=== PATIENT | male | born 1985 | race Caucasian/White ===

== ENCOUNTER 2017-12-09 17:21 | Emergency (ER) | payer MEDICARE, SELFPAY ==
[2017-12-09 17:23] VITALS: BP 176/83; PULSE 98; RESP 16; TEMP 37; O2SAT 98; BMI 37.9
--- NOTE | 2017-12-09 17:35 | EKG12_ITS ---
Test Reason : LIGHTHEADED Blood Pressure : / mmHG Vent. Rate : 085 BPM Atrial Rate : 085 BPM P-R Int : 134 ms QRS Dur : 076 ms QT Int : 326 ms P-R-T Axes : 019 020 015 degrees QTc Int : 387 ms Normal sinus rhythm Normal ECG Confirmed by UDAY HUBER ([id number]), newspaper or periodical editor VITOR MORENO ([id number]) on 12/11/2017 2:17:51 PM Referred By: CALEB Confirmed By:UDAY HUBER
--- NOTE | 2017-12-09 17:38 | ED.VISSUMM ---
- ER Visit Summary Date of Service: 12/09/17 Chief Complaint: Near syncope History of Present Illness: The patient is a 32 M history of hypertension, COPD depression and sleep apnea. Patient states he had a gradual onset of near syncope today. He did not pass out. He does have a mild headache thinks that secondary to his blood pressure. States he has been taking blood pressure medication. Denies any head trauma. No family history of intracranial bleeds or aneurysms. He denies any trouble moving his arms or legs nor any numbness or weakness. Denies any nausea, vomiting, diarrhea or fever. No recent chest pain or shortness of breath. Physical Examination: Well appearing young male. Vital signs are stable afebrile blood pressure 176/83. Pulse is 90% room air no signs of hypoxia. H EENT exam atraumatic pupils round reactive light. No facial droop. Normal speech. Neck nontender no meningismus able to touch chin to chest. No lymphadenopathy. Lungs clear to auscultation bilaterally. Heart regular rate and rhythm no murmur. Abdomen soft nontender nondistended no giving or masses. Extremities moves all 4. Calves nontender no edema no cords neurologic exam is normal NIH is 0. Fingertip to nose heel wild within normal limits. 5 out of 5 home health provider strength equal and symmetrical. Equal symmetrical radial pulse. Dorsi plantar flexion intact. [id number] within normal limits. No facial droop. Normal speech. He has no focal motor or sensory deficits. Back exam normal. Test Results: CBC showed white count 13.8 H&H 16 and 49. BMP normal. EKG sinus rhythm rate 85 no acute abnormality. No change from prior. Orthostatic vital signs were negative. Patient was ambulated by nursing staff no problems walking or any ataxia. Repeat exam in 194 is doing well. Headache has resolved. His neurologic exam and other exam remains normal. Emergency Department Course and Treatment: Patient complained near syncope with a normal exam. Will undergo screening labs and EKG be ambulated and orthostatic vital signs be obtained Treatment Plan: Discharged to home. Follow-up his primary care physician. Disposition: Discharge Impression: Acute near syncope of uncertain etiology This note was generated with [employer] dictation software. It may contain incorrect words, spelling, and punctuation that were not noted in review of the chart prior to signing ED Disposition - Plan for ED Patient: Chief Complaint: Dizziness Referrals: Care Physician,No Primary [NON-STAFF] -
--- NOTE | 2017-12-09 17:41 | ED.DCSUM_ITS ---
- ER Visit Summary Date of Service: 12/09/17 Chief Complaint: Near syncope History of Present Illness: The patient is a 32 M history of hypertension, COPD depression and sleep apnea. Patient states he had a gradual onset of near syncope today. He did not pass out. He does have a mild headache thinks that secondary to his blood pressure. States he has been taking blood pressure medication. Denies any head trauma. No family history of intracranial bleeds or aneurysms. He denies any trouble moving his arms or legs nor any numbness or weakness. Denies any nausea, vomiting, diarrhea or fever. No recent chest pain or shortness of breath. Physical Examination: Well appearing young male. Vital signs are stable afebrile blood pressure 176/83. Pulse is 90% room air no signs of hypoxia. H EENT exam atraumatic pupils round reactive light. No facial droop. Normal speech. Neck nontender no meningismus able to touch chin to chest. No lymphadenopathy. Lungs clear to auscultation bilaterally. Heart regular rate and rhythm no murmur. Abdomen soft nontender nondistended no giving or masses. Extremities moves all 4. Calves nontender no edema no cords neurologic exam is normal NIH is 0. Fingertip to nose heel wild within normal limits. 5 out of 5 irb compliance coordinator strength equal and symmetrical. Equal symmetrical radial pulse. Dorsi plantar flexion intact. [id number]-ul-[id number] within normal limits. No facial droop. Normal speech. He has no focal motor or sensory deficits. Back exam normal. Test Results: CBC showed white count 13.8 H&H 16 and 49. BMP normal. EKG sinus rhythm rate 85 no acute abnormality. No change from prior. Orthostatic vital signs were negative. Patient was ambulated by nursing staff no problems walking or any ataxia. Repeat exam in 194 is doing well. Headache has resolved. His neurologic exam and other exam remains normal. Emergency Department Course and Treatment: Patient complained near syncope with a normal exam. Will undergo screening labs and EKG be ambulated and orthostatic vital signs be obtained Treatment Plan: Discharged to home. Follow-up his primary care physician. Disposition: Discharge Impression: Acute near syncope of uncertain etiology This note was generated with [employer] dictation software. It may contain incorrect words, spelling, and punctuation that were not noted in review of the chart prior to signing ED Disposition - Plan for ED Patient: Chief Complaint: Dizziness Referrals: Care Physician,No Primary [NON-STAFF] -
[2017-12-09 18:05] VITALS: BP 120/62; BP 122/71; BP 126/88; PULSE 79; PULSE 84; PULSE 87
[2017-12-09 18:10] VITALS: O2SAT 98
[2017-12-09 18:13] LABS: Absolute Lymphocyte Count 3.23 X10^3/ul (0.83-4.51); Absolute Neutrophil Count 8.5 X10^3/uL (2.0-7.7); Basophil# 0.03 X10^3/uL; Basophil% 0.2 % (0-1); Eosinophils% 2.9 % (0-5); Hematocrit 49.3 % (40-54); Hemoglobin 16.9 g/dl (13.0-16.5); Lymphocyte # 3.23 X10^3/ul (4.0); Lymphocyte % 23.3 % (19-41); Mean Corp Hgb Conc 34.3 g/gl (32-36); Mean Corpuscular Hgb 30.2 pg (27.0-32.0); Mean Platelet Vol. 10.3 fl (6.2-12.0); Monocyte# 1.63 X10^3/uL; Monocyte% 11.8 % (0-10); Neutrophil # 8.53 X10^3/uL (2.7-7.7); Neutrophil % 61.7 % (47-70); Platelet Count 364 K/mm3 (150-450); RBC Distribution Width CV 12.9 % (11.6-14.6); RBC Distribution Width SD 41.8 fl (35.1-43.9); White Blood Count 13.8 K/mm3 (4.4-11.0)
[2017-12-09 18:14] LABS: Differential Indicated SCAN CRITERIA MET; POSITIVE COUNT NO; POSITIVE DIFFERENTIAL YES; POSITIVE MORPHOLOGY NO
[2017-12-09] MEDS: Acetaminophen 500 MG Tablet 1000 MG PO (18:24)
[2017-12-09 18:26] LABS: Anion Gap 9 (5-15); BUN 6 mg/dL (7-18); BUN/Creat Ratio 7.4 RATIO (10-20); Calcium,Total 8.8 mg/dL (8.5-10.1); Chloride 103 mmol/L (98-107); Creatinine, Serum 0.81 mg/dL (0.70-1.30); EST Glomerular Filtration Rate 116 mL/min (>60); Est Glom Filt Rate - Afr Amer 141 mL/min (>60); Estimated Creatinine Clearance 103.42 ml/min; Glucose 83 mg/dL (74-106); Potassium 4.1 mmol/L (3.5-5.1); Sodium Level 139 mmol/L (136-145)
[2017-12-09 18:32] LABS: Differential Comment SCANNED
[2017-12-09 19:30] VITALS: BP 127/85
[2017-12-09 19:49] VITALS: BP 117/54; PULSE 82; RESP 16; O2SAT 98
--- NOTE | 2017-12-09 20:14 | ED.DEP ---
ED Disposition - Plan for ED Patient: Disposition: Home or Assisted Living Chief Complaint: Dizziness Instructions: ED Near Syncope Unkn Referrals: Care Physician,No Primary [NON-STAFF] - As Needed
== END 2017-12-09 20:23 | disposition home or self-care (01) ==
PROVIDERS: Emergency Provider Emergency Medicine
DX: R55 Syncope and collapse (principal); I10 Essential (primary) hypertension; J44.9 Chronic obstructive pulmonary disease, unspecified; F32.9 Major depressive disorder, single episode, unspecified; G47.30 Sleep apnea, unspecified; F17.200 Nicotine dependence, unspecified, uncomplicated; Z98.52 Vasectomy status; Z79.899 Other long term (current) drug therapy
CPT/HCPCS: 80048; 85025; 93005; 99285

== ENCOUNTER 2018-03-14 11:36 | Emergency (ER) | payer MEDICARE, SELFPAY ==
[2018-03-14 11:37] VITALS: BP 139/69; BP 142/87; PULSE 79; PULSE 86; RESP 18; RESP 19; TEMP 37.1; O2SAT 99; BMI 36.1
--- NOTE | 2018-03-14 12:44 | RAD_ITS ---
STUDY: X-RAY - LEFT KNEE REASON FOR EXAM: Male, 32 years old. Knee pain. TECHNIQUE: 4 view(s) of the knee. COMPARISON: None. FINDINGS: Normal visualized distal femur. Normal visualized proximal tibia and fibula. Normal proximal tibiofibular articulation. Normal medial femorotibial compartment. Normal lateral femorotibial compartment. Normal patellofemoral articulation. The soft tissue structures are unremarkable. RAD/Knee 4 or More Views IMPRESSION: No evidence of acute osseous abnormality. Electronically Signed: Brenden Alexis DO at 13:12 EDT , Service support ,
--- NOTE | 2018-03-14 12:45 | ED.VISSUMM ---
- ER Visit Summary Date of Service: 03/14/18 Chief Complaint: Knee injury History of Present Illness: The patient is a 32 M who fell onto his left knee after his sandal slipped and he fell directly onto the knee onto hardwood floors. He is able to ambulate. Physical Examination: Afebrile vital signs are stable There is a abrasion over the anterior left knee. There is no joint effusion. There is no significant hematoma or swelling. Ligament are stable. Test Results: X-rays were negative. Emergency Department Course and Treatment: She received Motrin and ice pack. Patient will be discharged home with supportive care. Follow-up with primary care if not improved in 14 days Impression: 1. Left knee abrasion and contusion This note was generated with [employer] dictation software. It may contain incorrect words, spelling, and punctuation that were not noted in review of the chart prior to signing ED Disposition - Plan for ED Patient: Disposition: Home or Assisted Living Chief Complaint: Lower Extremity Injury Instructions: ED Contusion Lower Ext Referrals: [facility] Doctor,Out of [Primary Care Provider] - 10-14 Days if not better
[2018-03-14] MEDS: Ibuprofen 600 MG Tablet PO (13:50)
== END 2018-03-14 13:56 | disposition home or self-care (01) ==
PROVIDERS: Emergency Provider Emergency Medicine
DX: S80.212A Abrasion, left knee, initial encounter (principal); S80.02XA Contusion of left knee, initial encounter; W19.XXXA Unspecified fall, initial encounter; Y93.9 Activity, unspecified; Y92.9 Unspecified place or not applicable; J44.9 Chronic obstructive pulmonary disease, unspecified; G40.909 Epilepsy, unspecified, not intractable, without status epilepticus; Z79.899 Other long term (current) drug therapy
CPT/HCPCS: 73564; 99282

== ENCOUNTER 2018-03-17 22:42 | Emergency (ER) | payer MEDICARE, SELFPAY ==
[2018-03-17 22:43] VITALS: BP 162/96; PULSE 105; RESP 25; TEMP 37.2; O2SAT 99; BMI 35.4
--- NOTE | 2018-03-17 22:46 | EKG12_ITS ---
Test Reason : CP Blood Pressure : / mmHG Vent. Rate : 093 BPM Atrial Rate : 093 BPM P-R Int : 142 ms QRS Dur : 076 ms QT Int : 308 ms P-R-T Axes : 019 019 012 degrees QTc Int : 382 ms Normal sinus rhythm Poor R wave progression Confirmed by JACKIE BRASWELL, SHANA ([id number]), newspaper photo editor VITOR MORENO ([id number]) on 03/20/2018 1:20:51 PM Referred By: SATISH Confirmed By:SHANA MEJIA MD
[2018-03-17 22:50] VITALS: O2SAT 99
--- NOTE | 2018-03-17 22:50 | RAD_ITS ---
STUDY: X-RAY CHEST REASON FOR EXAM: Male, 32 years old. Gallbladder surgery. Chest pain TECHNIQUE: Single view of the chest was obtained COMPARISON: August 08, 2010 chest radiograph FINDINGS: No lung consolidation, pleural effusion or pneumothorax. Cardiac size is mildly prominent. Osseous structures demonstrate no acute abnormalities. IMPRESSION: No evidence for focal airspace disease. Electronically Signed: Newton Mensah, at 23:16 EDT Tel , Service support , RAD/Chest 1 View (Portable)
--- NOTE | 2018-03-17 22:50 | ED.DCSUM_ITS ---
- ER Visit Summary Date of Service: 03/17/18 Chief Complaint: Chest pain History of Present Illness: The patient is a 32 M presents to the emergency department chest pain. Patient had outpatient laparoscopic gallbladder removal done today at [facility]. He states that his surgery was not complicated. He was discharged back to his facility. At about 7 PM, he began to have tightness like a band across his upper abdomen and lower chest. He states it was worse when he would lay flat. He states it is better when he sits up. He denies any shortness of breath. He denies any cough. He denies any fevers or chills. His blood pressure was elevated at 160/90. He did take his pain medication and his blood pressure did not change but it did help his pain. He denies any history of coronary vascular disease. He denies any history of pulmonary embolus. Physical Examination: Vital signs reviewed General: Well-nourished, well-developed Head: Normocephalic, atraumatic Eyes: Pupils equal and reactive, extraocular muscles intact Neck, supple, no lymphadenopathy Heart: Regular rate and rhythm Respiratory: No distress, clear bilaterally Abdomen: Soft, appropriately tender at incisions, incisions are clean dry and intact, minimal distention, no peritoneal signs Back: Nontender Extremities: Nontender, no edema, no cords Skin: Normal color no rash Neuro: Alert and oriented, no focal or lateralizing deficits Test Results: [] Emergency Department Course and Treatment: Clinically, the patient's pain is consistent with retained CO2 after laparoscopic surgery. It is entirely positional. EKG was obtained. It was sinus rhythm without acute ischemic change. It was unchanged from prior. The patient has no dyspnea. He has no hypoxia. His surgery was 12 hours ago. I do not feel that his symptoms are consistent with pulmonary embolus. X-ray was unremarkable. Screening labs do show leukocytosis, but again the patient did have a large abdominal surgery and I do feel that this is reactive. I have no evidence of infection. His abdomen really is not significantly tender. I do not suspect biliary leak or other dangerous process. With analgesics, the patient is resting comfortably. He was counseled on retained CO2 and methods to improve his comfort. The patient will be discharged. Treatment Plan: [] Disposition: Discharge Impression: 1. Postoperative abdominal pain This note was generated with [employer] software. It may contain incorrect words, spelling, and punctuation that were not noted in review of the chart prior to signing ED Disposition - Plan for ED Patient: Chief Complaint: Chest Pain Instructions: ED Post Op Pain Referrals: [facility],Out of [Primary Care Provider] -
[2018-03-17 23:01] LABS: Absolute Neutrophil Count 22.8 X10^3/uL (2.0-7.7); Basophil# 0.01 X10^3/uL; Hematocrit 46.6 % (40-54); Hemoglobin 16.2 g/dl (13.0-16.5); Mean Corp Hgb Conc 34.8 g/gl (32-36); Mean Corpuscular Hgb 31.1 pg (27.0-32.0); Mean Corpuscular Volume 89.4 fL (80-94); Mean Platelet Vol. 10.6 fl (6.2-12.0); Monocyte# 0.89 X10^3/uL; Monocyte% 3.6 % (0-10); Neutrophil % 92.2 % (47-70); Platelet Count 426 K/mm3 (150-450); RBC Distribution Width CV 13.3 % (11.6-14.6); RBC Distribution Width SD 43.2 fl (35.1-43.9); Red Blood Count 5.21 M/mm3 (4.6-6.2); White Blood Count 24.7 K/mm3 (4.4-11.0)
[2018-03-17 23:02] LABS: Differential Indicated SCAN CRITERIA MET; POSITIVE COUNT NO; POSITIVE DIFFERENTIAL YES; POSITIVE MORPHOLOGY NO
[2018-03-17] MEDS: Morphine 4 MG/ML Syringe IV (23:14)
[2018-03-17] MEDS: Ondansetron 4 MG/2 ML Vial IV (23:14)
[2018-03-17] MEDS: 0.9% Normal Saline 1,000 ML 1000 ML IV (23:14)
[2018-03-17 23:17] LABS: Anion Gap 9 (5-15); BUN 7 mg/dL (7-18); BUN/Creat Ratio 7.4 RATIO (10-20); Calcium,Total 9.4 mg/dL (8.5-10.1); Chloride 101 mmol/L (98-107); Creatinine, Serum 0.94 mg/dL (0.70-1.30); EST Glomerular Filtration Rate 97 mL/min (>60); Est Glom Filt Rate - Afr Amer 117 mL/min (>60); Estimated Creatinine Clearance 89.12 ml/min; Glucose 140 mg/dL (74-106); Sodium Level 136 mmol/L (136-145)
[2018-03-17 23:28] VITALS: BP 149/78; PULSE 101; RESP 18; O2SAT 97
[2018-03-18 15:30] LABS: Pathologist Review Reviewed
== END 2018-03-17 23:34 | disposition home or self-care (01) ==
LOC: ED 23:02
PROVIDERS: Emergency Provider Emergency Medicine
DX: R10.10 Upper abdominal pain, unspecified (principal); Z90.49 Acquired absence of other specified parts of digestive tract; I10 Essential (primary) hypertension; G40.909 Epilepsy, unspecified, not intractable, without status epilepticus; Z79.899 Other long term (current) drug therapy
CPT/HCPCS: 71045; 80048; 84484; 85025; 93005; 96374; 96375; 99285; J7030; J2405

== ENCOUNTER → 2018-03-18 13:07 | Outpatient (CLI) | payer MEDICARE, SELFPAY ==
--- NOTE | 2018-03-18 13:00 | SP.MBSS_ITS ---
PRIMARY / SECONDARY DIAGNOSIS: dysphagia (R13.10) REFERRING PHYSICIAN: Dr. Barrera Brice MD CURRENT DIET: regular textures, thin liquids DENTITION: edentulous MENTAL STATUS: appropriate for participation RESPIRATORY STATUS: O2 via room air PREVIOUS MODIFIED BARIUM SWALLOW STUDY: none REASON FOR REFERRAL: Patient is a 32 year old male referred for a modified barium swallow (MBS) study to objectively assess the Patients oropharyngeal swallow function under fluoroscopy secondary to reported globus sensation occurring during / post intake, with the Patient unable to associate with texture. Patient accompanied to study by his caregiver, both deny any prior issues with pneumonia, both deny any additional overt or secondary signs of aspiration. 03/19/2018 barium esophagram scheduled. MEDICAL HISTORY: Chronic obstructive pulmonary disease, seizure disorder (Keppra), hypertension , near syncope, depression with prior suicidal ideations, sleep apnea. STUDY FINDINGS: Patient participated in a Modified Barium Swallow (MBS) study on 03/18/2018. Dr. Thrasher was the radiologist present for this evaluation. This study was recorded in the lateral view and images were sent to PACs for storage. The following consistencies were presented to this patient for analysis of oropharyngeal swallow function: thin liquids, pudding, and a regular textured, Kanwal Doone cookie. Results of the MBS are as follows: PENETRATION / ASPIRATION SCALE (DOMÍNGUEZ): 1 = does not enter airway 2 = enters airway/above vocal folds/ejected 3 = enters airway/above vocal folds/not ejected 4 = enters airway/contacts vocal folds/ejected 5 = enters airway/contacts vocal folds/not ejected 6 = enters airway/below vocal folds/ejected 7 = enters airway/below vocal folds/not ejected despite effort 8 = enters airway/below vocal folds/no effort PENETRATION / ASPIRATION SCALE (SCORE): Thin liquid - 5 mL tsp.: 1 Thin liquids via cup (single sip): 1 Thin liquids via cup (single sip): 1 Thin liquids via cup (single sip): 1 Thin liquids via cup (sequential swallows): 1 Thin liquids via straw (single sip): 1 Thin liquids via straw (sequential swallows): 1 Pudding via spoon: 1 Regular textured cookie: 1 Thin liquids via straw with 12mm tablet (sequential swallows): 1 Thin liquids via straw (sequential swallows): 1 IMPRESSION: DIAGNOSIS: mild oropharyngeal dysphagia (R13.12) ORAL PHASE CHARACTERIZED BY: LABIAL SEAL: no labial escape TONGUE CONTROL DURING BOLUS MANIPULATION: cohesive bolus between tongue to palatal seal BOLUS PREPARATION / MASTICATION: slow prolonged chewing/mashing with complete recollection (edentulous) BOLUS TRANSPORT / LINGUAL MOTION: brisk tongue motion ORAL RESIDUE: trace residue lining oral structures PHARYNGEAL PHASE CHARACTERIZED BY: INITIATION OF PHARYNGEAL SWALLOW: bolus head in pyriforms at first hyoid excursion SOFT PALATE ELEVATION: no bolus between soft palate and pharyngeal wall LARYNGEAL ELEVATION: partial superior movement of thyroid cartilage/partial approximation of arytenoids cartilage to epiglottic petiole ANTERIOR HYOID EXCURSION: partial anterior movement EPIGLOTTIC MOVEMENT: complete epiglottic inversion LARYNGEAL VESTIBULE CLOSURE AT HEIGHT OF SWALLOW: complete laryngeal vestibule closure with no air/contrast in laryngeal vestibule PHARYNGEAL STRIPPING WAVE: pharyngeal stripping wave present / complete PHARYNGOESOPHAGEAL SEGMENT OPENING: complete distension and complete duration with no obstruction of flow TONGUE BASE RETRACTION: no contrast between tongue base and posterior pharyngeal wall PHARYNGEAL RESIDUE: trace residue within or on pharyngeal structures ESOPHAGEAL PHASE CHARACTERIZED BY: ESOPHAGEAL BOLUS CLEARANCE IN THE UPRIGHT POSITION: complete clearance; esophageal coating DIET TEXTURE RECOMMENDATIONS: Will recommend a regular-soft textured, thin liquid diet. COMPENSATORY STRATEGIES RECOMMENDED: Reduced bolus volume, reduced rate of intake, seated upright at 90 degrees during PO intake, remain upright for 30-60 minutes post meal (GERD precaution) INTERPRETATION OF RESULTS: Patient presents with mild oropharyngeal dysphagia (R13.12) primarily marked by mastication inefficiency associated with chronic edentulous status in addition to impaired pharyngeal swallow onset timing resulting in suboptimal bolus location upon swallow onset without effect under fluoroscopy (though heightened risk for prandial penetration with thin liquids). No penetration or aspiration appreciated throughout trials, unable to definitively rule out silent aspiration; higher risk factor for silent aspiration secondary to diagnosis of chronic obstructive pulmonary disease. RECOMMENDATIONS: Patient and Patients caregiver able to comprehend and express recommended intake precautions detailed above with sufficient detail to suggest high likelihood of compliance. Provided brief overview of signs and symptoms of aspiration, with recommendations for the Patient to further discuss symptoms with PCP. No further skilled speech-language services warranted at this time targeting dysphagia. IMAGE COUNT: [id number] G-CODES: SWALLOWING [id number] Current Status: CI SWALLOWING G8997 Goal Status: CI SWALLOWING G8998 Discharge Status: CI
--- NOTE | 2018-03-18 13:12 | RAD_ITS ---
STUDY: SWALLOWING STUDY REASON FOR EXAM: Male, 32 years old. Dysphagia TECHNIQUE: The examination was performed with Speech Pathology in attendance. Under fluoroscopic observation, the patient ingested thin barium, thick barium, barium pudding, and barium coated cracker. FLUOROSCOPY TIME: 1:45 minutes/seconds RADIOLOGIST INVOLVEMENT: Radiologist was present during the procedure, providing fluoroscopy and did review the images. COMPARISON: None. FINDINGS: The following was observed during swallowing of the various mixtures of barium: Thin Barium: There was no evidence of aspiration or laryngeal penetration. Thick Barium: There was no evidence of aspiration or laryngeal penetration. Barium Pudding: There was no evidence of aspiration or laryngeal penetration. Barium Coated Cracker: There was no evidence of aspiration or laryngeal penetration. RAD/Swallowing Function w/Video IMPRESSION: Normal tailored barium swallow study. No evidence of increased risk for aspiration. The swallow study findings were discussed with the patient by the speech pathologist at the conclusion of the examination. Please see speech pathology report for more information and recommendations. The procedure was performed by [facility] speech therapist Electronically Signed: Noel Thrasher MD at 15:30 EDT , Service support ,
== END ==
PROVIDERS: Visit Provider Otolaryngology
DX: R13.10 Dysphagia, unspecified (principal)
CPT/HCPCS: 74230; 92611; G8996; G8997; G8998

== ENCOUNTER → 2018-03-19 08:23 | Outpatient (CLI) | payer MEDICARE, SELFPAY ==
--- NOTE | 2018-03-19 08:25 | RAD_ITS ---
STUDY: BARIUM ESOPHAGRAM REASON FOR EXAM: Male, 32 years old. Dysphagia RADIATION DOSAGE (If Supplied By Facility): CTDIvol = ( ) mGy, DLP = ( ) mGycm. Individualized dose optimization techniques were used for this CT.? FLUOROSCOPY TIME (if supplied): (0:45) minutes/seconds TECHNIQUE: Air-contrast COMPARISON: None. FINDINGS: Swallowing was initiated normally. No nasopharyngeal reflux or aspiration. No Zenker's diverticulum noted on the lateral view. Normal peristaltic activity noted in the esophagus. No evidence of stricture, mass lesion or obstruction. No evidence of hiatal hernia, there was a small amount of GE reflux. A 13 mm barium pill passed through the esophagus without difficulty. RAD/Esophagus Only IMPRESSION: GE reflux Electronically Signed: Noel Thrasher MD at 12:06 EDT , Service support ,
== END ==
PROVIDERS: Visit Provider Otolaryngology
DX: R13.10 Dysphagia, unspecified (principal)
CPT/HCPCS: 74220

== ENCOUNTER 2018-04-22 11:12 | Emergency (ER) | payer MEDICARE, SELFPAY ==
[2018-04-22 11:15] VITALS: BP 126/74; PULSE 83; RESP 17; TEMP 36.9; O2SAT 100
[2018-04-22 11:17] VITALS: BP 126/74; PULSE 76; RESP 18; TEMP 36.9; O2SAT 100; BMI 37.1
[2018-04-22 11:45] LABS: Absolute Lymphocyte Count 2.06 X10^3/ul (0.83-4.51); Absolute Neutrophil Count 6.6 X10^3/uL (2.0-7.7); Basophil# 0.03 X10^3/uL; Basophil% 0.3 % (0-1); Eosinophil# 0.23 X10^3/uL; Eosinophils% 2.3 % (0-5); Hematocrit 45.2 % (40-54); Hemoglobin 15.3 g/dl (13.0-16.5); Lymphocyte # 2.06 X10^3/ul (4.0); Lymphocyte % 20.5 % (19-41); Mean Corp Hgb Conc 33.8 g/gl (32-36); Mean Corpuscular Hgb 30.3 pg (27.0-32.0); Mean Corpuscular Volume 89.5 fL (80-94); Mean Platelet Vol. 10.6 fl (6.2-12.0); Monocyte# 1.16 X10^3/uL; Monocyte% 11.5 % (0-10); Neutrophil # 6.56 X10^3/uL (2.7-7.7); Neutrophil % 65.3 % (47-70); POSITIVE COUNT NO; POSITIVE DIFFERENTIAL NO; POSITIVE MORPHOLOGY NO; Platelet Count 305 K/mm3 (150-450); RBC Distribution Width CV 12.8 % (11.6-14.6); Red Blood Count 5.05 M/mm3 (4.6-6.2); White Blood Count 10.1 K/mm3 (4.4-11.0)
[2018-04-22] MEDS: 0.9% Normal Saline 1,000 ML 150 ML IV (12:01)
[2018-04-22 12:04] LABS: Anion Gap 6 (5-15); BUN 7 mg/dL (7-18); BUN/Creat Ratio 8.9 RATIO (10-20); Calcium,Total 8.8 mg/dL (8.5-10.1); Chloride 104 mmol/L (98-107); Creatinine, Serum 0.78 mg/dL (0.70-1.30); EST Glomerular Filtration Rate 120 mL/min (>60); Est Glom Filt Rate - Afr Amer 145 mL/min (>60); Glucose 93 mg/dL (74-106); Potassium 4.2 mmol/L (3.5-5.1); Sodium Level 140 mmol/L (136-145)
[2018-04-22 12:23] LABS: D-Dimer Quantitative (DVT/PE) 0.38 FEU/ug/m (0.27-0.49)
--- NOTE | 2018-04-22 12:40 | ED.VISSUMM ---
- ER Visit Summary Date of Service: 04/22/18 Chief Complaint: [] History of Present Illness: The patient is a 32 M [pain started 20 minutes prior to coming to the emergency department. Patient states that he was at rest when it started. Patient describes a mild shortness of breath with it. Patient states the pain was sharp and stabbing. Patient states the pain was worse with movement and deep breath. Patient states the pains actually currently improved and rates it about a 5 out of 10. Patient tells me he has had similar pain in the past with anxiety. Patient also states he has had some low back pain issues for the last month. Patient denies any pain radiating down his legs. He denies weakness the extremities. He denies any change in bowel or bladder function. He denies any injury to his back.] Physical Examination: [HEENT-PERRLA, EOMI. Cranial nerves II through XII grossly intact. TMs clear. Mucous membranes moist. No adenopathy. Cardiovascular-regular rate and rhythm without murmur or ectopy. Patient does have some tenderness over the sternum that seems to reproduce his pain. Lungs-clear to auscultation, chest wall stable without crepitus or subcu emphysema Abdomen-normoactive bowel sounds, soft, nontender, no rebound or rigidity, no peritoneal signs. Back exam-patient has some diffuse tenderness over lumbar paraspinal musculature bilaterally. Patient has negative straight leg raises. Deep tendon reflexes are plus out of 4 bilaterally at the patella and Achilles. Patient has normal L5 extension. Extremities-intact ?4, normal range of motion, normal pulses, atraumatic] Test Results: [EKG obtained on arrival showed a sinus rhythm with a ventricular rate of 74 bpm with no acute ST segment changes noted. CBC with differential was normal. Chemistries were normal. Troponin was less than 0.015. D-dimer was normal at 0.38. Chest x-ray showed nothing acute.] Emergency Department Course and Treatment: [Patient initially received aspirin] Treatment Plan: [Patient will be discharged home and advised follow-up with primary care physician 3-5 days. Patient's chest pain is atypical and do not feel his chest pain is cardiac in origin.] Patient will be given a prescription for [place] for pain Disposition: [Discharged home in stable condition] Impression: [Atypical chest pain Back pain] This note was generated with Dragon dictation software. It may contain incorrect words, spelling, and punctuation that were not noted in review of the chart prior to signing ED Disposition - Plan for ED Patient: Chief Complaint: Chest Pain Referrals: Care Physician,No Primary [Primary Care Provider] -
--- NOTE | 2018-04-22 12:43 | ED.DEP ---
ED Disposition - Plan for ED Patient: Chief Complaint: Chest Pain Instructions: ED Chest Pain Atypical Unkn Cause, ED Spasm Back No Trauma Prescriptions: Hydrocodone Bitart/Apap 5-325 [[place] 5MG-325MG] 1 tab PO Q4H PRN PRN 2 Days #10 tab PRN Reason: Pain Referrals: Care Physician,No Primary [Primary Care Provider] - Additional Instructions: see your doctor in 3-5 days
[2018-04-22 14:08] VITALS: BP 143/89; PULSE 77; RESP 17; O2SAT 100
== END 2018-04-22 14:10 | disposition home or self-care (01) ==
PROVIDERS: Emergency Provider Emergency Medicine
DX: R07.89 Other chest pain (principal); M54.5 Low back pain; R06.00 Dyspnea, unspecified; F41.9 Anxiety disorder, unspecified; F32.9 Major depressive disorder, single episode, unspecified; Z90.49 Acquired absence of other specified parts of digestive tract; Z79.899 Other long term (current) drug therapy; Z72.0 Tobacco use
CPT/HCPCS: 71045; 80048; 84484; 85025; 85379; 93005; 96360; 96361; 99285; J7030; A4216

== ENCOUNTER 2018-05-03 17:24 | Emergency (ER) | payer MEDICARE, MEDICAID, SELFPAY ==
[2018-05-03 17:26] VITALS: BP 143/72; PULSE 82; RESP 16; TEMP 36.7; O2SAT 97; BMI 35.3
--- NOTE | 2018-05-03 17:38 | ED.VISSUMM ---
- ER Visit Summary Date of Service: 05/03/18 Chief Complaint: Fall History of Present Illness: The patient is a 32 M who tripped over his dustpan fell. He cut himself with his left wrist which he can move with minimal pain and sustained a nasal bridge abrasion. No loss consciousness no vision changes no nausea or vomiting. No weakness or paresthesias. Physical Examination: Not appear in acute distress. Moist mucous membranes, no obvious facial deformity. There is a small abrasion bridge of the nose. Full range of motion of the eyes without any difficulty. No nasal septal hematoma No C-spine tenderness supple neck. Regular rate and rhythm without any obvious murmurs Clear lungs bilaterally speaking in full sentences without any obvious respiratory distress Abdomen soft and nontender no guarding or rebound Moves all extremities without any difficulty or pain. There is an ice pack over his left wrist, however examination of the left wrist reveals full range of motion without any snuffbox tenderness without any pain to range of motion. Skin does not show any obvious rashes or lesions, no trauma. Alert oriented ?3 with no gross focal deficit Emergency Department Course and Treatment: Patient does not meet criteria for CT or any kind imaging, he may have sustained a small concussion but he does not meet criteria for CT, he appears well he is reassured and will be discharged in stable condition Discharge stable condition Impression: Fall Concussion without loss consciousness This note was generated with [employer] dictation software. It may contain incorrect words, spelling, and punctuation that were not noted in review of the chart prior to signing ED Disposition - Plan for ED Patient: Disposition: Home or Assisted Living Chief Complaint: Fall Instructions: ED Mechanical Fall Referrals: Care Physician,No Primary [Primary Care Provider] - 3-5 Days
== END 2018-05-03 18:07 | disposition home or self-care (01) ==
PROVIDERS: Emergency Provider Emergency Medicine; Family Provider Family Medicine; PCP Family Medicine
DX: S06.0X0A Concussion without loss of consciousness, initial encounter (principal); S00.31XA Abrasion of nose, initial encounter; R40.2410 Glasgow coma scale score 13-15, unspecified time; M25.532 Pain in left wrist; W18.09XA Striking against other object with subsequent fall, initial encounter; Y93.9 Activity, unspecified; Y92.9 Unspecified place or not applicable; J44.9 Chronic obstructive pulmonary disease, unspecified; G40.909 Epilepsy, unspecified, not intractable, without status epilepticus; Z79.899 Other long term (current) drug therapy; Z72.0 Tobacco use
CPT/HCPCS: 99284

== ENCOUNTER 2018-05-04 15:09 | Emergency (ER) | payer MEDICARE, MEDICAID, SELFPAY ==
[2018-05-04 15:11] VITALS: BP 142/95; PULSE 79; RESP 16; TEMP 37; O2SAT 98; BMI 35.4
--- NOTE | 2018-05-04 15:53 | ED.RN ---
PT WAS SEEN LAST NIGHT FOR THE SAME, WANTS A SECOND OPINION CAUSE HE DOES NOT FEEL LIKE THE DR DID ANYTHING.
--- NOTE | 2018-05-04 16:01 | RAD_ITS ---
STUDY: X-RAY - LEFT WRIST REASON FOR EXAM: Male, 32 years old. Posttraumatic pain TECHNIQUE: 3 view(s) of the wrist were obtained. COMPARISON: None. FINDINGS: Normal visualized distal radius and ulna. Normal radiocarpal articulation. Normal distal radioulnar articulation. Normal carpal bones. Normal carpal articulations. Normal carpometacarpal articulation of the thumb. Normal second through fifth carpometacarpal articulations. Normal visualized metacarpal bones. The soft tissue structures are unremarkable. RAD/Wrist min 3 Views IMPRESSION: Normal x-ray examination of the wrist. Electronically Signed: Domenico Maldonado MD at 16:55 EDT , Service support ,
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
--- NOTE | 2018-05-04 16:52 | DCINST.ED_ITS ---
ED Disposition - Plan for ED Patient: Chief Complaint: Other, Pain/Inj Instructions: ED Contusion Nasal Vs Fx No X Ray, ED Sprain Wrist Prescriptions: Hydrocodone Bitart/Apap 5-325 [[place] 5MG-325MG] 1 tab PO Q4H PRN PRN 2 Days #10 tab PRN Reason: Pain Referrals: Domenico Veliz MD [Primary Care Provider] - 5-7 Days
[2018-05-04 17:03] VITALS: RESP 16
== END 2018-05-04 17:04 | disposition home or self-care (01) ==
LOC: ED 16:09
PROVIDERS: Emergency Provider Emergency Medicine; Family Provider Family Medicine; PCP Family Medicine
DX: S63.502A Unspecified sprain of left wrist, initial encounter (principal); S00.33XA Contusion of nose, initial encounter; S00.31XA Abrasion of nose, initial encounter; W18.09XA Striking against other object with subsequent fall, initial encounter; Y93.9 Activity, unspecified; Y92.9 Unspecified place or not applicable; G40.909 Epilepsy, unspecified, not intractable, without status epilepticus; G47.30 Sleep apnea, unspecified; J44.9 Chronic obstructive pulmonary disease, unspecified; F32.9 Major depressive disorder, single episode, unspecified; Z90.49 Acquired absence of other specified parts of digestive tract; Z79.899 Other long term (current) drug therapy; Z72.0 Tobacco use
CPT/HCPCS: 73110; 99283

== ENCOUNTER 2018-05-23 18:26 | Emergency (ER) | payer MEDICARE, MEDICAID, SELFPAY ==
[2018-05-23 18:26] VITALS: BP 147/87; PULSE 73; RESP 15; TEMP 36.4; O2SAT 100; BMI 35.4
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
--- NOTE | 2018-05-23 19:33 | ED.DEP ---
ED Disposition - Plan for ED Patient: Disposition: Home or Assisted Living Chief Complaint: Lower Extremity Injury Instructions: ED Contusion Hip, ED Contusion Upper Ext, ED Head Injury Closed Referrals: Domenico Veliz MD [Primary Care Provider] - 1 Week
[2018-05-23] MEDS: Ibuprofen 600 MG Tablet PO (19:44)
[2018-05-23 19:46] VITALS: BP 158/90; PULSE 79; RESP 18; O2SAT 96
== END 2018-05-23 19:47 | disposition home or self-care (01) ==
PROVIDERS: Emergency Provider Emergency Medicine; Family Provider Family Medicine; PCP Family Medicine
DX: S40.022A Contusion of left upper arm, initial encounter (principal); S70.01XA Contusion of right hip, initial encounter; S00.01XA Abrasion of scalp, initial encounter; S50.312A Abrasion of left elbow, initial encounter; M54.5 Low back pain; V03.99XA Pedestrian with other conveyance injured in collision with car, pick-up truck or van, unspecified whether traffic or nontraffic accident, initial encounter; Y93.9 Activity, unspecified; Y92.9 Unspecified place or not applicable; J44.9 Chronic obstructive pulmonary disease, unspecified; I10 Essential (primary) hypertension; E78.00 Pure hypercholesterolemia, unspecified; G40.909 Epilepsy, unspecified, not intractable, without status epilepticus; G47.33 Obstructive sleep apnea (adult) (pediatric); F41.9 Anxiety disorder, unspecified; F32.9 Major depressive disorder, single episode, unspecified; Z90.49 Acquired absence of other specified parts of digestive tract; Z79.899 Other long term (current) drug therapy; Z72.0 Tobacco use
CPT/HCPCS: 72040; 73080; 73502; 99284

== ENCOUNTER 2018-06-20 23:15 | Emergency (ER) | payer MEDICARE, MEDICAID, SELFPAY ==
[2018-06-20 23:16] VITALS: BP 170/98; PULSE 99; RESP 17; TEMP 37.2; O2SAT 100; BMI 35.6
[2018-06-20 23:18] VITALS: O2SAT 100
--- NOTE | 2018-06-20 23:18 | RAD_ITS ---
STUDY: X-RAY CHEST REASON FOR EXAM: Male, 32 years old. Chest pain TECHNIQUE: Single AP portable view of the chest. COMPARISON: Previous study of April 22, 2018 FINDINGS: surveillance monitor leads are present. There is a limited inspiration. There is no demonstrated pleural abnormality. Normal size heart. Normal mediastinum and darian. Normal visualized pulmonary arteries. Normal visualized aortic arch and descending thoracic aorta. Normal visualized thoracic spine. Normal visualized ribs, clavicles, and shoulders. There is no demonstrated abnormality of the visualized soft tissue structures of the upper abdomen. RAD/Chest 1 View (Portable) IMPRESSION: Limited inspiration. No acute cardiopulmonary disease process is seen. Chest findings are stable from the previous study. Electronically Signed: Lambert Gonzalez MD at 23:44 EDT , Service support ,
--- NOTE | 2018-06-20 23:18 | EKG12_ITS ---
Test Reason : CP Blood Pressure : / mmHG Vent. Rate : 096 BPM Atrial Rate : 096 BPM P-R Int : 140 ms QRS Dur : 074 ms QT Int : 308 ms P-R-T Axes : 025 023 008 degrees QTc Int : 389 ms Normal sinus rhythm Poor R wave progression Confirmed by JACKIE BRASWELL, SHANA ([id number]), sound editor VITOR MORENO ([id number]) on 06/23/2018 10:10:51 AM Referred By: RUDOLPH Confirmed By:SHANA MEJIA MD
--- NOTE | 2018-06-20 23:22 | ED.DCSUM_ITS ---
- ER Visit Summary Date of Service: 06/20/18 Chief Complaint: Chest pain History of Present Illness: The patient is a 32 M who presents with chest pain. Started earlier today. It sharp in the substernal area. It does not radiate. He has associated dyspnea with this. Nothing makes his symptoms better or worse. He denies any history of any cardiac issues. He does have a history of COPD. He also stepped on a kitchen fork today. He went through his shoe. He sustained a puncture wound on the left foot. His last tetanus was 1 month ago. He does have a history of sleep apnea as well as anxiety. Physical Examination: Vital signs reviewed. HEENT exam unremarkable. Heart is regular rate and rhythm without murmurs. Lungs are clear to auscultation. He does have sternal noticed to palpation. Abdomen is soft and nontender. Extremities reveal no edema. Peripheral pulses are equal. Skin exam shows a small puncture wound on the ball of the left foot. There is no surrounding erythema or bleeding at this time. Neurologic exam normal. Test Results: EKG is sinus rhythm with rate of 96. No ST changes. Chest x-ray reveals chronic changes. White blood cell count 16,000. Electrolytes and troponin normal. Emergency Department Course and Treatment: Patient was treated with aspirin. His pain is sharp and reproducible. I do not feel is cardiac. I will treat him with Cipro because the puncture wound went through a shoe. I do not feel he needs admission to the hospital. He will follow-up with his PCP Treatment Plan: [] Disposition: Discharge Impression: Chest pain?noncardiac, puncture wound, left foot This note was generated with [employer] dictation software. It may contain incorrect words, spelling, and punctuation that were not noted in review of the chart prior to signing ED Disposition - Plan for ED Patient: Chief Complaint: Chest Pain Referrals: Domenico Veliz MD [Primary Care Provider] -
[2018-06-20] MEDS: Aspirin 81 MG TAB.CHEW 324 MG PO (23:26)
[2018-06-20 23:55] LABS: Absolute Lymphocyte Count 3.18 X10^3/ul (0.83-4.51); Absolute Neutrophil Count 10.7 X10^3/uL (2.0-7.7); Basophil# 0.07 X10^3/uL; Basophil% 0.4 % (0-1); Eosinophil# 0.38 X10^3/uL; Eosinophils% 2.4 % (0-5); Hematocrit 50.4 % (40-54); Hemoglobin 17.6 g/dl (13.0-16.5); Lymphocyte # 3.18 X10^3/ul (4.0); Lymphocyte % 19.9 % (19-41); Mean Corp Hgb Conc 34.9 g/gl (32-36); Mean Corpuscular Hgb 30.2 pg (27.0-32.0); Mean Corpuscular Volume 86.4 fL (80-94); Mean Platelet Vol. 12.1 fl (6.2-12.0); Monocyte# 1.55 X10^3/uL; Monocyte% 9.7 % (0-10); Neutrophil # 10.71 X10^3/uL (2.7-7.7); Neutrophil % 67.2 % (47-70); Platelet Count 72 K/mm3 (150-450); RBC Distribution Width SD 40.7 fl (35.1-43.9); Red Blood Count 5.83 M/mm3 (4.6-6.2)
[2018-06-21 00:06] LABS: POSITIVE COUNT NO; POSITIVE DIFFERENTIAL YES; POSITIVE MORPHOLOGY NO
[2018-06-21 00:07] LABS: Differential Indicated SCAN CRITERIA MET
[2018-06-21 00:16] LABS: Anion Gap 5 (5-15); BUN 14 mg/dL (7-18); BUN/Creat Ratio 19.9 RATIO (10-20); Calcium,Total 9.2 mg/dL (8.5-10.1); Chloride 104 mmol/L (98-107); EST Glomerular Filtration Rate 136 mL/min (>60); Est Glom Filt Rate - Afr Amer 164 mL/min (>60); Estimated Creatinine Clearance 119.67 ml/min; Glucose 97 mg/dL (74-106); Potassium 4.6 mmol/L (3.5-5.1); Sodium Level 138 mmol/L (136-145)
[2018-06-21 00:33] VITALS: BP 153/88; PULSE 96; RESP 26; O2SAT 100
[2018-06-21 00:35] LABS: Differential Comment SCANNED
--- NOTE | 2018-06-21 00:35 | ED.DEP ---
ED Disposition - Plan for ED Patient: Disposition: Home or Assisted Living Chief Complaint: Chest Pain Instructions: ED Chest Pain NonCardiac Prescriptions: Ciprofloxacin [Cipro] 500 mg PO BID #14 tab Referrals: Domenico Veliz MD [Primary Care Provider] -
[2018-06-21] MEDS: Ciprofloxacin 500 MG Tablet PO (00:48)
[2018-06-22 15:19] LABS: Pathologist Review Reviewed
== END 2018-06-21 00:49 | disposition home or self-care (01) ==
PROVIDERS: Emergency Provider Emergency Medicine; Family Provider Family Medicine; PCP Family Medicine
DX: R07.89 Other chest pain (principal); R06.00 Dyspnea, unspecified; S91.332A Puncture wound without foreign body, left foot, initial encounter; W22.8XXA Striking against or struck by other objects, initial encounter; Y93.9 Activity, unspecified; Y92.9 Unspecified place or not applicable; J44.9 Chronic obstructive pulmonary disease, unspecified; G40.909 Epilepsy, unspecified, not intractable, without status epilepticus; G47.30 Sleep apnea, unspecified; F41.9 Anxiety disorder, unspecified; Z79.899 Other long term (current) drug therapy; Z72.0 Tobacco use
CPT/HCPCS: 71045; 80048; 84484; 85025; 93005; 99285; J7030; A4216

== ENCOUNTER 2018-06-28 06:11 | Emergency (ER) | payer MEDICARE, MEDICAID, SELFPAY ==
[2018-06-28 06:11] VITALS: BP 165/108; PULSE 85; RESP 16; TEMP 37.1; O2SAT 99; BMI 35.6
--- NOTE | 2018-06-28 06:13 | EKG12_ITS ---
Test Reason : CP Blood Pressure : / mmHG Vent. Rate : 078 BPM Atrial Rate : 078 BPM P-R Int : 150 ms QRS Dur : 082 ms QT Int : 334 ms P-R-T Axes : 021 049 -11 degrees QTc Int : 380 ms Normal sinus rhythm T wave abnormality, consider inferior ischemia Abnormal ECG Confirmed by DOROTHY BRASWELL, JONATHAN ([id number]), greeting card editor VITOR MORENO ([id number]) on 06/29/2018 3:49:58 PM Referred By: KIRAN Confirmed By:JONATHAN DE LA CRUZ MD
--- NOTE | 2018-06-28 06:13 | RAD_ITS ---
HISTORY: Injury. Left foot pain Comparison: None Findings: No fracture, dislocation, or bony abnormality. Joint spaces appear preserved. The plantar arch is maintained. No radiopaque foreign body. IMPRESSION: Negative exam. No fracture or other abnormality seen. at 0714 Reported and signed by: Merrill Roca MD Electronically Signed: Merrill Roca, at 7:12 EST Tel , Service support , RAD/Foot min 3 Views
--- NOTE | 2018-06-28 06:14 | ED.VISSUMM ---
- ER Visit Summary Date of Service: 06/28/18 Chief Complaint: Chest pain, foot pain History of Present Illness: The patient is a 32 M presents to the emergency department with intermittent, sharp, stabbing pain in his right chest. States it is worse when he pushes on it. He denies being short of breath. The patient was seen here about a week ago for the same complaints. At that time, he had normal cardiac enzymes and a normal EKG. He also is complaining of left foot pain. The patient stepped on a fork about a week ago. He was placed on Cipro. He states he completed the treatment, but is still having some pain. He is worried that he may have broken his foot. He denies any fevers or chills. Denies any shortness of breath. He has no history of pulmonary embolus. Physical Examination: Vital signs reviewed General: Well-nourished, well-developed Head: Normocephalic, atraumatic Eyes: Pupils equal and reactive, extraocular muscles intact Neck, supple, no lymphadenopathy Heart: Regular rate and rhythm Respiratory: No distress, clear bilaterally, tenderness in the right upper chest with palpation, no rash Abdomen: Soft, nontender, nondistended, no peritoneal signs Back: Nontender Extremities: Nontender, no edema, no cords Skin: Normal color no rash Neuro: Alert and oriented, no focal or lateralizing deficits Test Results: [] Emergency Department Course and Treatment: The patient's pain does not seem cardiac. He has reproducible right-sided chest tenderness. He is also PE RC negative. The patient has had recent negative cardiac enzymes. I did obtain an EKG. This demonstrates T wave inversion inferiorly which is unchanged from prior. Chest x-ray was also obtained. This is unremarkable. Again, my suspicion for acute coronary syndrome or cardiac cause of his pain is very very low. I obtained a x-ray of the patient's foot given his persistent pain. There is no cellulitis or edema of the foot. His x-ray shows no fracture. At this time, the patient will be discharged. He does have follow-up in place this week with pulmonary due to his diagnosis of COPD. He is counseled on concerning symptoms and reasons to return. He will be discharged home. Treatment Plan: [] Disposition: Discharge Impression: 1. Atypical chest pain 2. Left foot pain status post puncture This note was generated with Dragon dictation software. It may contain incorrect words, spelling, and punctuation that were not noted in review of the chart prior to signing ED Disposition - Plan for ED Patient: Chief Complaint: Chest Pain Instructions: ED Chest Pain NonCardiac Prescriptions: Naproxen [Naprosyn] 500 mg PO BID PRN #20 tab Referrals: Domenico Veliz MD [Primary Care Provider] -
[2018-06-28] MEDS: Naproxen 500 MG Tablet PO (06:20)
[2018-06-28 06:44] VITALS: RESP 14
--- NOTE | 2018-06-28 06:45 | RAD_ITS ---
HISTORY: Chest pain Comparison: 06/20/2018 Findings: No significant change. EKG leads in place with limited inspiration. The heart appears normal in size. No vascular congestion, pleural effusion, or acute bony infiltration. No pneumothorax. The bony thorax appears intact. Surgical clips in the region of the gallbladder fossa. IMPRESSION: No definite acute disease or significant change. at 0710 Reported and signed by: Merrill Roca MD Electronically Signed: Merrill Roca, at 7:08 EST Tel , Service support , RAD/Chest PA and Lateral
[2018-06-28 07:21] VITALS: BP 156/91; PULSE 86; RESP 16; O2SAT 97
--- NOTE | 2018-06-28 07:21 | ED.RN ---
DISCHARGE INSTRUCTIONS GIVEN TO AND REVIEWED WITH PATIENT, PATIENT DENIES QUESTIONS OR CONCERNS AND VOICES UNDERSTANDING OF DISCHARGE INSTRUCTIONS. PT AMBULATES OUT OF ROOM WITHOUT DIFFICULTY.
== END 2018-06-28 07:22 | disposition home or self-care (01) ==
LOC: ED 06:35
PROVIDERS: Emergency Provider Emergency Medicine; Family Provider Family Medicine; PCP Family Medicine
DX: R07.89 Other chest pain (principal); M25.572 Pain in left ankle and joints of left foot; J44.9 Chronic obstructive pulmonary disease, unspecified; G40.909 Epilepsy, unspecified, not intractable, without status epilepticus; Z79.899 Other long term (current) drug therapy; Z72.0 Tobacco use
CPT/HCPCS: 71046; 73630; 93005; 99284

== ENCOUNTER → 2018-07-01 08:58 | Outpatient (CLI) | payer MEDICARE, MEDICAID, SELFPAY ==
[2018-07-01 09:32] VITALS: PULSE 73; PULSE 76; PULSE 93; PULSE 96; PULSE 97; PULSE 98; O2SAT 93; O2SAT 94; O2SAT 95; O2SAT 96; O2SAT 99
--- NOTE | 2018-07-01 13:21 | PCM.PSN.6M ---
PSN 6 Minute Walk Test - 6 Minute Walk Test 6 Minute Walk Test: 6 Minute Walk Test PSN:6-Minute Walk Test Start: 07/01/18 09:32 Freq: Status: Active Protocol: RESP.6MINW Document 07/01/18 09:32 MARCIE (Rec: 07/01/18 09:41 MARCIE [id number]) 6 Minute Walk Test Date Performed 07/01/18 Time Performed 09:15 Height 5 ft 3 in Weight: 210 lb Weight in Pounds [address]: Ganesh Toussaint Assistive device used: None Pre-test Oxygen Delivery Method Room Air Pulse Ox (%) 99 Pulse Rate (60-100 beats/min) 73 Dyspnea Gorge Scale (0-10) 0 Exertion Gorge Scale (6-20) 6 1st minute Oxygen Delivery Method Room Air Pulse Ox (%) 95 Pulse Rate (60-100 beats/min) 93 2nd minute Oxygen Delivery Method Room Air Pulse Ox (%) 93 Pulse Rate (60-100 beats/min) 96 3rd minute Oxygen Delivery Method Room Air Pulse Ox (%) 94 Pulse Rate (60-100 beats/min) 97 4th minute Oxygen Delivery Method Room Air Pulse Ox (%) 95 Pulse Rate (60-100 beats/min) 97 5th minute Oxygen Delivery Method Room Air Pulse Ox (%) 96 Pulse Rate (60-100 beats/min) 98 6th minute Oxygen Delivery Method Room Air Pulse Ox (%) 95 Pulse Rate (60-100 beats/min) 97 Dyspnea Gorge Scale (0-10) 1 Exertion Gorge Scale (6-20) 13 Post-test Oxygen Delivery Method Room Air Pulse Ox (%) 99 Pulse Rate (60-100 beats/min) 76 Full Laps Walked 17 Partial Lap, Number of Tiles Walked 15 Total Distance Walked (ft) 1018 - Interpretation Interpretation: The patient ambulated 1018 feet over the course of 6 minutes beginning on room air without assistive devices or breaks. Pretesting oxygen saturation was noted be 99% on room air. With ambulation, the catina oxygen saturation was 93%. This represents a significant exertional oxygen desaturation. - Recommendations Recommendations: There is no indication for the use of supplemental oxygen at this time. However, close interval follow-up is recommended, given the degree of oxygen desaturation noted during this study.
== END ==
PROVIDERS: Family Provider Family Medicine; PCP Family Medicine; Referring Provider Internal Medicine Critical Care Medicine; Visit Provider Internal Medicine Critical Care Medicine
DX: J44.9 Chronic obstructive pulmonary disease, unspecified (principal)
CPT/HCPCS: 94618

== ENCOUNTER → 2018-07-02 08:58 | Outpatient (CLI) | payer MEDICARE, MEDICAID, SELFPAY ==
--- NOTE | 2018-07-02 12:59 | PFT ---
INTRODUCTION: The patient is a 32-year-old male that presents for pulmonary function testing secondary to a diagnosis of COPD. Respiratory therapy reports good patient effort. Bronchodilators were used during testing. INTERPRETATION: Forced expiration spirometry demonstrates no evidence of a large airways obstructive ventilatory defect. There is no response to aerosolized bronchodilators. Spirograms are of good quality and plateau normally. The respiratory flow volume loop appears restricted in nature. Body plethysmography was performed and reveals a decreased TLC to 4.04 L, 75% of predicted, indicative of a mild restrictive ventilatory defect. The remainder of the lung volumes are symmetrically reduced. Diffusing capacity by single breath CO is also mildly reduced at 60% of predicted. IMPRESSION: These pulmonary function studies demonstrate the presence of a mild restrictive ventilatory impairment with a symmetric reduction in diffusing capacity. There are no previous pulmonary function studies available for comparison.
== END ==
PROVIDERS: Family Provider Family Medicine; PCP Family Medicine; Referring Provider Internal Medicine Critical Care Medicine; Visit Provider Internal Medicine Critical Care Medicine
DX: J44.9 Chronic obstructive pulmonary disease, unspecified (principal)
CPT/HCPCS: 94060; 94726; 94729

== ENCOUNTER → 2018-07-06 20:00 | Outpatient (CLI) | payer MEDICARE, MEDICAID, SELFPAY | PROVIDERS: Family Provider Family Medicine; PCP Family Medicine; Visit Provider Nurse Practitioner Acute Care | DX: G47.33 Obstructive sleep apnea (adult) (pediatric) (principal); M54.2 Cervicalgia; M54.6 Pain in thoracic spine; M54.5 Low back pain; M79.18 Myalgia, other site; M79.602 Pain in left arm; M25.551 Pain in right hip; V89.2XXA Person injured in unspecified motor-vehicle accident, traffic, initial encounter | CPT/HCPCS: 95810; 97110; 97113; 97530 ==

== ENCOUNTER → 2018-07-23 23:27 | Outpatient (CLI) | payer MEDICARE, MEDICAID, SELFPAY ==
--- OUTSIDE RECORDS SUMMARY | 2018-09-18 00:05 | XMS RPT_ITS ---
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 cholestyramine low-calorie (CHOLESTYRAMINE LIGHT) 4 gram packet Take 1 Packet by mouth once daily. TAKE (1) MIXED IN 8OZ WATER ONCE DAILY (MAY USE GENERIC) citalopram (CELEXA) 20 mg tablet Take 1 tablet by mouth twice daily. busPIRone (BUSPAR) 15 mg tablet Take 1/2 a tab by mouth twice a day for 2 weeks than one twice a day. testosterone cypionate (DEPO-TESTOSTERONE) 200 mg/mL injection INJECT 1 ML INTRAMUSCULARLY EVERY 2 WEEKS. Needle, Disp, 21 G 21 gauge x 1 1/2 ndle To use as directed for self injection of Depotestosterone every 2 weeks. Needle, Disp, 18 G 18 gauge x 1 1/2 ndle To use for self injection of Depotestosterone as directed every 2 weeks. fluticasone (FLONASE) 50 mcg/actuation nasal spray levETIRAcetam (KEPPRA) 100 mg/mL solution IBUPROFEN (IBU-200 ORAL) Take by mouth. albuterol HFA (PROAIR HFA) 90 mcg/actuation inhaler Inhale 2 Puffs as instructed three times daily. No current facility-administered medications on file prior to visit. Social History Social History Marital status: Spouse name: Years of education: Number of children: 1 Occupational History Occupation Employer Comment [employer] Social History Main Topics Smoking status: Current Every Day Smoker Packs/day: 2.50 Years: 19.00 Types: Cigarettes Smokeless tobacco: Never Used Comment: states he is allergic to the patches and gum Alcohol use: No Comment: 4 coolers per month Drug use: No Comment: mt dew Sexual activity: No Other Topics Concern Caffeine Concern Yes Social History Narrative Merged History Encounter Review of Symptoms REVIEW OF SYSTEMS See HPI EXAM: BP 100/62 (BP Site: Left Arm, BP Position: Sitting, BP Cuff Size: Regular Adult) Pulse 88 Temp 37.1 ?C (98.8 ?F) (Left Tympanic) Resp 20 Wt 94.8 kg (209 lb) BMI 37.02 kg/m? General Appearance: Well appearing, alert, in no acute distress, well-hydrated, well nourished.. Back:no pain to palpation of vertebrae, some pain over the right SI joint, no muscle tenderness, reflexes are 2+ and symmetric, motor and sensory are normal, negative SLR test Musculoskeletal: Muscular strength intact, No joint swelling, deformity, or tenderness. No mas palpated in the left lateral thigh. Normal findings on exam Neurologic: Gait normal. Reflexes normal and symmetric. Sensation to light touch symmetrical and intact in the lower extremities... Health Maintenance List BP CONTROLLED (<130/80) due on 2001 ONE PNEUMOVAX PRIOR TO AGE 65 due on 2002 ANNUAL PCP TEAM CHRONIC DISEASE VISIT due on 06/09/2019 DTAP,TDAP,TD(8 - Td) due on 05/01/2028 INFLUENZA Completed Data reviewed A/P ASSESSMENT/PLAN: 1. Right hip pain - ICD9: 719.45, ICD10: M25.551 (primary diagnosis) - CONSULT TO PHYSICAL THERAPY - CONSULT TO PAIN MGT ANESTHESIA 2. Chronic midline low back pain without sciatica - ICD9: 724.2, 338.29, ICD10: M54.5, G89.29 Chronic low back pain - XR LUMBAR PARS DEFECT 4V AP/LAT/BOTH OBL - CONSULT TO PHYSICAL THERAPY - CONSULT TO PAIN MGT ANESTHESIA F/u prn. Domenico Mcqueen MD Referring Provider: SELF [200] Allergies As of Date: 07/13/2018 (No Known Allergies) Date Reviewed: 07/13/2018 Reviewed by: Domneico Mcqueen - Fully Assessed Reason for Visit: Back Pain [12] Cmt: Back pain chroninc but worse since MVI on 05/23/18 Right Hip Pain [1556] Cmt: Since MVI on 05/23/18 Primary Visit Diagnosis:Right hip pain [M25.551] Other Visit Diagnosis:Chronic midline low back pain without sciatica [M54.5, G89.29] Order(s):XR LUMBAR PARS DEFECT 4V AP/LAT/BOTH OBL [5171099] Order #: [id number] FUTURE CONSULT TO PHYSICAL THERAPY [9032] Order #: [id number]: 1 CONSULT TO PAIN MGT ANESTHESIA [779121] Order #: [id number]: 1 Prescriptions as of 07/13/2018 Sig: ATORVASTATIN 20 MG TABLET Take 1 tablet by mouth once d* RANITIDINE 150 MG TABLET Take 2 tablets by mouth twice* CHOLESTYRAMINE-ASPARTAME 4 GR* Take 1 Packet by mouth once d* CITALOPRAM 20 MG TABLET Take 1 tablet by mouth twice * BUSPIRONE 15 MG TABLET Take 1/2 a tab by mouth twice* TESTOSTERONE CYPIONATE 200 MG* INJECT 1 ML INTRAMUSCULARLY E* NEEDLE (DISP) 21 GAUGE X 1 1/* To use as directed for self i* NEEDLE (DISP) 18 GAUGE X 1 1/* To use for self injection of * FLUTICASONE 50 MCG/ACTUATION * LEVETIRACETAM 100 MG/ML ORAL * IBU-200 ORAL Take by mouth. ALBUTEROL SULFATE HFA 90 MCG/* Inhale 2 Puffs as instructed * Problem List As Of Date 07/13/2018 Noted Resolved DEPRESS PSYCHOSIS-UNSPEC [F32.9] 08/31/2007 Mild intellectual disabilities [F70] Priority: B Moderate anxiety [F41.9] Priority: A 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 COPD (chronic obstructive pulmonary disease) (H* Priority: A More... 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] Priority: B More... 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 Seasonal allergies [J30.2] INVALID FOR* Priority: B More... Seizures (HCC) [R56.9] INVALID FOR* Priority: A More... GERD without esophagitis [K21.9] INVALID FOR*06/01/2018 Priority: A Depression, major, recurrent, in partial remiss*INVALID FOR* Priority: A Fatty liver [K76.0] INVALID FOR* Priority: B More... Elevated LFTs [R94.5] INVALID FOR* Priority: B HANNAH (obstructive sleep apnea) [G47.33] INVALID FOR* Priority: B More... Gastroesophageal reflux disease with esophagiti*INVALID FOR* Drug-seeking behavior [Z76.5] INVALID FOR* Priority: Mild More... Disposition: Return if symptoms worsen or fail to improve. Follow-up and Disposition History Recorded Encounter Status:Closed by DOMENICO MCQUEEN on 07/13/18 PULMONARY FUNCTION Observed: 07/02/2018 Status: F Source: [place] TEST 1:01 PM [facility] RE[facility] Pulmonary Services/Neurology [address] [place] [address] MR#: [id number] Acct: [id number] Name: GARO MORAN Jr. Rep #: [id number] : 1985 32 From: Ganesh Toussaint DO Referring Dr: Ganesh Toussaint D.O. Status: REG CLI Ordering Dr: Date: Location: [facility] Sex: M C INTRODUCTION: The patient is a 32-year-old male that presents for pulmonary function testing secondary to a diagnosis of COPD. Respiratory therapy reports good patient effort. Bronchodilators were used during testing. INTERPRETATION: Forced expiration spirometry demonstrates no evidence of a large airways obstructive ventilatory defect. There is no response to aerosolized bronchodilators. Spirograms are of good quality and plateau normally. The respiratory flow volume loop appears restricted in nature. Body plethysmography was performed and reveals a decreased TLC to 4.04 L, 75% of predicted, indicative of a mild restrictive ventilatory defect. The remainder of the lung volumes are symmetrically reduced. Diffusing capacity by single breath CO is also mildly reduced at 60% of predicted. IMPRESSION: These pulmonary function studies demonstrate the presence of a mild restrictive ventilatory impairment with a symmetric reduction in diffusing capacity. There are no previous pulmonary function studies available for comparison. 07/02/18 1301 <Electronically signed by Ganesh Toussaint DO> Date Ganesh Toussaint DO CC: Ganesh Toussaint D.O.; Domenico Mcqueen MD Date Dictated: 07/02/18 1259 Date Transcribed: 07/02/18 1259 Surface Grinder Tender: DB Signed 12 LEAD ELECTROCARDIOGRAM Observed: 06/29/2018 Status: F Source: [place] 3:50 PM [facility] Cardiovascular Services [address] [place] [address] 12 Lead EKG 06/28/18 0626 MR#: [id number] Acct: [id number] Name: GAOR MORAN Jr. Rep #: [id number] : 1985 32 From: Hayder Warren MD Attending Dr: Status: DEP ER Ordering Dr: Adrián Gallegos MD Date: 06/28/18 Location: ED Sex: M C Admitted: Test Reason : CP Blood Pressure : / mmHG Vent. Rate : 078 BPM Atrial Rate : 078 BPM P-R Int : 150 ms QRS Dur : 082 ms QT Int : 334 ms P-R-T Axes : 021 049 -11 degrees QTc Int : 380 ms Normal sinus rhythm T wave abnormality, consider inferior ischemia Abnormal ECG Confirmed by HAYDER WARREN MD ([id number]), photography editor VITOR MORENO ([id number]) on 06/29/2018 3:49:58 PM Referred By: KIRAN Confirmed By:HAYDER WARREN MD 06/29/18 1550 Date Hayder Warren MD CC: Domenico Mcqueen MD; Adrián Gallegos MD Signed EMERGENCY DEPARTMENT Observed: 06/28/2018 Status: F Source: [place] SUMMARY 7:18 AM [facility] Medical Records Department [address] [place] [address] Emergency Department Summary 06/28/18 0614 MR#: [id number] Acct: [id number] Name: GARO MORAN Jr. Rep #: [id number] : 1985 32 From: Adrián Gallegos MD PCP: Domenico Mcqueen MD Status: REG ER - ER Visit Summary Date of Service: 06/28/18 Chief Complaint: Chest pain, foot pain History of Present Illness: The patient is a 32 M presents to the emergency department with intermittent, sharp, stabbing pain in his right chest. States it is worse when he pushes on it. He denies being short of breath. The patient was seen here about a week ago for the same complaints. At that time, he had normal cardiac enzymes and a normal EKG. He also is complaining of left foot pain. The patient stepped on a fork about a week ago. He was placed on Cipro. He states he completed the treatment, but is still having some pain. He is worried that he may have broken his foot. He denies any fevers or chills. Denies any shortness of breath. He has no history of pulmonary embolus. Physical Examination: Vital signs reviewed General: Well-nourished, well-developed Head: Normocephalic, atraumatic Eyes: Pupils equal and reactive, extraocular muscles intact Neck, supple, no lymphadenopathy Heart: Regular rate and rhythm Respiratory: No distress, clear bilaterally, tenderness in the right upper chest with palpation, no rash Abdomen: Soft, nontender, nondistended, no peritoneal signs Back: Nontender Extremities: Nontender, no edema, no cords Skin: Normal color no rash Neuro: Alert and oriented, no focal or lateralizing deficits Test Results: [] Emergency Department Course and Treatment: The patient's pain does not seem cardiac. He has reproducible right-sided chest tenderness. He is also PE RC negative. The patient has had recent negative cardiac enzymes. I did obtain an EKG. This demonstrates T wave inversion inferiorly which is unchanged from prior. Chest x-ray was also obtained. This is unremarkable. Again, my suspicion for acute coronary syndrome or cardiac cause of his pain is very very low. I obtained a x-ray of the patient's foot given his persistent pain. There is no cellulitis or edema of the foot. His x-ray shows no fracture. At this time, the patient will be discharged. He does have follow-up in place this week with pulmonary due to his diagnosis of COPD. He is counseled on concerning symptoms and reasons to return. He will be discharged home. Treatment Plan: [] Disposition: Discharge Impression: 1. Atypical chest pain 2. Left foot pain status post puncture This note was generated with Exelisation software. It may contain incorrect words, spelling, and punctuation that were not noted in review of the chart prior to signing ED Disposition - Plan for ED Patient: Chief Complaint: Chest Pain Instructions: ED Chest Pain NonCardiac Prescriptions: Naproxen [Naprosyn] 500 mg PO BID PRN #20 tab Referrals: Domenico Mcqueen MD [Primary Care Provider] - What to do if you have Problems For any increased pain, shortness of breath, bleeding, nausea or vomiting, chest pain, or any unexpected problems, contact your Primary Care Provider. Call [facility] ([phone]) or report to the closest Emergency Room. Call 911 if necessary. 06/28/18 0718 <Electronically signed by Adrián Gallegos MD> Date Adrián Gallegos MD Cosigner Signature (If Indicated): Date CC: Domenico Mcqueen MD CHEST PA AND LATERAL Observed: 06/28/2018 Status: F Source: [place] 6:14 AM [facility] Imaging Services [address] [place] [id number] Chest PA and Lateral MR#: [id number] Acct: [id number] Name: GARO MORAN . Rep #: [id number] : 1985 M 32 From: Merrill Roca MD PCP: Domenico Mcqueen MD Status: REG ER Study: Chest PA and Lateral Date of Exam: 06/28/18 Exam# [id number] Ordering Dr: Adrián Gallegos MD HISTORY: Chest pain Comparison: 06/20/2018 Findings: No significant change. EKG leads in place with limited inspiration. The heart appears normal in size. No vascular congestion, pleural effusion, or acute bony infiltration. No pneumothorax. The bony thorax appears intact. Surgical clips in the region of the gallbladder fossa. IMPRESSION: No definite acute disease or significant change. at 0710 Reported and signed by: Merrill Roca MD Electronically Signed: Merrill Roca, at 7:08 EST Tel , Service support , RAD/Chest PA and Lateral CC: Domenico Mcqueen MD; Adrián Gallegos MD Surface Grinder Tender: Signed FOOT MIN 3 VIEWS Observed: 06/28/2018 Status: F Source: [place] 6:14 AM [facility] Imaging Services [address] [place] [address] Foot min 3 Views MR#: [id number] Acct: [id number] Name: GARO MORAN JrCodi Rep #: [id number] : 1985 M 32 From: Merrill Roca MD PCP: Domenico Mcqueen MD Status: REG ER Study: Foot min 3 Views Date of Exam: 06/28/18 Exam# [id number] Ordering Dr: Adrián Gallegos MD HISTORY: Injury. Left foot pain Comparison: None Findings: No fracture, dislocation, or bony abnormality. Joint spaces appear preserved. The plantar arch is maintained. No radiopaque foreign body. IMPRESSION: Negative exam. No fracture or other abnormality seen. at 0714 Reported and signed by: Merrill Roca MD Electronically Signed: Merrill Roca, at 7:12 EST Tel , Service support , RAD/Foot min 3 Views CC: Domenico Mcqueen MD; Adrián Gallegos MD Surface Grinder Tender: Signed PULMONARY VISIT REPORT Observed: 06/24/2018 Status: F Source: [place] 10:27 AM [facility] [address] [place] [address] OFFICE VISIT Date of Service: 06/24/18 MR#: [id number] Acct: [id number] Name: GARO MORAN JrCodi Rep #: [id number] : 1985 Provider: Ganesh Toussaint D.O. Age/Sex: 32/M Location: [facility] Status: Signed Assessment AND Plan 1. COPD (chronic obstructive pulmonary disease) J44.9 Plan The patient has a self-reported history of COPD, but has never undergone pulmonary function testing to confirm or refute this assertion. He was previously on a triple therapy inhaler regimen by his previous primary care provider. All of these medications have since been discontinued. He does have an extensive smoking history of 60 pack years. Therefore, I would recommend proceeding with dedicated pulmonary function testing to definitively evaluate for the presence of a fixed airway obstruction. In addition, I am going to have the patient complete a 6-minute walk test to assess for any exertional hypoxemia. The reinitiation of a maintenance inhaler regimen can be discussed further once the patient's PFTs have been completed. Orders Orders: 2. HANNAH (obstructive sleep apnea) G47.33 Plan The patient has known obstructive sleep apnea of unknown severity. Given the time that has elapsed since his last polysomnogram in conjunction with his continued complaints of daytime hypersomnolence and intermittent utilization of CPAP, recommend that the patient undergo a re-titration study. New equipment can be ordered once the patient's testing has been updated. Orders Orders: 3. Nicotine dependence, cigarettes, uncomplicated F17.210 Plan I personally spent 5 minutes discussing the deleterious effects of ongoing tobacco use with the patient, including modalities which could be utilized to achieve a smoke-free lifestyle. Plan Detail Other Medications New: Follow Up 6 Weeks (DMB) HPI HPI Comments Details: The patient is a 32-year-old male who presents to the clinic today in referral for evaluation of obstructive sleep apnea, COPD and pulmonary hypertension. He is currently being followed by Dr. Domenico Mcqueen. 8 pages of outside medical records were personally reviewed at today's office visit. The patient is accompanied by his caregiver. The patient reports having been diagnosed with COPD multiple years ago by his prior primary care provider. He has never been evaluated by a drug and alcohol treatment specialist previously, nor has he ever undergone formal pulmonary function testing. He was previously prescribed Symbicort and Spiriva. Both of those medications have since been discontinued. He is currently only utilizing an as needed albuterol inhaler, which he relies on on an infrequent basis. He also has a known history of obstructive sleep apnea of unknown severity. He is currently prescribed CPAP with unknown settings, but reports that he has not been utilizing the therapy over the last month. He receives his equipment and supplies through [employer]. The date of his last polysomnogram is unknown. However, the patient does report that his current machine is greater than 5 years old. He is a current daily smoker of 3 packs/day and has been smoking for 20 years. He does report the presence of exertional dyspnea, but denies chest tightness or wheezing. He does have an occasional nonproductive cough. Reports that his weight is up a bit from previous. The patient denies fevers, chills or night sweats. Intake Vital Signs06/24/18 Height 5 ft 3 in 06/24/18 Weight: 208 lb Intake Visit Reasons: [facility] V[facility]: Yessy Accompanied by: Family / Other Allergies No Known Allergies Allergy (Verified 06/24/18 09:38) Medications Citalopram [Celexa] 20 mg PO BID 03/17/18 [History Confirmed 06/24/18] Omeprazole 40 mg PO DAILY 03/17/18 [History Confirmed 06/24/18] Pravastatin Sodium 40 mg PO DAILY 03/17/18 [History Confirmed 06/24/18] levETIRAcetam tablet [Keppra tablet] 500 mg PO BID 03/17/18 [History Confirmed 06/24/18] Lansoprazole 1 cap PO DAILY 05/03/18 [History Confirmed 06/24/18] busPIRone [Buspar] 0.5 tab PO BID 05/03/18 [History Confirmed 06/24/18] Ciprofloxacin [Cipro] 500 mg PO BID #14 tab 06/21/18 [Rx Confirmed 06/24/18] albuterol sulfate HFA 90 mcg/actuation aerosol inhaler 2 puff INHALATION Q4H PRN g 06/24/18 [History Confirmed 06/24/18] PFSH Medical History Back pain (Acute) COPD (chronic obstructive pulmonary disease) (Chronic) Depression (Chronic) Elevated LFTs (Chronic) Fatty liver (Chronic) GERD without esophagitis (Chronic) HLD (hyperlipidemia) (Chronic) HTN (hypertension) (Chronic) Moderate anxiety (Chronic) Narcolepsy (Chronic) HANNAH (obstructive sleep apnea) (Chronic) Obesity (Chronic) Seasonal allergies (Chronic) Seizures (Chronic) Surgical History H/O vasectomy (Resolved) History of esophagogastroduodenoscopy (EGD) (Resolved) tunica albuginea plication (Resolved) Family History Mother Diabetes Thyroid disorder Father Hypertension Hyperlipidemia Uncle CVA (cerebral vascular accident) Social History Smoking Status: Current every day smoker tobacco type: cigarettes second hand exposure: Yes alcohol intake: current alcohol intake frequency: a few times a month Alcohol type: other substance use type: does not use Review of Systems Const CONSTITUTIONAL: Negative anorexia, body ache, chills, daytime sleepiness, fever(s), night sweats, oral thrush, stops breathing during sleep, weight loss, sleeping in chair, fatigue, weight loss, weight gain, frequent colds, seasonal allergies, other, headache(s) or orthopnea EETM Ear Nose Throat Mouth: Positive hearing normal; negative hard of hearing, hoarseness, dry mouth in morning, change in vision, itchy eyes, eye pain, swallowing Difficulty, ear pain, nose bleed, headache(s), mouth pain, nasal congestion, nasal discharge, post nasal drip, sinus pain, sinus pressure, sore throat or other Cardio Cardiovascular: Positive chest pain; negative chest pain at rest, chest pain with activity, irregular heart rhythm, edema, shortness of breath when lying down, palpitations, murmur or other Resp Respiratory: Positive as per HPI, shortness of breath shortness of breath: Positive with activity, wheezing and cough cough: Positive non-productive; negative pain with cough, chest congestion, chest tightness, pain on inspiration, inhalers, increase use of rescue inhalers, snoring, apnea or other Gastro Gastrointestional: Negative bloody stools, change in appetite, difficulty swallowing, reflux, hematemesis, melena stool, loose stool, constipation or other Genitourinary: Negative blood in urine, nocturia, pain with urination or other Musc Musculoskeletal: Negative body pain, back pain, neck pain or other Skin/Breast Skin/Breast: Negative dry skin, itching, rash, unusual bruising, breast lump or other Neuro Neurological: Negative restless legs, confusion, weakness or other Psych Psychocological: Positive anxiety; negative abnormal sleep pattern, thoughts of hurting self/others, hopelessness or other Lymph Lymphatic: Negative easy bleeding, easy bruising, swollen lymph nodes or other Exam Const Constitutional: Positive conversant, cooperative, in no acute respiratory distress, well developed, well nourished, good hygiene and obese Head Head: Positive normocephalic and atraumatic; negative cyanosis of lips/distal nose Eyes Eye: Positive clear conjunctiva; negative nystagmus or scleral abnormality Ears Ear: Positive hearing normal and external ears normal; negative hard of hearing Nose Nose: Positive external nose normal; negative epistaxis Mouth Mouth: Positive oral mucosae normal and posterior oropharynx is adequate; negative no lesions or post nasal drip Mallampati Score: II: Mallampati Score Neck Neck: Positive normal visual inspection and trachea midline; negative lymphadenopathy Chest Wall Chest: Positive symmetric chest movement Normal AP diameter. Resp lung sounds: Positive clear to auscultation, good air exchange and normal expiratory time; negative wheezes, rhonchi or rales Cardio Cardiac: Positive regular rate, regular rhythm, S1 normal and S2 normal; negative rub, gallop or murmur GI GI: Positive normal bowel sounds and obese Soft without distention Genitourinary: Positive deferred Musc Musculoskeletal: Positive steady gait Skin Pulmonary Skin Exam: Positive intact; negative lesion, ulcers, dermal atrophy or rash Pulses Pulse: Yes Pedal pulses present: Extremities Extremities: No clubbing, No cyanosis, No edema Neuro Neurologic: Yes conversant, Yes no focal neuro deficits, Yes cooperative Lymph Lymphatic: No lymphadenopathy Psych Appearance: Positive grossly normal Mental Status: Positive mental status grossly normal Mood: Positive congruent mood Affect: Positive normal affect Pulmonary Procedure Smoking Cessation Education: Yes education provided, 3-10 minutes and needs reinforcement Coding Level of Care Code Off vis,new,level 4 Diagnoses COPD (chronic obstructive pulmonary disease) J44.9 HANNAH (obstructive sleep apnea) G47.33 Nicotine dependence, cigarettes, uncomplicated F17.210 06/24/18 1027 <Electronically signed by Ganesh Toussaint DO> Date Ganesh Toussaint DO Cosigner Signature: Date (if applicable) CC: Domenico Mcqueen MD 12 LEAD ELECTROCARDIOGRAM Observed: 06/23/2018 Status: F Source: [place] 10:11 AM [facility] REPOSITORY [facility] Cardiovascular Services [address] [place], [place] [address] [address] 12 Lead EKG 06/20/18 1932 MR#: [id number] Acct: [id number] Name: GARO MORAN Jr. Rep #: [id number] : 1985 32 From: Valentin Newby MD Attending Dr: Status: DEP ER Ordering Dr: Maninder Blair MD Date: 06/20/18 Location: ED Sex: M C Admitted: Test Reason : CP Blood Pressure : / mmHG Vent. Rate : 096 BPM Atrial Rate : 096 BPM P-R Int : 140 ms QRS Dur : 074 ms QT Int : 308 ms P-R-T Axes : 025 023 008 degrees QTc Int : 389 ms Normal sinus rhythm Poor R wave progression Confirmed by JACKIE BRASWELL, VALENTIN ([id number]), photography editor VITOR MORENO ([id number]) on 06/23/2018 10:10:51 AM Referred By: RUDOLPH Confirmed By:VALENTIN NEWBY MD 06/23/18 1010 Date Valentin Newby MD CC: Domenico Mcqueen MD; Maninder Blair MD Signed DISCHARGE INSTRUCTION Observed: 06/21/2018 Status: F Source: [place] 12:36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 Date - EGD - PAST SURGICAL HISTORY OF 2012 [place] albuginea plication. - VASECTOMY Family History FAMILY HISTORY Problem Relation Age of Onset - Diabetes Mother - Thyroid Mother - Hypertension Father - Hyperlipidemia Father - Stroke Paternal Uncle Patient Allergies ALLERGIES No Known Allergies Current Medications Current Outpatient Prescriptions on File Prior to Visit: testosterone cypionate (DEPO-TESTOSTERONE) 200 mg/mL injection INJECT 1 ML INTRAMUSCULARLY EVERY 2 WEEKS. Needle, Disp, 21 G 21 gauge x 1 1/2 ndle To use as directed for self injection of Depotestosterone every 2 weeks. Needle, Disp, 18 G 18 gauge x 1 1/2 ndle To use for self injection of Depotestosterone as directed every 2 weeks. fluticasone (FLONASE) 50 mcg/actuation nasal spray levETIRAcetam (KEPPRA) 100 mg/mL solution IBUPROFEN (IBU-200 ORAL) Take by mouth. Omeprazole 40 mg capsule Take 1 capsule by mouth once daily. Indications: gastroesophageal reflux disease, HEARTBURN pravastatin (PRAVACHOL) 40 mg tablet SYMBICORT 160-4.5 mcg/actuation inhaler citalopram (CELEXA) 10 mg/5 mL suspension lisinopril (ZESTRIL, PRINIVIL) 10 mg tablet tiotropium (SPIRIVA WITH HANDIHALER) 18 mcg inhalation capsule Inhale 18 mcg as instructed once daily. albuterol HFA (PROAIR HFA) 90 mcg/actuation inhaler Inhale 2 Puffs as instructed three times daily. DULoxetine (CYMBALTA) 60 mg capsule Take 60 mg by mouth once daily. No current facility-administered medications on file prior to visit. Social History Social History Marital status: Spouse name: Years of education: Number of children: Occupational History Occupation Employer Comment [employer] Social History Main Topics Smoking status: Current Every Day Smoker Packs/day: 2.50 Years: 19.00 Types: Cigarettes Smokeless tobacco: Never Used Comment: states he is allergic to the patches and gum Alcohol use: No Comment: 4 coolers per month Drug use: No Comment: [facility] Sexual activity: No Other Topics Concern Caffeine Concern Yes Social History Narrative Merged History Encounter Review of Symptoms REVIEW OF SYSTEMS GENERAL: No weight loss, malaise or fevers NECK: Negative for lumps that he palpates. See HPI, goiter, pain and significant neck swelling RESPIRATORY: Negative for cough, hemoptysis. Feels his shortness of breath has progressed. CARDIOVASCULAR: Negative for hypertension, CHF or palpitations. Has swelling in the lower legs on a regular basis. See HPI regarding CP GI: No vomiting, or diarrhea and No frequent heartburn or reflux symptoms. Has nausea a few times a week. See HPI PSYCH: See HPI, concern with the ER visits his anxiety is not being well controlled. NEURO: No history of syncope, paralysis, seizures or tremors. Has headaches 3-4 times a week. Takes ibuprofen with little to no improvement. : No dysuria or blood Vasc: No excessive bleeding or easy bruising. Endo: Has increased thirst. No heat or cold intolerance. EXAM: BP 108/64 Pulse 64 Resp 16 Wt 92.1 kg (203 lb) BMI 35.96 kg/m? General Appearance: Well appearing, alert, in no acute distress, well-hydrated, well nourished. and Obese. Head: Normocephalic, no masses, lesions, tenderness or abnormalities. Eyes: Anicteric sclera. Pupils are equally round and reactive to light. Extraocular movements are intact. . Ears: External ears normal, canals clear. Oropharynx: Lips, mucosa, and tongue normal, teeth and gums normal, oropharynx normal. Neck: Supple, no adenopathy; thyroid symmetric, normal size, no bruits. Lungs: Lungs clear to auscultation. No wheezing, rhonchi, rales. Heart: RRR without murmur, gallop, or rubs. No ectopy. Abdomen: Normal abdominal exam, Abdomen soft, non-tender. Bowel sounds normal. No masses, organomegaly. Extremities: No deformities, edema, skin discoloration,. Musculoskeletal: Muscular strength intact, No joint swelling, deformity, or tenderness. Peripheral Pulses: Normal. Neurologic: Gait normal. Reflexes normal and symmetric. Sensation to light touch and crainal nerves 2-12 intact.. Health Maintenance List URINE ALBUMIN:CREATININE RATIO due on 1993 DILATED RETINAL EXAM due on 1993 DIABETIC FOOT EXAM due on 1993 ONE PNEUMOVAX PRIOR TO AGE 65 due on 1999 ANNUAL PCP TEAM CHRONIC DISEASE VISIT due on 2001 BP CONTROLLED (<130/80) due on 2001 HBA1C due on 03/02/2006 LDL CHOLESTEROL due on 08/31/2008 DTAP,TDAP,TD(7 - Tdap) due on 08/07/2016 INFLUENZA(1) due on 04/25/2018 Data reviewed A/P ASSESSMENT/PLAN: 1. Essential hypertension, benign - ICD9: 401.1, ICD10: I10 (primary diagnosis) - good control - Continue current medication(s) - Recommended regular aerobic exercise. - Recommend home blood pressure monitoring, to bring results in on next visit - Goal of BP <140/90 - COMP METABOLIC PANEL - LIPID PANEL, NONFASTING - URINALYSIS WITH MICROSCOPIC 2. Mixed hyperlipidemia - ICD9: 272.2, ICD10: E78.2 - to be determined upon return of lab results - Continue current dose of pravastatin (Pravachol) 40 mg. - Encouraged following a low fat, low cholesterol diet. - Discussed the benefits of regular aerobic exercise and weight loss. - Encouraged following a low carbohydrate, healthy oil intake diet. - COMP METABOLIC PANEL - LIPID PANEL, NONFASTING - URINALYSIS WITH MICROSCOPIC 3. Atypical chest pain - ICD9: 786.59, ICD10: R07.89 check - STRESS REGULAR W/TREAD 4. GERD without esophagitis - ICD9: 530.81, ICD10: K21.9 Will change from omeprazole to prevacid since omeprazole and celexa together can lead to arrhythmia. - CONSULT TO GASTROENTEROLOGY 5. Nausea - ICD9: 787.02, ICD10: R11.0 - CONSULT TO GASTROENTEROLOGY 6. Abnormal thyroid blood test - ICD9: 790.6, ICD10: R79.89 Check - TSH BLD - T4 FREE/FREE THYROX 7. Seasonal allergies - ICD9: 477.9, ICD10: J30.2 Controlled with current meds. 8. Depression, major, recurrent, in partial remission (HCC) - ICD9: 296.35, ICD10: F33.41 - will increase celexa to 20 mg twice a day 9. Moderate anxiety - ICD9: 300.00, ICD10: F41.9 - Will increase celexa to 20 mg twice a day and add buspar 15 mg twice a day. 10. Fatty liver - ICD9: 571.8, ICD10: K76.0 check - COMP METABOLIC PANEL 11. Elevated LFTs - ICD9: 790.6, ICD10: R94.5 check - COMP METABOLIC PANEL 12. HANNAH (obstructive sleep apnea) - ICD9: 327.23, ICD10: G47.33 - CONSULT TO PULM/CRITICAL CARE: Dr Toussaint or Dr. Hall. 13. Chronic obstructive pulmonary disease, unspecified COPD type (HCC) - ICD9: 496, ICD10: J44.9 - CONSULT TO PULM/CRITICAL CARE 14. Pulmonary HTN (HCC) - ICD9: 416.8, ICD10: I27.20 - CONSULT TO PULM/CRITICAL CARE 15. Seizures (HCC) - ICD9: 780.39, ICD10: R56.9 - Cont cont meds and f/u with Neurology 16. Primary narcolepsy without cataplexy - ICD9: 347.00, ICD10: G47.419 - As above 17. Class 2 obesity due to excess calories without serious comorbidity with body mass index (BMI) of 35.0 to 35.9 in adult - ICD9: 278.00, V85.35, ICD10: E66.09, Z68.35 - Patient to work on weight loss. 18. Hypogonadism male - ICD9: 257.2, ICD10: E29.1 - Cont f/u with Urology 19. Smoking - ICD9: 305.1, ICD10: F17.200 - Cessation encouraged. - Counseling was given focusing on the harmful effects of this addiction especially given the patient's medical condition(s) which will be worsened because of the chemicals in tobacco. 20. Need for vaccination - ICD9: V05.9, ICD10: Z23 - TDAP VACCINE AGE 7+ IM 21. Screening for diabetes mellitus - ICD9: V77.1, ICD10: Z13.1 check - HGB A1C Signed Prescriptions Disp Refills citalopram (CELEXA) 20 mg tablet 60 tablet 5 Sig: Take 1 tablet by mouth twice daily. busPIRone (BUSPAR) 15 mg tablet 60 tablet 5 Sig: Take 1/2 a tab by mouth twice a day for 2 weeks than one twice a day. lansoprazole (PREVACID) 30 mg capsule 30 capsule 5 Sig: Take 1 capsule by mouth once daily. F/u 4 months routine Time with patient face to face was 45 min MD MELLISSA Olivas Observed: 05/01/2018 Status: COMPLETED Source: [place] 2:40 PM [facility] REPOSITORY Office Visit (FAMPWS) GARO MORAN ([id number]) 1985 M Date Time Provider Department 05/01/18 2:40 PM DOMENICO MCQUEEN During your visit today, we recorded the following information about you: Pulse Respiration Blood pressure Weight 64/minute 16/minute 108/64 92.1 kg Domenico Mcqueen MD 05/02/2018 11:04 PM Signed Chief Complaint Patient presents with: Establish Care HPI Garo Moran is a 32 year old male who presents here today for Above Complaints.. Patient with Hx as reviewed, updated and documented below. Patient recently was in the hospital for chest pain. Has been there 3-4 times this year. Has not had a stress test. Was seeing ENT in [place] for sensation of a lump in his throat and when he touches the throat area it is sore at times. ENT scoped him, did an US and upper GI and all were normal except for GERD changes. Sees a counselor at the counseling center for the past 15 years but not seeing psychiatry for management of his anxiety or depression. Had gal bladder removed and since then still gets nausea 2- 3 times a week and pain that goes across the upper abdomen. Past medical history, appointments, medications, allergies reviewed. Previous Medical History PAST MEDICAL HISTORY Diagnosis Date - Back pain - Class 2 obesity due to excess calories with body mass index (BMI) of 35.0 to 35.9 in adult - COPD (chronic obstructive pulmonary disease) (HCC) - Depression, major, recurrent, in partial remission (HCC) 05/01/2018 - Elevated LFTs 05/01/2018 - Fatty liver 05/01/2018 - GERD without esophagitis 05/01/2018 - Hyperlipidemia - Hypertension - Moderate anxiety - Narcolepsy - HANNAH (obstructive sleep apnea) 05/01/2018 On CPAP - Seasonal allergies 05/01/2018 - Seizures (HCC) 05/01/2018 Previous Surgical History PAST SURGICAL HISTORY Procedure Laterality Date - EGD - PAST SURGICAL HISTORY OF 2012 [place] albuginea plication. - VASECTOMY Family History FAMILY HISTORY Problem Relation Age of Onset - Diabetes Mother - Thyroid Mother - Hypertension Father - Hyperlipidemia Father - Stroke Paternal Uncle Patient Allergies ALLERGIES No Known Allergies Current Medications Current Outpatient Prescriptions on File Prior to Visit: testosterone cypionate (DEPO-TESTOSTERONE) 200 mg/mL injection INJECT 1 ML INTRAMUSCULARLY EVERY 2 WEEKS. Needle, Disp, 21 G 21 gauge x 1 1/2 ndle To use as directed for self injection of Depotestosterone every 2 weeks. Needle, Disp, 18 G 18 gauge x 1 1/2 ndle To use for self injection of Depotestosterone as directed every 2 weeks. fluticasone (FLONASE) 50 mcg/actuation nasal spray levETIRAcetam (KEPPRA) 100 mg/mL solution IBUPROFEN (IBU-200 ORAL) Take by mouth. Omeprazole 40 mg capsule Take 1 capsule by mouth once daily. Indications: gastroesophageal reflux disease, HEARTBURN pravastatin (PRAVACHOL) 40 mg tablet SYMBICORT 160-4.5 mcg/actuation inhaler citalopram (CELEXA) 10 mg/5 mL suspension lisinopril (ZESTRIL, PRINIVIL) 10 mg tablet tiotropium (SPIRIVA WITH HANDIHALER) 18 mcg inhalation capsule Inhale 18 mcg as instructed once daily. albuterol HFA (PROAIR HFA) 90 mcg/actuation inhaler Inhale 2 Puffs as instructed three times daily. DULoxetine (CYMBALTA) 60 mg capsule Take 60 mg by mouth once daily. No current facility-administered medications on file prior to visit. Social History Social History Marital status: Spouse name: Years of education: Number of children: Occupational History Occupation Employer Comment [employer] Social History Main Topics Smoking status: Current Every Day Smoker Packs/day: 2.50 Years: 19.00 Types: Cigarettes Smokeless tobacco: Never Used Comment: states he is allergic to the patches and gum Alcohol use: No Comment: 4 coolers per month Drug use: No Comment: [facility] Sexual activity: No Other Topics Concern Caffeine Concern Yes Social History Narrative Merged History Encounter Review of Symptoms REVIEW OF SYSTEMS GENERAL: No weight loss, malaise or fevers NECK: Negative for lumps that he palpates. See HPI, goiter, pain and significant neck swelling RESPIRATORY: Negative for cough, hemoptysis. Feels his shortness of breath has progressed. CARDIOVASCULAR: Negative for hypertension, CHF or palpitations. Has swelling in the lower legs on a regular basis. See HPI regarding CP GI: No vomiting, or diarrhea and No frequent heartburn or reflux symptoms. Has nausea a few times a week. See HPI PSYCH: See HPI, concern with the ER visits his anxiety is not being well controlled. NEURO: No history of syncope, paralysis, seizures or tremors. Has headaches 3-4 times a week. Takes ibuprofen with little to no improvement. : No dysuria or blood Vasc: No excessive bleeding or easy bruising. Endo: Has increased thirst. No heat or cold intolerance. EXAM: BP 108/64 Pulse 64 Resp 16 Wt 92.1 kg (203 lb) BMI 35.96 kg/m? General Appearance: Well appearing, alert, in no acute distress, well-hydrated, well nourished. and Obese. Head: Normocephalic, no masses, lesions, tenderness or abnormalities. Eyes: Anicteric sclera. Pupils are equally round and reactive to light. Extraocular movements are intact. . Ears: External ears normal, canals clear. Oropharynx: Lips, mucosa, and tongue normal, teeth and gums normal, oropharynx normal. Neck: Supple, no adenopathy; thyroid symmetric, normal size, no bruits. Lungs: Lungs clear to auscultation. No wheezing, rhonchi, rales. Heart: RRR without murmur, gallop, or rubs. No ectopy. Abdomen: Normal abdominal exam, Abdomen soft, non-tender. Bowel sounds normal. No masses, organomegaly. Extremities: No deformities, edema, skin discoloration,. Musculoskeletal: Muscular strength intact, No joint swelling, deformity, or tenderness. Peripheral Pulses: Normal. Neurologic: Gait normal. Reflexes normal and symmetric. Sensation to light touch and crainal nerves 2-12 intact.. Health Maintenance List URINE ALBUMIN:CREATININE RATIO due on 1993 DILATED RETINAL EXAM due on 1993 DIABETIC FOOT EXAM due on 1993 ONE PNEUMOVAX PRIOR TO AGE 65 due on 1999 ANNUAL PCP TEAM CHRONIC DISEASE VISIT due on 2001 BP CONTROLLED (<130/80) due on 2001 HBA1C due on 03/02/2006 LDL CHOLESTEROL due on 08/31/2008 DTAP,TDAP,TD(7 - Tdap) due on 08/07/2016 INFLUENZA(1) due on 04/25/2018 Data reviewed A/P ASSESSMENT/PLAN: 1. Essential hypertension, benign - ICD9: 401.1, ICD10: I10 (primary diagnosis) - good control - Continue current medication(s) - Recommended regular aerobic exercise. - Recommend home blood pressure monitoring, to bring results in on next visit - Goal of BP <140/90 - COMP METABOLIC PANEL - LIPID PANEL, NONFASTING - URINALYSIS WITH MICROSCOPIC 2. Mixed hyperlipidemia - ICD9: 272.2, ICD10: E78.2 - to be determined upon return of lab results - Continue current dose of pravastatin (Pravachol) 40 mg. - Encouraged following a low fat, low cholesterol diet. - Discussed the benefits of regular aerobic exercise and weight loss. - Encouraged following a low carbohydrate, healthy oil intake diet. - COMP METABOLIC PANEL - LIPID PANEL, NONFASTING - URINALYSIS WITH MICROSCOPIC 3. Atypical chest pain - ICD9: 786.59, ICD10: R07.89 check - STRESS REGULAR W/TREAD 4. GERD without esophagitis - ICD9: 530.81, ICD10: K21.9 Will change from omeprazole to prevacid since omeprazole and celexa together can lead to arrhythmia. - CONSULT TO GASTROENTEROLOGY 5. Nausea - ICD9: 787.02, ICD10: R11.0 - CONSULT TO GASTROENTEROLOGY 6. Abnormal thyroid blood test - ICD9: 790.6, ICD10: R79.89 Check - TSH BLD - T4 FREE/FREE THYROX 7. Seasonal allergies - ICD9: 477.9, ICD10: J30.2 Controlled with current meds. 8. Depression, major, recurrent, in partial remission (HCC) - ICD9: 296.35, ICD10: F33.41 - will increase celexa to 20 mg twice a day 9. Moderate anxiety - ICD9: 300.00, ICD10: F41.9 - Will increase celexa to 20 mg twice a day and add buspar 15 mg twice a day. 10. Fatty liver - ICD9: 571.8, ICD10: K76.0 check - COMP METABOLIC PANEL 11. Elevated LFTs - ICD9: 790.6, ICD10: R94.5 check - COMP METABOLIC PANEL 12. AHNNAH (obstructive sleep apnea) - ICD9: 327.23, ICD10: G47.33 - CONSULT TO PULM/CRITICAL CARE: Dr Toussaint or Dr. Hall. 13. Chronic obstructive pulmonary disease, unspecified COPD type (HCC) - ICD9: 496, ICD10: J44.9 - CONSULT TO PULM/CRITICAL CARE 14. Pulmonary HTN (HCC) - ICD9: 416.8, ICD10: I27.20 - CONSULT TO PULM/CRITICAL CARE 15. Seizures (HCC) - ICD9: 780.39, ICD10: R56.9 - Cont cont meds and f/u with Neurology 16. Primary narcolepsy without cataplexy - ICD9: 347.00, ICD10: G47.419 - As above 17. Class 2 obesity due to excess calories without serious comorbidity with body mass index (BMI) of 35.0 to 35.9 in adult - ICD9: 278.00, V85.35, ICD10: E66.09, Z68.35 - Patient to work on weight loss. 18. Hypogonadism male - ICD9: 257.2, ICD10: E29.1 - Cont f/u with Urology 19. Smoking - ICD9: 305.1, ICD10: F17.200 - Cessation encouraged. - Counseling was given focusing on the harmful effects of this addiction especially given the patient's medical condition(s) which will be worsened because of the chemicals in tobacco. 20. Need for vaccination - ICD9: V05.9, ICD10: Z23 - TDAP VACCINE AGE 7+ IM 21. Screening for diabetes mellitus - ICD9: V77.1, ICD10: Z13.1 check - HGB A1C Signed Prescriptions Disp Refills citalopram (CELEXA) 20 mg tablet 60 tablet 5 Sig: Take 1 tablet by mouth twice daily. busPIRone (BUSPAR) 15 mg tablet 60 tablet 5 Sig: Take 1/2 a tab by mouth twice a day for 2 weeks than one twice a day. lansoprazole (PREVACID) 30 mg capsule 30 capsule 5 Sig: Take 1 capsule by mouth once daily. F/u 4 months routine Time with patient face to face was 45 min Domenico Mcqueen MD Referring Provider: SELF [200] Allergies As of Date: 05/01/2018 (No Known Allergies) Date Reviewed: 05/01/2018 Reviewed by: Domenico Mcqueen - Fully Assessed Reason for Visit: Establish Care [42] Primary Visit Diagnosis:Essential hypertension, benign [I10] Other Visit Diagnoses:Mixed hyperlipidemia [E78.2] Atypical chest pain [R07.89] GERD without esophagitis [K21.9] Nausea [R11.0] Abnormal thyroid blood test [R79.89] Seasonal allergies [J30.2] Depression, major, recurrent, in partial remission (HCC) [F33.41] Moderate anxiety [F41.9] Fatty liver [K76.0] Elevated LFTs [R94.5] HANNAH (obstructive sleep apnea) [G47.33] Chronic obstructive pulmonary disease, unspecified COPD type (HCC) [J44.9] Pulmonary HTN (HCC) [I27.20] Seizures (HCC) [R56.9] Primary narcolepsy without cataplexy [G47.419] Class 2 obesity due to excess calories without serious comorbidity with body mass index (BMI) of 35.0 to 35.9 in adult [E66.09, Z68.35] Hypogonadism male [E29.1] Smoking [F17.200] Need for vaccination [Z23] Screening for diabetes mellitus [Z13.1] Order(s):TDAP VACCINE AGE 7+ IM [47030OQO] Order #: [id number] STRESS REGULAR W/TREAD [1245165] Order #: [id number]: 1 citalopram (CELEXA) 20 mg tabletTake 1 tablet by mouth twice daily.Disp: 60 tabletRfl: 5 busPIRone (BUSPAR) 15 mg tabletTake 1/2 a tab by mouth twice a day for 2 weeks than one twice a day.Disp: 60 tabletRfl: 5 COMP METABOLIC PANEL [SQCMP] Order #: [id number] FUTURE HGB A1C [CNXSX5N] Order #: [id number] FUTURE LIPID PANEL, NONFASTING [SQLIPNF] Order #: [id number] FUTURE URINALYSIS WITH MICROSCOPIC [SQUAWMIC] Order #: [id number] FUTURE TSH BLD [SQTSH] Order #: [id number] FUTURE T4 FREE/FREE THYROX [SQFT4] Order #: [id number] FUTURE CONSULT TO GASTROENTEROLOGY [9009] Order #: [id number]: 1 CONSULT TO PULM/CRITICAL CARE [19991101] Order #: [id number]: 1 lansoprazole (PREVACID) 30 mg capsuleTake 1 capsule by mouth once daily.Disp: 30 capsuleRfl: 5 Prescriptions as of 05/01/2018 Sig: TESTOSTERONE CYPIONATE 200 MG* INJECT 1 ML INTRAMUSCULARLY E* NEEDLE (DISP) 21 GAUGE X 1 1/* To use as directed for self i* NEEDLE (DISP) 18 GAUGE X 1 1/* To use for self injection of * FLUTICASONE 50 MCG/ACTUATION * LEVETIRACETAM 100 MG/ML ORAL * IBU-200 ORAL Take by mouth. PRAVASTATIN 40 MG TABLET SYMBICORT 160 MCG-4.5 MCG/ACT* LISINOPRIL 10 MG TABLET TIOTROPIUM BROMIDE 18 MCG CAP* Inhale 18 mcg as instructed o* ALBUTEROL SULFATE HFA 90 MCG/* Inhale 2 Puffs as instructed * CITALOPRAM 20 MG TABLET Take 1 tablet by mouth twice * BUSPIRONE 15 MG TABLET Take 1/2 a tab by mouth twice* LANSOPRAZOLE 30 MG CAPSULE,DE* Take 1 capsule by mouth once * Medication notes this encounter OMEPRAZOLE 40 MG CAPSULE,DELAYED RELEASE >> Domenico Mcqueen MD 05/01/2018 4:02 PM interaction with citalopram Problem List As Of Date 05/01/2018 Noted Resolved DEPRESS PSYCHOSIS-UNSPEC [F32.9] 08/31/2007 Mild intellectual disabilities [F70] Priority: B Moderate anxiety [F41.9] Priority: A 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 COPD (chronic obstructive pulmonary disease) (H* Priority: A 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] Priority: B More... 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 Seasonal allergies [J30.2] INVALID FOR* Priority: B More... Seizures (HCC) [R56.9] INVALID FOR* Priority: A More... GERD without esophagitis [K21.9] INVALID FOR* Priority: A Depression, major, recurrent, in partial remiss*INVALID FOR* Priority: A Fatty liver [K76.0] INVALID FOR* Priority: B Elevated LFTs [R94.5] INVALID FOR* Priority: B HANNAH (obstructive sleep apnea) [G47.33] INVALID FOR* Priority: B More... Prescriptions ordered this encounter Disp Refills Start End CITALOPRAM 20 MG TABLET 60 t* 5 05/01/2018 Route: ORAL Sig: Take 1 tablet by mouth twice daily. BUSPIRONE 15 MG TABLET 60 t* 5 05/01/2018 Sig: Take 1/2 a tab by mouth twice a day for 2 weeks than one twice a day. LANSOPRAZOLE 30 MG CAPSULE,DELAYED R* 30 c* 5 05/01/2018 Cmt: Can't be on omeprazole with the citalopram due to potential heart block Route: ORAL Sig: Take 1 capsule by mouth once daily. Medications Discontinued During This Encounter ranitidine (ZANTAC) 15 mg/mL syrup 09/30/2017 05/01/2018 Class: Historical Med Sig: Disc: Side Effects ammonium lactate (LAC-HYDRIN) 12 % c* 03/03/2017 05/01/2018 Class: Historical Med Sig: Disc: Discontinued by Patient DULoxetine (CYMBALTA) 60 mg capsule 11/06/2016 05/01/2018 Class: Historical Med Route: ORAL Sig: Take 60 mg by mouth once daily. Disc: Reason for discontinue is not on file. citalopram (CELEXA) 10 mg/5 mL suspe* 12/20/2016 05/01/2018 Class: Historical Med Sig: Disc: Changing Therapy/Dosage Form Omeprazole 40 mg capsule 90 c* 3 06/17/2017 05/01/2018 Route: ORAL Sig: Take 1 capsule by mouth once daily. Indications: gastroesophageal reflux disease, HEARTBURN Disc: Changing Therapy/Dosage Form Disposition: Return in about 4 months (around 08/31/2018) for fady Conley. Follow-up and Disposition History Recorded Encounter Status:Closed by DOMENICO MCQUEEN on 05/02/18 CNCO Observed: 05/01/2018 Status: COMPLETED Source: [place] 12:00 AM [facility] REPOSITORY Letter Text . [facility] AUTHORIZATION FOR THE RELEASE OF MEDICAL INFORMATION FROM OTHER HEALTHCARE FACILITIES [facility] [address] [address] Name: Garo Moran Date of : 1985 [address] [phone] (home) Reason for Disclosure: Continuity of Care. Release Information From: Name of Provider/Facility: Street: City: State: Zip: Fax: Phone: Release Information To: Office Receiving: Domenico Mcqueen MD PLEASE FAX TO: I hereby authorize to release the health information indicated below that is contained in my patient records to the Recipient named above. I understand and acknowledge that this may include treatment for physical and mental illness, alcohol/drug abuse and or HIV/AIDS test results or diagnosis. This authorization does not include permission to release outpatient Psychotherapy Notes* as defined below. The release of Psychotherapy Notes requires a separate authorization. REPORTS REQUESTED: This consent is subject to revocation at any time except to the extent the action has been taken thereon. This authorization and consent will in one year from the date of authorization written below. Your health care (or payment for care) will not be affected by whether or not you sign this authorization. Once your health care information is released, re-disclosure of your health care information by the Recipient my no longer be protected by law. Signature of Patient/Legal Guardian Printed Name Date Signed: ____/ / Relationship if not Patient If other than patient?s signature, a copy of the legal papers verifying authority (e.g. Power of Ichthyology Teacher or Certificate) MUST accompany the authorization when presented. Exception: parent if signing for patient under age 18. *Psychotherapy Notes defined as notes that document private, joint, group or family counseling sessions that are from the rest of a patient?s medical record. 12 LEAD ELECTROCARDIOGRAM Observed: 04/24/2018 Status: F Source: [place] 1:24 PM [facility] REPOSITORY [facility] Cardiovascular Services [facility] [place] [address] 12 Lead EKG 04/22/18 1118 MR#: [id number] Acct: [id number] Name: GARO MORAN Rep #: [id number] : 1985 32 From: Valentin Newby MD Attending Dr: Status: DEP ER Ordering Dr: Cathy Jeffries DO Date: 04/22/18 Location: ED Sex: M C Admitted: Test Reason : CP Blood Pressure : / mmHG Vent. Rate : 074 BPM Atrial Rate : 074 BPM P-R Int : 138 ms QRS Dur : 086 ms QT Int : 348 ms P-R-T Axes : 019 019 020 degrees QTc Int : 386 ms Normal sinus rhythm Nonspecific ST abnormality Poor R wave progression Abnormal ECG Confirmed by JACKIE BRASWELL, VALENTIN ([id number]), photography editor VITOR MORENO ([id number]) on 04/24/2018 1:23:53 PM Referred By: COREY Confirmed By:VALENTIN NEWBY MD 04/24/18 1323 Date Valentin Newby MD CC: No Primary Care Physician; Cathy Jeffries DO Signed DISCHARGE INSTRUCTION Observed: 04/22/2018 Status: F Source: [place] 12:45 PM [facility] REPOSITORY [facility] Medical Records Department [address] [place] [address] Discharge Instruction 04/22/18 1243 MR#: [id number] Acct: [id number] Name: GARO MORAN Rep #: [id number] : 1985 32 From: Cathy Jeffries DO PCP: Care Physician, No Primary Status: REG ER ED Disposition - Plan for ED Patient: Chief Complaint: Chest Pain Instructions: ED Chest Pain Atypical Unkn Cause, ED Spasm Back No Trauma Prescriptions: Hydrocodone Bitart/Apap 5-325 [[place] 5MG-325MG] 1 tab PO Q4H PRN PRN 2 Days #10 tab PRN Reason: Pain Referrals: Care Physician,No Primary [Primary Care Provider] - Additional Instructions: see your doctor in 3-5 days What to do if you have Problems For any increased pain, shortness of breath, bleeding, nausea or vomiting, chest pain, or any unexpected problems, contact your Primary Care Provider. Call [facility] ([phone]) or report to the closest Emergency Room. Call 911 if necessary. 04/22/18 1245 <Electronically signed by Cathy Jeffries DO> Date Cathy Jeffries DO Cosigner Signature (If Indicated): Date CC: No Primary Care Physician EMERGENCY DEPARTMENT Observed: 04/22/2018 Status: F Source: [place] SUMMARY 12:43 PM [facility] REPOSITORY [facility] Medical Records Department [address] [facility] [place] [address] Emergency Department Summary 04/22/18 1240 MR#: [id number] Acct: [id number] Name: GARO MORAN Rep #: [id number] : 1985 32 From: Cathy Jeffries DO PCP: Care Physician, No Primary Status: REG ER - ER Visit Summary Date of Service: 04/22/18 Chief Complaint: [] History of Present Illness: The patient is a 32 M [pain started 20 minutes prior to coming to the emergency department. Patient states that he was at rest when it started. Patient describes a mild shortness of breath with it. Patient states the pain was sharp and stabbing. Patient states the pain was worse with movement and deep breath. Patient states the pains actually currently improved and rates it about a 5 out of 10. Patient tells me he has had similar pain in the past with anxiety. Patient also states he has had some low back pain issues for the last month. Patient denies any pain radiating down his legs. He denies weakness the extremities. He denies any change in bowel or bladder function. He denies any injury to his back.] Physical Examination: [HEENT-PERRLA, EOMI. Cranial nerves II through XII grossly intact. TMs clear. Mucous membranes moist. No adenopathy. Cardiovascular-regular rate and rhythm without murmur or ectopy. Patient does have some tenderness over the sternum that seems to reproduce his pain. Lungs-clear to auscultation, chest wall stable without crepitus or subcu emphysema Abdomen-normoactive bowel sounds, soft, nontender, no rebound or rigidity, no peritoneal signs. Back exam-patient has some diffuse tenderness over lumbar paraspinal musculature bilaterally. Patient has negative straight leg raises. Deep tendon reflexes are plus out of 4 bilaterally at the patella and Achilles. Patient has normal L5 extension. Extremities-intact 4, normal range of motion, normal pulses, atraumatic] Test Results: [EKG obtained on arrival showed a sinus rhythm with a ventricular rate of 74 bpm with no acute ST segment changes noted. CBC with differential was normal. Chemistries were normal. Troponin was less than 0.015. D-dimer was normal at 0.38. Chest x-ray showed nothing acute.] Emergency Department Course and Treatment: [Patient initially received aspirin] Treatment Plan: [Patient will be discharged home and advised follow-up with primary care physician 3-5 days. Patient's chest pain is atypical and do not feel his chest pain is cardiac in origin.] Patient will be given a prescription for [place] for pain Disposition: [Discharged home in stable condition] Impression: [Atypical chest pain Back pain] This note was generated with Xecced dictation software. It may contain incorrect words, spelling, and punctuation that were not noted in review of the chart prior to signing ED Disposition - Plan for ED Patient: Chief Complaint: Chest Pain Referrals: Care Physician,No Primary [Primary Care Provider] - What to do if you have Problems For any increased pain, shortness of breath, bleeding, nausea or vomiting, chest pain, or any unexpected problems, contact your Primary Care Provider. Call [facility] ([phone]) or report to the closest Emergency Room. Call 911 if necessary. 04/22/18 1243 <Electronically signed by Cathy Jeffries DO> Date Cathy Jeffries DO Cosigner Signature (If Indicated): Date CC: No Primary Care Physician D-DIMER QUANTITATIVE Collected: 04/22/2018 Status: F Source: [place] (DVT/PE) 11:58 AM [facility] REPOSITORY TYPE CODE TESTS RESULT OUT OF RANGE REFERENCE UNITS LAB L300.8000 0.27-0.49 FEU/ug/m Normal D-DIMER 0.38 QUANT Result Comment: NORMAL D-Dimer level (<0.50) indicates no DVT or PE. Performed By: #### L300.8000 #### [facility] [address] [place], [place], [address] CBC W/DIFF, AUTOMATED Collected: 04/22/2018 Status: F Source: [place] 11:36 AM [facility] REPOSITORY TYPE CODE TESTS RESULT OUT OF RANGE REFERENCE UNITS LAB L100.1000 4.4-11.0 K/mm3 Normal WBC 10.1 LAB L100.1200 4.6-6.2 M/mm3 Normal RBC 5.05 LAB L100.1300 13.0-16.5 g/dl Normal HGB 15.3 LAB L100.1400 40-54 % Normal HCT 45.2 LAB L100.1500 80-94 fL Normal MCV 89.5 LAB L100.1600 27.0-32.0 pg Normal MCH 30.3 LAB L100.1700 32-36 g/gl Normal MCHC 33.8 LAB L100.1810 11.6-14.6 % Normal RDW CV 12.8 LAB L100.1820 35.1-43.9 fl Normal RDW SD 41.0 LAB L100.1900 150-450 K/mm3 Normal PLT 305 LAB L100.2000 6.2-12.0 fl Normal MPV 10.6 LAB L100.2100 47-70 % Normal NEUT% 65.3 LAB L100.2200 19-41 % Normal LY% 20.5 LAB L100.2300 0-10 % High MONO% 11.5 LAB L100.2400 0-5 % Normal EO% 2.3 LAB L100.2500 0-1 % Normal BASO% 0.3 LAB L100.2550 0.0-0.9 % Normal IM GRAN % 0.100 Result Comment: IG% - Immature Granulocytes (promyelocytes, myelocytes and metamyelocytes) > 1% indicates that a LEFT SHIFT is Present. LAB L100.2620 2.0-7.7 X10 3/uL Normal Absolute Neut 6.6 LAB L100.2720 0.83-4.51 X10 3/ul Normal Absolute Lymph 2.06 Performed By: #### L100.0100 #### [facility] [address] [facility] [place], [place], [address] BASIC METABOLIC Collected: 04/22/2018 Status: F Source: [place] PROFILE (BMP) 11:36 AM [facility] REPOSITORY TYPE CODE TESTS RESULT OUT OF RANGE REFERENCE UNITS LAB L501.0100 74-106 mg/dL Normal GLU 93 Result Comment: Please note revised GLUCOSE reference range effective 2017. LAB L501.1000 7-18 mg/dL Normal BUN 7 LAB L501.1100 0.70-1.30 mg/dL Normal CREAT,SERUM 0.78 Result Comment: The validity of the calculated GFR AND GFRAA in patients over 70 years has not been determined. Clinical correlation is essential. LAB L501.1110 >60 mL/min Normal EST GFR 120 Result Comment: Non- GFR Calc LAB L501.1115 >60 mL/min Normal EST GFR - AA 145 Result Comment: GFR Calc LAB L501.1255 ml/min Normal Estimated CRCL 107.40 LAB L501.1300 10-20 RATIO Low BUN/CRE 8.9 LAB L501.2200 8.5-10 mg/dL .1 CA Normal 8.8 LAB L501.5300 136-14 mmol/L 5 NA Normal 140 LAB L501.5600 3.5-5. mmol/L 1 K Normal 4.2 LAB L501.5900 98-107 mmol/L CL Normal 104 LAB L501.6100 21.0-3 mmol/L 2.0 CO2 Normal 30.0 LAB L501.6200 5-15 GAP Normal 6 Performed By: #### L500.2500, L501.4010 #### [facility] [address] [place], [address] TROPONIN-I Collected: 04/22/2018 Status: F Source: [place] 11:36 AM [facility] REPOSITORY TYPE CODE TESTS RESULT OUT OF RANGE REFERENCE UNITS LAB L501.4010 <0.045 ng/mL Normal < 0.015 TROPONIN-I Result Comment: TROPONIN-I EXPECTED VALUES <0.045 Negative 0.045 - 0.590 Consistent with Cardiac Damage > OR = 0.600 Critical Value Not every elevated troponin is indicative of AZ. These values should be used with clinical judgement in examining the patient's clinical picture for diagnosis. To establish a diagnosis of AZ versus myocardial injury, there must be a demonstrated rise and/or fall in the troponin values, in addition to ischemic symptoms, EKG changes, new regional wall motion abnormality, and/or angiographical evidence. PLEASE NOTE: REFERENCE RANGES EDITED 18 Performed By: #### L500.2500, L501.4010 #### [facility] [address] [place], [address] CHEST 1 VIEW Observed: 04/22/2018 Status: F Source: [place] (PORTABLE) 11:33 AM [facility] REPOSITORY [facility] Imaging Services [address] [place] [address] Chest 1 View (Portable) MR#: [id number] Acct: [id number] Name: GARO MORAN Meng Rep #: [id number] : 1985 M 32 From: Rudolph Caballero MD PCP: Care Physician, No Primary Status: REG ER Study: Chest 1 View (Portable) Date of Exam: 04/22/18 Exam# [id number] Ordering Dr: Cathy Jeffries DO STUDY: X-RAY CHEST REASON FOR EXAM: Male, 32 years old. Midsternal chest pain. Shortness of breath. TECHNIQUE: Single AP portable view of the chest. COMPARISON: Comparison is made with prior study dated March 17, 2018. FINDINGS: EKG electrodes are seen. Limited inspiratory effort. No pulmonary abnormality is seen. There is no demonstrated pleural abnormality. Normal size heart. Normal mediastinum and darian. Normal visualized pulmonary arteries. Normal visualized aortic arch and descending thoracic aorta. Normal visualized thoracic spine. Normal visualized ribs, clavicles, and shoulders. There is no demonstrated abnormality of the visualized soft tissue structures of the upper abdomen. RAD/Chest 1 View (Portable) IMPRESSION: Limited inspiratory effort. Electronically Signed: Rudolph Caballero MD at 12:28 EDT Tel [phone], Service support , CC: No Primary Care Physician; Cathy Jeffries DO Surface Grinder Tender: Signed CNPN Observed: 04/17/2018 Status: COMPLETED Source: [place] 12:00 AM [facility] REPOSITORY Telephone (UROLMN) GARO MORAN ([id number]) 1985 M Date Time Provider Department 04/17/18 GISSELLE LOPEZ) JIMMY During your visit today, we recorded the following information about you: Vikram [employer] Sec 04/17/2018 9:09 AM Signed Tried to call pt on [phone] but when called, it is a [employer] message that says number has been disconnected. Called father at [phone] and went straight to . I left a message saying we are going to call in his prescription but need to speak with him first. Pt needs 3 month labs and 3 month office visit in April prior to refills. This was discussed in office. Gave office number to call back. [employer]ram [employer] Sec 04/17/2018 9:13 AM Signed Spoke with pharmacist at [facility] and gave him refills on testosterone. Allergies As of Date: 04/17/2018 (No Known Allergies) Date Reviewed: 01/31/2018 Reviewed by: Sabrina Shelton Ma - Fully Assessed Reason for Visit: Patient Update [1234] Prescriptions as of 04/17/2018 Sig: TESTOSTERONE CYPIONATE 200 MG* INJECT 1 ML INTRAMUSCULARLY E* NEEDLE (DISP) 21 GAUGE X 1 1/* To use as directed for self i* NEEDLE (DISP) 18 GAUGE X 1 1/* To use for self injection of * FLUTICASONE 50 MCG/ACTUATION * RANITIDINE 15 MG/ML SYRUP LEVETIRACETAM 100 MG/ML ORAL * IBU-200 ORAL Take by mouth. OMEPRAZOLE 40 MG CAPSULE,ANAHI* Take 1 capsule by mouth once * PRAVASTATIN 40 MG TABLET AMMONIUM LACTATE 12 % TOPICAL* SYMBICORT 160 MCG-4.5 MCG/ACT* CITALOPRAM 10 MG/5 ML ORAL SO* LISINOPRIL 10 MG TABLET DULOXETINE 60 MG CAPSULE,ANAHI* Take 60 mg by mouth once mercedes* TIOTROPIUM BROMIDE 18 MCG CAP* Inhale 18 mcg as instructed o* ALBUTEROL SULFATE HFA 90 MCG/* Inhale 2 Puffs as instructed * Problem List As Of Date 04/17/2018 Noted Resolved DEPRESS PSYCHOSIS-UNSPEC [F32.9] 08/31/2007 MILD MENTAL RETARDATION [F70] ANXIETY STATE NOS [F41.1] SOLITARY BONE CYST [M85.40] INVALID FOR* CHRONIC AIRWAY OBSTRUCTION NEC [J44.9] INVALID FOR*08/31/2007 DYSMETABOLIC SYNDROME X [E88.81] INVALID FOR*12/18/2006 SEBACEOUS CYST [L72.3] INVALID FOR*12/18/2006 OBESITY NOS [E66.9] INVALID FOR* BENIGN HYPERTENSION [I10] INVALID FOR* HYPERLIPIDEMIA NEC/NOS [E78.5] INVALID FOR* IMPAIRED FASTING GLUCOSE [R73.01] INVALID FOR*08/31/2007 SEBACEOUS CYST [L72.3] INVALID FOR* TOBACCO USE DISORDER [F17.200] INVALID FOR* UNILAT INGUINAL HERNIA [K40.90] INVALID FOR* Hypogonadism male [E29.1] INVALID FOR* COPD (chronic obstructive pulmonary disease) [J* 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] Pulmonary HTN [I27.20] Scoliosis [M41.9] Hyperlipidemia [E78.5] Obesity [E66.9] Penile swelling [N48.89] INVALID FOR*01/31/2018 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 Rate : 093 BPM Atrial Rate : 093 BPM P-R Int : 142 ms QRS Dur : 076 ms QT Int : 308 ms P-R-T Axes : 019 019 012 degrees QTc Int : 382 ms Normal sinus rhythm Poor R wave progression Confirmed by JACKIE BRASWELL, VALENTIN ([id number]), photography editor VITOR MORENO ([id number]) on 03/20/2018 1:20:51 PM Referred By: SATISH Confirmed By:VALENTIN NEWBY MD 03/20/18 1320 Date Valentin Newby MD CC: Adrián Gallegos MD; OUT OF TOWN DOCTOR Signed ESOPHAGUS ONLY Observed: 03/19/2018 Status: F Source: [place] 8:25 AM [facility] Imaging Services [address] [place] [address] Esophagus Only MR#: [id number] Acct: [id number] Name: GARO MORAN Rep #: [id number] : 1985 M 32 From: Mario Thrasher MD PCP: OUT OF TOWN DOCTOR Status: REG CLI Study: Esophagus Only Date of Exam: 03/19/18 Exam# [id number] Ordering Dr: Eleazar Brice MD STUDY: BARIUM ESOPHAGRAM REASON FOR EXAM: Male, 32 years old. Dysphagia RADIATION DOSAGE (If Supplied By Facility): CTDIvol = ( ) mGy, DLP = ( ) mGycm. Individualized dose optimization techniques were used for this CT.? FLUOROSCOPY TIME (if supplied): (0:45) minutes/seconds TECHNIQUE: Air-contrast COMPARISON: None. FINDINGS: Swallowing was initiated normally. No nasopharyngeal reflux or aspiration. No Zenker's diverticulum noted on the lateral view. Normal peristaltic activity noted in the esophagus. No evidence of stricture, mass lesion or obstruction. No evidence of hiatal hernia, there was a small amount of GE reflux. A 13 mm barium pill passed through the esophagus without difficulty. RAD/Esophagus Only IMPRESSION: GE reflux Electronically Signed: [place] Thrasher MD at 12:06 EDT , Service support , CC: Barrera Brice MD; OUT OF TOWN DOCTOR Surface Grinder Tender: Signed MODIFIED BARIUM Observed: 03/18/2018 Status: F Source: [place] SWALLOW STUDY 4:58 PM [facility] REPOSITORY [facility] Speech Pathology [address] [place] [address] Modified Barium Swallow Study MR#: [id number] Acct: [id number] Name: DEANGARO Meng Rep #: [id number] : 1985 32 From: Neftali Martinez M.A. CFY-RIGGING UP WORKER PRIMARY / SECONDARY DIAGNOSIS: dysphagia (R13.10) REFERRING PHYSICIAN: Dr. Barrera Brice MD CURRENT DIET: regular textures, thin liquids DENTITION: edentulous MENTAL STATUS: appropriate for participation RESPIRATORY STATUS: O2 via room air PREVIOUS MODIFIED BARIUM SWALLOW STUDY: none REASON FOR REFERRAL: Patient is a 32 year old male referred for a modified barium swallow (MBS) study to objectively assess the Patients oropharyngeal swallow function under fluoroscopy secondary to reported globus sensation occurring during / post intake, with the Patient unable to associate with texture. Patient accompanied to study by his caregiver, both deny any prior issues with pneumonia, both deny any additional overt or secondary signs of aspiration. 03/19/2018 barium esophagram scheduled. MEDICAL HISTORY: Chronic obstructive pulmonary disease, seizure disorder (Keppra), hypertension, near syncope, depression with prior suicidal ideations, sleep apnea. STUDY FINDINGS: Patient participated in a Modified Barium Swallow (MBS) study on 03/18/2018. Dr. Thrasher was the radiologist present for this evaluation. This study was recorded in the lateral view and images were sent to PACs for storage. The following consistencies were presented to this patient for analysis of oropharyngeal swallow function: thin liquids, pudding, and a regular textured, Kanwal Doone cookie. Results of the MBS are as follows: PENETRATION / ASPIRATION SCALE (DOMÍNGUEZ): 1 = does not enter airway 2 = enters airway/above vocal folds/ejected 3 = enters airway/above vocal folds/not ejected 4 = enters airway/contacts vocal folds/ejected 5 = enters airway/contacts vocal folds/not ejected 6 = enters airway/below vocal folds/ejected 7 = enters airway/below vocal folds/not ejected despite effort 8 = enters airway/below vocal folds/no effort PENETRATION / ASPIRATION SCALE (SCORE): Thin liquid - 5 mL tsp.: 1 Thin liquids via cup (single sip): 1 Thin liquids via cup (single sip): 1 Thin liquids via cup (single sip): 1 Thin liquids via cup (sequential swallows): 1 Thin liquids via straw (single sip): 1 Thin liquids via straw (sequential swallows): 1 Pudding via spoon: 1 Regular textured cookie: 1 Thin liquids via straw with 12mm tablet (sequential swallows): 1 Thin liquids via straw (sequential swallows): 1 IMPRESSION: DIAGNOSIS: mild oropharyngeal dysphagia (R13.12) ORAL PHASE CHARACTERIZED BY: LABIAL SEAL: no labial escape TONGUE CONTROL DURING BOLUS MANIPULATION: cohesive bolus between tongue to palatal seal BOLUS PREPARATION / MASTICATION: slow prolonged chewing/mashing with complete recollection (edentulous) BOLUS TRANSPORT / LINGUAL MOTION: brisk tongue motion ORAL RESIDUE: trace residue lining oral structures PHARYNGEAL PHASE CHARACTERIZED BY: INITIATION OF PHARYNGEAL SWALLOW: bolus head in pyriforms at first hyoid excursion SOFT PALATE ELEVATION: no bolus between soft palate and pharyngeal wall LARYNGEAL ELEVATION: partial superior movement of thyroid cartilage/partial approximation of arytenoids cartilage to epiglottic petiole ANTERIOR HYOID EXCURSION: partial anterior movement EPIGLOTTIC MOVEMENT: complete epiglottic inversion LARYNGEAL VESTIBULE CLOSURE AT HEIGHT OF SWALLOW: complete laryngeal vestibule closure with no air/contrast in laryngeal vestibule PHARYNGEAL STRIPPING WAVE: pharyngeal stripping wave present / complete PHARYNGOESOPHAGEAL SEGMENT OPENING: complete distension and complete duration with no obstruction of flow TONGUE BASE RETRACTION: no contrast between tongue base and posterior pharyngeal wall PHARYNGEAL RESIDUE: trace residue within or on pharyngeal structures ESOPHAGEAL PHASE CHARACTERIZED BY: ESOPHAGEAL BOLUS CLEARANCE IN THE UPRIGHT POSITION: complete clearance; esophageal coating DIET TEXTURE RECOMMENDATIONS: Will recommend a regular-soft textured, thin liquid diet. COMPENSATORY STRATEGIES RECOMMENDED: Reduced bolus volume, reduced rate of intake, seated upright at 90 degrees during PO intake, remain upright for 30-60 minutes post meal (GERD precaution) INTERPRETATION OF RESULTS: Patient presents with mild oropharyngeal dysphagia (R13.12) primarily marked by mastication inefficiency associated with chronic edentulous status in addition to impaired pharyngeal swallow onset timing resulting in suboptimal bolus location upon swallow onset without effect under fluoroscopy (though heightened risk for prandial penetration with thin liquids). No penetration or aspiration appreciated throughout trials, unable to definitively rule out silent aspiration; higher risk factor for silent aspiration secondary to diagnosis of chronic obstructive pulmonary disease. RECOMMENDATIONS: Patient and Patients caregiver able to comprehend and express recommended intake precautions detailed above with sufficient detail to suggest high likelihood of compliance. Provided brief overview of signs and symptoms of aspiration, with recommendations for the Patient to further discuss symptoms with PCP. No further skilled speech-language services warranted at this time targeting dysphagia. IMAGE COUNT: [id number] G-CODES: SWALLOWING [id number] Current Status: CI SWALLOWING G8997 Goal Status: CI SWALLOWING G8998 Discharge Status: CI 03/18/18 1658 <Electronically signed by Neftali Martinez M.A. CFY-RIGGING UP WORKER> Date Neftali Martinez M.A. CFY-RIGGING UP WORKER Co-Signature Required for all Medicare patients Date/Time Co-Signature CC: SWALLOWING FUNCTION Observed: 03/18/2018 Status: F Source: [place] W/VIDEO 1:09 PM [facility] REPOSITORY [facility] Imaging Services [address] [place] [address] Swallowing Function w/Video MR#: [id number] Acct: [id number] Name: GARO MORAN Rep #: [id number] : 1985 M 32 From: Mario Thrasher MD PCP: OUT OF TOWN DOCTOR Status: REG CLI Study: Swallowing Function w/Video Date of Exam: 03/18/18 Exam# [id number] Ordering Dr: Eleazar Brice MD STUDY: SWALLOWING STUDY REASON FOR EXAM: Male, 32 years old. Dysphagia TECHNIQUE: The examination was performed with Speech Pathology in attendance. Under fluoroscopic observation, the patient ingested thin barium, thick barium, barium pudding, and barium coated cracker. FLUOROSCOPY TIME: 1:45 minutes/seconds RADIOLOGIST INVOLVEMENT: Radiologist was present during the procedure, providing fluoroscopy and did review the images. COMPARISON: None. FINDINGS: The following was observed during swallowing of the various mixtures of barium: Thin Barium: There was no evidence of aspiration or laryngeal penetration. Thick Barium: There was no evidence of aspiration or laryngeal penetration. Barium Pudding: There was no evidence of aspiration or laryngeal penetration. Barium Coated Cracker: There was no evidence of aspiration or laryngeal penetration. RAD/Swallowing Function w/Video IMPRESSION: Normal tailored barium swallow study. No evidence of increased risk for aspiration. The swallow study findings were discussed with the patient by the speech pathologist at the conclusion of the examination. Please see speech pathology report for more information and recommendations. The procedure was performed by Neftali speech therapist Electronically Signed: West Thrasher MD at 15:30 EDT , Service support , CC: Barrera Brice MD; OUT OF TOWN DOCTOR Surface Grinder Tender: Signed EMERGENCY DEPARTMENT Observed: 03/18/2018 Status: F Source: [place] SUMMARY 12:26 AM [facility] REPOSITORY [facility] Medical Records Department [address] [place] [address] Emergency Department Summary 03/17/18 2248 MR#: [id number] Acct: [id number] Name: GARO MORAN Rep #: [id number] : 1985 32 From: Adrián Gallegos MD PCP: OUT OF TOWN DOCTOR Status: DEP ER - ER Visit Summary Date of Service: 03/17/18 Chief Complaint: Chest pain History of Present Illness: The patient is a 32 M presents to the emergency department chest pain. Patient had outpatient laparoscopic gallbladder removal done today at [facility]. He states that his surgery was not complicated. He was discharged back to his facility. At about 7 PM, he began to have tightness like a band across his upper abdomen and lower chest. He states it was worse when he would lay flat. He states it is better when he sits up. He denies any shortness of breath. He denies any cough. He denies any fevers or chills. His blood pressure was elevated at 160/90. He did take his pain medication and his blood pressure did not change but it did help his pain. He denies any history of coronary vascular disease. He denies any history of pulmonary embolus. Physical Examination: Vital signs reviewed General: Well-nourished, well-developed Head: Normocephalic, atraumatic Eyes: Pupils equal and reactive, extraocular muscles intact Neck, supple, no lymphadenopathy Heart: Regular rate and rhythm Respiratory: No distress, clear bilaterally Abdomen: Soft, appropriately tender at incisions, incisions are clean dry and intact, minimal distention, no peritoneal signs Back: Nontender Extremities: Nontender, no edema, no cords Skin: Normal color no rash Neuro: Alert and oriented, no focal or lateralizing deficits Test Results: [] Emergency Department Course and Treatment: Clinically, the patient's pain is consistent with retained CO2 after laparoscopic surgery. It is entirely positional. EKG was obtained. It was sinus rhythm without acute ischemic change. It was unchanged from prior. The patient has no dyspnea. He has no hypoxia. His surgery was 12 hours ago. I do not feel that his symptoms are consistent with pulmonary embolus. X-ray was unremarkable. Screening labs do show leukocytosis, but again the patient did have a large abdominal surgery and I do feel that this is reactive. I have no evidence of infection. His abdomen really is not significantly tender. I do not suspect biliary leak or other dangerous process. With analgesics, the patient is resting comfortably. He was counseled on retained CO2 and methods to improve his comfort. The patient will be discharged. Treatment Plan: [] Disposition: Discharge Impression: 1. Postoperative abdominal pain This note was generated with Xecced dictation software. It may contain incorrect words, spelling, and punctuation that were not noted in review of the chart prior to signing ED Disposition - Plan for ED Patient: Chief Complaint: Chest Pain Instructions: ED Post Op Pain Referrals: [facility] Doctor,Out of [Primary Care Provider] - What to do if you have Problems For any increased pain, shortness of breath, bleeding, nausea or vomiting, chest pain, or any unexpected problems, contact your Primary Care Provider. Call [facility] ([phone]) or report to the closest Emergency Room. Call 911 if necessary. 03/18/18 0026 <Electronically signed by Adrián Gallegos MD> Date Adrián Gallegos MD Cosigner Signature (If Indicated): Date CC: OUT OF [facility] DOCTOR CBC W/DIFF, AUTOMATED Collected: 03/17/2018 Status: C Source: [place] 10:51 PM [facility] REPOSITORY TYPE CODE TESTS RESULT OUT OF RANGE REFERENCE UNITS LAB L100.1000 4.4-11.0 K/mm3 High WBC 24.7 LAB L100.1200 4.6-6.2 M/mm3 Normal RBC 5.21 LAB L100.1300 13.0-16.5 g/dl Normal HGB 16.2 LAB L100.1400 40-54 % Normal HCT 46.6 LAB L100.1500 80-94 fL Normal MCV 89.4 LAB L100.1600 27.0-32.0 pg Normal MCH 31.1 LAB L100.1700 32-36 g/gl Normal MCHC 34.8 LAB L100.1810 11.6-14.6 % Normal RDW CV 13.3 LAB L100.1820 35.1-43.9 fl Normal RDW SD 43.2 LAB L100.1900 150-450 K/mm3 Normal PLT 426 LAB L100.2000 6.2-12.0 fl Normal MPV 10.6 LAB L100.2100 47-70 % High NEUT% 92.2 LAB L100.2200 19-41 % Low LY% 4.0 LAB L100.2300 0-10 % Normal MONO% 3.6 LAB L100.2400 0-5 % Normal EO% 0.0 LAB L100.2500 0-1 % Normal BASO% 0.0 LAB L100.2550 0.0-0.9 % Normal IM GRAN % 0.200 Result Comment: IG% - Immature Granulocytes (promyelocytes, myelocytes and metamyelocytes) > 1% indicates that a LEFT SHIFT is Present. LAB L100.2620 2.0-7.7 X10 3/uL High Absolute Neut 22.8 LAB L100.2720 0.83-4.51 X10 3/ul Normal Absolute Lymph 1.00 LAB L100.9900 Normal PATH REV Reviewed Result Comment: Neutrophilic leukocytosis. Clinical correlation necessary. Cristiano Santoro M.D. 03/18/18 AMENDED REPORT 03/18/18 1530 PATH REV previously reported as: December Performed By: #### L100.0100 #### [facility] [address] [place], [place], [address] BASIC METABOLIC Collected: 03/17/2018 Status: F Source: [place] PROFILE (BMP) 10:51 PM [facility] REPOSITORY TYPE CODE TESTS RESULT OUT OF RANGE REFERENCE UNITS LAB L501.0100 74-106 mg/dL High GLU 140 Result Comment: Fasting Glucose result greater than or equal to 126 mg/dL suggests DIABETES MELLITUS per A.D.A. criteria. Please note revised GLUCOSE reference range effective 2017. LAB L501.1000 7-18 mg/dL Normal BUN 7 LAB L501.1100 0.70-1.30 mg/dL Normal CREAT,SERUM 0.94 Result Comment: The validity of the calculated GFR AND GFRAA in patients over 70 years has not been determined. Clinical correlation is essential. LAB L501.1110 >60 mL/min Normal EST GFR 97 Result Comment: Non- GFR Calc LAB L501.1115 >60 mL/min Normal EST GFR - AA 117 Result Comment: GFR Calc LAB L501.1255 ml/min Normal Estimated CRCL 89.12 LAB L501.1300 10-20 RATIO Low BUN/CRE 7.4 LAB L501.2200 8.5-10 mg/dL Normal .1 CA 9.4 LAB L501.5300 136-14 mmol/L Normal 5 NA 136 LAB L501.5600 3.5-5. mmol/L Normal 1 K 5.0 Result Comment: Moderate Hemolysis, Result may be falsely increased. LAB L501.5900 98-107 mmol/L Normal CL 101 LAB L501.6100 21.0-32.0 mmol/L Normal CO2 26.0 LAB L501.6200 5-15 Normal 9 GAP Performed By: #### L500.2500, L501.4010 #### [facility] [address] [place], [address] TROPONIN-I Collected: 03/17/2018 Status: F Source: [place] 10:51 PM [facility] REPOSITORY TYPE CODE TESTS RESULT OUT OF RANGE REFERENCE UNITS LAB L501.4010 <0.045 ng/mL Normal < 0.015 TROPONIN-I Result Comment: TROPONIN-I EXPECTED VALUES <0.045 Negative 0.045 - 0.590 Consistent with Cardiac Damage > OR = 0.600 Critical Value Not every elevated troponin is indicative of AZ. These values should be used with clinical judgement in examining the patient's clinical picture for diagnosis. To establish a diagnosis of AZ versus myocardial injury, there must be a demonstrated rise and/or fall in the troponin values, in addition to ischemic symptoms, EKG changes, new regional wall motion abnormality, and/or angiographical evidence. PLEASE NOTE: REFERENCE RANGES EDITED 18 Performed By: #### L500.2500, L501.4010 #### [facility] [address] [place], [address] CHEST 1 VIEW Observed: 03/17/2018 Status: F Source: [place] (PORTABLE) 10:47 PM [facility] REPOSIT[facility] Imaging Services [address] [place] [place] [address] Chest 1 View (Portable) MR#: [id number] Acct: [id number] Name: GARO MORAN Rep #: [id number] : 1985 M 32 From: Newton Mensah MD PCP: OUT OF TOWN DOCTOR Status: REG ER Study: Chest 1 View (Portable) Date of Exam: 03/17/18 Exam# [id number] Ordering Dr: Adrián Gallegos MD STUDY: X-RAY CHEST REASON FOR EXAM: Male, 32 years old. Gallbladder surgery. Chest pain TECHNIQUE: Single view of the chest was obtained COMPARISON: August 08, 2010 chest radiograph FINDINGS: No lung consolidation, pleural effusion or pneumothorax. Cardiac size is mildly prominent. Osseous structures demonstrate no acute abnormalities. IMPRESSION: No evidence for focal airspace disease. Electronically Signed: Newton Mensah, at 23:16 EDT Tel , Service support , RAD/Chest 1 View (Portable) CC: Adrián Gallegos MD; OUT OF TOWN DOCTOR Surface Grinder Tender: Signed Observed: 03/17/2018 Status: F Source: [facility] 8:42 AM SYSTEM REPOSITORY [id number] [facility] PATHOLOGY AND LABORATORY MEDICINE [address] [place] [address] Fax - FINAL SURGICAL PATHOLOGY REPORT NAME: GARO MORAN : 1985 32 Y Nesha SIMON NO.: [id number] [facility] PROCEDURE 03/17/2018 DATE: SURGEON: ILIA CONDON MD RECEIVED 03/17/2018 DATE: ATTENDING: ILIA CONDON MD REPORT DATE: 03/18/2018 COPIES TO: DIAGNOSIS: GALLBLADDER, CHOLECYSTECTOMY - CHRONIC CHOLECYSTITIS WITH CHOLESTEROLOSIS IVN/KMS1 <Sign Out Dr. Leal> MALDONADO HAWTHORNE M.D. CLINICAL INFORMATION: Biliary colic SPECIMEN: GALLBLADDER GROSS DESCRIPTION: Gallbladder Received in formalin is a previously-opened gallbladder measuring 6.5 x 2.0 x 1.5 cm. The serosal surface is pink to salgado. Upon opening the specimen, the lumen contains thick, green mucoid bile. The mucosa is dark green bile stained with yellow streaks. A single yellow polyp is identified 0.2 cm in greatest dimension. No calculi are identified within the gallbladder, cystic duct, or container. The wall of the gallbladder averages 0.2 cm in thickness. Cloth Feeder sections are submitted in a single cassette. (bits ss, 1) JCK/ZHANE Disclaimer: The following statement applies to all immunohistochemistry, in situ hybridization, molecular studies, and immunofluorescence testing. The use of one or more reagents in the above tests is regulated as an analyte specific reagent (ASR). These tests were developed and their performance characteristics determined by the clinical laboratories of [facility]. They have not been cleared by the US Food and Drug Administration (FDA). The FDA has determined that such clearance or approval is not necessary. All the above immunostains were performed on paraffin embedded tissue. Appropriate positive and negative controls (where applicable) were run in parallel with the patient's specimen; these controls showed expected staining pattern, with acceptable intensity of staining. Immunohistochemical assays have not been validated on decalcified tissues. Results should be interpreted with caution given the raised possibility of false negativity on decalcified specimens. Case reviewed at [facility] [address] [place] [address]. DEPARTMENT OF PATHOLOGY AND LABORATORY MEDICINE [place], [place] [address] EMERGENCY DEPARTMENT Observed: 03/15/2018 Status: F Source: [place] SUMMARY 8:22 AM [facility] REPOSITORY [facility] Medical Records Department [address] [place] [address] Emergency Department Summary 03/14/18 1245 MR#: [id number] Acct: [id number] Name: GARO MORAN Rep #: [id number] : 1985 32 From: Vincent Rodrigues DO PCP: OUT OF TOWN DOCTOR Status: DEP ER - ER Visit Summary Date of Service: 03/14/18 Chief Complaint: Knee injury History of Present Illness: The patient is a 32 M who fell onto his left knee after his sandal slipped and he fell directly onto the knee onto hardwood floors. He is able to ambulate. Physical Examination: Afebrile vital signs are stable There is a abrasion over the anterior left knee. There is no joint effusion. There is no significant hematoma or swelling. Ligament are stable. Test Results: X-rays were negative. Emergency Department Course and Treatment: She received Motrin and ice pack. Patient will be discharged home with supportive care. Follow-up with primary care if not improved in 14 days Impression: 1. Left knee abrasion and contusion This note was generated with Exelisation software. It may contain incorrect words, spelling, and punctuation that were not noted in review of the chart prior to signing ED Disposition - Plan for ED Patient: Disposition: Home or Assisted Living Chief Complaint: Lower Extremity Injury Instructions: ED Contusion Lower Ext Referrals: [facility] Doctor,Out of [Primary Care Provider] - 10-14 Days if not better What to do if you have Problems For any increased pain, shortness of breath, bleeding, nausea or vomiting, chest pain, or any unexpected problems, contact your Primary Care Provider. Call [facility] ([phone]) or report to the closest Emergency Room. Call 911 if necessary. 03/15/18 0822 <Electronically signed by Vincent Rodrigues DO> Date Vincent Rodrigues DO Cosigner Signature (If Indicated): Date CC: OUT OF TOWN DOCTOR KNEE 4 OR MORE Observed: 03/14/2018 Status: F Source: [facility] 12:44 PM [facility] REPOSITORY [facility] Imaging Services [address] [place] [address] Knee 4 or More Views MR#: [id number] Acct: [id number] Name: DEANGARO Meng Rep #: [id number] : 1985 M 32 From: Brenden Alexis DO PCP: OUT OF [facility] DOCTOR Status: PRE ER Study: Knee 4 or More Views Date of Exam: 03/14/18 Exam# [id number] Ordering Dr: Vincent Rodrigues DO STUDY: X-RAY - LEFT KNEE REASON FOR EXAM: Male, 32 years old. Knee pain. TECHNIQUE: 4 view(s) of the knee. COMPARISON: None. FINDINGS: Normal visualized distal femur. Normal visualized proximal tibia and fibula. Normal proximal tibiofibular articulation. Normal medial femorotibial compartment. Normal lateral femorotibial compartment. Normal patellofemoral articulation. The soft tissue structures are unremarkable. RAD/Knee 4 or More Views IMPRESSION: No evidence of acute osseous abnormality. Electronically Signed: Brenden Alexis DO at 13:12 EDT , Service support , CC: Vincent Rodrigues DO; OUT OF TOWN DOCTOR Surface Grinder Tender: Signed HEMATOCRIT Collected: 02/09/2018 Status: F Source: [place] 2:08 PM [facility] REPOSITORY TYPE CODE TESTS RESULT OUT OF REFERENCE UNITS RANGE LAB HCT 39.0-51.0 % Hematocrit 48.5 Performed By: #### HCT, FTESTO #### [facility] [employer] [address] [place], [place] [id number] FREE TESTOSTERONE Collected: 02/09/2018 Status: F Source: [place] 2:08 PM [facility] REPOSITORY TYPE CODE TESTS RESULT OUT OF REFERENCE UNITS RANGE LAB TESTO 193-824 ng/dL Testosterone High 951 Result Comment: A testosterone level in the 193-320 ng/dL range with associated clinical symptoms is considered low and may indicate hypogonadism (from NEJM 2010 363:123-135). Results >320 ng/dL are considered normal. LAB FREE 1.4-3.2 % Free Testosterone High % 4.2 Result Comment: Result rechecked. LAB FRTSTO 41.7-180.2 pg/mL Free High Testosterone 397.7 Result Comment: Result rechecked. This test was developed and its performance characteristics determined by [facility]'s Jacob Lamas [facility] Pathology and Laboratory Medicine [place] ([facility]). It has not been cleared or approved by the FDA. [facility] is regulated under CLIA as qualified to perform high-complexity testing. This test is used for clinical purposes. It should not be regarded as investigational or for research. Performed By: #### HCT, FTESTO #### [facility] [employer] [address] [place], [place] [address] US ABDOMEN LIMITED Observed: 02/06/2018 Status: F Source: [place] 11:11 AM SYSTEM REPOSITORY Patient Name: GARO MORAN Ultrasound Exam Date/Time 02/06/2018 10:47:27 EDT Exam US Abdomen Limited Ordering Physician PHI COREAS BETHANY J Accession Number [id number] CPT4 Codes 64946 () Reason For Exam elevated liver enzymes Report CLINICAL INFORMATION: Elevated liver enzymes Sonogram of the right upper quadrant is performed. The liver is mildly fatty in echotexture. No hyper or hypo echoic masses are seen. There is no intrahepatic biliary ductal dilatation. The gallbladder is normally distended. There are no gallstones, significant wall thickening, or pericholecystic fluid collections with small probable 4 mm polyp anterior wall. The common bile duct diameter of 2 mm is within normal limits. The pancreas is homogenous in echo texture, partially obscured by bowel gas. No obvious pancreatic mass or peripancreatic fluid collection is identified. Cursory examination of the right kidney is performed. The right renal length is 7.1 cm. There is no hydronephrosis. There is no ascites in the right upper quadrant. IMPRESSION: 1. 4 mm probable gallbladder polyp with question of mild wall changes of adenomyomatosis 2. Mild fatty infiltration liver Report Dictated on Final Dictating Physician: MD CERDA WILLIAM Signed Date and Time: 02/06/2018 11:13 am Signed by: MD CERDA WILLIAM Transcribed Date and Time: 02/06/2018 11:14 CNNURSE Observed: 02/02/2018 Status: COMPLETED Source: [place] 1:30 PM [facility] REPOSITORY Nurse Visit (UROLWS) GARO MORAN ([id number]) 1985 M Date Time Provider Department 02/02/18 1:30 PM [facility] During your visit today, we recorded the following information about you: Surya Teague LPN 02/02/2018 1:37 PM Signed Patient here for injection teaching/reteaching. Patient has been giving self injections at home and not sure that he has been doing it correctly. Patient demonstrates proper technique in drawing up medication, understanding the dosage and giving self injection. Patient states he does sometimes hesitate and is afraid that he is not giving them correctly but demonstrated appropriately today. Referring Provider: GISSELLE LOPEZ ([place]) [[id number]] Allergies As of Date: 02/02/2018 (No Known Allergies) Date Reviewed: 01/31/2018 Reviewed by: Sabrina Shelton Ma - Fully Assessed Reason for Visit: Medication Injection Teaching [468] Primary Visit Diagnosis:Hypogonadism male [E29.1] Prescriptions as of 02/02/2018 Sig: TESTOSTERONE CYPIONATE 200 MG* Inject 1 mL intramuscularly e* FLUTICASONE 50 MCG/ACTUATION * RANITIDINE 15 MG/ML SYRUP LEVETIRACETAM 100 MG/ML ORAL * IBU-200 ORAL Take by mouth. OMEPRAZOLE 40 MG CAPSULE,ANAHI* Take 1 capsule by mouth once * PRAVASTATIN 40 MG TABLET AMMONIUM LACTATE 12 % TOPICAL* SYMBICORT 160 MCG-4.5 MCG/ACT* CITALOPRAM 10 MG/5 ML ORAL SO* LISINOPRIL 10 MG TABLET DULOXETINE 60 MG CAPSULE,ANAHI* Take 60 mg by mouth once mercedes* TIOTROPIUM BROMIDE 18 MCG CAP* Inhale 18 mcg as instructed o* ALBUTEROL SULFATE HFA 90 MCG/* Inhale 2 Puffs as instructed * Problem List As Of Date 02/02/2018 Noted Resolved DEPRESS PSYCHOSIS-UNSPEC [F32.9] 08/31/2007 MILD MENTAL RETARDATION [F70] ANXIETY STATE NOS [F41.1] SOLITARY BONE CYST [M85.40] INVALID FOR* CHRONIC AIRWAY OBSTRUCTION NEC [J44.9] INVALID FOR*08/31/2007 DYSMETABOLIC SYNDROME X [E88.81] INVALID FOR*12/18/2006 SEBACEOUS CYST [L72.3] INVALID FOR*12/18/2006 OBESITY NOS [E66.9] INVALID FOR* BENIGN HYPERTENSION [I10] INVALID FOR* HYPERLIPIDEMIA NEC/NOS [E78.5] INVALID FOR* IMPAIRED FASTING GLUCOSE [R73.01] INVALID FOR*08/31/2007 SEBACEOUS CYST [L72.3] INVALID FOR* TOBACCO USE DISORDER [F17.200] INVALID FOR* UNILAT INGUINAL HERNIA [K40.90] INVALID FOR* Hypogonadism male [E29.1] INVALID FOR* COPD (chronic obstructive pulmonary disease) [J* 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 Patient has been giving self injections at home and not sure that he has been doing it correctly. Patient demonstrates proper technique in drawing up medication, understanding the dosage and giving self injection. Patient states he does sometimes hesitate and is afraid that he is not giving them correctly but demonstrated appropriately today. Encounter Status:Closed by SURYA TEAGUE LPN on 02/02/18 PROGRESS Observed: 01/31/2018 Status: COMPLETED Source: [place] 9:41 AM [facility] [place] REPOSITORY HNO ID: [id number] Author: Vincent Tay Service: (none) Author Type: Physician Type: Progress Notes Filed: 01/31/2018 9:54 AM Note Text: [facility] ESTABLISHED PATIENT NOTE PATIENT INFO: Garo Moran PCP: Jojo Coreas NP UROLOGY DIAGNOSES: 1. Low testosterone - ICD9: 259.9, ICD10: E34.9 (primary diagnosis) 2. Peyronie's disease - ICD9: 607.85, ICD10: N48.6 CHIEF COMPLAINT: Low testosterone HPI: Patient returns for continuing evaluation and management. On TRT with im injections. Symptoms much improved. Having to come in for shots Due for labs 1 week after next shot. SIGNS and SYMPTOMS: PMH: PAST MEDICAL HISTORY Diagnosis Date - Back pain - COPD (chronic obstructive pulmonary disease) (HCC) - Depression - Heartburn - Hyperlipidemia - Hypertension - Seizure (HCC) PSH: PAST SURGICAL HISTORY Procedure Laterality Date - EGD - PAST SURGICAL HISTORY OF 2012 [place] albuginea plication. - VASECTOMY SH: Social History Marital status: Spouse name: Years of education: Number of children: Occupational History Occupation Employer Comment [employer] Social History Main Topics Smoking status: Current Every Day Smoker Packs/day: 2.50 Years: 19.00 Types: Cigarettes Smokeless tobacco: Never Used Comment: states he is allergic to the patches and gum Alcohol use: No Comment: 4 coolers per month Drug use: No Comment: mt [place] Sexual activity: No Other Topics Concern Caffeine Concern Yes Social History Narrative Merged History Encounter FH: No family history on file. ROS: REVIEW OF SYSTEMS CHANGES SINCE LAST APPOINTMENT: unchanged MEDICATIONS: testosterone cypionate (DEPO-TESTOSTERONE) 200 mg/mL injection, Inject 1 mL intramuscularly every 2 weeks for 151 days. fluticasone (FLONASE) 50 mcg/actuation nasal spray, ranitidine (ZANTAC) 15 mg/mL syrup, levETIRAcetam (KEPPRA) 100 mg/mL solution, IBUPROFEN (IBU-200 ORAL), Take by mouth. Omeprazole 40 mg capsule, Take 1 capsule by mouth once daily. Indications: gastroesophageal reflux disease, HEARTBURN pravastatin (PRAVACHOL) 40 mg tablet, ammonium lactate (LAC-HYDRIN) 12 % cream, citalopram (CELEXA) 10 mg/5 mL suspension, lisinopril (ZESTRIL, PRINIVIL) 10 mg tablet, albuterol HFA (PROAIR HFA) 90 mcg/actuation inhaler, Inhale 2 Puffs as instructed three times daily. SYMBICORT 160-4.5 mcg/actuation inhaler, DULoxetine (CYMBALTA) 60 mg capsule, Take 60 mg by mouth once daily. tiotropium (SPIRIVA WITH HANDIHALER) 18 mcg inhalation capsule, Inhale 18 mcg as instructed once daily. No current facility-administered medications for this visit. PHYSICAL EXAM: There were no vitals taken for this visit. There is no height or weight on file to calculate BMI. General Appearance/ Constitutional: Well developed, well nourished, and in no apparent distress Penis uncirc Testis moderate reduction in size, nontender DIAGNOSES: 1. Low testosterone - ICD9: 259.9, ICD10: E34.9 (primary diagnosis) 2. Peyronie's disease - ICD9: 607.85, ICD10: N48.6 IMPRESSION/PLAN: On TRT. Due for lab work Would like f/u with Dr. Pa regarding his prior penile surgery Vincent Tay MD I spent approximately 15 minutes in this visit, with more than 50% of the time devoted to patient discussion, counseling, review of records and/or coordination of care. CNOV Observed: 01/31/2018 Status: COMPLETED Source: [place] 9:30 AM [facility] REPOSITORY Office Visit (UROLBN) GARO MORAN ([id number]) 1985 M Date Time Provider Department 01/31/18 9:30 AM VINCENT TAY UROHALIE During your visit today, we recorded the following information about you: Vincent Tay MD 01/31/2018 9:54 AM Signed [facility] ESTABLISHED PATIENT NOTE PATIENT INFO: Garo Moran PCP: Jojo Coreas NP UROLOGY DIAGNOSES: 1. Low testosterone - ICD9: 259.9, ICD10: E34.9 (primary diagnosis) 2. Peyronie's disease - ICD9: 607.85, ICD10: N48.6 CHIEF COMPLAINT: Low testosterone HPI: Patient returns for continuing evaluation and management. On TRT with im injections. Symptoms much improved. Having to come in for shots Due for labs 1 week after next shot. SIGNS and SYMPTOMS: PMH: PAST MEDICAL HISTORY Diagnosis Date - Back pain - COPD (chronic obstructive pulmonary disease) (HCC) - Depression - Heartburn - Hyperlipidemia - Hypertension - Seizure (HCC) PSH: PAST SURGICAL HISTORY Procedure Laterality Date - EGD - PAST SURGICAL HISTORY OF 2013 [place] albuginea plication. 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 ROS: REVIEW OF SYSTEMS CHANGES SINCE LAST APPOINTMENT: unchanged MEDICATIONS: testosterone cypionate (DEPO-TESTOSTERONE) 200 mg/mL injection, Inject 1 mL intramuscularly every 2 weeks for 151 days. fluticasone (FLONASE) 50 mcg/actuation nasal spray, ranitidine (ZANTAC) 15 mg/mL syrup, levETIRAcetam (KEPPRA) 100 mg/mL solution, IBUPROFEN (IBU-200 ORAL), Take by mouth. Omeprazole 40 mg capsule, Take 1 capsule by mouth once daily. Indications: gastroesophageal reflux disease, HEARTBURN pravastatin (PRAVACHOL) 40 mg tablet, ammonium lactate (LAC-HYDRIN) 12 % cream, citalopram (CELEXA) 10 mg/5 mL suspension, lisinopril (ZESTRIL, PRINIVIL) 10 mg tablet, albuterol HFA (PROAIR HFA) 90 mcg/actuation inhaler, Inhale 2 Puffs as instructed three times daily. SYMBICORT 160-4.5 mcg/actuation inhaler, DULoxetine (CYMBALTA) 60 mg capsule, Take 60 mg by mouth once daily. tiotropium (SPIRIVA WITH HANDIHALER) 18 mcg inhalation capsule, Inhale 18 mcg as instructed once daily. No current facility-administered medications for this visit. PHYSICAL EXAM: There were no vitals taken for this visit. There is no height or weight on file to calculate BMI. General Appearance/ Constitutional: Well developed, well nourished, and in no apparent distress Penis uncirc Testis moderate reduction in size, nontender DIAGNOSES: 1. Low testosterone - ICD9: 259.9, ICD10: E34.9 (primary diagnosis) 2. Peyronie's disease - ICD9: 607.85, ICD10: N48.6 IMPRESSION/PLAN: On TRT. Due for lab work Would like f/u with Dr. Pa regarding his prior penile surgery Vincent Tay MD I spent approximately 15 minutes in this visit, with more than 50% of the time devoted to patient discussion, counseling, review of records and/or coordination of care. Referring Provider: SELF [[id number]] Allergies As of Date: 01/31/2018 (No Known Allergies) Date Reviewed: 01/31/2018 Reviewed by: Sabrina Shelton Ma - Fully Assessed Reason for Visit: Established Patient [175] Primary Visit Diagnosis:Low testosterone [E34.9] Other Visit Diagnosis:Peyronie's disease [N48.6] Order(s):CONSULT TO UROLOGY [9041] Order #: [id number]: 1 Prescriptions as of 01/31/2018 Sig: TESTOSTERONE CYPIONATE 200 MG* Inject 1 mL intramuscularly e* FLUTICASONE 50 MCG/ACTUATION * RANITIDINE 15 MG/ML SYRUP LEVETIRACETAM 100 MG/ML ORAL * IBU-200 ORAL Take by mouth. OMEPRAZOLE 40 MG CAPSULE,ANAHI* Take 1 capsule by mouth once * PRAVASTATIN 40 MG TABLET AMMONIUM LACTATE 12 % TOPICAL* CITALOPRAM 10 MG/5 ML ORAL SO* LISINOPRIL 10 MG TABLET ALBUTEROL SULFATE HFA 90 MCG/* Inhale 2 Puffs as instructed * SYMBICORT 160 MCG-4.5 MCG/ACT* DULOXETINE 60 MG CAPSULE,ANAHI* Take 60 mg by mouth once mercedes* TIOTROPIUM BROMIDE 18 MCG CAP* Inhale 18 mcg as instructed o* Problem List As Of Date 01/31/2018 Noted Resolved DEPRESS PSYCHOSIS-UNSPEC [F32.9] 08/31/2007 MILD MENTAL RETARDATION [F70] ANXIETY STATE NOS [F41.1] SOLITARY BONE CYST [M85.40] INVALID FOR* CHRONIC AIRWAY OBSTRUCTION NEC [J44.9] INVALID FOR*08/31/2007 DYSMETABOLIC SYNDROME X [E88.81] INVALID FOR*12/18/2006 SEBACEOUS CYST [L72.3] INVALID FOR*12/18/2006 OBESITY NOS [E66.9] INVALID FOR* BENIGN HYPERTENSION [I10] INVALID FOR* HYPERLIPIDEMIA NEC/NOS [E78.5] INVALID FOR* IMPAIRED FASTING GLUCOSE [R73.01] INVALID FOR*08/31/2007 SEBACEOUS CYST [L72.3] INVALID FOR* TOBACCO USE DISORDER [F17.200] INVALID FOR* UNILAT INGUINAL HERNIA [K40.90] INVALID FOR* Hypogonadism male [E29.1] INVALID FOR* COPD (chronic obstructive pulmonary disease) [J* 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 Tay restarted on IM testosterone, due to cost of Clomid He has trouble giving himself the injection so he will come for IM Injection teaching with hi medication Last Hormone levels were a bit low Having difficulty with erection, decreased libido, increased fatigue. Testosterone (ng/dL) Date Value 07/28/2017 283 07/21/2017 665 04/29/2017 193 Testosterone Free (pg/mL) Date Value 07/28/2017 88.1 07/21/2017 320.9 04/29/2017 73.3 PSA (ng/mL) Date Value 07/21/2017 0.86 04/29/2017 0.78 PSA Screening (ng/mL) Date Value 02/24/2013 0.72 Hematocrit (%) Date Value 07/28/2017 49.2 07/21/2017 52.6 04/29/2017 48.9 Current Outpatient Prescriptions: fluticasone (FLONASE) 50 mcg/actuation nasal spray ranitidine (ZANTAC) 15 mg/mL syrup levETIRAcetam (KEPPRA) 100 mg/mL solution IBUPROFEN (IBU-200 ORAL) Take by mouth. Omeprazole 40 mg capsule Take 1 capsule by mouth once daily. Indications: gastroesophageal reflux disease, HEARTBURN ammonium lactate (LAC-HYDRIN) 12 % cream citalopram (CELEXA) 10 mg/5 mL suspension lisinopril (ZESTRIL, PRINIVIL) 10 mg tablet albuterol HFA (PROAIR HFA) 90 mcg/actuation inhaler Inhale 2 Puffs as instructed three times daily. testosterone cypionate (DEPO-TESTOSTERONE) 200 mg/mL injection Inject 1 mL intramuscularly every 2 weeks for 151 days. pravastatin (PRAVACHOL) 40 mg tablet SYMBICORT 160-4.5 mcg/actuation inhaler DULoxetine (CYMBALTA) 60 mg capsule Take 60 mg by mouth once daily. tiotropium (SPIRIVA WITH HANDIHALER) 18 mcg inhalation capsule Inhale 18 mcg as instructed once daily. No current facility-administered medications for this visit. IMPRESSION/PLAN: Start IM Testosterone Injection again with teaching if unable to perform he will come for his injections 2 time per month > then 1 week in to 2 week cycle he will need labs drawn Otherwise I olson refill his medications he verbally understands Although he seems a little confused by my directions, soi he will come in to help him with injection next week Refills given today PEDRO Wise, [place], BRITNI MALLOY Observed: 01/22/2018 Status: COMPLETED Source: [place] 1:30 PM [facility] REPOSITORY Office Visit (UROLWS) GARO MORAN ([id number]) 1985 M Date Time Provider Department 01/22/18 1:30 PM GISSELLE LOPEZ) URORichWS During your visit today, we recorded the following information about you: Pulse Blood pressure Weight 84/minute 152/84 95.3 kg GARFIELD Bustamante 01/22/2018 2:30 PM Signed CC: LOW T Pt of Dr. Tay restarted on IM testosterone, due to cost of Clomid He has trouble giving himself the injection so he will come for IM Injection teaching with hi medication Last Hormone levels were a bit low Having difficulty with erection, decreased libido, increased fatigue. Testosterone (ng/dL) Date Value 07/28/2017 283 07/21/2017 665 04/29/2017 193 Testosterone Free (pg/mL) Date Value 07/28/2017 88.1 07/21/2017 320.9 04/29/2017 73.3 PSA (ng/mL) Date Value 07/21/2017 0.86 04/29/2017 0.78 PSA Screening (ng/mL) Date Value 02/24/2013 0.72 Hematocrit (%) Date Value 07/28/2017 49.2 07/21/2017 52.6 04/29/2017 48.9 Current Outpatient Prescriptions: fluticasone (FLONASE) 50 mcg/actuation nasal spray ranitidine (ZANTAC) 15 mg/mL syrup levETIRAcetam (KEPPRA) 100 mg/mL solution IBUPROFEN (IBU-200 ORAL) Take by mouth. Omeprazole 40 mg capsule Take 1 capsule by mouth once daily. Indications: gastroesophageal reflux disease, HEARTBURN ammonium lactate (LAC-HYDRIN) 12 % cream citalopram (CELEXA) 10 mg/5 mL suspension lisinopril (ZESTRIL, PRINIVIL) 10 mg tablet albuterol HFA (PROAIR HFA) 90 mcg/actuation inhaler Inhale 2 Puffs as instructed three times daily. testosterone cypionate (DEPO-TESTOSTERONE) 200 mg/mL injection Inject 1 mL intramuscularly every 2 weeks for 151 days. pravastatin (PRAVACHOL) 40 mg tablet SYMBICORT 160-4.5 mcg/actuation inhaler DULoxetine (CYMBALTA) 60 mg capsule Take 60 mg by mouth once daily. tiotropium (SPIRIVA WITH HANDIHALER) 18 mcg inhalation capsule Inhale 18 mcg as instructed once daily. No current facility-administered medications for this visit. IMPRESSION/PLAN: Start IM Testosterone Injection again with teaching if unable to perform he will come for his injections 2 time per month > then 1 week in to 2 week cycle he will need labs drawn Otherwise I olson refill his medications he verbally understands Although he seems a little confused by my directions, soi he will come in to help him with injection next week Refills given today Gisselle Lopez, PEDRO, MT, PA-C Referring Provider: JOJO COREAS [[id number]] Allergies As of Date: 01/22/2018 (No Known Allergies) Date Reviewed: 01/22/2018 Reviewed by: Kim Golden Ma - Fully Assessed Reason for Visit: Follow Up [171] Cmt: new to Gisselle Lopez Low Testosterone [2926] Reason For Visit History Recorded Visit Diagnosis:Hypogonadism male [E29.1] Order(s):testosterone cypionate (DEPO-TESTOSTERONE) 200 mg/mL injectionInject 1 mL intramuscularly every 2 weeks for 151 days.Disp: 2 mLRfl: 3 Prescriptions as of 01/22/2018 Sig: FLUTICASONE 50 MCG/ACTUATION * RANITIDINE 15 MG/ML SYRUP LEVETIRACETAM 100 MG/ML ORAL * IBU-200 ORAL Take by mouth. OMEPRAZOLE 40 MG CAPSULE,ANAHI* Take 1 capsule by mouth once * AMMONIUM LACTATE 12 % TOPICAL* CITALOPRAM 10 MG/5 ML ORAL SO* LISINOPRIL 10 MG TABLET ALBUTEROL SULFATE HFA 90 MCG/* Inhale 2 Puffs as instructed * TESTOSTERONE CYPIONATE 200 MG* Inject 1 mL intramuscularly e* PRAVASTATIN 40 MG TABLET SYMBICORT 160 MCG-4.5 MCG/ACT* DULOXETINE 60 MG CAPSULE,ANAHI* Take 60 mg by mouth once mercedes* TIOTROPIUM BROMIDE 18 MCG CAP* Inhale 18 mcg as instructed o* Problem List As Of Date 01/22/2018 Noted Resolved DEPRESS PSYCHOSIS-UNSPEC [F32.9] 08/31/2007 MILD MENTAL RETARDATION [F70] ANXIETY STATE NOS [F41.1] SOLITARY BONE CYST [M85.40] INVALID FOR* CHRONIC AIRWAY OBSTRUCTION NEC [J44.9] INVALID FOR*08/31/2007 DYSMETABOLIC SYNDROME X [E88.81] INVALID FOR*12/18/2006 SEBACEOUS CYST [L72.3] INVALID FOR*12/18/2006 OBESITY NOS [E66.9] INVALID FOR* BENIGN HYPERTENSION [I10] INVALID FOR* HYPERLIPIDEMIA NEC/NOS [E78.5] INVALID FOR* IMPAIRED FASTING GLUCOSE [R73.01] INVALID FOR*08/31/2007 SEBACEOUS CYST [L72.3] INVALID FOR* TOBACCO USE DISORDER [F17.200] INVALID FOR* UNILAT INGUINAL HERNIA [K40.90] INVALID FOR* Hypogonadism male [E29.1] INVALID FOR* COPD (chronic obstructive pulmonary disease) [J* 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 Medications Discontinued During This Encounter testosterone cypionate (DEPO-TESTOST* 2 mL 3 09/02/2017 01/22/2018 Class: Call Rx Route: INTRAMUSCULAR Sig: Inject 1 mL intramuscularly every 2 weeks for 151 days. Disc: Reason for discontinue is not on file. Disposition: Return in about 3 months (around 04/24/2018). Follow-up and Disposition History Recorded Encounter Status:Closed by GISSELLE LOPEZ PA-C on 01/22/18 CNPN Observed: 01/20/2018 Status: COMPLETED Source: [place] 12:00 AM [facility] REPOSITORY Telephone (UROLWS) GARO MORAN ([id number]) 1985 M Date Time Provider Department 01/20/18 GISSELLE LOPEZ) UROLWS During your visit today, we recorded the following information about you: Wilton Major MECHANICAL MANUFACTURING TECHNICIAN 01/20/2018 9:48 AM Signed Pt stopped into office noting he needs to have labs ordered for testosterone. Orders are in for labs expected 05/03/18 which lab states is too early to draw. Unsure which labs are needed now. Please clarify Kim Golden Ma 01/22/2018 11:45 AM Signed Lab orders filed by Gisselle Lopez PA-C If pt has been off of the Testosterone he should hold off on getting this drawn. Keep appt today. Left message to let pt know. Kim Golden Ma Allergies As of Date: 01/20/2018 (No Known Allergies) Date Reviewed: 07/07/2017 Reviewed by: Jannette Taylor LPN - Fully Assessed Reason for Visit: Lab Orders [8168] Primary Visit Diagnosis:Hypogonadism male [E29.1] Order(s):TESTOSTERONE, FREE AND TOTAL [SQFTESTO] Order #: [id number] HEMATOCRIT (HCT) [SQHCT] Order #: [id number] Prescriptions as of 01/20/2018 Sig: FLUTICASONE 50 MCG/ACTUATION * RANITIDINE 15 MG/ML SYRUP TESTOSTERONE CYPIONATE 200 MG* Inject 1 mL intramuscularly e* LEVETIRACETAM 100 MG/ML ORAL * IBU-200 ORAL Take by mouth. OMEPRAZOLE 40 MG CAPSULE,ANAHI* Take 1 capsule by mouth once * PRAVASTATIN 40 MG TABLET AMMONIUM LACTATE 12 % TOPICAL* SYMBICORT 160 MCG-4.5 MCG/ACT* CITALOPRAM 10 MG/5 ML ORAL SO* LISINOPRIL 10 MG TABLET DULOXETINE 60 MG CAPSULE,ANAHI* Take 60 mg by mouth once mercedes* TIOTROPIUM BROMIDE 18 MCG CAP* Inhale 18 mcg as instructed o* ALBUTEROL SULFATE HFA 90 MCG/* Inhale 2 Puffs as instructed * Problem List As Of Date 01/20/2018 Noted Resolved DEPRESS PSYCHOSIS-UNSPEC [F32.9] 08/31/2007 MILD MENTAL RETARDATION [F70] ANXIETY STATE NOS [F41.1] SOLITARY BONE CYST [M85.40] INVALID FOR* CHRONIC AIRWAY OBSTRUCTION NEC [J44.9] INVALID FOR*08/31/2007 DYSMETABOLIC SYNDROME X [E88.81] INVALID FOR*12/18/2006 SEBACEOUS CYST [L72.3] INVALID FOR*12/18/2006 OBESITY NOS [E66.9] INVALID FOR* BENIGN HYPERTENSION [I10] INVALID FOR* HYPERLIPIDEMIA NEC/NOS [E78.5] INVALID FOR* IMPAIRED FASTING GLUCOSE [R73.01] INVALID FOR*08/31/2007 SEBACEOUS CYST [L72.3] INVALID FOR* TOBACCO USE DISORDER [F17.200] INVALID FOR* UNILAT INGUINAL HERNIA [K40.90] INVALID FOR* Hypogonadism male [E29.1] INVALID FOR* COPD (chronic obstructive pulmonary disease) [J* 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] Pulmonary HTN [I27.20] Scoliosis [M41.9] Hyperlipidemia [E78.5] Obesity [E66.9] Penile swelling [N48.89] INVALID FOR* Congenital chordee [Q54.4] INVALID FOR* Encounter Status:Closed by GISSELLE LOPEZ PA-C on 01/21/18 CNPN Observed: 01/01/2018 Status: COMPLETED Source: [place] 12:00 AM [facility] REPOSITORY Telephone (UROLWS) GARO MORAN ([id number]) 1985 M Date Time Provider Department 01/01/18 GISSELLE LOPEZ) UROLWS During your visit today, we recorded the following information about you: Kim Golden Ma 01/01/2018 12:10 PM Signed Pt calling because he is in need of another prescription for his testosterone. In looking back, it looks like he may be due for appointment. Please adivse as to if he needs labs/appt etc. Last saw Dr. Tay 03/2017 Kim Golden Ma 01/13/2018 8:59 AM Signed Appt . Kim Golden Ma Allergies As of Date: 01/01/2018 (No Known Allergies) Date Reviewed: 07/07/2017 Reviewed by: Jannette Taylor LPN - Fully Assessed Reason for Visit: Patient Update [1234] Primary Visit Diagnosis:Hypogonadism male [E29.1] Order(s):TESTOSTERONE, FREE AND TOTAL [SQFTESTO] Order #: [id number] FUTURE HEMATOCRIT (HCT) [SQHCT] Order #: [id number] FUTURE Prescriptions as of 01/01/2018 Sig: FLUTICASONE 50 MCG/ACTUATION * RANITIDINE 15 MG/ML SYRUP TESTOSTERONE CYPIONATE 200 MG* Inject 1 mL intramuscularly e* LEVETIRACETAM 100 MG/ML ORAL * IBU-200 ORAL Take by mouth. OMEPRAZOLE 40 MG CAPSULE,ANAHI* Take 1 capsule by mouth once * PRAVASTATIN 40 MG TABLET AMMONIUM LACTATE 12 % TOPICAL* SYMBICORT 160 MCG-4.5 MCG/ACT* CITALOPRAM 10 MG/5 ML ORAL SO* LISINOPRIL 10 MG TABLET DULOXETINE 60 MG CAPSULE,ANAHI* Take 60 mg by mouth once mercedes* TIOTROPIUM BROMIDE 18 MCG CAP* Inhale 18 mcg as instructed o* ALBUTEROL SULFATE HFA 90 MCG/* Inhale 2 Puffs as instructed * Problem List As Of Date 01/01/2018 Noted Resolved DEPRESS PSYCHOSIS-UNSPEC [F32.9] 08/31/2007 MILD MENTAL RETARDATION [F70] ANXIETY STATE NOS [F41.1] SOLITARY BONE CYST [M85.40] INVALID FOR* CHRONIC AIRWAY OBSTRUCTION NEC [J44.9] INVALID FOR*08/31/2007 DYSMETABOLIC SYNDROME X [E88.81] INVALID FOR*12/18/2006 SEBACEOUS CYST [L72.3] INVALID FOR*12/18/2006 OBESITY NOS [E66.9] INVALID FOR* BENIGN HYPERTENSION [I10] INVALID FOR* HYPERLIPIDEMIA NEC/NOS [E78.5] INVALID FOR* IMPAIRED FASTING GLUCOSE [R73.01] INVALID FOR*08/31/2007 SEBACEOUS CYST [L72.3] INVALID FOR* TOBACCO USE DISORDER [F17.200] INVALID FOR* UNILAT INGUINAL HERNIA [K40.90] INVALID FOR* Hypogonadism male [E29.1] INVALID FOR* COPD (chronic obstructive pulmonary disease) [J* 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] Pulmonary HTN [I27.20] Scoliosis [M41.9] Hyperlipidemia [E78.5] Obesity [E66.9] Penile swelling [N48.89] INVALID FOR* Congenital chordee [Q54.4] INVALID FOR* Encounter Status:Closed by GISSELLE LOPEZ PA-C on 01/01/18 12 LEAD ELECTROCARDIOGRAM Observed: 12/14/2017 Status: F Source: [place] 8:56 PM [facility] REPOSITORY [facility] Cardiovascular Services [address] [place] [address] 12 Lead EKG 12/09/17 1747 MR#: [id number] Acct: [id number] Name: GARO MORAN Rep #: [id number] : 1985 32 From: Vincent Huber MD Attending Dr: Status: DEP ER Ordering Dr: Domenico Figueroa MD Date: 12/09/17 Location: ED Sex: M C Admitted: Test Reason : LIGHTHEADED Blood Pressure : / mmHG Vent. Rate : 085 BPM Atrial Rate : 085 BPM P-R Int : 134 ms QRS Dur : 076 ms QT Int : 326 ms P-R-T Axes : 019 020 015 degrees QTc Int : 387 ms Normal sinus rhythm Normal ECG Confirmed by VINCENT HUBER ([id number]), photography editor VITOR MORENO ([id number]) on 12/11/2017 2:17:51 PM Referred By: CALEB Confirmed By:VINCENT HUBER 12/11/17 1417 Date Vincent Huber MD CC: Domenico Figueroa MD; OUT OF TOWN DOCTOR Signed EMERGENCY DEPARTMENT Observed: 12/10/2017 Status: F Source: [place] SUMMARY 12:57 AM [facility] REPOSITORY [facility] Medical Records Department [address] [place] [address] Emergency Department Summary 12/09/17 1738 MR#: [id number] Acct: [id number] Name: GARO MORAN Rep #: [id number] : 1985 32 From: Domenico Figueroa MD PCP: OUT OF TOWN DOCTOR Status: DEP ER - ER Visit Summary Date of Service: 12/09/17 Chief Complaint: Near syncope History of Present Illness: The patient is a 32 M history of hypertension, COPD depression and sleep apnea. Patient states he had a gradual onset of near syncope today. He did not pass out. He does have a mild headache thinks that secondary to his blood pressure. States he has been taking blood pressure medication. Denies any head trauma. No family history of intracranial bleeds or aneurysms. He denies any trouble moving his arms or legs nor any numbness or weakness. Denies any nausea, vomiting, diarrhea or fever. No recent chest pain or shortness of breath. Physical Examination: Well appearing young male. Vital signs are stable afebrile blood pressure 176/83. Pulse is 90% room air no signs of hypoxia. H EENT exam atraumatic pupils round reactive light. No facial droop. Normal speech. Neck nontender no meningismus able to touch chin to chest. No lymphadenopathy. Lungs clear to auscultation bilaterally. Heart regular rate and rhythm no murmur. Abdomen soft nontender nondistended no giving or masses. Extremities moves all 4. Calves nontender no edema no cords neurologic exam is normal NIH is 0. Fingertip to nose heel wild within normal limits. 5 out of 5 precision agriculture specialist strength equal and symmetrical. Equal symmetrical radial pulse. Dorsi plantar flexion intact. Ogbe-bn-xbzs within normal limits. No facial droop. Normal speech. He has no focal motor or sensory deficits. Back exam normal. Test Results: CBC showed white count 13.8 H AND H 16 and 49. BMP normal. EKG sinus rhythm rate 85 no acute abnormality. No change from prior. Orthostatic vital signs were negative. Patient was ambulated by nursing staff no problems walking or any ataxia. Repeat exam in 194 is doing well. Headache has resolved. His neurologic exam and other exam remains normal. Emergency Department Course and Treatment: Patient complained near syncope with a normal exam. Will undergo screening labs and EKG be ambulated and orthostatic vital signs be obtained Treatment Plan: Discharged to home. Follow-up his primary care physician. Disposition: Discharge Impression: Acute near syncope of uncertain etiology This note was generated with Xecced dictation software. It may contain incorrect words, spelling, and punctuation that were not noted in review of the chart prior to signing ED Disposition - Plan for ED Patient: Chief Complaint: Dizziness Referrals: Care Physician,No Primary [NON-STAFF] - What to do if you have Problems For any increased pain, shortness of breath, bleeding, nausea or vomiting, chest pain, or any unexpected problems, contact your Primary Care Provider. Call [facility] ([phone]) or report to the closest Emergency Room. Call 911 if necessary. 12/10/1756 <Electronically signed by Domenico Figueroa MD> Date Domenico Figueroa MD Cosigner Signature (If Indicated): Date CC: OUT OF TOWN DOCTOR DISCHARGE INSTRUCTION Observed: 12/10/2017 Status: F Source: [place] 12:57 AM [facility] REPOSITORY [facility] Medical Records Department [address] [place] [address] Discharge Instruction 12/09/172013 MR#: [id number] Acct: [id number] Name: GARO MORAN Rep #: [id number] : 1985 32 From: Domenico Figueroa MD PCP: OUT OF TOWN DOCTOR Status: DEP ER ED Disposition - Plan for ED Patient: Disposition: Home or Assisted Living Chief Complaint: Dizziness Instructions: ED Near Syncope Unkn Referrals: Care Physician,No Primary [NON-STAFF] - As Needed What to do if you have Problems For any increased pain, shortness of breath, bleeding, nausea or vomiting, chest pain, or any unexpected problems, contact your Primary Care Provider. Call [facility] ([phone]) or report to the closest Emergency Room. Call 911 if necessary. 12/10/1756 <Electronically signed by Domenico Figueroa MD> Date Domenico Figueroa MD Cosigner Signature (If Indicated): Date CC: OUT OF TOWN DOCTOR CBC W/DIFF, AUTOMATED Collected: 12/09/2017 Status: F Source: [place] 6:00 PM [facility] REPOSITORY TYPE CODE TESTS RESULT OUT OF RANGE REFERENCE UNITS LAB L100.1000 4.4-11.0 K/mm3 High WBC 13.8 LAB L100.1200 4.6-6.2 M/mm3 Normal RBC 5.60 LAB L100.1300 13.0-16.5 g/dl High HGB 16.9 LAB L100.1400 40-54 % Normal HCT 49.3 LAB L100.1500 80-94 fL Normal MCV 88.0 LAB L100.1600 27.0-32.0 pg Normal MCH 30.2 LAB L100.1700 32-36 g/gl Normal MCHC 34.3 LAB L100.1810 11.6-14.6 % Normal RDW CV 12.9 LAB L100.1820 35.1-43.9 fl Normal RDW SD 41.8 LAB L100.1900 150-450 K/mm3 Normal PLT 364 LAB L100.2000 6.2-12.0 fl Normal MPV 10.3 LAB L100.2100 47-70 % Normal NEUT% 61.7 LAB L100.2200 19-41 % Normal LY% 23.3 LAB L100.2300 0-10 % High MONO% 11.8 LAB L100.2400 0-5 % Normal EO% 2.9 LAB L100.2500 0-1 % Normal BASO% 0.2 LAB L100.2550 0.0-0.9 % Normal IM GRAN % 0.100 Result Comment: IG% - Immature Granulocytes (promyelocytes, myelocytes and metamyelocytes) > 1% indicates that a LEFT SHIFT is Present. LAB L100.2620 2.0-7.7 X10 3/uL High Absolute Neut 8.5 LAB L100.2720 0.83-4.51 X10 3/ul Normal Absolute Lymph 3.23 LAB L100.4500 Normal SMEAR COMMENT SCANNED Result Comment: AUTO DIFF OK Performed By: #### L100.0100 #### [facility] [address] [place], [id number] BASIC METABOLIC Collected: 12/09/2017 Status: F Source: [place] PROFILE (BMP) 6:00 PM [facility] REPOSITORY TYPE CODE TESTS RESULT OUT OF RANGE REFERENCE UNITS LAB L501.0100 74-106 mg/dL Normal GLU 83 Result Comment: Please note revised GLUCOSE reference range effective 2017. LAB L501.1000 7-18 mg/dL Low BUN 6 LAB L501.1100 0.70-1.30 mg/dL Normal CREAT,SERUM 0.81 Result Comment: The validity of the calculated GFR AND GFRAA in patients over 70 years has not been determined. Clinical correlation is essential. LAB L501.1110 >60 mL/min Normal EST GFR 116 Result Comment: Non- GFR Calc LAB L501.1115 >60 mL/min Normal EST GFR - AA 141 Result Comment: GFR Calc LAB L501.1255 ml/min Normal Estimated CRCL 103.42 LAB L501.1300 10-20 RATIO Low BUN/CRE 7.4 LAB L501.2200 8.5-10 mg/dL .1 CA Normal 8.8 LAB L501.5300 136-14 mmol/L 5 NA Normal 139 LAB L501.5600 3.5-5. mmol/L 1 K Normal 4.1 LAB L501.5900 98-107 mmol/L CL Normal 103 LAB L501.6100 21.0-3 mmol/L 2.0 CO2 Normal 27.0 LAB L501.6200 5-15 GAP Normal 9 Performed By: #### L500.2500 #### [facility] [address] [place], [place], [address] OBSOLETE Observed: 08/30/2017 Status: COMPLETED Source: [place] 12:00 AM [facility] REPOSITORY Refill (UROLWS) GARO MORAN ([id number]) 1985 M Date Time Provider Department 08/30/17 GISSELLE LOPEZ) UROLWS During your visit today, we recorded the following information about you: Surya Teague LPN 09/02/2017 2:42 PM Signed Pt needs refill of testosterone Kim Golden Ma 09/02/2017 4:53 PM Signed ? Please call in new Rx and have patient make an appointment with me in next 2 months Thank you, Real Golden Ma 09/02/2017 5:06 PM Signed The following prescriptions have been called to [facility] pharmacy 09/02/2017 at 4:56 PM by Kim Golden Ma. I spoke with Jaqueline in the pharmacy. Signed Prescriptions Disp Refills testosterone cypionate (DEPO-TESTOSTERONE) 200 mg/mL injection 2 mL 3 Sig: Inject 1 mL intramuscularly every 2 weeks for 151 days. EASTON Class: C-III ORLIN: No Authorizing Provider: GISSELLE LOPEZ) Kim Golden Ma Allergies As of Date: 08/30/2017 (No Known Allergies) Date Reviewed: 07/07/2017 Reviewed by: Jannette Taylor LPN - Fully Assessed Reason for Visit: Refill Request [94] Primary Visit Diagnosis:Hypogonadism male [E29.1] Order(s):testosterone cypionate (DEPO-TESTOSTERONE) 200 mg/mL injectionInject 1 mL intramuscularly every 2 weeks for 151 days.Disp: 2 mLRfl: 3 Prescriptions as of 08/30/2017 Sig: TESTOSTERONE CYPIONATE 200 MG* Inject 1 mL intramuscularly e* LEVETIRACETAM 100 MG/ML ORAL * IBU-200 ORAL Take by mouth. 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] INVALID FOR* CHRONIC AIRWAY OBSTRUCTION NEC [J44.9] INVALID FOR*08/31/2007 DYSMETABOLIC SYNDROME X [E88.81] INVALID FOR*12/18/2006 SEBACEOUS CYST [L72.3] INVALID FOR*12/18/2006 OBESITY NOS [E66.9] INVALID FOR* BENIGN HYPERTENSION [I10] INVALID FOR* HYPERLIPIDEMIA NEC/NOS [E78.5] INVALID FOR* IMPAIRED FASTING GLUCOSE [R73.01] INVALID FOR*08/31/2007 SEBACEOUS CYST [L72.3] INVALID FOR* TOBACCO USE DISORDER [F17.200] INVALID FOR* UNILAT INGUINAL HERNIA [K40.90] INVALID FOR* Hypogonadism male [E29.1] INVALID FOR* COPD (chronic obstructive pulmonary disease) [J* 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 Medications Discontinued During This Encounter testosterone cypionate (DEPO-TESTOST* 2 mL 3 05/07/2017 09/02/2017 Class: Call Rx Route: INTRAMUSCULAR Sig: Inject 1 mL intramuscularly every 2 weeks. Disc: Reason for discontinue is not on file. Encounter Status:Closed by GISSELLE LOPEZ PA-C on 09/02/17 ALLERGIES ALLERGIES DATE TYPE / CODE NAME / CODE REACTION SEVERITY SOURCE 08/06/2018 Drug No Known Unknown [facility] Allergy/416 Allergies/L07927 Hospital 887125(SNOM 0388(RXNORM) Repository ED CT) Drug NO KNOWN [facility] Class/04608 ALLERGIES [facility] 1003(SNOMED Repository CT) ENCOUNTERS ENCOUNTERS ADMIT/DISCHARGE ACCOUNT NUMBER ADMITTING ENCOUNTER LOCATION SOURCE CLASS 08/06/2018/08/06/20 [id number] Ambulatory BMSBuilding: [place] [facility] [place] 08/05/2018/08/06/20 [id number] Ambulatory [address] Repository 07/23/2018 [id number] Ambulatory [facility] ding: Repository 07/13/2018/07/13/20 [id number] Ambulatory [address] Repository 07/13/2018/07/14/20 [id number] Ambulatory [address] Repository 07/06/2018 [id number] Ambulatory [facility] ding:SL Repository 07/06/2018 [id number] Ambulatory [facility] ding:OT Repository 07/02/2018 [id number] Ambulatory [facility] ding:PSN Repository 07/02/2018 [id number] Ambulatory BMSBuilding: [facility] Repository 07/01/2018 [id number] Ambulatory BMSBuilding: [facility] Repository 07/01/2018 [id number] Ambulatory [facility] ding:PSN Repository 06/28/2018/06/28/20 [id number] Emergency [address] ding:ED Repository 06/24/2018/06/24/20 [id number] Ambulatory BMSBuilding: [address] Repository 06/20/2018/06/21/20 [id number] Emergency [address] ding:ED Repository 06/16/2018/06/16/20 [id number] Ambulatory [address] Repository 06/16/2018/06/16/20 [id number] Ambulatory [address] Repository 06/09/2018/06/09/20 [id number] Ambulatory [address] Repository 06/09/2018/06/09/20 [id number] Ambulatory [address] Repository 06/09/2018/06/10/20 [id number] Ambulatory [address] Repository 06/01/2018/06/02/20 [id number] Ambulatory [address] Repository 06/01/2018/06/02/20 [id number] Ambulatory [address] Repository 05/26/2018 [id number] Emergency [address] [place] [address] EDRoom: 2A System 444Bed: Repository [id number] 05/23/2018/05/23/20 [id number] Emergency [address] ding:ED Repository 05/04/2018/09/10 [id number] Emergency [address] ding:ED Repository 05/03/2018/05/03/20 [id number] Emergency [address] ding:ED Repository 05/01/2018/05/04/20 [id number] Ambulatory [address] Repository 04/22/2018/04/22/20 [id number] Emergency [address] ding:ED Repository 03/19/2018 [id number] Ambulatory [facility] ding:RAD Repository 03/18/2018 [id number] Ambulatory [facility] ding:RAD Repository 03/17/2018/03/17/20 [id number] Emergency [address] ding:ED Repository 03/17/2018 [id number] Ambulatory [address] [place] [address] RECRoom: System [id number]: Repository [id number] 03/14/2018/03/14/20 [id number] Emergency [address] ding:ED Repository 02/24/2018 [id number] Ambulatory [facility] System Repository 02/09/2018/02/10/20 [id number] Ambulatory [address] Repository 02/06/2018 [id number] [facility] System Repository 02/02/2018/02/03/20 [id number] Ambulatory [address] Repository 01/31/2018/02/04/20 [id number] Ambulatory [address] Repository 01/22/2018/01/24/20 [id number] Ambulatory [address] Repository 12/09/2017/12/10/19 [id number] Emergency [address] ding:ED Repository PAYERS PAYERS ENCOUNTER GUARANTOR PAYER SUBSCRIBER SOURCE 08/06/2018 GARO Fan Primary Insurance:MIR MORAN Jr.2250 STEW MORAN Jr.: [facility] HMOPolicy Number: [id number] [id number] Repository [address]Vmf: (330) Date:6920-28-57WB [phone] (HP) [address] [place] [address]EF: 08/06/2018 Secondary GARO E [place] Insurance:MEDICAIDPolicy DEAN Jr.: Community Number: [id number] Hospital [id number] Repository Date:2018-06-24 08/06/2018 Tertiary Insurance:SELF NOT GIVENUNK [place] PAY INSURANCEPolicy Community Number: Effective Hospital Date:2018-07-29 Repository 07/23/2018 GARO E Primary Insurance:ADVAN GARO Keysoster DEAN Jr.[address] [facility] TH DEAN Jr.: Community LU FERRER [facility] Number: [id number] [id number] Repository 60009Ndn: (330) Date:1166-29-93VH [phone] () [address] [place] [address]EI: 07/23/2018 Secondary GARO E [place] Insurance:MEDICAIDPolicy DEAN Jr.: Community Number: [id number] Hospital [id number] Repository Date:2018-07-10 07/23/2018 Tertiary Insurance:SELF NOT GIVENUNK [place] PAY INSURANCEPolicy Community Number: Effective Hospital Date:2018-07-10 Repository 07/06/2018 GARO E Primary Insurance:ADVAN GARO Jarrett DEAN Jr.2[address] [facility] COMM [facility] DEAN Jr.: Community LU FERRER [facility] Number: [id number] [id number] Repository [address]Fws: ([phone]) Date:8573-54-63NO [phone] (HP) [address] [place] [address]VS: 07/06/2018 Secondary GARO E [place] Insurance:MEDICAIDPolicy DEAN Jr.: Community Number: [id number] Hospital [id number] Repository Date:2018-07-06 07/06/2018 Tertiary Insurance:SELF NOT GIVENUNK [place] PAY INSURANCEPolicy Community Number: Effective Hospital Date:2018-07-06 Repository 07/06/2018 GARO E Primary Insurance:ADVPARISH Jarrett DEAN Jr.2250 STEW MORAN Jr.: [facility] LU FERRER [facility] Number: [id number] [id number] Repository 8[address]Vhr: ([phone]) Date:1523-01-50TM [phone] (HP) [address] [place] [address]KM: 07/06/2018 Secondary GARO E [place] Insurance:MEDICAIDPolicy DEAN Velasco.: Community Number: [id number] Hospital [id number] Repository Date:2018-06-01 07/06/2018 Tertiary Insurance:SELF NOT GIVENUNK [place] PAY INSURANCEPolicy Community Number: Effective Hospital Date:2018-06-01 Repository 07/02/2018 GARO E Primary Insurance:ADVPARISH Jarrett DEAN Jr.225 STEW MORAN Jr.: [facility] LU FERRER [facility] Number: [id number] [id number] Repository [address]Wxs: ([phone]) Date:1339-11-23JL [phone] () [address] [place] [address]HA: 07/02/2018 Secondary GARO E [place] Insurance:MEDICAIDPolicsihra MORAN Jr.: Community Number: [id number] Hospital [id number] Repository Date:2018-06-24 07/02/2018 Tertiary Insurance:SELF NOT GIVENUNK [place] PAY INSURANCEPolicy Community Number: Effective Hospital Date:2018-06-24 Repository 07/02/2018 GARO E Primary Insurance:ADVPARISH Jarrett DEAN Velasco.2250 STEW MORAN Jr.: [facility] LU FERRER [facility] Number: [id number] [id number] Repository [address]Bbk: ([phone]) Date:7256-37-19XK [phone] () [address] [place] [address]WH: 07/02/2018 Secondary GARO E [place] Insurance:MEDICAIDPolalycia MORAN .: Community Number: [id number] Hospital [id number] Repository Date:2018-06-24 07/02/2018 Tertiary Insurance:SELF NOT GIVENUNK [place] PAY INSURANCEPolicy Community Number: Effective Hospital Date:2018-07-02 Repository 07/01/2018 GARO E Primary Insurance:ADVAN GARO Meng Jarrett DEAN Jr.2250 [facility] RACHID DEAN Jr.: Community LU FERRER [facility] Number: [id number] [id number] Repository [address]Yxt: (330) Date:3339-85-34QO [phone] () [address] [place] [address]BR: 07/01/2018 Secondary GARO E [place] Insurance:MEDICAIDPolicshira MORAN .: Community Number: [id number] Hospital [id number] Repository Date:2018-06-24 07/01/2018 Tertiary Insurance:SELF NOT GIVENUNK [place] PAY INSURANCEPolicy Community Number: Effective Hospital Date:2018-07-01 Repository 07/01/2018 GARO E Primary Insurance:ADVAN GARO Jarrett DEAN Jr.2250 [facility] DEAN Jr.: [facility] LU FERRER [facility] Number: [id number] [id number] Repository [address]67[address]Fhg: (330) Date:0802-64-62BH [phone] () [address] [place] [address]QW: 07/01/2018 Secondary GARO E [place] Insurance:MEDICAIDPolnaseemy DEAN Velasco.: Community Number: [id number] Hospital [id number] Repository Date:2018-06-24 07/01/2018 Tertiary Insurance:SELF NOT GIVENUNK [place] PAY INSURANCEPolicy Community Number: Effective Hospital Date:2018-06-24 Repository 06/28/2018 GARO E Primary Insurance:ADVPARISH MORAN Jr.2250 [place] [address] ELSATH DEAN Jr.: [facility] LU FERRER Eman[facility]ira Number: [id number] [id number] Repository [address]Vgb: (330) Date:2061-34-17XK [phone] (HP) [address] [place] [address]JH: 06/28/2018 Secondary GARO E [place] Insurance:MEDICAIDPolicy DEAN Jr.: Community Number: [id number] Hospital [id number] Repository Date:2018-06-28 06/28/2018 Tertiary Insurance:SELF NOT GIVENUNK [place] PAY INSURANCEPolicy Community Number: Effective Hospital Date:2018-06-28 Repository 06/24/2018 GARO E Primary Insurance:ADVAN GARO Jarrett DEAN Jr.2250 [place] [address] TH DEAN Jr.: [facility] LU FERRER Emanishira Number: [id number] [id number] Repository [address]Nqu: (330) Date:9737-79-94SD [phone] (HP) [address] [place] [address]UL: 06/24/2018 Secondary GARO E [place] Insurance:MEDICAIDPolicy DEAN Jr.: Community Number: [id number] Hospital [id number] Repository Date:2018-05-05 06/24/2018 Tertiary Insurance:SELF NOT GIVENUNK [place] PAY INSURANCEPolicy Community Number: Effective Hospital Date:2018-05-05 Repository 06/20/2018 GARO E Primary Insurance:ADVAN GARO MORAN Jr.[address] [place] TH DEAN Jr.: [facility] LU FERRER [facility] Number: [id number] [id number] Repository 626[address]Hyj: (330) Date:8666-11-24BG [phone] (HP) [address] [place] [address]AB: 06/20/2018 Secondary GARO E [place] Insurance:MEDICAIDPolicy DEAN Velasco.: Community Number: [id number] Hospital [id number] Repository Date:2018-06-20 06/20/2018 Tertiary Insurance:SELF NOT GIVENUNK [place] PAY INSURANCEPolicy Community Number: Effective Hospital Date:2018-06-20 Repository 05/26/2018 Garo Primary [facility] ThomasDOB: Insurance:Commercial ThomasDOB: System Insurance [id number] Repository [address] Number: Effective Date: [address]Gyn: (HP) 05/26/2018 Secondary [facility] Insurance:BuckeyePolicy ThomasDOB: System Number: Effective Date: [id number] Repository 05/23/2018 GARO E Primary Insurance:ADVAN GARO E [place] [id number] [facility] [facility] THOMASDOB: Community LU FERRER [facility] Number: [id number] [id number] Repository [address]Wpz: (330) Date:7932-55-80AH [phone] (HP) [address] [place] [address]OE: 05/23/2018 Secondary GARO E [place] Insurance:MEDICAIDPolicy THOMASDOB: Community Number: [id number] Hospital [id number] Repository Date:2018-05-23 05/23/2018 Tertiary Insurance:SELF NOT GIVENUNK [place] PAY INSURANCEPolicy Community Number: Effective Hospital Date:2018-05-23 Repository 05/04/2018 GARO E Primary Insurance:ADVAN GARO E [place] [id number] [place] [facility] THOMASDOB: Community LU FERRER [facility] Number: [id number] [id number] Repository [address]Hsl: ([phone]) Date:9925-95-67NC [phone] (HP) [address] [place] [address]LH: 05/04/2018 Secondary GARO E [place] Insurance:MEDICAIDPolicy THOMASDOB: Community Number: [id number] Hospital [id number] Repository Date:2018-05-04 05/04/2018 Tertiary Insurance:SELF NOT GIVENUNK [place] PAY INSURANCEPolicy Community Number: Effective Hospital Date:2018-05-04 Repository 05/03/2018 GARO E Primary Insurance:ADVAN GARO Jarrett [id number] [place] COMM TH THOMASDOB: Community LU FERRER [facility] Number: [id number] [id number] Repository [address]Dxw: (234) Date:3520-00-50JN [phone] (HP) [address] [place] [address]ML: 05/03/2018 Secondary GARO E [place] Insurance:MEDICAIDPolicy DEAN SRDOB: Community Number: [id number] Hospital [id number] Repository Date:2018-05-03 05/03/2018 Tertiary Insurance:SELF NOT GIVENUNK [place] PAY INSURANCEPolicy Community Number: Effective Hospital Date:2018-05-03 Repository 04/22/2018 GARO E Primary Insurance:ADVPARISH Jarrett [id number] [place] RACHID THOMASDOB: [facility]ly [facility] LU FERRER [facility] Number: [id number] [id number] Repository [address]Fus: ([phone]) Date:6926-13-51RF [phone] (HP) [address] [place] [address]JH: 04/22/2018 Secondary Insurance:SELF NOT GIVENUNK [place] PAY INSURANCEPolicy Community Number: Effective Hospital Date:2018-04-22 Repository 03/19/2018 GARO E Primary Insurance:ADVAN GARO Jarrett [id number] [place] RACHID THOMASDOB: Community LU FERRER OPolicy Number: [id number] [id number] Repository [address]Nwt: (234) Date:2364-31-89JF [phone] (HP) [address] [place] [address]MF: 03/19/2018 Secondary Insurance:SELF NOT GIVENUNK [place] PAY INSURANCEPolicy Community Number: Effective Hospital Date:2018-03-06 Repository 03/18/2018 GARO E Primary Insurance:ADVAN GARO Fan Sheldon [id number] [place] COMM TH THOMASDOB: [facility]ly [facility] LU FERRER OPolicy Number: [id number] [id number] Repository [address]Xlm: ([phone]) Date:3200-23-88DP [phone] () [address] [place] [address]NJ: 03/18/2018 Secondary Insurance:SELF NOT GIVENUNK [place] PAY INSURANCEPolicy Community Number: Effective Hospital Date:2018-03-06 Repository 03/17/2018 GARO E Primary Insurance:ADVPARISH Fan [place] [id number] [facility] THOMASDOB: Formerly [facility] LU FERRER [facility] Number: [id number] [id number] Repository [address]Plt: ([phone]) Date:3278-02-36NS [phone] () [address] [place] [phone]: 03/17/2018 Secondary Insurance:SELF NOT GIVENUNK [place] PAY INSURANCEPolicy Community Number: Effective Hospital Date:2018-03-17 Repository 03/17/2018 Garo [facility] [place]: Insurance:BuckeyePolicshira Monsalve: System [id number] Number: Effective Date: [id number] [facility] Lu Mcintosh [address] [address]Gwu: () 03/17/2018 Secondary [facility] Insurance:MedicaidPolicy GurmeetB: System Number: Effective Date: [id number] Repository 03/14/2018 GARO E Primary Insurance:ADVAN GARO Fan Sheldon [id number] BUCKEYE COMM [facility] THOMASDOB: Formerly [facility], [facility] LU [facility]ERR[facility] Number: [id number] [id number] Repository [id number]: ([phone]) Date:[id number] [phone] () [address] [place] [id number]: 03/14/2018 Secondary Insurance:SELF NOT GIVENUNK [place] PAY INSURANCEPolicy Community Number: Effective Hospital Date:2018-03-14 Repository 02/24/2018 Garo Primary [facility] ThomasDOB: Insurance:BuckeyePolicy ThomasDOB: System Number: Effective Date: [id number] Repository Lu Mcintosh Juana [address] [place] [id number]: () 02/24/2018 Secondary [facility] Insurance:MedicaidPolicy ThomasDOB: System Number: Effective Date: [id number] [facility]ePolicy ThomasDOB: System Number: Effective Date: [id number] [place]ository [place], [place] [address]Kzf: () 02/06/2018 Secondary [facility] Insurance:MedicaidPolicy ThomasDOB: System Number: Effective Date: [id number] Repository 12/09/2017 GARO Primary Insurance:ADVAN GARO E Sheldon [id number] [facility] THOMASDOB: Formerly [facility], [facility] LU MCINTOSHJUANA HMOPolic Number: [id number] [id number] Repository [id number]: [phone]) Date:[id number] [phone] (HP) [place] [address]RF: 12/09/2017 Secondary Insurance:SELF NOT GIVENUNK Sheldon PAY INSURANCEPolicy Community Number: Effective Hospital Date:2017-12-09 Repository
== END ==
PROVIDERS: Family Provider Family Medicine; PCP Family Medicine; Visit Provider Nurse Practitioner Acute Care
DX: G47.33 Obstructive sleep apnea (adult) (pediatric) (principal)
CPT/HCPCS: 95811

== ENCOUNTER 2018-09-18 14:35 | Emergency (ER) | payer MEDICARE, MEDICAID, SELFPAY ==
[2018-09-18] VITALS (8 sets, daily range): BP systolic 116–162; BP diastolic 56–143; PULSE 90–94; RESP 10–20; TEMP 37.3; O2SAT 96–99; BMI 35.4
--- NOTE | 2018-09-18 14:55 | EKG12_ITS ---
Test Reason : CHEST PAIN Blood Pressure : / mmHG Vent. Rate : 082 BPM Atrial Rate : 082 BPM P-R Int : 138 ms QRS Dur : 080 ms QT Int : 322 ms P-R-T Axes : 027 034 011 degrees QTc Int : 376 ms Normal sinus rhythm Normal ECG Confirmed by JACKIE BRASWELL, SHANA ([id number]), editor magazine VITOR MORENO ([id number]) on 09/22/2018 3:29:52 PM Referred By: Domenico Veliz Confirmed By:SHANA MEJIA MD
--- NOTE | 2018-09-18 14:55 | RAD_ITS ---
STUDY: X-RAY CHEST REASON FOR EXAM: Male, 32 years old. Chest pain/pressure TECHNIQUE: Single AP portable view of the chest. COMPARISON: 06/28/2018 FINDINGS: EKG leads overlie the chest The lungs are clear and expanded. There is no demonstrated pleural abnormality. Normal size heart. Normal mediastinum and darian. Normal visualized pulmonary arteries. Normal visualized aortic arch and descending thoracic aorta. Normal visualized thoracic spine. Normal visualized ribs, clavicles, and shoulders. There is no demonstrated abnormality of the visualized soft tissue structures of the upper abdomen. RAD/Chest 1 View (Portable) IMPRESSION: Normal x-ray examination of the chest. Electronically Signed: Noel Thrasher MD at 15:23 EST , Service support ,
--- NOTE | 2018-09-18 15:01 | ED.VISSUMM ---
- ER Visit Summary Date of Service: 09/18/18 Chief Complaint: Chest pain, suicidal thoughts History of Present Illness: The patient is a 32 M with history of seizures, depression, anxiety resents to the emergency department with chest pain and thoughts of self-harm. The patient states that when he has his anxiety, he will get chest pain. He states this feels very similar. He thinks that he is going through a breakup with a girlfriend. He states he has been unable to get in touch with her for about 2 days. He states today, he got very stressed about and began to have this chest pain. He states that he has been suicidal in the past. He does not give any specific plan of self-harm, but states that he is just worried that he may harm himself at home. He is not been compliant with his medications. He denies any drug use. He denies any fevers or chills. Physical Examination: Vital signs reviewed General: Well-nourished, well-developed Head: Normocephalic, atraumatic Eyes: Pupils equal and reactive, extraocular muscles intact Neck, supple, no lymphadenopathy Heart: Regular rate and rhythm Respiratory: No distress, clear bilaterally Abdomen: Soft, nontender, nondistended, no peritoneal signs Back: Nontender Extremities: Nontender, no edema, no cords Skin: Normal color no rash Neuro: Alert and oriented, no focal or lateralizing deficits Test Results: [] Emergency Department Course and Treatment: The patient's chest pain seems entirely noncardiac. His EKG was unremarkable. His cardiac enzymes are normal. This does seem to be more related to his anxiety. I did load the patient with Keppra as he has been noncompliant with his medications. The patient was evaluated by crisis. He voices no specific plan of suicide. His thoughts were fleeting and have resolved. He will contract for safety. His mental health social worker is on board with plan for discharge. The patient will be discharged home, counseled to return if his thoughts of suicide worsen or return. Treatment Plan: [] Disposition: Distal Impression: Urge 1. Noncardiac chest pain 2. Anxiety This note was generated with [employer]ation software. It may contain incorrect words, spelling, and punctuation that were not noted in review of the chart prior to signing ED Disposition - Plan for ED Patient: Chief Complaint: Chest Pain Instructions: ED Chest Pain NonCardiac Referrals: Domenico Veliz MD [Primary Care Provider] -
[2018-09-18 15:14] LABS: Absolute Lymphocyte Count 2.43 X10^3/ul (0.83-4.51); Absolute Neutrophil Count 8.6 X10^3/uL (2.0-7.7); Basophil# 0.05 X10^3/uL; Basophil% 0.4 % (0-1); Eosinophils% 2.3 % (0-5); Hematocrit 45.8 % (40-54); Hemoglobin 15.5 g/dl (13.0-16.5); Lymphocyte # 2.43 X10^3/ul (4.0); Lymphocyte % 18.7 % (19-41); Mean Corp Hgb Conc 33.8 g/gl (32-36); Mean Corpuscular Hgb 30.3 pg (27.0-32.0); Mean Corpuscular Volume 89.5 fL (80-94); Mean Platelet Vol. 10.5 fl (6.2-12.0); Monocyte# 1.61 X10^3/uL; Monocyte% 12.4 % (0-10); Neutrophil # 8.55 X10^3/uL (2.7-7.7); Platelet Count 374 K/mm3 (150-450); RBC Distribution Width CV 12.9 % (11.6-14.6); RBC Distribution Width SD 41.8 fl (35.1-43.9); Red Blood Count 5.12 M/mm3 (4.6-6.2)
[2018-09-18 15:15] LABS: Differential Indicated SCAN CRITERIA MET; POSITIVE COUNT NO; POSITIVE DIFFERENTIAL YES; POSITIVE MORPHOLOGY NO
[2018-09-18] MEDS: LORazepam 2 MG/ML Syringe 1 MG IV (15:34)
[2018-09-18] MEDS: 0.9% Normal Saline 1,000 ML 150 ML IV (15:34)
[2018-09-18] MEDS: Ondansetron 4 MG/2 ML Vial IV (15:34)
[2018-09-18 15:35] LABS: ALB/GLOB Ratio 0.9 RATIO (0.9-2.4); AST(SGOT) 36 U/L (15-37); Alanine Aminotransfer ALT/SGPT 55 U/L (16-61); Albumin, Serum 3.7 g/dL (3.2-5.0); Alkaline Phosphatase 103 U/L (45-117); Anion Gap 7 (5-15); BUN 6 mg/dL (7-18); BUN/Creat Ratio 7.3 RATIO (10-20); Calcium,Total 9.1 mg/dL (8.5-10.1); Chloride 102 mmol/L (98-107); Creatinine, Serum 0.82 mg/dL (0.70-1.30); EST Glomerular Filtration Rate 113 mL/min (>60); Est Glom Filt Rate - Afr Amer 137 mL/min (>60); Estimated Creatinine Clearance 102.16 ml/min; Glucose 91 mg/dL (74-106); Potassium 3.9 mmol/L (3.5-5.1); Protein, Total 7.7 g/dL (6.4-8.2); Sodium Level 136 mmol/L (136-145)
[2018-09-18 15:37] LABS: Differential Comment SCANNED
--- NOTE | 2018-09-18 16:53 | ED.RN ---
LORENZO WITH CRISIS I WILL BE THERE SOON I CAN
[2018-09-18 17:02] LABS: Amphetamine Urine VISTA NEGATIVE (<1000 ng/mL); Barbiturate Urine VISTA NEGATIVE (< 200 ng/mL); Benzodiazepine Urine VISTA NEGATIVE (< 200 ng/mL); Cocaine Urine VISTA NEGATIVE (< 300 ng/mL); Ecstacy Urine VISTA NEGATIVE (< 500 ng/mL); Methadone Urine VISTA NEGATIVE (< 300 ng/mL); PCP Urine VISTA NEGATIVE (< 25 ng/mL); THC Urine VISTA NEGATIVE (< 50 ng/mL); Vista UDS pH Range 6
--- NOTE | 2018-09-18 19:22 | ED.RN ---
PT GOING HOME WITH FRIEND. FRIEND REPORTS PT IS GOING TO BE STAYING WITH HIS FAMILY OVER THE WEEKEND, AND THAT HIS SISTER IS TO BE MEETING PT AT HIS HOME, AND WILL COLLECT HIS MEDICATIONS. PT DRESSES SELF AND AMBULATES OUT OF DEPT. IV D/C, AND COVERED WITH 2X2 GAUZE AND PAPER TAPE.
== END 2018-09-18 19:24 | disposition home or self-care (01) ==
PROVIDERS: Emergency Provider Emergency Medicine; Family Provider Family Medicine; PCP Family Medicine
DX: R07.89 Other chest pain (principal); F41.9 Anxiety disorder, unspecified; Z91.14 Patient's other noncompliance with medication regimen; J44.9 Chronic obstructive pulmonary disease, unspecified; E78.00 Pure hypercholesterolemia, unspecified; G40.909 Epilepsy, unspecified, not intractable, without status epilepticus; F32.9 Major depressive disorder, single episode, unspecified; Z79.899 Other long term (current) drug therapy
CPT/HCPCS: 71045; 80053; 80307; 80320; 84484; 85025; 93005; 96361; 96365; 96374; 96375; 99285; J7030; A4216; G0480; J2405

== ENCOUNTER → 2018-09-29 13:47 | Outpatient (CLI) | payer MEDICARE, MEDICAID, SELFPAY ==
[2018-09-18 14:35] VITALS: BMI 35.4
== END ==
PROVIDERS: Family Provider Family Medicine; PCP Family Medicine; Referring Provider Nurse Practitioner Acute Care; Visit Provider Nurse Practitioner Acute Care
DX: G47.33 Obstructive sleep apnea (adult) (pediatric) (principal)
CPT/HCPCS: 98960; G0463

== ENCOUNTER 2018-10-14 15:30 | Outpatient (RCR) | payer MEDICARE, MEDICAID, SELFPAY ==
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
--- NOTE | 2018-07-22 14:53 | HP.OTDCNRP_ITS ---
HP - Discharge Summary - Patient Information GARO MORAN Jr. was seen in my office for initial evaluation on 06/03/18. The following Plan of Care was established for this patient: Initial Frequency: 1-2x /Week Initial Duration: 4-6 Weeks Plan: cont POC - Anticipated Interventions Anticipated Interventions: Strengthening, Edema Control, Massage, Triggerpoint Release, Modalities, Orthoses, Joint Protection/Energy Conservation, ADL Training, Education re assistive Equipment, Education re Self-Bandaging Techniques, Education re Skin Care and Precautions, Education re Self Massage Techniques, Education re Correct Donning Tech,Care&Wearing Sched Comp Garments, Home Program This patient was last seen in our office 07/06/18. Pertinent comments regarding their Occupational therapy will appear below: Pt d/c from OT services. Pt called 07/08 cancelled appointment and stated to cancell all further appointments. Pt was last seen 07/06/18 stated completing yellow theraband exercises at home and no elbow pain. Pt was completing theraputty exercises, UBE and finger web to increase pharmaceutical sales specialist strength. Pt d/c OT services secondary to non-returning pt. At this point I will be discontinuing this patient from occupational therapy. I would be happy to see this patient again in the future if found appropriate by the physician. Thank you! Cori Ware
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
--- NOTE | 2018-08-20 15:36 | HP.PTREVAL ---
Domenico Veliz MD, It has been my pleasure to treat GARO MORAN Jr. over the last 5 visits for Neck and LBP. Please see the progress note below for an update on the physical therapy plan of care! Subjective: Pt reports he stopped coming after last visit because he was in a lot of pain and didn't feel kailash he was getting better. pt reports he has started getting worse, and would like to try PT again. Objective/Function: Neck and LB pain remain nearly unchanged at 4/10. L shoulder pain staying around 5/10. B UE MMT grossly 4/5 throughout while LE 4+/5 throughout. Pt had been progressing well with HEP until stopping PT briefly. Plan Plan: Cont with original POC consisting of aquatic therapy ex's 2 times per week for 4 weeks Goals Goal 1:: Decrease Neck pain x 50% to aid with sleep Goal Time Frame: 4-6 Weeks Goal Progress: Not Progressing Goal 2:: Decrease LBP x 50% to aid with ambulation Goal Time Frame: 4-6 Weeks Goal Progress: Not Progressing Goal 3:: Increase UE and LE strength to 5/5 throughout to aid with IADL's Goal Time Frame: 4-6 Weeks Goal Progress: Progressing Goal 4:: I with HEP Goal Time Frame: 4-6 Weeks Goal Progress: Progressing Anticipated Interventions Patient/Client Instruction: Educate patient on: Condition, Plan of Care For the Purpose of:: To facilitate caregiver knowledge, To improve self management Therapeutic Exercise to Include: Strength training, Endurance training, In an aquatic setting, Dynamic Lumbar Stabilization, Scapular Strength/Stabilization For the Purpose of:: To decrease pain, To improve muscle performance and motor function Please do not hesitate to contact me at [phone] by phone or if you have questions or concerns regarding this new plan of care! Sincerely, Gary Fraire, PT, ATC
== END 2018-10-14 19:00 | disposition home or self-care (01) ==
LOC: PT 15:30
PROVIDERS: Family Provider Family Medicine; PCP Family Medicine; Referring Provider Family Medicine; Visit Provider Family Medicine
DX: M54.2 Cervicalgia (principal); M54.6 Pain in thoracic spine; M54.5 Low back pain; M79.18 Myalgia, other site; M79.602 Pain in left arm; M25.551 Pain in right hip; V89.2XXA Person injured in unspecified motor-vehicle accident, traffic, initial encounter
CPT/HCPCS: 97110; 97113; 97163; 97165; 97166; 97530; G8987; G8988

== ENCOUNTER → 2018-12-14 | Outpatient (CLI) | payer MEDICARE, MEDICAID, SELFPAY ==
[2018-10-28 10:31] VITALS: BMI 35.4
--- NOTE | 2018-12-14 09:39 | RAD_ITS ---
CLINICAL HISTORY: Male, 33 years old. Right upper quadrant pain, reflux, spasms. PROCEDURE: Fluoroscopically guided upper GI including swallowing of a barium pill. SEDATION: None. FLUOROSCOPY TIME (if supplied): (3:24) minutes/seconds TECHNIQUE the patient easily and readily swallowed effervescent crystals, a 13 mm barium pill and various density barium contrast. Multiple digital spot images were obtained during the course of the real-time exam. FINDINGS: Esophageal motility is normal. There is no esophageal stricture, web or diverticulum. There is no hiatal hernia. The esophageal mucosal pattern appears normal. There is no intrinsic or extrinsic esophageal mass or mass effect. The barium pill passed very rapidly through the esophagus into the stomach. No free reflux was observed during the course of the real-time exam. The gastric catheter position and morphology appear normal. There is no intrinsic or extrinsic gastric mass or mass effect. The upper aspect of the stomach never opacified completely diminishing sensitivity and specificity. This inability to contrast coats the upper stomach area is on known etiology. Visualized gastric mucosa appears normal. Contrast readily exited the gastric eyelid into normal-appearing duodenal bulb and proximal small bowel. RAD/Upper GI Series Only IMPRESSION: No fluoroscopically evident pathology. Suboptimal visualization of the gastric mucosal pattern within the fundus and cardia region. Technically limited exam. Electronically Signed: Kenrick Calvillo MD at 11:11 EDT , Service support ,
== END | disposition home or self-care (01) ==
LOC: RAD 09:38
PROVIDERS: Family Provider Family Medicine; PCP Family Medicine; Referring Provider Family Medicine; Visit Provider Family Medicine
DX: R10.11 Right upper quadrant pain (principal)
CPT/HCPCS: 74246

== ENCOUNTER 2019-04-12 07:46 | Emergency (ER) | payer MEDICARE, MEDICAID, SELFPAY ==
[2018-10-28 10:31] VITALS: BMI 35.4
[2019-04-12 07:48] VITALS: BP 170/91; PULSE 89; RESP 16; TEMP 37.2; O2SAT 100; BMI 40.7
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
[2019-04-12] MEDS: Naproxen 500 MG Tablet PO (08:07)
== END 2019-04-12 08:37 | disposition home or self-care (01) ==
LOC: ED 08:28
PROVIDERS: Emergency Provider Emergency Medicine; Family Provider Family Medicine; PCP Family Medicine
DX: M25.551 Pain in right hip (principal); E66.9 Obesity, unspecified; G40.909 Epilepsy, unspecified, not intractable, without status epilepticus; I10 Essential (primary) hypertension; G47.33 Obstructive sleep apnea (adult) (pediatric); J45.909 Unspecified asthma, uncomplicated; Z79.899 Other long term (current) drug therapy; F17.210 Nicotine dependence, cigarettes, uncomplicated
CPT/HCPCS: 72170; 99283

== ENCOUNTER → 2019-05-18 07:59 | Outpatient (CLI) | payer MEDICARE, MEDICAID, SELFPAY ==
[2018-10-28 10:31] VITALS: BMI 35.4
--- NOTE | 2019-05-18 17:28 | PFT ---
INTRODUCTION: The patient is a 33-year-old male that presents for pulmonary function studies secondary to a diagnosis of COPD. Respiratory therapy reports good patient effort. Bronchodilators were used during testing. INTERPRETATION: Forced expiration spirometry demonstrates no evidence of a large airways obstructive ventilatory defect. There was no significant response to aerosolized bronchodilators. Post bronchodilator spirogram terminates prior to 6 seconds, likely underestimating FVC. Body plethysmography was performed and reveals a decreased TLC to 3.46 L, 65% of predicted, indicative of a moderate restrictive ventilatory impairment. The remainder of the lung volumes are symmetrically reduced. Diffusing capacity by single breath CO is at the lower limits of normal at 78% of predicted. IMPRESSION: Moderate restrictive ventilatory impairment with diffusing capacity at the lower limits of normal.
== END ==
PROVIDERS: Family Provider Family Medicine; PCP Family Medicine; Referring Provider Nurse Practitioner Acute Care; Visit Provider Nurse Practitioner Acute Care
DX: J98.4 Other disorders of lung (principal)
CPT/HCPCS: 94060; 94726; 94729

== ENCOUNTER → 2019-07-14 09:28 | Outpatient (CLI) | payer MEDICARE, MEDICAID, SELFPAY ==
[2019-05-24 07:24] VITALS: BMI 42.8
--- NOTE | 2019-07-14 09:42 | MRI_ITS ---
STUDY: MRI LUMBAR SPINE WITHOUT CONTRAST REASON FOR EXAM: Male, 33 years old. Back pain. Right-sided sciatica. TECHNIQUE: Standardized fat and water weighted pulse sequences were obtained in the sagittal and axial planes. COMPARISON: None FINDINGS: Lumbar lordosis preserved. No significant scoliosis. Conus medullaris terminates at the L1 level. No acute fracture. No dislocation. No bone destruction. Short pedicles contributing to central canal and neural foramina narrowing. Normal paraspinal muscles. Distended urinary bladder without wall abnormality. Normal aorta. Normal retroperitoneum. T12-L1: Schmorl's nodes. Shallow disc bulge. Normal bilateral facet joints. Normal central canal and bilateral lateral recesses. Normal bilateral intervertebral neural foramina. L1-2: Schmorl's nodes. Disc bulge with mild/moderate central canal narrowing. Normal bilateral facet joints. Bilateral lateral recess narrowing without impingement. Normal bilateral intervertebral neural foramina. L2-3: Normal endplates. Shallow disc bulge. Facet joint arthrosis. Normal central canal and bilateral lateral recesses. Neural foraminal narrowing without impingement. L3-4: Normal endplates. Shallow disc bulge. Facet joint arthrosis. Normal central canal and bilateral lateral recesses. Neural foraminal narrowing without impingement. L4-5: Normal endplates. Shallow disc bulge. Facet joint arthrosis. Normal central canal and bilateral lateral recesses. Neural foraminal narrowing without impingement. L5-S1: Minimal end plate spondylosis. Right paracentral disc protrusion with mild/moderate central canal narrowing (axial image 2 series 5). Facet joint arthrosis. Right lateral recess narrowing with impingement. Right neural foramina narrowing without impingement. MRI/Spine Lumbar (Routine) IMPRESSION: Multilevel intervertebral disc disease with mild/moderate central canal narrowing at L1-2 and L5-S1 (L5-S1 protrusion) Multilevel lateral recess narrowing with impingement of the right descending S1 nerve root Right neural foramina narrowing without impingement at L5-S1 Short pedicles contribute to central canal and neural foramina narrowing Electronically Signed: Irvin Beavers DO at 10:59 EST Tel , Service support ,
== END ==
PROVIDERS: Family Provider Family Medicine; PCP Family Medicine
DX: M54.41 Lumbago with sciatica, right side (principal)
CPT/HCPCS: 72148

== ENCOUNTER 2019-12-29 11:07 | Emergency (ER) | payer MEDICARE, MEDICAID, SELFPAY ==
[2019-05-24 07:24] VITALS: BMI 42.8
[2019-12-29] VITALS (7 sets, daily range): BP systolic 143–168; BP diastolic 66–121; PULSE 82–88; RESP 18–24; TEMP 36.6–37; O2SAT 96–100; BMI 47.0
--- NOTE | 2019-12-29 11:36 | RAD_ITS ---
STUDY: X-RAY CHEST REASON FOR EXAM: Male, 34 years old. INCREASED SOB TECHNIQUE: Single frontal view of the chest. COMPARISON: 09/18/2018. FINDINGS: Cardiac silhouette unremarkable. Pulmonary vascularity unremarkable. Aorta unremarkable. Minimal patchy retrocardiac opacity possible. No pleural effusions. Upper abdomen unremarkable. Osseous structures intact. No pneumothorax. RAD/Chest 1 View (Portable) IMPRESSION: Questionable retrocardiac opacity. A lateral radiograph is recommended for further evaluation. Electronically Signed: Isreal Frost, at 12:36 EDT Tel , Service support ,
--- NOTE | 2019-12-29 11:36 | EKG12_ITS ---
Test Reason : Blood Pressure : / mmHG Vent. Rate : 088 BPM Atrial Rate : 088 BPM P-R Int : 134 ms QRS Dur : 076 ms QT Int : 332 ms P-R-T Axes : 023 026 037 degrees QTc Int : 401 ms Normal sinus rhythm Normal ECG Confirmed by UDAY HUBER ([id number]), associate entertainment editor VITOR MORENO ([id number]) on 01/03/2020 2:48:24 PM Referred By: OBED Confirmed By:UDAY HUBER
[2019-12-29] MEDS: 0.9% Normal Saline 1,000 ML 150 ML IV (11:54)
--- NOTE | 2019-12-29 11:56 | ED.VISSUMM ---
- ER Visit Summary Date of Service: 12/29/19 Chief Complaint: Shortness of breath and cough History of Present Illness: The patient is a 34 M who sees Ford Urrutia. He reports that he had a cough for the past 2 weeks that is nonproductive. He has subjective fever, chills, and sweats. His shortness of breath began 3 days ago. He was seen at another emergency department and was given an inhaler and placed on prednisone. He is on day 3 of this and he has not had relief. Reports that shortness of breath is severe at worst and mild currently. It is worsened by exertion or coughing. Is minimally relieved by albuterol. Patient does report that he lives with his sister and they were both sick 2 weeks ago. States that he had an upset stomach and that he was treated as COVID-19 and quarantined for 2 weeks. His sister was sick at the same time. Patient reports that he has chest pain that began approximately 4 hours ago. Is 10 on 10 with coughing 8 out of 10 currently. He describes this as a sharp pain. He has no personal history of DVT. No recent travel. No ankle swelling or calf pain. He does smoke 2-1/2 packs/day. Physical Examination: Vitals: Stable. Afebrile. General: Well-nourished and well-developed. Head: Normocephalic atraumatic. Neck: Supple, no lymphadenopathy. No JVD. Nontender. Cardiovascular: Regular rate and rhythm. No murmurs. Respiratory: No respiratory distress. Minimal end expiratory wheezing bilaterally with good air movement. Abdominal: Soft, nontender, nondistended, normal bowel sounds. No guarding, rebound, or peritoneal signs. Back: Nontender. Extremities: Nontender, no edema. Skin: Normal color, no rash. Neurologic: Alert and oriented ?3. Cranial nerves II through XII are intact. Normal strength and sensation. Psych: Normal affect. Test Results: EKG is sinus at [address] changes. Is unchanged from August 2018. CBC shows a white count of 19.3 (on prednisone. Insert (Chem-7 shows a glucose of 67. Troponin is negative. D-dimer 0.34. Clinical Impression(s) from Imaging Studies Chest X-Ray 12/29/19 11:36 IMPRESSION: Questionable retrocardiac opacity. A lateral radiograph is recommended for further evaluation. Electronically Signed: Isreal Frost, at 12:36 EDT Tel , Service support , Chest X-Ray 12/29/19 12:57 IMPRESSION: No focal retrocardiac consolidation. Electronically Signed: Isreal Frost, at 13:38 EDT Tel , Service support , Emergency Department Course and Treatment: Patient is resting comfortably. He was treated Zithromax p.o. Treatment Plan: Prolonged scratch the patient that at this time I cannot rule out COVID-19 infection. Instructed to quarantine for 2 weeks. He is instructed to continue his albuterol MDI and prednisone. He will have a Zithromax added in addition due to the possibility of a COPD exacerbation. Follow-up with his primary care physician in 2 weeks for another exam. Return to the emergency department for any worsening symptoms. Disposition: To home in improved and stable condition. Impression: 1. URI. 2. Suspected COVID-19 infection. 3. Bronchospasm. 4. Tobacco abuse. This note was generated with [employer] dictation software. It may contain incorrect words, spelling, and punctuation that were not noted in review of the chart prior to signing ED Disposition - Plan for ED Patient: Instructions: ED Upper Resp Infec Abx Tx Prescriptions: Azithromycin [Zithromax] 250 mg PO DAILY #4 tablet Referrals: Ford Urrutia, DISTRIBUTION DRIVER-C [NON-STAFF] - 10-14 Days if not better
[2019-12-29 11:58] LABS: Absolute Lymphocyte Count 5.13 X10^3/uL (0.83-4.51); Absolute Neutrophil Count 11.7 X10^3/uL (2.0-7.7); Basophil% 0.5 % (0-1); Eosinophil# 0.42 X10^3/uL; Eosinophils% 2.2 % (0-5); Hematocrit 42.7 % (40-54); Hemoglobin 13.9 g/dL (13.0-16.5); Lymphocyte # 5.13 X10^3/ul (4.0); Lymphocyte % 26.6 % (19-41); Mean Corp Hgb Conc 32.6 g/dL (32-36); Mean Corpuscular Hgb 29.5 pg (27.0-32.0); Mean Corpuscular Volume 90.7 fL (80-94); Monocyte# 1.81 X10^3/uL; Monocyte% 9.4 % (0-10); NRBC Flagged by Analyzer 0 % (0-5); Neutrophil # 11.65 X10^3/uL (2.7-7.7); Neutrophil % 60.5 % (47-70); POSITIVE DIFFERENTIAL YES; Platelet Count 419 K/mm3 (150-450); RBC Distribution Width CV 14.2 % (11.6-14.6); RBC Distribution Width SD 46.9 fl (35.1-43.9); Red Blood Count 4.71 M/mm3 (4.6-6.2); White Blood Count 19.3 K/mm3 (4.4-11.0)
[2019-12-29 12:12] LABS: D-Dimer Quantitative (DVT/PE) 0.34 FEU/ug/m (0.27-0.49); Differential Indicated SCAN CRITERIA MET
[2019-12-29 12:24] LABS: Differential Comment SCANNED
[2019-12-29 12:26] LABS: Anion Gap 6 (5-15); BUN 15 mg/dL (7-18); BUN/Creat Ratio 17.8 RATIO (10-20); Calcium,Total 9.4 mg/dL (8.5-10.1); Chloride 102 mmol/L (98-107); Creatinine, Serum 0.84 mg/dL (0.70-1.30); EST Glomerular Filtration Rate 109 mL/min (>60); Est Glom Filt Rate - Afr Amer 132 mL/min (>60); Estimated Creatinine Clearance 97.84 ml/min; Glucose 67 mg/dL (74-106); Potassium 3.7 mmol/L (3.5-5.1); Sodium Level 139 mmol/L (136-145)
--- NOTE | 2019-12-29 12:57 | RAD_ITS ---
STUDY: X-RAY CHEST REASON FOR EXAM: Male, 34 years old. INCREASED SOB, COPD -- LATERAL ONLY TECHNIQUE: Single lateral view of the chest. COMPARISON: Earlier same day. FINDINGS: Single lateral view of the chest. No focal consolidation is identified. Normal osseous structures and soft tissues. RAD/Chest 1 View (Portable) IMPRESSION: No focal retrocardiac consolidation. Electronically Signed: Isreal Frost, at 13:38 EDT Tel , Service support ,
[2019-12-29] MEDS: Azithromycin 250 MG Tablet 500 MG PO (14:20)
[2019-12-30 11:28] LABS: Pathologist Review Reviewed
== END 2019-12-29 14:21 | disposition home or self-care (01) ==
LOC: ED 12:28
PROVIDERS: Emergency Provider Emergency Medicine
DX: Z03.818 Encounter for observation for suspected exposure to other biological agents ruled out (principal); J06.9 Acute upper respiratory infection, unspecified; J44.9 Chronic obstructive pulmonary disease, unspecified; I10 Essential (primary) hypertension; K21.9 Gastro-esophageal reflux disease without esophagitis; F32.9 Major depressive disorder, single episode, unspecified; E78.00 Pure hypercholesterolemia, unspecified; G47.33 Obstructive sleep apnea (adult) (pediatric); G40.909 Epilepsy, unspecified, not intractable, without status epilepticus; Z79.899 Other long term (current) drug therapy; F17.200 Nicotine dependence, unspecified, uncomplicated
CPT/HCPCS: 71045; 80048; 84484; 85025; 85379; 87633; 93005; 96360; 96361; 99285; J7030

== ENCOUNTER 2020-02-24 16:41 | Emergency (ER) | payer MEDICARE, MEDICAID, SELFPAY ==
[2019-12-29 11:08] VITALS: BMI 47.0
[2020-02-24 16:42] VITALS: BP 148/82; PULSE 97; PULSE 98; RESP 15; TEMP 36.9; O2SAT 97; BMI 44.5
[2020-02-24 16:48] VITALS: O2SAT 96
--- NOTE | 2020-02-24 17:08 | EKG12_ITS ---
Test Reason : SOB Blood Pressure : / mmHG Vent. Rate : 096 BPM Atrial Rate : 096 BPM P-R Int : 134 ms QRS Dur : 076 ms QT Int : 326 ms P-R-T Axes : 020 021 027 degrees QTc Int : 411 ms Sinus rhythm with frequent Premature ventricular complexes Otherwise normal ECG Confirmed by UDAY HUBER ([id number]), features editor SHARAD CORTES ([id number]) on 02/28/2020 1:59:10 PM Referred By: JULIUS Confirmed By:UDAY HUBER
--- NOTE | 2020-02-24 17:10 | ED.DCSUM_ITS ---
History of Present Illness Chief Complaint: Anxiety Informant: Patient Onset: Today Narrative: Presents the emergency department with a chief complaint of palpitations. He tells me that he was sitting in a hotel room where he stayed for the past 2 days after needing a break from staying with his sister where he is lived for 4 months. He was waiting for his pieces to be delivered when he states he began to feel his heart racing feeling short of breath and got anxious. He does have a history of anxiety but cannot tell me what he takes. He reports taking a car ride to just the [facility] approximately 3 to 4 weeks ago. He denies any leg swelling or prior DVT PE issues. He denies any chest pain. Past Medical History - Allergies and Home Meds Allergies/Adverse Reactions: Allergies No Known Allergies Allergy (Verified 02/24/20 16:42) Primary Care Physician: Ford Urrutia, COLOR MIXER-C [Primary Care Provider] - 1 Week if not improving Surgical History: noncontributory Smoking Status: Current every day smoker Review of Systems General: Denies: Chills, Fever, Sweats Eyes: Denies: Visual changes - bilaterally, Diplopia ENT: Denies: Rhinorrhea, Sore throat Cardiovascular: Reports: Palpitations, Heart racing. Denies: Chest pain Respiratory: Reports: Dyspnea. Denies: Cough, Dyspnea on exertion Gastrointestinal: Denies: Abdominal pain, Nausea, Vomiting, Diarrhea, Melena, Hematochezia Genitourinary: Denies: Dysuria, Hematuria, Frequency Musculoskeletal: Denies: Back pain, Extremity Pain Skin: Denies: Rash, Wounds Neurological: Denies: Headache, Weakness, Numbness Psych: Reports: Anxiety Physical Exam Vital Signs/Narrative: Vital Signs Temp Pulse Resp BP Pulse Ox 02/24/20 16:42 98.4 F 97 15 148/82 H 97 Inital Vital Signs reviewed: Yes General: Well nourished, Well developed, No Acute Distress Head: Normocephalic, Atraumatic Eyes: Perrl, EOMI ENT: Moist mucous membranes, No rhinorrhea Neck: Supple, Nontender Cardiovascular: Regular rate, Regular rhythm, No murmurs Respiratory: No distress, CTA bilaterally, Chest nontender Abdomen: Soft, Nontender, Nondistended, Normal bowel sounds Back: Nontender, Normal Inspection Extremities: Nontender, No edema Skin: Normal color, No rash Neurological: Alert, Oriented x3, Cranial nerves II-XII grossly intact, Normal Strength, Normal Sensation Psychological: Normal affect, Normal Mood Diagnostic/Tx/Re-eval Clinical Impression(s) from Imaging Studies Chest X-Ray 02/24/20 17:37 IMPRESSION: Normal x-ray examination of the chest. Electronically Signed: Hugo Nolan, at 17:53 EDT Tel , Service support , Laboratory Last Values WBC 17.0 K/mm3 (4.4-11.0) H 02/24/20 17:32 RBC 5.25 M/mm3 (4.6-6.2) 02/24/20 17:32 Hgb 15.3 g/dL (13.0-16.5) 02/24/20 17:32 Hct 46.2 % (40-54) 02/24/20 17:32 MCV 88.0 fL (80-94) 02/24/20 17:32 MCH 29.1 pg (27.0-32.0) 02/24/20 17:32 MCHC 33.1 g/dL (32-36) 02/24/20 17:32 RDW Std Deviation 41.0 fl (35.1-43.9) 02/24/20 17:32 RDW Coeff of Watson 12.8 % (11.6-14.6) 02/24/20 17:32 Plt Count 462 K/mm3 (150-450) H 02/24/20 17:32 MPV 10.2 fl (6.2-12.0) 02/24/20 17:32 Immature Gran % (Auto) 0.500 % (0.0-0.9) 02/24/20 17:32 Neut % (Auto) 68.5 % (47-70) 02/24/20 17:32 Lymph % (Auto) 19.4 % (19-41) 02/24/20 17:32 [place] % (Auto) 9.2 % (0-10) 02/24/20 17:32 Eos % (Auto) 2.0 % (0-5) 02/24/20 17:32 Baso % (Auto) 0.4 % (0-1) 02/24/20 17:32 Absolute Neuts (auto) 11.7 X10^3/uL (2.0-7.7) H 02/24/20 17:32 Absolute Lymphs (auto) 3.29 X10^3/uL (0.83-4.51) 02/24/20 17:32 Nucleated RBC % 0 % (0-5) 02/24/20 17:32 Differential Comment COMMENT 02/24/20 17:32 Diff Path Review December02/24/20 17:32 Reactive Lymphocytes RARE 02/24/20 17:32 Platelet Estimate SLT INC (ADEQ) 02/24/20 17:32 D-Dimer Quant (PE/DVT) < 0.27 FEU/ug/m (0.27-0.49) L 02/24/20 17:32 Sodium 137 mmol/L (136-145) 02/24/20 17:32 Potassium 3.6 mmol/L (3.5-5.1) 02/24/20 17:32 Chloride 104 mmol/L (98-107) 02/24/20 17:32 Carbon Dioxide 29.0 mmol/L (21.0-32.0) 02/24/20 17:32 Anion Gap 4 (5-15) L 02/24/20 17:32 BUN 6 mg/dL (7-18) L 02/24/20 17:32 Creatinine 0.90 mg/dL (0.70-1.30) 02/24/20 17:32 Estim Creat Clear Calc 91.32 ml/min 02/24/20 17:32 Est GFR (MDRD) Af Amer 122 mL/min (>60) 02/24/20 17:32 Est GFR (MDRD) Non-Af 101 mL/min (>60) 02/24/20 17:32 BUN/Creatinine Ratio 6.7 RATIO (10-20) L 02/24/20 17:32 Glucose 109 mg/dL (74-106) H 02/24/20 17:32 Calcium 9.4 mg/dL (8.5-10.1) 02/24/20 17:32 Troponin I < 0.015 ng/mL (<0.045) 02/24/20 17:32 - Medical Decision Making Patient has had PACs on the monitor. D-dimer troponin negative. Electrolytes are in check. White count is 17. I do not have an explanation for this. He has no fevers or infectious symptoms. Patient will follow-up with his doctor return if worsening or concerns. Social work visited with the patient. Patient tells me on repeat examination he is very anxious to get out of here that he like to go home and eat his pizza. ED Disposition - Plan for ED Patient: Disposition: Home or Assisted Living Diagnosis: Anxiety, Palpitations Instructions: ED Palpitations Referrals: Ford Urrutia, COL[employer] MIXER-C [Primary Care Provider] - 1 Week if not improving
[2020-02-24] MEDS: ALPRAZolam 0.25 MG Tablet PO (17:36)
--- NOTE | 2020-02-24 17:37 | RAD_ITS ---
STUDY: X-RAY CHEST REASON FOR EXAM: Male, 34 years old. sob, fast heart beat, and cough. hx of anxiety. TECHNIQUE: Frontal view of the chest COMPARISON: December 29, 2019 FINDINGS: The lungs are clear and expanded. There is no demonstrated pleural abnormality. Normal size heart. Normal mediastinum and darian. Normal visualized pulmonary arteries. Normal visualized aortic arch and descending thoracic aorta. Normal visualized thoracic spine. Normal visualized ribs, clavicles, and shoulders. There is no demonstrated abnormality of the visualized soft tissue structures of the upper abdomen. RAD/Chest 1 View (Portable) IMPRESSION: Normal x-ray examination of the chest. Electronically Signed: Hugo Nolan, at 17:53 EDT Tel , Service support ,
[2020-02-24 17:47] LABS: Absolute Lymphocyte Count 3.29 X10^3/uL (0.83-4.51); Absolute Neutrophil Count 11.7 X10^3/uL (2.0-7.7); Basophil# 0.07 X10^3/uL; Basophil% 0.4 % (0-1); Eosinophil# 0.34 X10^3/uL; Hematocrit 46.2 % (40-54); Hemoglobin 15.3 g/dL (13.0-16.5); Lymphocyte # 3.29 X10^3/ul (4.0); Lymphocyte % 19.4 % (19-41); Mean Corp Hgb Conc 33.1 g/dL (32-36); Mean Corpuscular Hgb 29.1 pg (27.0-32.0); Mean Platelet Vol. 10.2 fl (6.2-12.0); Monocyte# 1.56 X10^3/uL; Monocyte% 9.2 % (0-10); NRBC Flagged by Analyzer 0 % (0-5); Neutrophil # 11.65 X10^3/uL (2.7-7.7); Neutrophil % 68.5 % (47-70); POSITIVE DIFFERENTIAL YES; Platelet Count 462 K/mm3 (150-450); RBC Distribution Width CV 12.8 % (11.6-14.6); Red Blood Count 5.25 M/mm3 (4.6-6.2)
[2020-02-24 17:55] LABS: Differential Indicated SCAN CRITERIA MET
[2020-02-24 18:06] LABS: Anion Gap 4 (5-15); BUN 6 mg/dL (7-18); BUN/Creat Ratio 6.7 RATIO (10-20); Calcium,Total 9.4 mg/dL (8.5-10.1); Chloride 104 mmol/L (98-107); EST Glomerular Filtration Rate 101 mL/min (>60); Est Glom Filt Rate - Afr Amer 122 mL/min (>60); Estimated Creatinine Clearance 91.32 ml/min; Glucose 109 mg/dL (74-106); Potassium 3.6 mmol/L (3.5-5.1); Sodium Level 137 mmol/L (136-145)
[2020-02-24 18:23] LABS: Platelet Estimate SLT INC (ADEQ)
[2020-02-24 18:24] LABS: Reactive Lymphocyte RARE
[2020-02-24 18:50] LABS: D-Dimer Quantitative (DVT/PE) < 0.27 FEU/ug/m (0.27-0.49)
--- NOTE | 2020-02-24 18:51 | CM.ED ---
Social Work Consult: Anxiety Informant: Self referral due to reason for ED visit. Chief Complaint: Patient states to have had an anxiety attack today. Marital/Social History: Single. Patient is own guardian. Living Situation: Currently staying at a hotel last evening and tonight to get a break from living with patient sister. Patient states to be approved [facility] on March 07 and will then be able to work towards own housing. Patient states to have tension with patient sister. Support/Resources: Patient states to be active with counseling at [facility]. Patient states to also follow with psychiatric services for medication management. Patient is connected with the [facility] board of as well. History: None Education/Employment History: Reports difficulty with reading and writing but is able to comprehend. Patient states to currently work at a [employer] through [employer]. Patient confirms to be on disability. Mental Health Treatment/history: Patient reports Anxiety and Depression. Patient states to have medication for mental health but to have forgotten medications at patient sisters home. Patient states to have not taken medication for the past day. Patient states to believe anxiety attack is due to not being compliant with patient medication. Patient states history of inpatient psychiatric placement in 2017 and 2007. Triggers/Stressors: Living with patient sister. Copings Skills: not really anything. Abuse Issues: Denies Substance Abuse/Use: Denies Risk to Self/Others: Patient denies any active suicidal thoughts/plans/intents. Patient states history of suicide attempt in 2017 where patient took some pills. Patient denies any self harm behavior or homicidal thoughts. Mental Status Exam: A&Ox3 Appearance/General Behavior: Clean/Appropriate Mood/Affect: Appropriate Communication Pattern: Responds to questions. Thought Process: Denies A/V hallucinations. Judgement: Fair Assessment: Met with patient in room. Introduced self as well as long term care social worker role. Patient agreeable to speaking with this long term care social worker. Patient states to be overwhelmed with living with patient sister. Patient states to have recently moved to the [facility] area due to patient 6 year old son, Sterling Maldonado. Patient states that children services currently has custody but that patient and patient ex is working towards obtaining shared custody of Sterling. Patient states he is my world. Patient reports to have needed community supports and is looking forward to having own apartment by 2019. Patient reports no concerns on returning to home. Patient states to have an upcoming counseling appointment and to feel much better now that patient was medicated in the ED. Support provided. Dr. Rodrigues updated on social work assessment. PLAN: Discharge to home. Migel WEEKS, BRIDGER
[2020-02-24 19:13] VITALS: BP 149/95; PULSE 95; RESP 16; RESP 18; O2SAT 97
[2020-02-28 11:37] LABS: Pathologist Review Reviewed
== END 2020-02-24 19:15 | disposition home or self-care (01) ==
PROVIDERS: Emergency Provider Emergency Medicine; PCP Nurse Practitioner Family
DX: F41.9 Anxiety disorder, unspecified (principal); R00.2 Palpitations; I49.1 Atrial premature depolarization; Z79.899 Other long term (current) drug therapy; F17.200 Nicotine dependence, unspecified, uncomplicated
CPT/HCPCS: 71045; 80048; 84484; 85025; 85379; 93005; 99285; A4216

== ENCOUNTER → 2020-04-21 08:24 | Outpatient (CLI) | payer MEDICARE, MEDICAID, SELFPAY ==
[2019-12-29 11:08] VITALS: BMI 47.0
--- NOTE | 2020-04-21 13:15 | PFT ---
INTRODUCTION: The patient is a 34-year-old male that presents for pulmonary function studies secondary to a diagnosis of wheezing. Respiratory therapy reports good patient effort. Bronchodilators were used during testing. INTERPRETATION: Forced expiration spirometry demonstrates no evidence of a large airways obstructive ventilatory defect. There was no significant response to aerosolized bronchodilators. Spirograms are of good quality and plateau normally. Body plethysmography was performed and reveals a decreased TLC to 3.35 L, 63% of predicted, indicative of a moderate restrictive ventilatory impairment. The remainder of the lung volumes are symmetrically reduced. Diffusing capacity by single breath CO is similarly reduced at 50% of predicted. IMPRESSION: Moderate restrictive ventilatory impairment with symmetric reduction in diffusing capacity.
== END ==
PROVIDERS: PCP Nurse Practitioner Family; Referring Provider Nurse Practitioner Family; Visit Provider Nurse Practitioner Family
DX: J30.2 Other seasonal allergic rhinitis (principal); J40 Bronchitis, not specified as acute or chronic; J45.909 Unspecified asthma, uncomplicated
CPT/HCPCS: 94060; 94726; 94729

== ENCOUNTER 2020-04-28 10:01 | Emergency (ER) | payer MEDICARE, MEDICAID, SELFPAY ==
[2020-04-28 10:02] VITALS: BP 151/87; PULSE 86; RESP 17; TEMP 36.7; O2SAT 100; BMI 45.6
--- NOTE | 2020-04-28 10:29 | ED.DCSUM_ITS ---
History of Present Illness Informant: Patient Onset: Yesterday Context: Gradual Onset Timing: Continuous Quality: throbbing Location: left ear/buttock Current Severity: Severe Maximum Severity: Severe Worsened by: movement, palpation Relieved by: nothing Associated Symptoms: denies Narrative: 34-year-old male with a history of seizure disorder presents with 2 abscesses 1 inside his earlobe and the other on his buttock. Noticed them yesterday. No fevers no drainage denies constitutional symptoms and has no other complaints at this time Prior similar symptoms: Yes Recent Illness/Hospitalization: No <Sriram Jaffe - Last Filed: 04/28/20 10:29> <Irvin Bernal - Last Filed: 04/28/20 10:50> Chief Complaint: Abscess Past Medical History Prior records reviewed: Yes Past Medical History: - - Seizure disorder Surgical History: noncontributory Lives: With Family Smoking Status: Current every day smoker Alcohol: Occasional Drugs: None <Sriram Jaffe - Last Filed: 04/28/20 10:29> <Irvin Bernal - Last Filed: 04/28/20 10:50> - Allergies and Home Meds Allergies/Adverse Reactions: Allergies No Known Allergies Allergy (Verified 04/28/20 10:02) Primary Care Physician: Ford Urrutia BROACHING MACHINE SET UP OPERATOR, BROACHING MACHINE SET UP OPERATOR-C [Primary Care Provider] - Review of Systems All systems negative except as indicated General: Denies: Chills, Fever, Sweats Eyes: Denies: Visual changes - bilaterally, Diplopia ENT: Denies: Rhinorrhea, Sore throat Cardiovascular: Denies: Chest pain, Palpitations Respiratory: Denies: Dyspnea, Cough, Dyspnea on exertion Gastrointestinal: Reports: - - Normal inspection of the rectum he has a small area on his left inner buttock cheek that is somewhat hard it is not red it is not swollen there is no fluctuance it appears to be a old abscess he states he has had this drained previously but it is not acutely inflamed or acutely infected. Denies: Abdominal pain, Nausea, Vomiting, Diarrhea, Melena, Hematochezia Genitourinary: Denies: Dysuria, Hematuria, Frequency Musculoskeletal: Denies: Back pain, Extremity Pain Skin: Reports: Abscess - Small pimple left earlobe on the inner aspect not in the canal. No surrounding infection.. Denies: Rash, Abrasions, Wounds Neurological: Denies: Headache, Weakness, Parasthesia, Numbness <Sriram Jaffe - Last Filed: 04/28/20 10:29> Physical Exam Vital Signs/Narrative: Vital Signs Temp Pulse Resp BP Pulse Ox 04/28/20 10:02 98.0 F 86 17 151/87 H 100 Inital Vital Signs reviewed: Yes General: Well nourished, Well developed, No Acute Distress Head: Normocephalic, Atraumatic Eyes: Perrl, EOMI ENT: Moist mucous membranes, No rhinorrhea Neck: Supple, Nontender Cardiovascular: Regular rate, Regular rhythm, No murmurs Respiratory: No distress, CTA bilaterally, Chest nontender Abdomen: Soft, Nontender, Nondistended, Normal bowel sounds Back: Nontender, Normal Inspection Extremities: Nontender, No edema Skin: Normal color, No rash Neurological: Alert, Oriented x3, Cranial nerves II-XII grossly intact, Normal Strength, Normal Sensation Psychological: Normal affect, Normal Mood <Sriram Jaffe - Last Filed: 04/28/20 10:29> Vital Signs/Narrative: Vital Signs Temp Pulse Resp BP Pulse Ox 04/28/20 10:02 98.0 F 86 17 151/87 H 100 <Irvin Bernal - Last Filed: 04/28/20 10:50> Diagnostic/Tx/Re-eval - Medical Decision Making Patient reassured that the area on his left buttock is not acutely inflamed it is not acutely infected it is not an acute abscess. Discussed proper skin care and wound care for that area. Patient did have a small area in his left earlobe on the inner aspect but not within the canal. 18-gauge needle was used to drain a small amount of purulen ce. Discussed with patient proper wound care. Discussed with patient signs of infection to monitor for. We will place him on antibiotics he will follow-up with his doctor for wound check in the next several days or return for worsening symptoms that we discussed <Sriram Jaffe - Last Filed: 04/28/20 10:29> - Medical Decision Making Patient was seen with me. I did a [id number] examination with the patient. Patient presents with a possible abscess to his left buttock area as well as a pimple on his left ear. Patient denies any fevers or chills. Patient states his pain is worse with sitting. Patient denies any discharge or drainage. Vital signs are stable. Patient is afebrile. Patient is in no acute distress. Skin is warm dry. There is a superficial skin ulceration on the medial aspect of the left gluteal area. There is minimal surrounding erythema. There is no discharge or drainage. There is also some mild erythema along the pinna of the external ear. There is no edema of the external auditory canal. Tympanic membrane is clear. The small pustule was drained with an 18-gauge needle. Patient tolerated the procedure well. Patient was given prescription for antibiotics. Patient was instructed to use warm compresses. Patient was instructed to follow-up with his primary care physician in 5 to 7 days. Patient understood and was agreeable with the plan. All questions were answered. <Irvin Bernal - Last Filed: 04/28/20 10:50> Procedures Procedure(s): Under sterile conditions with Betadine prep 18-gauge needle was used for aspiration of the abscess on the left earlobe. Small amount of purulent was drained. It was cleansed again and left open to drain and patient tolerated well <Sriram Jaffe - Last Filed: 04/28/20 10:29> ED Disposition <Sriram Jaffe - Last Filed: 04/28/20 10:29> <Irvin Bernal - Last Filed: 04/28/20 10:50> - Plan for ED Patient: Disposition: Home or Assisted Living Diagnosis: Abscess of external ear, left, Buttock abrasion, History of seizures, Nicotine dependence, cigarettes, uncomplicated, History of hypertension, HANNAH (obstructive sleep apnea) Instructions: ED Abscess Incision And Drainage Prescriptions: Cephalexin [Keflex] 500 mg PO Q12 #10 cap Prescription Printed Referrals: Ford Urrutia BROACHING MACHINE SET UP OPERATOR, BROACHING MACHINE SET UP OPERATOR-C [Primary Care Provider] -
== END 2020-04-28 10:45 | disposition home or self-care (01) ==
PROVIDERS: Emergency Provider Physician Assistant Medical; PCP Nurse Practitioner Family
DX: H60.02 Abscess of left external ear (principal); L02.31 Cutaneous abscess of buttock; S30.810A Abrasion of lower back and pelvis, initial encounter; X58.XXXA Exposure to other specified factors, initial encounter; Y93.9 Activity, unspecified; Y92.9 Unspecified place or not applicable; I10 Essential (primary) hypertension; G40.909 Epilepsy, unspecified, not intractable, without status epilepticus; G47.33 Obstructive sleep apnea (adult) (pediatric); Z79.899 Other long term (current) drug therapy; F17.210 Nicotine dependence, cigarettes, uncomplicated
CPT/HCPCS: 69000; 99282

== ENCOUNTER 2020-05-10 18:21 | Emergency (ER) | payer MEDICARE, MEDICAID, SELFPAY ==
[2020-05-10 18:22] VITALS: BP 152/105; PULSE 96; RESP 18; TEMP 36.8; O2SAT 100; BMI 43.4
--- NOTE | 2020-05-10 19:15 | EKG12_ITS ---
Test Reason : DEPRESSION Blood Pressure : / mmHG Vent. Rate : 082 BPM Atrial Rate : 082 BPM P-R Int : 138 ms QRS Dur : 080 ms QT Int : 332 ms P-R-T Axes : 015 025 017 degrees QTc Int : 387 ms Normal sinus rhythm Normal ECG Confirmed by DOROTHY BRASWELL, JONATHAN ([id number]), assignment desk editor AD GRANADOS ([id number]) on 05/15/2020 1:28:00 PM Referred By: JAMEEL Confirmed By:JONATHAN DE LA CRUZ MD
--- NOTE | 2020-05-10 19:15 | ED.RN ---
CALLED CRISIS PER REQUEST OF DR FARRELL, CALL THEN TRANSFERRED TO DR FARRELL FOR FURTHER CONVERSATION
[2020-05-10 19:21] VITALS: PULSE 89; RESP 18; O2SAT 93
[2020-05-10 19:31] LABS: Absolute Lymphocyte Count 3.95 X10^3/uL (0.83-4.51); Absolute Neutrophil Count 14.1 X10^3/uL (2.0-7.7); Basophil# 0.09 X10^3/uL; Basophil% 0.4 % (0-1); Eosinophil# 0.26 X10^3/uL; Eosinophils% 1.3 % (0-5); Hematocrit 46.8 % (40-54); Hemoglobin 15.8 g/dL (13.0-16.5); Lymphocyte # 3.95 X10^3/ul (4.0); Lymphocyte % 19.3 % (19-41); Mean Corp Hgb Conc 33.8 g/dL (32-36); Mean Corpuscular Hgb 28.6 pg (27.0-32.0); Mean Corpuscular Volume 84.8 fL (80-94); Mean Platelet Vol. 10.2 fl (6.2-12.0); Monocyte# 1.92 X10^3/uL; Monocyte% 9.4 % (0-10); NRBC Flagged by Analyzer 0 % (0-5); Neutrophil % 69.1 % (47-70); POSITIVE DIFFERENTIAL YES; Platelet Count 500 K/mm3 (150-450); RBC Distribution Width SD 43.1 fl (35.1-43.9); Red Blood Count 5.52 M/mm3 (4.6-6.2); White Blood Count 20.4 K/mm3 (4.4-11.0)
[2020-05-10 19:32] LABS: Differential Indicated SCAN CRITERIA MET
--- NOTE | 2020-05-10 19:40 | RAD_ITS ---
STUDY: X-RAY CHEST REASON FOR EXAM: Male, 34 years old. CHEST TIGHTNESS X 1 DAY TECHNIQUE: Single AP portable view of the chest. COMPARISON: February 24, 2020 FINDINGS: The lungs are clear and expanded. There is no demonstrated pleural abnormality. Normal size heart. Normal mediastinum and darian. Normal visualized pulmonary arteries. Normal visualized aortic arch and descending thoracic aorta. Normal visualized thoracic spine. Normal visualized ribs, clavicles, and shoulders. There is no demonstrated abnormality of the visualized soft tissue structures of the upper abdomen. RAD/Chest 1 View (Portable) IMPRESSION: No visualized acute process Electronically Signed: Tacos Tubbs MD at 20:00 EDT , Service support ,
[2020-05-10 19:56] LABS: Anion Gap 3 (5-15); BUN 7 mg/dL (7-18); BUN/Creat Ratio 7.3 RATIO (10-20); Calcium,Total 10.1 mg/dL (8.5-10.1); Chloride 100 mmol/L (98-107); Creatinine, Serum 0.95 mg/dL (0.70-1.30); EST Glomerular Filtration Rate 95 mL/min (>60); Est Glom Filt Rate - Afr Amer 114 mL/min (>60); Estimated Creatinine Clearance 86.51 ml/min; Glucose 107 mg/dL (74-106); Potassium 3.6 mmol/L (3.5-5.1); Sodium Level 135 mmol/L (136-145); Thyroid Stim Hormone (TSH) 1.09 uIU/mL (0.358-3.74)
--- NOTE | 2020-05-10 20:06 | ED.VIS.GEN ---
History of Present Illness Chief Complaint: Depression Informant: Patient Onset: Today Context: Sudden Onset Narrative: Patient is a 34-year-old male with history of anxiety, depression, hypertension, hyperlipidemia and COPD presenting after an episode of anxiety, worsening depression and crying. He states it hit him all of a sudden out of nowhere. Notes he has been feeling more overwhelmed lately because of a divorce that was recently finalized and working on getting custody of his son. Patient recently moved and was living by himself but states he does have friends and family that can stay with him. He denies any suicidal ideations and does not want to harm himself. He denies any auditory or visual hallucinations or homicidal ideations. He notes he is not been very compliant with his medications he does not always take them every day. Patient notes that during this episode he did have chest tightness. This is about 30 minutes prior to arrival. He states he felt very upset and actually vomited because he was so upset. He denies any cough or shortness of breath. He denies any swelling of his legs. He denies any other complaints at this time. Patient follows with the counseling center. He states his next appointment is June 06. Patient states he does not have any weapons in his house Past Medical History - Allergies and Home Meds Allergies/Adverse Reactions: Allergies No Known Allergies Allergy (Verified 05/10/20 18:21) Primary Care Physician: Ford Urrutia INDUSTRIAL HYGIENE MANAGER, INDUSTRIAL HYGIENE MANAGER-C [Primary Care Provider] - Past Medical History: - - Depression, anxiety, hypertension, hyperlipidemia, GERD, COPD past Surgical History: noncontributory Lives: Alone Smoking Status: Current every day smoker Review of Systems General: Denies: Chills, Fever, Sweats Eyes: Denies: Visual changes - bilaterally, Diplopia ENT: Denies: Rhinorrhea, Sore throat Cardiovascular: Reports: Chest pain - tightness. Denies: Palpitations Respiratory: Denies: Dyspnea, Cough, Dyspnea on exertion Gastrointestinal: Denies: Abdominal pain, Nausea, Vomiting, Diarrhea, Melena, Hematochezia Genitourinary: Denies: Dysuria, Hematuria, Frequency Musculoskeletal: Denies: Back pain, Extremity Pain Skin: Denies: Rash, Wounds Neurological: Denies: Headache, Weakness, Numbness Psych: Reports: Depression, Anxiety. Denies: Suicidal thoughts, Suicidal ideations Physical Exam Vital Signs/Narrative: Vital Signs Temp Pulse Resp BP Pulse Ox 05/10/20 19:21 89 18 93 05/10/20 18:22 98.2 F 96 18 152/105 H 100 Inital Vital Signs reviewed: Yes General: Well nourished, Well developed, No Acute Distress Head: Normocephalic, Atraumatic Eyes: Perrl, EOMI ENT: Moist mucous membranes, No rhinorrhea Neck: Supple, Nontender Cardiovascular: Regular rate, Regular rhythm, No murmurs Respiratory: No distress, CTA bilaterally, Chest nontender Abdomen: Soft, Nontender, Nondistended, Normal bowel sounds Back: Nontender, Normal Inspection Extremities: Nontender, No edema Skin: Normal color, No rash Neurological: Alert, Oriented x3, Cranial nerves II-XII grossly intact, Normal Strength, Normal Sensation Psychological: Normal affect, Normal Mood, Depressed, - - No homicidal or suicidal ideation, good insight. Normal speech.. Negative for: Tearful, Agitated Diagnostic/Tx/Re-eval Chest X-Ray - ED: 2 View, Read by ED Physician, Read by Radiologist, No Acute Disease Clinical Impression(s) from Imaging Studies Chest X-Ray 05/10/20 19:40 IMPRESSION: No visualized acute process Electronically Signed: Tacos Tubbs MD at 20:00 EDT , Service support , Laboratory Data 05/10/20 05/10/20 19:16 19:16 WBC 20.4 H RBC 5.52 Hgb 15.8 Hct 46.8 MCV 84.8 MCH 28.6 MCHC 33.8 RDW Std Deviation 43.1 RDW Coeff of Watson 14.0 Plt Count 500 H MPV 10.2 Immature Gran % (Auto) 0.500 Neut % (Auto) 69.1 Lymph % (Auto) 19.3 [place] % (Auto) 9.4 Eos % (Auto) 1.3 Baso % (Auto) 0.4 Absolute Neuts (auto) 14.1 H Absolute Lymphs (auto) 3.95 Nucleated RBC % 0 Differential Comment SCANNED Diff Path Review May foll Sodium 135 L Potassium 3.6 Chloride 100 Carbon Dioxide 32.0 Anion Gap 3 L BUN 7 Creatinine 0.95 Estim Creat Clear Calc 86.51 Est GFR (MDRD) Af Amer 114 Est GFR (MDRD) Non-Af 95 BUN/Creatinine Ratio 7.3 L Glucose 107 H Calcium 10.1 Troponin I < 0.015 TSH 1.09 - Rhythm Strip Rhythm Strip: Sinus Rhythm Rate: 82 Ectopy: None - EKG Initial EKG Interpretation: Sinus Rhythm, - - Normal sinus rhythm rate of [address] segments Normal intervals No change compared to prior EKG on 02/24/2020 - Medical Decision Making Patient is evaluated for increased anxiety and depression. He notes that he did have an episode of chest tightness as well today. Patient denies any homicidal suicidal ideations. He is already in touch with the counseling center which is where he receives his care. Patient is actually seen by his psychiatrist 2 days ago. Physical exam is benign. Given his episode of chest tightness I did check labs as well as an EKG. Patient is offered a delta troponin however he declined stating his right ear and he wants to just go home. Do not think patient requires emergent psychiatric evaluation however I did discuss him with the counseling center and arrange a telephone encounter for him tomorrow at 11 AM. Patient is agreeable with this plan. He has someone that will stay with him tonight. He states he will go home and take all of his medications. Patient is counseled on signs and symptoms requiring return to the emergency room. Patient verbalizes agreement and understand this plan. Patient discharged home in stable and improved condition. ED Disposition - Plan for ED Patient: Disposition: Home or Assisted Living Diagnosis: Depression, Chest tightness Instructions: ED Chest Pain Atypical Unkn Cause, ED Depression Referrals: Ford Urrutia INDUSTRIAL HYGIENE MANAGER, INDUSTRIAL HYGIENE MANAGER-C [Primary Care Provider] - Additional Instructions: Please call crisis tomorrow at 11 AM. You have a phone appointment scheduled for you. Return the emergency room with any worsening symptoms. Please make sure you take your medications when you get home. If you can, have someone stay with you tonight.
[2020-05-10 20:11] LABS: Differential Comment SCANNED
[2020-05-10 20:30] VITALS: PULSE 84; RESP 16; O2SAT 98
[2020-05-11 12:35] LABS: Pathologist Review Reviewed
== END 2020-05-10 21:14 | disposition home or self-care (01) ==
PROVIDERS: Emergency Provider Emergency Medicine; PCP Nurse Practitioner Family
DX: R07.89 Other chest pain (principal); F32.9 Major depressive disorder, single episode, unspecified; I10 Essential (primary) hypertension; E78.5 Hyperlipidemia, unspecified; J44.9 Chronic obstructive pulmonary disease, unspecified; F41.9 Anxiety disorder, unspecified; K21.9 Gastro-esophageal reflux disease without esophagitis; Z79.899 Other long term (current) drug therapy; F17.200 Nicotine dependence, unspecified, uncomplicated
CPT/HCPCS: 71045; 80048; 84443; 84484; 85025; 93005; 99284; A4216

== ENCOUNTER 2020-05-11 11:43 | Emergency (ER) | payer MEDICARE, MEDICAID, SELFPAY ==
[2020-05-10 18:22] VITALS: BMI 43.4
[2020-05-11 11:45] VITALS: BP 150/86; PULSE 107; RESP 16; TEMP 36.3; O2SAT 98; BMI 45.5
--- NOTE | 2020-05-11 11:57 | ED.DCSUM_ITS ---
History of Present Illness Chief Complaint: Suicidal Informant: Patient Onset: Days Context: Gradual Onset Timing: Continuous Current Severity: Moderate Maximum Severity: Severe Narrative: The patient is a 34-year-old male with medical history significant for anxiety, depression, COPD, hypertension the presents to the emergency department with suicidal thoughts. The patient was actually seen here yesterday. At that time, he was voicing depression without any thoughts of self-harm. He is established with the counseling center. He was evaluated and the plan was for him to follow-up with [facility] this morning. He had called and states that overnight, he was getting increasing thoughts of self-harm. He states he has plan to overdose on his medications. He states he has been intermittently compliant with all of his medications but did take them yesterday and today. He denies any drug or alcohol use. He does have history of prior attempt. Prior similar symptoms: Yes Recent Illness/Hospitalization: Yes Past Medical History - Allergies and Home Meds Allergies/Adverse Reactions: Allergies No Known Allergies Allergy (Verified 05/11/20 11:44) Primary Care Physician: Frod Urrutia RIVER EXPEDITION GUIDE, RIVER EXPEDITION GUIDE-C [Primary Care Provider] - Prior records reviewed: Yes Past Medical History: - - Depression, anxiety, hypertension, smoking Surgical History: noncontributory Smoking Status: Current every day smoker Review of Systems General: Denies: Chills, Fever, Sweats Eyes: Denies: Visual changes - bilaterally, Diplopia ENT: Denies: Rhinorrhea, Sore throat Cardiovascular: Denies: Chest pain, Palpitations Respiratory: Denies: Dyspnea, Cough, Dyspnea on exertion Gastrointestinal: Denies: Abdominal pain, Nausea, Vomiting, Diarrhea, Melena, Hematochezia Genitourinary: Denies: Dysuria, Hematuria, Frequency Musculoskeletal: Denies: Back pain, Extremity Pain Skin: Denies: Rash, Wounds Neurological: Denies: Headache, Weakness, Numbness Psych: Reports: Depression, Anxiety, Suicidal thoughts, Suicidal ideations Physical Exam Vital Signs/Narrative: Vital Signs Temp Pulse Resp BP Pulse Ox 05/11/20 11:45 97.4 F L 107 H 16 150/86 H 98 Inital Vital Signs reviewed: Yes General: Well nourished, Well developed, No Acute Distress Head: Normocephalic, Atraumatic Eyes: Perrl, EOMI ENT: Moist mucous membranes, No rhinorrhea Neck: Supple, Nontender Cardiovascular: Regular rate, Regular rhythm, No murmurs Respiratory: No distress, CTA bilaterally, Chest nontender Abdomen: Soft, Nontender, Nondistended, Normal bowel sounds Back: Nontender, Normal Inspection Extremities: Nontender, No edema Skin: Normal color, No rash Neurological: Alert, Oriented x3, Cranial nerves II-XII grossly intact, Normal Strength, Normal Sensation Psychological: Depressed Diagnostic/Tx/Re-eval Abnormal Lab Results 05/11/20 05/11/20 05/11/20 11:56 12:02 12:02 WBC 13.7 H RBC 5.40 Hgb 15.5 Hct 45.8 MCV 84.8 MCH 28.7 MCHC 33.8 RDW Std Deviation 42.7 RDW Coeff of Watson 13.9 Plt Count 452 H MPV 10.5 Immature Gran % (Auto) 0.500 Neut % (Auto) 70.7 H Lymph % (Auto) 16.8 L [place] % (Auto) 9.9 Eos % (Auto) 1.6 Baso % (Auto) 0.5 Absolute Neuts (auto) 9.7 H Absolute Lymphs (auto) 2.29 Nucleated RBC % 0 Sodium 138 Potassium 3.4 L Chloride 102 Carbon Dioxide 31.0 Anion Gap 5 BUN 10 Creatinine 0.94 Estim Creat Clear Calc 87.43 Est GFR (MDRD) Af Amer 117 Est GFR (MDRD) Non-Af 97 BUN/Creatinine Ratio 10.7 Glucose 108 H Calcium 9.9 Ur Drug Screen Comment Ethyl Alcohol 05/11/20 12:02 WBC RBC Hgb Hct MCV MCH MCHC RDW Std Deviation RDW Coeff of Watson Plt Count MPV Immature Gran % (Auto) Neut % (Auto) Lymph % (Auto) [place] % (Auto) Eos % (Auto) Baso % (Auto) Absolute Neuts (auto) Absolute Lymphs (auto) Nucleated RBC % Sodium Potassium Chloride Carbon Dioxide Anion Gap BUN Creatinine Estim Creat Clear Calc Est GFR (MDRD) Af Amer Est GFR (MDRD) Non-Af BUN/Creatinine Ratio Glucose Calcium Ur Drug Screen Comment Ethyl Alcohol 12.0 - Medical Decision Making The patient presents to the emergency department with suicidal ideation with plan. He states that his plan would be to overdose on his medications. He was seen here yesterday with depression with very close follow-up. However, he is now suicidal. Given his plan, I do feel that he is going to require psychiatric placement. He is currently being evaluated by social work. Plan will be for inpatient hospitalization. Impression 1. Suicidal ideation with plan ED Disposition - Plan for ED Patient: Referrals: Ford Urrutia RIVER EXPEDITION GUIDE, RIVER EXPEDITION GUIDE-C [Primary Care Provider] -
[2020-05-11 12:24] LABS: Absolute Lymphocyte Count 2.29 X10^3/uL (0.83-4.51); Absolute Neutrophil Count 9.7 X10^3/uL (2.0-7.7); Basophil# 0.07 X10^3/uL; Basophil% 0.5 % (0-1); Eosinophil# 0.22 X10^3/uL; Eosinophils% 1.6 % (0-5); Hematocrit 45.8 % (40-54); Hemoglobin 15.5 g/dL (13.0-16.5); Lymphocyte # 2.29 X10^3/ul (4.0); Lymphocyte % 16.8 % (19-41); Mean Corp Hgb Conc 33.8 g/dL (32-36); Mean Corpuscular Hgb 28.7 pg (27.0-32.0); Mean Corpuscular Volume 84.8 fL (80-94); Mean Platelet Vol. 10.5 fl (6.2-12.0); Monocyte# 1.35 X10^3/uL; Monocyte% 9.9 % (0-10); NRBC Flagged by Analyzer 0 % (0-5); Neutrophil # 9.67 X10^3/uL (2.7-7.7); Neutrophil % 70.7 % (47-70); Platelet Count 452 K/mm3 (150-450); RBC Distribution Width CV 13.9 % (11.6-14.6); RBC Distribution Width SD 42.7 fl (35.1-43.9); White Blood Count 13.7 K/mm3 (4.4-11.0)
[2020-05-11] MEDS: LORazepam 1 MG Tablet PO (12:24)
[2020-05-11 12:39] LABS: Anion Gap 5 (5-15); BUN 10 mg/dL (7-18); BUN/Creat Ratio 10.7 RATIO (10-20); Calcium,Total 9.9 mg/dL (8.5-10.1); Chloride 102 mmol/L (98-107); Creatinine, Serum 0.94 mg/dL (0.70-1.30); EST Glomerular Filtration Rate 97 mL/min (>60); Est Glom Filt Rate - Afr Amer 117 mL/min (>60); Estimated Creatinine Clearance 87.43 ml/min; Glucose 108 mg/dL (74-106); Potassium 3.4 mmol/L (3.5-5.1); Sodium Level 138 mmol/L (136-145)
--- NOTE | 2020-05-11 13:32 | CM.ED ---
SOCIAL WORK Informant: Dr. Gallegos Reason for Consult: Suicidal Ideation Chief Compliant: Patient reports was seen yesterday in ED due to depression. Patient presents to ER today with suicidal ideation with plan to overdose. Patient voices feelings of being overwhelmed and lonely. Marital/Social History: Living Situation: Apartment, alone Support/Resources: [facility]. Patient's counseling is Jasmin and Navdeep Muse prescribes medications. Patient connected with [employer]. floodplain manager is Nedra Santos and provider is [place] with [facility]. 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 Mental Health Treatment/History: Depression, Anxiety, and Mild Intellectual Disability. Patient states is treated with medication and counseling through [facility]. Triggers/Stressors: Living alone, trying to fight for shared custody of son Coping Skills: None at this time as patient reports is unable to cope. Abuse Issues: Patient denies any history of emotional, physical or sexual abuse. Substance Abuse History: Patient denies any history of substance use. Risk to Self/Others: Suicidal- Patient reports suicidal ideation with plan and intent. Patient reports had been walking around [place], afraid to go home because has plan to overdose. Patient reports prior history of attempt and hospitalization 3 years ago. Homicidal- Patient denies any homicidal ideation. Mental Status Exam: Orientation- A&Ox3 Memory- Good Appearance/General Behavior- clean/appropriate, calm Mood/Affect- flat, depressed, anxious Communication Pattern- responds to questions Thought Process- appropriate General Intellectual Functioning- Patient with mild intellectual functioning Judgment- poor Assessment: Met with patient in room. Patient with sitter protocol in place. Introduced role and reason for referral. Patient willing to speak with this worker and able to engage in conversation. Patient reports feelings of being overwhelmed and lonely. Patient states has been for 3 years and is in the process of fighting for shared custody of son. Patient states was seen in ER yesterday for depression and was discharged with follow up with [facility]. Patient reports suicidal ideation with plan to overdose on medications. Patient had reported to fancy needleworker he had been walking around [place] afraid to return home because medications are there. Crisis recommending inpatient psych hospitalization as unable to maintain safety. Collaboration with Dr. Gallegos who is in agreement with hospitalization and completed [facility]. This worker to facilitate placement. Patient aware and in agreement with plan. Plan: Referral for inpatient psych hospitalization for stabilization. Ginger Strange MSW, BIOINFORMATICS RESEARCH TECHNICIAN
[2020-05-11 13:43] LABS: Amphetamine Urine VISTA NEGATIVE (<1000 ng/mL); Barbiturate Urine VISTA NEGATIVE (< 200 ng/mL); Benzodiazepine Urine VISTA NEGATIVE (< 200 ng/mL); Cocaine Urine VISTA NEGATIVE (< 300 ng/mL); Ecstacy Urine VISTA NEGATIVE (< 500 ng/mL); Methadone Urine VISTA NEGATIVE (< 300 ng/mL); PCP Urine VISTA NEGATIVE (< 25 ng/mL); THC Urine VISTA NEGATIVE (< 50 ng/mL); Vista UDS pH Range 6
--- NOTE | 2020-05-11 14:24 | CM.ED ---
SOCIAL WORK Referral called and faxed to Barrie at [facility]. Will fax results of COVID-19 test once received. Pending review at this time. Ginger Strange, LAP CHECKER, LION HUNTER
[2020-05-11 14:44] VITALS: BP 145/80; PULSE 90; RESP 18; O2SAT 99
--- NOTE | 2020-05-11 14:58 | CM.ED ---
SOCIAL WORK Received call back from Renetta with [facility]. Patient accepted to facility. Renetta to call this worker back with ETA for transport by [facility] and accepting information. Ginger Strange, COMMERCIAL SUBCONTRACTOR, SOLUTION CONSULTANT
[2020-05-11 16:02] VITALS: BP 130/78; PULSE 81; RESP 14; O2SAT 100
--- NOTE | 2020-05-11 16:36 | CM.ED ---
SOCIAL WORK Call to [facility] as Gregory arrived to transport patient. Spoke with Nataliia. Accepting information provided. Accepting physician-Dr. Camilo. Nurse to call report to [phone]. Ginger Strange MSW, CHORAL DIRECTOR
[2020-05-11 16:42] VITALS: BP 130/78; PULSE 81; RESP 18; O2SAT 100
== END 2020-05-11 16:18 ==
LOC: ED 12:32
PROVIDERS: Emergency Provider Emergency Medicine; PCP Nurse Practitioner Family
DX: R45.851 Suicidal ideations (principal); F32.9 Major depressive disorder, single episode, unspecified; F41.9 Anxiety disorder, unspecified; Z91.5 Personal history of self-harm; I10 Essential (primary) hypertension; J44.9 Chronic obstructive pulmonary disease, unspecified; Z79.899 Other long term (current) drug therapy; F17.200 Nicotine dependence, unspecified, uncomplicated
CPT/HCPCS: 36415; 80048; 80307; 80320; 85025; 87635; 99283; C9803; G0480; U0003

== ENCOUNTER 2020-05-29 11:34 | Emergency (ER) | payer MEDICARE, MEDICAID, SELFPAY ==
[2020-05-29 11:34] VITALS: BP 139/104; PULSE 109; RESP 18; TEMP 36.3; O2SAT 98; BMI 45.3
--- NOTE | 2020-05-29 12:06 | ED.DCSUM_ITS ---
History of Present Illness Chief Complaint: Abscess Informant: Patient Onset: Days Context: Gradual Onset Current Severity: Mild Maximum Severity: Mild Narrative: She presents with an abscess on the anterior chest wall that he believes needs drained. He states he first noted the lesion about 3 days ago. He was able to get some drainage out of it. He denies fever or chills. - Past Medical History (1) High cholesterol Status: Chronic (2) COPD (chronic obstructive pulmonary disease) Status: Chronic (3) History of hypertension Status: Chronic (4) History of seizures Status: Chronic Past Medical History - Allergies and Home Meds Allergies/Adverse Reactions: Allergies No Known Allergies Allergy (Verified 05/29/20 11:36) Primary Care Physician: Ford Urrutia CHARGE MASTER SPECIALIST, CHARGE MASTER SPECIALIST-C [Primary Care Provider] - Prior records reviewed: Yes Surgical History: noncontributory Smoking Status: Former smoker Review of Systems General: Denies: Chills, Fever Eyes: Denies: Visual changes - bilaterally ENT: Denies: Bilateral ear pain Cardiovascular: Denies: Chest pain Respiratory: Denies: Dyspnea, Cough Gastrointestinal: Denies: Abdominal pain, Vomiting Genitourinary: Denies: Dysuria Musculoskeletal: Denies: Swelling, Extremity Pain Skin: Reports: Abscess Hematologic: Denies: Easy bruising, Easy bleeding Allergy: Denies: Uticaria Physical Exam Vital Signs/Narrative: Vital Signs Temp Pulse Resp BP Pulse Ox 05/29/20 11:34 97.4 F L 109 H 18 139/104 H 98 Inital Vital Signs reviewed: Yes General: Well nourished, Well developed Head: Normocephalic ENT: Moist mucous membranes Neck: Supple Cardiovascular: Regular rate, Regular rhythm Respiratory: No distress, CTA bilaterally Abdomen: Soft, Nontender Skin: - - 3 centimeter diameter cutaneous abscess over the upper anterior chest wall. No surrounding cellulitis. Mild fluctuance. Neurological: Alert, Oriented x3 Psychological: Normal affect Diagnostic/Tx/Re-eval - Medical Decision Making 1 cc 1% lidocaine is infused over the abscess. A 1 cm incision is made with a #11 blade. There is return of minimal pus and blood. The wall around the abscess is still very thick. In light of this I will put him on antibiotics to help this breakdown. ED Disposition - Plan for ED Patient: Disposition: Home or Assisted Living Diagnosis: Cutaneous abscess Instructions: ED Abscess Incision And Drainage Prescriptions: Smz/Tmp Ds [Bactrim Ds] 1 tab PO BID #14 tab Transmission Status: Pending to [place] [id number] Cephalexin [Keflex] 500 mg PO Q6 #40 cap Transmission Status: Pending to [place] [id number] Referrals: Ford Urrutia CHARGE MASTER SPECIALIST, CHARGE MASTER SPECIALIST-C [Primary Care Provider] - 1 Week if not improving
[2020-05-29] MEDS: Smz/Tmp Ds Tablet 1 TABLET PO (12:59)
[2020-05-29] MEDS: Cephalexin 250 MG Capsule 500 MG PO (12:59)
[2020-05-29 13:02] VITALS: BP 144/87; PULSE 98; RESP 18; O2SAT 99
== END 2020-05-29 13:03 | disposition home or self-care (01) ==
PROVIDERS: Emergency Provider Emergency Medicine; PCP Nurse Practitioner Family
DX: L02.213 Cutaneous abscess of chest wall (principal); I10 Essential (primary) hypertension; J44.9 Chronic obstructive pulmonary disease, unspecified; E78.00 Pure hypercholesterolemia, unspecified; G40.909 Epilepsy, unspecified, not intractable, without status epilepticus; Z79.899 Other long term (current) drug therapy; Z87.891 Personal history of nicotine dependence
CPT/HCPCS: 10060; 99283

== ENCOUNTER → 2020-07-18 20:23 | Outpatient (CLI) | payer MEDICARE, MEDICAID, SELFPAY | PROVIDERS: PCP Nurse Practitioner Family; Visit Provider Nurse Practitioner Family | DX: G47.33 Obstructive sleep apnea (adult) (pediatric) (principal) | CPT/HCPCS: 95811 ==

== ENCOUNTER 2021-03-10 12:39 | Emergency (ER) | payer MEDICARE, MEDICAID, SELFPAY ==
[2021-03-10 12:39] VITALS: BP 140/83; PULSE 96; RESP 16; TEMP 36.2; O2SAT 97; BMI 42.5
--- NOTE | 2021-03-10 13:09 | EX.ED.DYSGE1 ---
HPI History of Present Illness Chief Complaint: Cough Informant: patient Narrative Narrative: Patient reports chronic cough for a year worsened over the past 2 weeks with mild productive sputum. States last 2 weeks also mild headache with loose stools. Nonbloody stools. No vomiting. Reports mild sore throat. Denies any loss of taste or smell. Denies sick contacts. Covid vaccinated last shot was 2 months ago. Denies Covid infection in the past. Tobacco history. He states he was on a blood pressure medicine up to a year ago. This was stopped due to improving blood pressure. No CLARA inhibitor is currently. Denies chest or abdominal pain. States 1 loose stool a day. None today. Tolerating oral intake. [facility] Medical History (Updated 03/10/21 @ 15:[address] Vicente Simpson DO) Back pain COPD (chronic obstructive pulmonary disease) Depression Elevated LFTs Fatty liver GERD without esophagitis HLD (hyperlipidemia) HTN (hypertension) Moderate anxiety Narcolepsy Nicotine dependence, cigarettes, uncomplicated Obesity HANNAH (obstructive sleep apnea) Restrictive airway disease Seasonal allergies Seizures Home Medications levetiracetam 500 mg PO BID 03/17/18 [History Last Taken 05/23/18] buspirone 1 tab PO BID 05/03/18 [History Last Taken 05/29/20] albuterol sulfate 90 mcg/actuation aerosol inhaler 2 puff INHALATION Q4H PRN #1 device 08/06/18 [Rx Last Taken Unknown] atorvastatin 20 mg PO DAILY 09/18/18 [History Last Taken Unknown] cholestyramine-aspartame 4 gm PO DAILY 09/18/18 [History Last Taken Unknown] fluticasone propionate 1 spray NASAL DAILY 09/18/18 [History Last Taken Unknown] ibuprofen 200 mg PO PRN PRN 09/18/18 [History Last Taken Unknown] naproxen 500 mg PO BID #14 tab 04/12/19 [Rx Last Taken Unknown] cholecalciferol (vitamin D3) 50 mcg (2,000 unit) capsule 2,000 unit PO DAILY 05/24/19 [History Last Taken Unknown] omeprazole 40 mg capsule,delayed release 40 mg PO DAILY 05/24/19 [History Last Taken 05/29/20] venlafaxine 150 mg tablet,extended release 24 hr 150 mg PO DAILY 05/24/19 [History Last Taken Unknown] venlafaxine 75 mg PO DAILY 12/29/19 [History Last Taken Unknown] cephalexin 500 mg PO Q12 #10 cap 04/28/20 [Rx Last Taken Unknown] aripiprazole 5 mg PO DAILY 05/10/20 [History Last Taken Unknown] cetirizine 10 mg PO DAILY 05/10/20 [History Last Taken Unknown] hydrochlorothiazide 12.5 mg PO DAILY 05/10/20 [History Last Taken Unknown] lisinopril 10 mg PO DAILY 05/10/20 [History Last Taken 05/29/20] montelukast 10 mg PO DAILY 05/10/20 [History Last Taken Unknown] cephalexin 500 mg PO Q6 #40 cap 05/29/20 [Rx Last Taken Unknown] sulfamethoxazole-trimethoprim 1 tab PO BID #14 tab 05/29/20 [Rx Last Taken Unknown] azithromycin [Zithromax] 250 mg PO DAILY 4 Days #4 tab 03/10/21 [Rx Last Taken Unknown] Allergy/AdvReac Type Severity Reaction Status Date / Time No Known Allergies Allergy Verified 05/29/20 11:36 Family History Mother Diabetes Thyroid disorder Father Hypertension Hyperlipidemia Uncle CVA (cerebral vascular accident) Surgical History H/O vasectomy History of esophagogastroduodenoscopy (EGD) tunica albuginea plication Social History Smoking Status: Current every day smoker tobacco type: cigarettes Tobacco: How many years used: 19 second hand exposure: Yes quit status: considering quitting alcohol intake: current alcohol intake frequency: a few times a month Alcohol type: other substance use type: does not use ROS ROS ED Constitutional Constitutional ED: Denies chills, fever(s) or sweats Eyes Eyes: Denies change in vision ENT ENT ED: Reports sore throat; Denies dysphagia Cardiovascular Cardiovascular: Denies chest pain, leg edema, palpitations or racing heartbeat Respiratory/Chest Respiratory/Chest: Reports cough; Denies dyspnea or dyspnea on exertion Gastrointestinal Gastrointestinal: Reports diarrhea; Denies abdominal pain, nausea or vomiting Genitourinary Genitourinary ED: Denies dysuria, hematuria or urinary frequency Musculoskeletal Musculoskeletal: Denies back pain, extremity pain or neck pain Integumentary Denies rash or wounds Neurologic Neurologic: Reports headache(s); Denies paresthesias or weakness EXAM Physical Exam Const Vital Signs: 03/10/21 12:39 03/10/21 13:09 Temperature 97.2 F L Temperature Source Temporal Pulse Rate 96 Respiratory Rate 16 Respiratory Effort Normal Non-Labored Respiratory Depth Normal Respiratory Pattern Normal Blood Pressure 140/83 H Blood Pressure Mean 102 Pulse Ox 97 Oxygen Delivery Method Room Air Room Air Positive well nourished and well developed General Appearance ED: well developed and NAD HEENT Reports TM's clear and moist mucous membranes HEENT Narrative: No posterior pharyngeal erythema. 1+ symmetric tonsils no exudates. Airway patent. Uvula midline. normocephalic and atraumatic Tympanic Membrane ED: Yes TM's clear Eyes PERRL, EOMs intact bilaterally and conjunctivae normal General Eye ED: Yes normal appearance of both eyes Neck no lymphadenopathy and supple General: Negative for tenderness Chest Wall Chest: Negative for tenderness Resp normal respiratory effort and normal air movement Effort and Inspection: symmetric chest movement; Negative for respiratory distress Cardio regular rate, regular rhythm and no murmurs Peripheral Pulses: pulses 2+ throughout GI normal to inspection, nondistended, normoactive bowel sounds and non-tender Palpation: Negative for guarding or rebound tenderness present Back/Spine no CVA tenderness and no thoracic nor lumbar tenderness Extremity normal to inspection General Extremety ED: Negative for edema or tenderness General Extremity: Negative for edema Neuro oriented x3 and no sensory deficits noted Sensorium / Orientation: awake and alert Skin no rashes or lesions noted and no wounds MDM MDM MDM Narrative Medical decision making narrative: Patient vital signs stable, nontoxic. Presenting with Covid symptoms over the past 2 weeks. A rapid Covid obtained which was negative. Chest x-ray also negative. Patient no active wheezing. Underlying COPD. With productive sputum changes from baseline, with be treated with antibiotics according to Gold's criteria. Return precautions otherwise follow-up with his PCP. All questions answered. Radiography Chest X-Ray - ED: 1 View, Read by ED Physician, Read by Radiologist and No Acute Disease Diagnostic Testing: Radiology Impression Chest X-Ray 03/10/21 13:24 IMPRESSION: Cardiomegaly without radiographic evidence of acute cardiopulmonary disease. at 1412 Reported and signed by: Cristino Avila MD Electronically Signed: Cristino Avila MD at 14:11 EDT Tel , Service support , Discharge Plan Triage Chief Complaint: Cough ED Provider: Vicente Simpson Dx/Rx/DC Orders Clinical Impression: COPD (chronic obstructive pulmonary disease), URI (upper respiratory infection) Instructions: COPD: Chronic Coughing, ED URI, Viral, No Abx (Adult) Prescriptions: New azithromycin [Zithromax] 250 mg tablet 250 mg PO DAILY 4 Days Qty: 4 RF: 0 No Action ProAir HFA 90 mcg/actuation HFA aerosol inhaler 2 puff INHALATION Q4H PRN (Reason: Sob &/Or Wheezing) Qty: 1 RF: 3 venlafaxine 150 mg tablet extended release 24hr 150 mg PO DAILY RF: 0 cholecalciferol (vitamin D3) 2,000 unit capsule 2,000 unit PO DAILY RF: 0 omeprazole 40 mg capsule,delayed release(DR/EC) 40 mg PO DAILY RF: 0 levetiracetam 500 MG tablet 500 mg PO BID RF: 0 buspirone 15 MG tablet 1 tab PO BID RF: 0 atorvastatin 20 MG tablet 20 mg PO DAILY RF: 0 ibuprofen 200 MG tablet 200 mg PO PRN PRN (Reason: Pain) RF: 0 fluticasone propionate 1 SPRAY spray,suspension 1 spray NASAL DAILY RF: 0 cholestyramine-aspartame 4 GM powder in packet 4 gm PO DAILY RF: 0 naproxen 500 MG tablet 500 mg PO BID Qty: 14 RF: 0 venlafaxine 75 MG capsule 75 mg PO DAILY RF: 0 cephalexin 500 MG capsule 500 mg PO Q12 Qty: 10 RF: 0 cetirizine 10 MG tablet 10 mg PO DAILY RF: 0 lisinopril 10 MG tablet 10 mg PO DAILY RF: 0 hydrochlorothiazide 12.5 MG capsule 12.5 mg PO DAILY RF: 0 montelukast 10 MG tablet 10 mg PO DAILY RF: 0 aripiprazole 5 MG tablet 5 mg PO DAILY RF: 0 sulfamethoxazole-trimethoprim 1 TABLET tablet 1 tab PO BID Qty: 14 RF: 0 cephalexin 500 MG capsule 500 mg PO Q6 Qty: 40 RF: 0 Primary Care Provider: Ford Urrutia NP Referrals: Ford Urrutia NP, FILE KEEPER-C [Primary Care Provider] - 5-7 Days Disposition Disposition: Home, Self Care
--- NOTE | 2021-03-10 13:24 | RAD_ITS ---
HISTORY: cough EXAMINATION/TECHNIQUE: XR Chest 1 View: Portable upright AP chest x-ray COMPARISON: 05/10/20 FINDINGS: LINES/DEVICES: None. LUNGS: No consolidation, edema or effusion. No pneumothorax. MEDIASTINUM AND CARDIOVASCULAR STRUCTURES: Stable mild cardiomegaly. Central airways and mediastinal contour are unremarkable. BONES AND SOFT TISSUES: No acute bony abnormalities. RAD/Chest 1 View (Portable) IMPRESSION: Cardiomegaly without radiographic evidence of acute cardiopulmonary disease. at 1412 Reported and signed by: Cristino Avila MD Electronically Signed: Cristino Avila MD at 14:11 EDT Tel , Service support ,
[2021-03-10] MEDS: Azithromycin 250 MG Tablet 500 MG PO (15:47)
[2021-03-10 15:49] VITALS: PULSE 80; RESP 15; O2SAT 99
== END 2021-03-10 15:50 | disposition home or self-care (01) ==
PROVIDERS: Emergency Provider Emergency Medicine; PCP Nurse Practitioner Family
DX: J06.9 Acute upper respiratory infection, unspecified (principal); J44.9 Chronic obstructive pulmonary disease, unspecified; I10 Essential (primary) hypertension; F32.9 Major depressive disorder, single episode, unspecified; K76.0 Fatty (change of) liver, not elsewhere classified; K21.9 Gastro-esophageal reflux disease without esophagitis; E78.5 Hyperlipidemia, unspecified; E66.9 Obesity, unspecified; Z68.41 Body mass index [BMI] 40.0-44.9, adult; G47.33 Obstructive sleep apnea (adult) (pediatric); G47.419 Narcolepsy without cataplexy; Z79.899 Other long term (current) drug therapy; F17.210 Nicotine dependence, cigarettes, uncomplicated
CPT/HCPCS: 71045; 87426; 99283

== ENCOUNTER 2021-03-24 07:30 | Emergency (ER) | payer MEDICARE, MEDICAID, SELFPAY ==
[2021-03-24 07:30] VITALS: BP 171/93; PULSE 83; RESP 16; TEMP 36.3; BMI 44.4
--- NOTE | 2021-03-24 07:40 | RAD_ITS ---
STUDY: X-RAY - PELVIS AND RIGHT HIP REASON FOR EXAM: Male, 35 years old. Pain TECHNIQUE: 3 views of the pelvis and hip. COMPARISON: None. FINDINGS: There is a non-specific bowel gas pattern. Normal visualized soft tissue structures. Normal bilateral iliac wings, sacroiliac joints and visualized sacrum. Normal bilateral superior and inferior pubic rami. Normal pubic symphysis. Normal bilateral ischial tuberosities. Normal visualized femoral head. Normal acetabulum. Normal hip joint. RAD/HIP, UNI W/ Pelvis 2-3 Views IMPRESSION: No evidence of acute osseous injury. Electronically Signed: George Ochoa MD at 8:25 EDT Tel , Service support ,
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
[2021-03-24] MEDS: Famotidine 20 MG Tablet 40 MG PO (08:13)
[2021-03-24] MEDS: Naproxen 500 MG Tablet PO (08:13)
[2021-03-24] MEDS: predniSONE 20 MG Tablet 40 MG PO (08:13)
== END 2021-03-24 08:17 | disposition home or self-care (01) ==
LOC: ED 08:06
PROVIDERS: Emergency Provider Emergency Medicine
DX: M54.41 Lumbago with sciatica, right side (principal); E66.9 Obesity, unspecified; Z68.41 Body mass index [BMI] 40.0-44.9, adult; I10 Essential (primary) hypertension; J44.9 Chronic obstructive pulmonary disease, unspecified; K21.9 Gastro-esophageal reflux disease without esophagitis; E78.5 Hyperlipidemia, unspecified; F32.9 Major depressive disorder, single episode, unspecified; K76.0 Fatty (change of) liver, not elsewhere classified; G47.33 Obstructive sleep apnea (adult) (pediatric); G47.419 Narcolepsy without cataplexy; G40.909 Epilepsy, unspecified, not intractable, without status epilepticus; Z79.899 Other long term (current) drug therapy; F17.210 Nicotine dependence, cigarettes, uncomplicated
CPT/HCPCS: 73502; 99283

== ENCOUNTER 2021-12-22 20:52 | Emergency (ER) | payer MEDICARE, MEDICAID, SELFPAY ==
[2021-12-22 20:53] VITALS: BP 146/75; PULSE 98; RESP 15; TEMP 37.3; O2SAT 95; BMI 42.5
--- NOTE | 2021-12-22 20:57 | RAD_ITS ---
STUDY: X-RAY - LEFT KNEE REASON FOR EXAM: Male, 36 years old. Assess for a FB TECHNIQUE: 2 view(s) of the knee. COMPARISON: None. FINDINGS: Normal visualized distal femur. Normal visualized proximal tibia and fibula. Normal proximal tibiofibular articulation. Normal medial femorotibial compartment. Normal lateral femorotibial compartment. Normal patellofemoral articulation. The soft tissue structures are unremarkable. RAD/Knee 1 or 2 Views IMPRESSION: Within normal limits x-ray examination of the knee. Electronically Signed: Judy Peñaloza MD at 21:28 EDT ,
--- NOTE | 2021-12-22 22:13 | EDS_ITS ---
HPI History of Present Illness Chief Complaint: Laceration Informant: patient and family Narrative Narrative: 36-year-old male presents the emergency room with a left knee laceration. Patient states that he was in his closet and believes he cut it on a piece of glass or stapler nail. Unknown last tetanus. No other injuries. [facility] Medical History (Updated 12/22/21 @ 22:[address] Vincent Rodrigues, DO) Back pain COPD (chronic obstructive pulmonary disease) Depression Elevated LFTs Fatty liver GERD without esophagitis HLD (hyperlipidemia) HTN (hypertension) Moderate anxiety Narcolepsy Nicotine dependence, cigarettes, uncomplicated Obesity AHNNAH (obstructive sleep apnea) Restrictive airway disease Seasonal allergies Seizures Home Medications levetiracetam 500 mg PO BID 03/17/18 [History Last Taken 05/23/18] buspirone 1 tab PO BID 05/03/18 [History Last Taken 05/29/20] albuterol sulfate 90 mcg/actuation aerosol inhaler 2 puff INHALATION Q4H PRN #1 device 08/06/18 [Rx Last Taken Unknown] atorvastatin 20 mg PO DAILY 09/18/18 [History Last Taken Unknown] fluticasone propionate 1 spray NASAL DAILY 09/18/18 [History Last Taken Unknown] ibuprofen 800 mg PO PRN PRN 09/18/18 [History Last Taken Unknown] cholecalciferol (vitamin D3) 50 mcg (2,000 unit) capsule 2,000 unit PO DAILY 05/24/19 [History Last Taken Unknown] omeprazole 40 mg capsule,delayed release 40 mg PO DAILY 05/24/19 [History Last Taken 05/29/20] venlafaxine 150 mg tablet,extended release 24 hr 150 mg PO DAILY 05/24/19 [History Last Taken Unknown] venlafaxine 75 mg PO QHS 12/29/19 [History Last Taken Unknown] aripiprazole 5 mg PO DAILY 05/10/20 [History Last Taken Unknown] cetirizine 10 mg PO DAILY 05/10/20 [History Last Taken Unknown] hydrochlorothiazide 12.5 mg PO DAILY 05/10/20 [History Last Taken Unknown] lisinopril 10 mg PO DAILY 05/10/20 [History Last Taken 05/29/20] montelukast 10 mg PO DAILY 05/10/20 [History Last Taken Unknown] prednisone 40 mg PO DAILY #8 tab 03/24/21 [Rx Last Taken Unknown] Allergy/AdvReac Type Severity Reaction Status Date / Time No Known Allergies Allergy Verified 12/22/21 20:55 Family History Mother Diabetes Thyroid disorder Father Hypertension Hyperlipidemia Uncle CVA (cerebral vascular accident) Surgical History H/O vasectomy History of esophagogastroduodenoscopy (EGD) tunica albuginea plication Social History Smoking Status: Current every day smoker tobacco type: cigarettes Tobacco: How many years used: 19 second hand exposure: Yes quit status: considering quitting alcohol intake: current alcohol intake frequency: a few times a month Alcohol type: other substance use type: does not use ROS ROS ED Constitutional Constitutional ED: Denies chills, fever(s) or weight loss Eyes Eyes: Denies change in vision or diplopia ENT ENT ED: Denies ear pain, rhinorrhea or sore throat Cardiovascular Cardiovascular: Denies chest pain, orthopnea, palpitations or racing heartbeat Respiratory/Chest Respiratory/Chest: Denies cough, dyspnea or orthopnea Gastrointestinal Gastrointestinal: Denies abdominal pain, diarrhea, nausea or vomiting Genitourinary Genitourinary ED: Denies dysuria, hematuria or urinary frequency Musculoskeletal Musculoskeletal: Denies arthralgias or myalgias Integumentary Reports other Details: Laceration ; Denies abscess or rash Neurologic Neurologic: Denies headache(s) or weakness Psychiatric Psychiatric: Denies anxiety, depression, suicidal ideation or suicidal thoughts Endocrine Endocrinology: Denies polydipsia, polyphagia or polyuria Allergic/Immunologic Allergic/Immunologic ED: Denies mouth swelling, tongue swelling or urticaria EXAM Physical Exam Const Vital Signs: 12/22/21 20:53 Temperature 99.1 F Temperature Source Temporal Pulse Rate 98 Respiratory Rate 15 Blood Pressure 146/75 H Blood Pressure Mean 98 Pulse Ox 95 Oxygen Delivery Method Room Air Positive well nourished and well developed General Appearance ED: well developed HEENT Reports normocephalic, head/scalp atraumatic, TM's clear and moist mucous membranes atraumatic; Negative for tenderness Tympanic Membrane ED: Yes TM's clear Eyes PERRL and EOMs intact bilaterally Neck no lymphadenopathy, supple and no JVD Resp normal respiratory effort and clear to auscultation bilaterally Cardio regular rate, regular rhythm and no murmurs GI normal to inspection, nondistended, normoactive bowel sounds and non-tender Palpation: soft Back/Spine no CVA tenderness and normal ROM Extremity normal to inspection General Extremety ED: Negative for edema General Extremity: Negative for edema Neuro oriented x3 and CN's II-XII intact bilaterally Sensorium / Orientation: alert Motor Exam: strength 5/5 throughout Psych mental status grossly normal Mood & Affect: Negative for depressed or tearful Skin no rashes or lesions noted Skin Narrative: There is a 3 cm curvilinear laceration over the left infra patellar area. Extensor mechanism intact. No obvious foreign bodies. MDM MDM MDM Narrative Medical decision making narrative: X-rays were obtained through nursing protocol to evaluate for foreign body. My interpretation of the x-ray is no foreign body no bony abnormality. Tetanus was updated with Adacel. Wound was locally anesthetized using 1% lidocaine washed with Shur-Clens and explored. It was closed using a total of 6 simple erupted 4-0 Ethilon sutures. Wound care discussed with patient. Stitches will need to be removed in 10 days. Radiography Diagnostic Testing: Clinical Impression(s) from Imaging Studies Knee X-Ray 12/22/21 20:57 IMPRESSION: Within normal limits x-ray examination of the knee. Electronically Signed: Judy Peñaloza MD at 21:28 EDT , Discharge Plan Triage Chief Complaint: Laceration ED Provider: Vincent Rodrigues Dx/Rx/DC Orders Clinical Impression: Knee laceration Instructions: ED Laceration: All Closures Prescriptions: No Action ProAir HFA 90 mcg/actuation HFA aerosol inhaler 2 puff INHALATION Q4H PRN (Reason: Sob &/Or Wheezing) Qty: 1 RF: 3 venlafaxine 150 mg tablet extended release 24hr 150 mg PO DAILY RF: 0 cholecalciferol (vitamin D3) 2,000 unit capsule 2,000 unit PO DAILY RF: 0 omeprazole 40 mg capsule,delayed release(DR/EC) 40 mg PO DAILY RF: 0 levetiracetam 500 MG tablet 500 mg PO BID RF: 0 buspirone 15 MG tablet 1 tab PO BID RF: 0 atorvastatin 20 MG tablet 20 mg PO DAILY RF: 0 ibuprofen 200 MG tablet 800 mg PO PRN PRN (Reason: Pain) RF: 0 fluticasone propionate 1 SPRAY spray,suspension 1 spray NASAL DAILY RF: 0 venlafaxine 75 MG capsule 75 mg PO QHS RF: 0 cetirizine 10 MG tablet 10 mg PO DAILY RF: 0 lisinopril 10 MG tablet 10 mg PO DAILY RF: 0 hydrochlorothiazide 12.5 MG capsule 12.5 mg PO DAILY RF: 0 montelukast 10 MG tablet 10 mg PO DAILY RF: 0 aripiprazole 5 MG tablet 5 mg PO DAILY RF: 0 prednisone 20 mg tablet 40 mg PO DAILY Qty: 8 RF: 0 Primary Care Provider: Care Physician,No Primary Referrals: Care Physician,No Primary [Primary Care Provider] - Abdifatah Horton [employer], [employer] [Nurse Practitioner] - 10 Day for suture removal Disposition Disposition: Home, Self Care
[2021-12-22 22:29] VITALS: RESP 18
[2021-12-22] MEDS: Lidocaine 1% (20 ml mdv) 20 ML Vial INFILT (22:31)
[2021-12-22] MEDS: Diphth,Pertuss(Acell),Tet Vac 0.5 ML Vial IM (22:31)
== END 2021-12-22 22:40 | disposition home or self-care (01) ==
PROVIDERS: Emergency Provider Emergency Medicine; Visit Provider Emergency Medicine
DX: S81.012A Laceration without foreign body, left knee, initial encounter (principal); J44.9 Chronic obstructive pulmonary disease, unspecified; Z68.41 Body mass index [BMI] 40.0-44.9, adult; G40.909 Epilepsy, unspecified, not intractable, without status epilepticus; W26.8XXA Contact with other sharp object(s), not elsewhere classified, initial encounter; F32.A Depression, unspecified; K21.9 Gastro-esophageal reflux disease without esophagitis; E78.5 Hyperlipidemia, unspecified; I10 Essential (primary) hypertension; F41.9 Anxiety disorder, unspecified; G47.419 Narcolepsy without cataplexy; E66.9 Obesity, unspecified; G47.33 Obstructive sleep apnea (adult) (pediatric); Z79.899 Other long term (current) drug therapy; K76.0 Fatty (change of) liver, not elsewhere classified; F17.210 Nicotine dependence, cigarettes, uncomplicated; Z23 Encounter for immunization
CPT/HCPCS: 12002; 73560; 90471; 90715; 99283

== ENCOUNTER → 2022-03-07 | Outpatient (CLI) | payer MEDICARE, MEDICAID, SELFPAY ==
--- NOTE | 2022-03-07 09:51 | RAD_ITS ---
STUDY: X-RAY - LUMBAR SPINE REASON FOR EXAM: Male, 36 years old. Radiculopathy, lumbar region TECHNIQUE: 2 view(s) of the lumbar spine were obtained. COMPARISON: None FINDINGS: There is an exaggerated lumbar lordosis. There is a levoscoliosis of the lumbar spine. There is a normal alignment of the vertebrae. There is multilevel endplate spondylosis of the lumbar vertebrae. Mild degree of disc space narrowing at the L5-S1 level. Prior cholecystectomy. RAD/Lumbar Spine 2 or 3 Views IMPRESSION: Degenerative changes of the spine, as detailed above. Levoscoliosis. Exaggerated lumbar lordosis. Electronically Signed: Rudolph Caballero MD at 14:26 EDT ,
== END | disposition home or self-care (01) ==
PROVIDERS: PCP Nurse Practitioner Primary Care; Referring Provider Anesthesiology Pain Medicine; Visit Provider Anesthesiology Pain Medicine
DX: M54.16 Radiculopathy, lumbar region (principal)
CPT/HCPCS: 72100

== ENCOUNTER 2022-03-25 12:22 | Emergency (ER) | payer MEDICARE, MEDICAID, SELFPAY ==
[2022-03-25 12:24] VITALS: BP 141/99; PULSE 85; RESP 14; TEMP 37.2; O2SAT 100; BMI 43.4
[2022-03-25 12:44] VITALS: BP 133/72; PULSE 87; RESP 14; O2SAT 99
--- NOTE | 2022-03-25 13:02 | EX.ED.GUMALE ---
HPI History of Present Illness Chief Complaint: Male Pain/Injury Narrative Narrative: Patient presents with scrotal lesion, this has been ongoing for few days. Patient also has some urinary hesitancy. No frequency or dysuria. No polyuria or polydipsia. No recent fevers or chills. No actual testicle pain other than lower scrotal pain. He tells me he feels anxious because he thinks he may have cancer because of that lesion. [facility] Medical History Abnormal CT of the abdomen Back pain Bipolar depression Conn disease COPD (chronic obstructive pulmonary disease) [place] syndrome Depression Elevated LFTs Fatty liver GERD without esophagitis HLD (hyperlipidemia) HTN (hypertension) Moderate anxiety Narcolepsy Nicotine dependence, cigarettes, uncomplicated Obesity HANNAH (obstructive sleep apnea) Restrictive airway disease Seasonal allergies Seizures Home Medications levetiracetam 500 mg tablet 500 mg PO BID 03/17/18 [History Last Taken 05/23/18] buspirone 15 mg tablet 1 tab PO BID 05/03/18 [History Last Taken 05/29/20] albuterol sulfate 90 mcg/actuation aerosol inhaler (ProAir HFA) 2 puff inhalation Q4H PRN Sob &/Or Wheezing #1 device 08/06/18 [Rx Last Taken Unknown] atorvastatin 20 mg tablet 20 mg PO DAILY 09/18/18 [History Last Taken Unknown] fluticasone propionate 50 mcg/actuation nasal spray,suspension 1 spray NASAL DAILY 09/18/18 [History Last Taken Unknown] ibuprofen 200 mg tablet 800 mg PO PRN PRN Pain 09/18/18 [History Last Taken Unknown] cholecalciferol (vitamin D3) 50 mcg (2,000 unit) capsule 2,000 unit PO DAILY 05/24/19 [History Last Taken Unknown] omeprazole 40 mg capsule,delayed release 40 mg PO DAILY 05/24/19 [History Last Taken 05/29/20] venlafaxine 150 mg tablet,extended release 24 hr 150 mg PO DAILY 05/24/19 [History Last Taken Unknown] venlafaxine 75 mg capsule,extended release 24 hr 75 mg PO QHS 12/29/19 [History Last Taken Unknown] aripiprazole 5 mg tablet 5 mg PO DAILY 05/10/20 [History Last Taken Unknown] cetirizine 10 mg tablet 10 mg PO DAILY 05/10/20 [History Last Taken Unknown] hydrochlorothiazide 12.5 mg capsule 12.5 mg PO DAILY 05/10/20 [History Last Taken Unknown] lisinopril 10 mg tablet 10 mg PO DAILY 05/10/20 [History Last Taken 05/29/20] montelukast 10 mg tablet 10 mg PO DAILY 05/10/20 [History Last Taken Unknown] prednisone 20 mg tablet 40 mg PO DAILY #8 tabs 03/24/21 [Rx Last Taken Unknown] sulfamethoxazole 800 mg-trimethoprim 160 mg tablet (Bactrim DS) 1 tab PO BID #14 tabs 03/25/22 [Rx Last Taken Unknown] Allergy/AdvReac Type Severity Reaction Status Date / Time No Known Allergies Allergy Verified 03/25/22 12:25 Family History Mother Diabetes Thyroid disorder Father Hypertension Hyperlipidemia Uncle CVA (cerebral vascular accident) Surgical History H/O vasectomy History of esophagogastroduodenoscopy (EGD) tunica albuginea plication Social History Smoking Status: Current every day smoker tobacco type: cigarettes Tobacco: How many years used: 19 second hand exposure: Yes quit status: considering quitting alcohol intake: current alcohol intake frequency: a few times a month Alcohol type: other substance use type: does not use ROS ROS ED ROS Narrative Past medical history: Reviewed, includes seizures, hypertension, hypercholesterolemia, COPD, sciatica, smoker, sleep apnea, obesity Medications: Reviewed in the EMR Social history: Noncontributory Review of systems: All systems negative except as indicated General: No fever Neck: No neck pain Cardiovascular: No chest pain Respiratory: No shortness of breath or cough Gastrointestinal: No abdominal pain, nausea vomiting or diarrhea Genitourinary: As in HPI Musculoskeletal: Denies myalgias no difficulty with ambulation Skin: No rash Neurological: No memory loss, confusion or any focal weakness Psych: No recent behavioral changes Hematologic: No easy bleeding or easy bruising EXAM Physical Exam Narrative Exam Narrative: Physical exam General: Well nourished, Well developed, No Acute Distress Head: Normocephalic, Atraumatic Eyes: Conjunctiva not pale ENT: Moist mucous membranes Neck: Supple, Nontender, No lymphadenopathy Cardiovascular: Regular rate, Regular rhythm Respiratory: No distress, CTA bilaterally Abdomen: Soft, Nontender, Nondistended : There is a scrotal abscess about 1 cm indurated and fluctuant cyst. This is the lower scrotum region. Otherwise normal external genitalia and penis. No signs of cellulitis. Back: Nontender, Normal Inspection. Negative for: CVA tenderness Extremities: Nontender, No edema Skin: Normal color, No rash Neurological: Alert, Normal Strength, Normal Sensation Const Vital Signs: 03/25/22 12:24 03/25/22 12:44 Temperature 98.9 F Temperature Source Temporal Pulse Rate 85 87 Respiratory Rate 14 14 Blood Pressure 141/99 H 133/72 H Blood Pressure Mean 113 92 Pulse Ox 100 99 Oxygen Delivery Method Room Air Room Air MDM MDM MDM Narrative Medical decision making narrative: The scrotal abscess was drained with moderate months of pus expectorated, he did have some urinary urgency, I believe the Bactrim I will prescribe would likely take care of any possible UTI, I will send a urine for culture otherwise he will be discharged in stable condition he did request a COVID test which she can check from home. Procedures Other Procedures Procedure(s): Incision and drainage of scrotal abscess Verbal consent obtained I did not inject with lidocaine I used alcohol and an 18-gauge needle, after the words I squeezed all the pus out. Moderate amount of pus was expectorated Patient tolerated procedure well. Discharge Plan Triage Chief Complaint: Male Pain/Injury ED Provider: Valentin Michel Dx/Rx/DC Orders Clinical Impression: Abscess of scrotal wall, Urinary hesitancy Instructions: ED Abscess Incision And ... Prescriptions: New sulfamethoxazole-trimethoprim [Bactrim DS] 800-160 mg tablet 1 tab PO BID Qty: 14 0RF No Action ProAir HFA 90 mcg/actuation HFA aerosol inhaler 2 puff INHALATION Q4H PRN (Reason: Sob &/Or Wheezing) Qty: 1 3RF venlafaxine 150 mg tablet extended release 24hr 150 mg PO DAILY cholecalciferol (vitamin D3) 2,000 unit capsule 2,000 unit PO DAILY omeprazole 40 mg capsule,delayed release(DR/EC) 40 mg PO DAILY levetiracetam 500 MG tablet 500 mg PO BID Label Comments: TAKE ONE TABLET BY MOUTH TWICE DAILY buspirone 15 MG tablet 1 tab PO BID Label Comments: TAKE 1/2 TABLET BY MOUTH TWICE DAILY FOR 2 WEEKS; THEN 1 WHOLE TABLETTWICE DAILY atorvastatin 20 MG tablet 20 mg PO DAILY ibuprofen 200 MG tablet 800 mg PO PRN PRN (Reason: Pain) fluticasone propionate 1 SPRAY spray,suspension 1 spray NASAL DAILY venlafaxine 75 MG capsule 75 mg PO QHS cetirizine 10 MG tablet 10 mg PO DAILY lisinopril 10 MG tablet 10 mg PO DAILY hydrochlorothiazide 12.5 MG capsule 12.5 mg PO DAILY montelukast 10 MG tablet 10 mg PO DAILY aripiprazole 5 MG tablet 5 mg PO DAILY prednisone 20 mg tablet 40 mg PO DAILY Qty: 8 0RF Primary Care Provider: Nora Mendoza NP Referrals: Nora Mendoza NP, [employer] [Primary Care Provider] - 3-5 Days Disposition Disposition: Home, Self Care
[2022-03-25] MEDS: Smz/Tmp Ds Tablet 1 TABLET PO (13:38)
== END 2022-03-25 13:41 | disposition home or self-care (01) ==
LOC: ED 13:23
PROVIDERS: Emergency Provider Emergency Medicine; PCP Nurse Practitioner Primary Care; Visit Provider Emergency Medicine
DX: N49.2 Inflammatory disorders of scrotum (principal); J44.9 Chronic obstructive pulmonary disease, unspecified; F31.9 Bipolar disorder, unspecified; G40.909 Epilepsy, unspecified, not intractable, without status epilepticus; E24.9 Cushing's syndrome, unspecified; F17.210 Nicotine dependence, cigarettes, uncomplicated; E66.9 Obesity, unspecified; I10 Essential (primary) hypertension; E78.5 Hyperlipidemia, unspecified; G47.33 Obstructive sleep apnea (adult) (pediatric); K76.0 Fatty (change of) liver, not elsewhere classified; F41.9 Anxiety disorder, unspecified; Z79.899 Other long term (current) drug therapy; K21.9 Gastro-esophageal reflux disease without esophagitis; R39.11 Hesitancy of micturition
CPT/HCPCS: 54700; 10060; 87086; 87811; 99282

== ENCOUNTER 2022-04-10 22:44 | Emergency (ER) | payer MEDICARE, MEDICAID, SELFPAY ==
[2022-04-10 22:44] VITALS: BP 140/95; PULSE 89; RESP 18; TEMP 37.4; O2SAT 99; BMI 42.7
--- NOTE | 2022-04-10 23:00 | EKG12_ITS ---
Test Reason : CP Blood Pressure : / mmHG Vent. Rate : 086 BPM Atrial Rate : 086 BPM P-R Int : 134 ms QRS Dur : 076 ms QT Int : 312 ms P-R-T Axes : 017 025 025 degrees QTc Int : 373 ms Normal sinus rhythm Normal ECG Confirmed by JACKIE BRASWELL, SHANA ([id number]), index editor AD GRANADOS ([id number]) on 04/12/2022 9:41:45 AM Referred By: RAMEZ Confirmed By:SHANA MEJIA MD
--- NOTE | 2022-04-10 23:03 | EDS_ITS ---
HPI History of Present Illness Chief Complaint: Chest Pain Narrative Narrative: Patient is a 36-year-old male with past medical history of hypertension hyperlipidemia COPD and obstructive sleep apnea who states he continues to smoke roughly 2 packs a day. He states that 2 days ago he noticed some mild chest discomfort which has been constant in nature. He states this evening he was having some coughing and also felt a little lightheaded so he called the on-call physician and was advised to come in the hospital for evaluation. Patient denies any fevers or known sick contact. He denies any illicit drug use or family history of cardiac disease at a young age. He denies any recent travel surgery or history of DVT/PE. [facility] Medical History Abnormal CT of the abdomen Back pain Bipolar depression Conn disease COPD (chronic obstructive pulmonary disease) [place] syndrome Depression Elevated LFTs Fatty liver GERD without esophagitis HLD (hyperlipidemia) HTN (hypertension) Moderate anxiety Narcolepsy Nicotine dependence, cigarettes, uncomplicated Obesity HANNAH (obstructive sleep apnea) Restrictive airway disease Seasonal allergies Seizures Home Medications levetiracetam 500 mg tablet 500 mg PO BID 03/17/18 [History Last Taken 05/23/18] buspirone 15 mg tablet 1 tab PO BID 05/03/18 [History Last Taken 05/29/20] albuterol sulfate 90 mcg/actuation aerosol inhaler (ProAir HFA) 2 puff inhalation Q4H PRN Sob &/Or Wheezing #1 device 08/06/18 [Rx Last Taken Unknown] atorvastatin 20 mg tablet 20 mg PO DAILY 09/18/18 [History Last Taken Unknown] fluticasone propionate 50 mcg/actuation nasal spray,suspension 1 spray NASAL DAILY 09/18/18 [History Last Taken Unknown] ibuprofen 200 mg tablet 800 mg PO PRN PRN Pain 09/18/18 [History Last Taken Unknown] cholecalciferol (vitamin D3) 50 mcg (2,000 unit) capsule 2,000 unit PO DAILY 05/24/19 [History Last Taken Unknown] omeprazole 40 mg capsule,delayed release 40 mg PO DAILY 05/24/19 [History Last Taken 05/29/20] venlafaxine 150 mg tablet,extended release 24 hr 150 mg PO DAILY 05/24/19 [History Last Taken Unknown] venlafaxine 75 mg capsule,extended release 24 hr 75 mg PO DAILY 12/29/19 [History Last Taken Unknown] aripiprazole 5 mg tablet 5 mg PO DAILY 05/10/20 [History Last Taken Unknown] cetirizine 10 mg tablet 10 mg PO DAILY 05/10/20 [History Last Taken Unknown] hydrochlorothiazide 12.5 mg capsule 12.5 mg PO DAILY 05/10/20 [History Last Taken Unknown] lisinopril 10 mg tablet 20 mg PO DAILY 05/10/20 [History Last Taken 05/29/20] montelukast 10 mg tablet 10 mg PO DAILY 05/10/20 [History Last Taken Unknown] prednisone 20 mg tablet 40 mg PO DAILY #8 tabs 03/24/21 [Rx Last Taken Unknown] azithromycin 250 mg tablet See Rx Instructions PO .COMPLEX #6 tabs 04/02/22 [Rx Last Taken Unknown] Allergy/AdvReac Type Severity Reaction Status Date / Time No Known Allergies Allergy Verified 04/02/22 15:31 Family History Mother Diabetes Thyroid disorder Father Hypertension Hyperlipidemia Uncle CVA (cerebral vascular accident) Surgical History H/O vasectomy History of esophagogastroduodenoscopy (EGD) tunica albuginea plication Social History Smoking Status: Current every day smoker tobacco type: cigarettes Tobacco: How many years used: 19 second hand exposure: Yes quit status: considering quitting alcohol intake: current alcohol intake frequency: a few times a month Alcohol type: other substance use type: does not use ROS ROS ED Constitutional Constitutional ED: Denies chills or fever(s) ENT ENT ED: Reports rhinorrhea; Denies sore throat Cardiovascular Cardiovascular: Reports chest pain Respiratory/Chest Respiratory/Chest: Reports cough and dyspnea Gastrointestinal Gastrointestinal: Denies abdominal pain, diarrhea, nausea or vomiting Genitourinary Genitourinary ED: Denies dysuria Musculoskeletal Musculoskeletal: Denies myalgias Integumentary Denies rash Neurologic Neurologic: Denies headache(s) Hematologic/Lymphatic Hematologic/Lymphatic: Denies easy bleeding or easy bruising EXAM Physical Exam Const Vital Signs: 04/10/22 22:44 04/10/22 23:24 04/10/22 23:26 Temperature 99.4 F H Temperature Source Oral Pulse Rate 89 82 88 Respiratory Rate 18 16 20 H Blood Pressure 140/95 H 150/95 H Blood Pressure Mean 110 113 Pulse Ox 99 99 Oxygen Delivery Method Room Air Room Air 04/11/22 00:16 04/11/22 01:12 Temperature Temperature Source Pulse Rate 81 87 Respiratory Rate 16 17 Blood Pressure 134/80 H 125/65 H Blood Pressure Mean 98 85 Pulse Ox 97 98 Oxygen Delivery Method Room Air Room Air Positive well nourished, well developed and obese General Appearance ED: well developed Nutritional Appearance: obese HEENT Reports moist mucous membranes HEENT Narrative: No tongue or lip swelling no oral lesions no airway edema or compromise. There is mild cobblestoning the posterior pharynx but no secondary changes to suggest infection Eyes PERRL and EOMs intact bilaterally Neck supple and no JVD Resp normal respiratory effort Resp Narrative: Breath sounds are diminished throughout with diffuse expiratory wheeze and faint rhonchi in the bilateral bases Cardio regular rate and regular rhythm Rate: other Other Details: Radial pulses are plus 2 out of 4 bilaterally are equal and symmetric GI normal to inspection, nondistended, normoactive bowel sounds, non-tender and non-distended Auscultation: normoactive bowel sounds Palpation: soft Extremity normal to inspection Extremity Narrative: No asymmetric edema no pitting edema negative Homans' sign bilaterally Neuro oriented x3 and CN's II-XII intact bilaterally Sensorium / Orientation: alert Psych mental status grossly normal Skin no rashes or lesions noted MDM MDM MDM Narrative Medical decision making narrative: Patient presented to the ER and in no acute distress with report of mild chest discomfort which has been constant in nature for approximately 2 days. He denied any recent surgery travel or history of DVT/PE and had no pleuritic chest pain so I felt no need for D-dimer or CTA. A basic cardiac work-up was obtained and showed normal sinus rhythm on his EKG with 2 normal troponins with the first value being 16 and the delta only increasing to 18 which is not clinically significant. On reevaluation patient does report resolution of his pain after an breathing treatment. Therefore at this time as his work-up does not reveal any obvious signs of cardiovascular disease and his symptoms have improved with treatment I do not feel there is need for further hospitalization and patient is otherwise safe for discharge Lab Data Attestation: I reviewed the patient's lab results. Labs: Laboratory Results - last 24 hr 04/10/22 04/10/22 04/11/22 22:40 22:40 00:40 WBC 15.7 H RBC 5.51 Hgb 14.4 Hct 44.8 MCV 81.3 MCH 26.1 L MCHC 32.1 RDW Std Deviation 47.2 H RDW Coeff of Watson 16.4 H Plt Count 490 H MPV 10.7 Immature Gran % (Auto) 0.700 Neut % (Auto) 60.9 Lymph % (Auto) 23.5 [place] % (Auto) 11.6 H Eos % (Auto) 2.5 Baso % (Auto) 0.8 Absolute Neuts (auto) 9.6 H Absolute Lymphs (auto) 3.69 Nucleated RBC % 0 Differential Comment SCANNED Diff Path Review December foll Sodium 138 Potassium 3.4 L Chloride 100 Carbon Dioxide 30.0 Anion Gap 8 BUN 5 L Creatinine 1.05 Estim Creat Clear Calc 76.77 Est GFR (MDRD) Af Amer 101 Est GFR (MDRD) Non-Af 84 BUN/Creatinine Ratio 4.8 L Glucose 131 H Calcium 9.8 Magnesium 1.8 Troponin I High Sens 16 18 Radiography Diagnostic Testing: Clinical Impression(s) from Imaging Studies Chest X-Ray 04/10/22 23:10 IMPRESSION: 1. Low lung volumes limit the exam. No consolidations. 2. No acute cardiopulmonary abnormality. Electronically Signed: Adrián Odell MD at 23:26 EDT , 2 view chest x-ray as interpreted by the emergency medicine physician shows no acute infiltrate pneumothorax or pleural effusion Discharge Plan Triage Chief Complaint: Chest Pain ED Provider: Jayson Espinal Dx/Rx/DC Orders Clinical Impression: Nonspecific chest pain, Nicotine dependence, cigarettes, uncomplicated, History of hypertension Instructions: Chest Pain [facility] Prescriptions: No Action ProAir HFA 90 mcg/actuation HFA aerosol inhaler 2 puff INHALATION Q4H PRN (Reason: Sob &/Or Wheezing) Qty: 1 3RF venlafaxine 150 mg tablet extended release 24hr 150 mg PO DAILY cholecalciferol (vitamin D3) 2,000 unit capsule 2,000 unit PO DAILY omeprazole 40 mg capsule,delayed release(DR/EC) 40 mg PO DAILY azithromycin 250 mg tablet See Rx Instructions PO .COMPLEX Qty: 6 0RF Rx Instructions: take 500 mg today (day 1), then 250 mg for 4 days (days 2-5) PO levetiracetam 500 MG tablet 500 mg PO BID Label Comments: TAKE ONE TABLET BY MOUTH TWICE DAILY buspirone 15 MG tablet 1 tab PO BID Label Comments: TAKE 1/2 TABLET BY MOUTH TWICE DAILY FOR 2 WEEKS; THEN 1 WHOLE TABLETTWICE DAILY atorvastatin 20 MG tablet 20 mg PO DAILY ibuprofen 200 MG tablet 800 mg PO PRN PRN (Reason: Pain) fluticasone propionate 1 SPRAY spray,suspension 1 spray NASAL DAILY venlafaxine 75 MG capsule 75 mg PO DAILY cetirizine 10 MG tablet 10 mg PO DAILY lisinopril 10 MG tablet 20 mg PO DAILY hydrochlorothiazide 12.5 MG capsule 12.5 mg PO DAILY montelukast 10 MG tablet 10 mg PO DAILY aripiprazole 5 MG tablet 5 mg PO DAILY prednisone 20 mg tablet 40 mg PO DAILY Qty: 8 0RF Primary Care Provider: Nora Mendoza NP Referrals: Nora Mendoza NP, CHILDREN'S PROGRAM COORDINATOR-C [Primary Care Provider] - Activity Restrictions/Additional Instructions: Please follow-up with your family doctor for repeat evaluation and return to the ER should you have any further concerns Disposition Disposition: Home, Self Care
--- NOTE | 2022-04-10 23:10 | RAD_ITS ---
EXAM: XR CHEST, 2 VIEWS CLINICAL INDICATION: chest pain TECHNIQUE: Frontal and lateral views of the chest. This report was created using [email or web address] report generation technology. COMPARISON: 03/10/2021. FINDINGS: LUNGS AND PLEURAL SPACES: Low lung volumes limit the exam. No consolidations. No pneumothorax. No effusion. HEART: Unremarkable. Cardiac silhouette not enlarged. MEDIASTINUM: Central airways and mediastinal contour are unremarkable. BONES/JOINTS: Unremarkable. SOFT TISSUES: Unremarkable. RAD/Chest PA and Lateral IMPRESSION: 1. Low lung volumes limit the exam. No consolidations. 2. No acute cardiopulmonary abnormality. Electronically Signed: Adrián Odell MD at 23:26 EDT ,
[2022-04-10 23:24] VITALS: BP 150/95; PULSE 82; RESP 16; O2SAT 99
[2022-04-10] MEDS: Ipratropium/Albuterol Sulfate 3 ML AMPUL.NEB INHALATION (23:25)
[2022-04-10 23:26] VITALS: PULSE 88; RESP 20
[2022-04-10 23:32] LABS: Absolute Lymphocyte Count 3.69 X10^3/uL (0.83-4.51); Absolute Neutrophil Count 9.6 X10^3/uL (2.0-7.7); Anion Gap 8 (5-15); BUN 5 mg/dL (7-18); BUN/Creat Ratio 4.8 RATIO (10-20); Basophil# 0.13 X10^3/uL; Basophil% 0.8 % (0-1); Calcium,Total 9.8 mg/dL (8.5-10.1); Chloride 100 mmol/L (98-107); Creatinine, Serum 1.05 mg/dL (0.70-1.30); EST Glomerular Filtration Rate 84 mL/min (>60); Eosinophil# 0.39 X10^3/uL; Eosinophils% 2.5 % (0-5); Est Glom Filt Rate - Afr Amer 101 mL/min (>60); Estimated Creatinine Clearance 76.77 ml/min; Glucose 131 mg/dL (74-106); Hematocrit 44.8 % (40-54); Hemoglobin 14.4 g/dL (13.0-16.5); Lymphocyte # 3.69 X10^3/ul (0.83-4.51); Lymphocyte % 23.5 % (19-41); Magnesium 1.8 mg/dL (1.6-2.6); Mean Corp Hgb Conc 32.1 g/dL (32-36); Mean Corpuscular Hgb 26.1 pg (27.0-32.0); Mean Corpuscular Volume 81.3 fL (80-94); Mean Platelet Vol. 10.7 fl (6.2-12.0); Monocyte# 1.82 X10^3/uL; Monocyte% 11.6 % (0-10); NRBC Flagged by Analyzer 0 % (0-5); Neutrophil # 9.59 X10^3/uL (2.7-7.7); Neutrophil % 60.9 % (47-70); POSITIVE DIFFERENTIAL YES; Platelet Count 490 K/mm3 (150-450); Potassium 3.4 mmol/L (3.5-5.1); RBC Distribution Width CV 16.4 % (11.6-14.6); RBC Distribution Width SD 47.2 fl (35.1-43.9); Red Blood Count 5.51 M/mm3 (4.6-6.2); Sodium Level 138 mmol/L (136-145); Troponin-I HS 16 pg/mL (3.0-78.0); White Blood Count 15.7 K/mm3 (4.4-11.0)
[2022-04-10 23:36] LABS: Differential Indicated SCAN CRITERIA MET
[2022-04-11 00:12] LABS: Differential Comment SCANNED
[2022-04-11] MEDS: Ketorolac 30 MG/ML Syringe IV (00:15)
[2022-04-11 00:16] VITALS: BP 134/80; PULSE 81; RESP 16; O2SAT 97
[2022-04-11 01:02] LABS: Troponin-I HS 18 pg/mL (3.0-78.0)
[2022-04-11 01:12] VITALS: BP 125/65; PULSE 87; RESP 17; O2SAT 98
[2022-04-11 02:00] VITALS: BP 135/80; PULSE 78; RESP 16; O2SAT 96
[2022-04-11 08:45] LABS: Pathologist Review Reviewed
== END 2022-04-11 02:02 | disposition home or self-care (01) ==
PROVIDERS: Emergency Provider Emergency Medicine; PCP Nurse Practitioner Primary Care; Visit Provider Emergency Medicine
DX: R07.89 Other chest pain (principal); J44.9 Chronic obstructive pulmonary disease, unspecified; F31.9 Bipolar disorder, unspecified; Z68.41 Body mass index [BMI] 40.0-44.9, adult; G40.909 Epilepsy, unspecified, not intractable, without status epilepticus; E24.9 Cushing's syndrome, unspecified; F17.210 Nicotine dependence, cigarettes, uncomplicated; I10 Essential (primary) hypertension; E78.5 Hyperlipidemia, unspecified; G47.33 Obstructive sleep apnea (adult) (pediatric); K21.9 Gastro-esophageal reflux disease without esophagitis; K76.0 Fatty (change of) liver, not elsewhere classified; E66.9 Obesity, unspecified; Z79.899 Other long term (current) drug therapy
CPT/HCPCS: 71046; 80048; 83735; 84484; 85025; 93005; 94640; 96374; 99285; A4216

== ENCOUNTER 2022-05-21 16:31 | Emergency (ER) | payer MEDICARE, MEDICAID, SELFPAY ==
[2022-05-21 16:32] VITALS: BP 151/84; PULSE 88; RESP 14; TEMP 36.2; O2SAT 99; BMI 43.1
--- NOTE | 2022-05-21 17:12 | EDS_ITS ---
HPI History of Present Illness Chief Complaint: Wound Detail of Chief Complaint: Lump on left breast Informant: patient Onset/Context/Timing Onset: Today Narrative Narrative: Patient presents after noticing a painful lump on his left breast today. He states the area is been sore the past couple days but today the first day he noticed a lump. No fevers or chills. No obvious injury. [facility] Medical History Abnormal CT of the abdomen Back pain Bipolar depression Conn disease COPD (chronic obstructive pulmonary disease) [place] syndrome Depression Elevated LFTs Fatty liver GERD without esophagitis HLD (hyperlipidemia) HTN (hypertension) Moderate anxiety Narcolepsy Nicotine dependence, cigarettes, uncomplicated Obesity HANNAH (obstructive sleep apnea) Restrictive airway disease Seasonal allergies Seizures Home Medications levetiracetam 500 mg tablet 500 mg PO BID 03/17/18 [History Last Taken 05/23/18] buspirone 15 mg tablet 1 tab PO BID 05/03/18 [History Last Taken 05/29/20] albuterol sulfate 90 mcg/actuation aerosol inhaler (ProAir HFA) 2 puff inhalation Q4H PRN Sob &/Or Wheezing #1 device 08/06/18 [Rx Last Taken Unknown] atorvastatin 20 mg tablet 20 mg PO DAILY 09/18/18 [History Last Taken Unknown] fluticasone propionate 50 mcg/actuation nasal spray,suspension 1 spray NASAL DAILY 09/18/18 [History Last Taken Unknown] ibuprofen 200 mg tablet 800 mg PO PRN PRN Pain 09/18/18 [History Last Taken Unknown] cholecalciferol (vitamin D3) 50 mcg (2,000 unit) capsule 2,000 unit PO DAILY 05/24/19 [History Last Taken Unknown] omeprazole 40 mg capsule,delayed release 40 mg PO DAILY 05/24/19 [History Last Taken 05/29/20] venlafaxine 150 mg tablet,extended release 24 hr 150 mg PO DAILY 05/24/19 [History Last Taken Unknown] venlafaxine 75 mg capsule,extended release 24 hr 75 mg PO DAILY 12/29/19 [History Last Taken Unknown] aripiprazole 5 mg tablet 5 mg PO DAILY 05/10/20 [History Last Taken Unknown] cetirizine 10 mg tablet 10 mg PO DAILY 05/10/20 [History Last Taken Unknown] hydrochlorothiazide 12.5 mg capsule 12.5 mg PO DAILY 05/10/20 [History Last Taken Unknown] lisinopril 10 mg tablet 20 mg PO DAILY 05/10/20 [History Last Taken 05/29/20] montelukast 10 mg tablet 10 mg PO DAILY 05/10/20 [History Last Taken Unknown] prednisone 20 mg tablet 40 mg PO DAILY #8 tabs 03/24/21 [Rx Last Taken Unknown] azithromycin 250 mg tablet See Rx Instructions PO .COMPLEX #6 tabs 04/02/22 [Rx Last Taken Unknown] cephalexin 500 mg capsule 500 mg PO Q6 #40 caps 05/21/22 [Rx Last Taken Unknown] sulfamethoxazole 800 mg-trimethoprim 160 mg tablet (Bactrim DS) 1 tab PO BID #20 tabs 05/21/22 [Rx Last Taken Unknown] Allergy/AdvReac Type Severity Reaction Status Date / Time No Known Allergies Allergy Verified 05/21/22 16:32 Family History Mother Diabetes Thyroid disorder Father Hypertension Hyperlipidemia Uncle CVA (cerebral vascular accident) Surgical History H/O vasectomy History of esophagogastroduodenoscopy (EGD) tunica albuginea plication Social History Smoking Status: Current every day smoker tobacco type: cigarettes Tobacco: How many years used: 19 second hand exposure: Yes quit status: considering quitting alcohol intake: current alcohol intake frequency: a few times a month Alcohol type: other substance use type: does not use ROS ROS ED Constitutional Constitutional ED: Denies chills or fever(s) Eyes Eyes: Denies change in vision or discharge from eye(s) ENT ENT ED: Denies discharge from eye(s), rhinorrhea or sore throat Cardiovascular Cardiovascular: Reports other Details: Chest wall pain ; Denies palpitations Respiratory/Chest Respiratory/Chest: Denies cough or dyspnea Gastrointestinal Gastrointestinal: Denies abdominal pain, diarrhea, nausea or vomiting Genitourinary Genitourinary ED: Denies dysuria Musculoskeletal Musculoskeletal: Denies back pain or extremity pain Integumentary Reports abscess; Denies Abrasions or rash Neurologic Neurologic: Denies headache(s) or weakness Allergic/Immunologic Allergic/Immunologic ED: Denies lip swelling or urticaria EXAM Physical Exam Const Vital Signs: 05/21/22 16:32 Temperature 97.2 F L Temperature Source Temporal Pulse Rate 88 Respiratory Rate 14 Blood Pressure 151/84 H Blood Pressure Mean 106 Pulse Ox 99 Oxygen Delivery Method Room Air Positive well nourished and well developed General Appearance ED: well developed HEENT Reports normocephalic and head/scalp atraumatic Eyes PERRL and EOMs intact bilaterally Neck supple Chest Wall Chest Narrative: 1 cm diameter cutaneous abscess along the lateral portion of the left breast. Mild surrounding erythema. No fluctuance. No spontaneous drainage. Resp normal respiratory effort and clear to auscultation bilaterally Cardio regular rate and regular rhythm GI normal to inspection, nondistended, normoactive bowel sounds Palpation: soft Extremity normal to inspection Neuro oriented x3 and no sensory deficits noted Sensorium / Orientation: alert Motor Exam: strength 5/5 throughout Psych mental status grossly normal Skin Skin Narrative: Cutaneous abscess as noted above. MDM MDM MDM Narrative Medical decision making narrative: Patient has findings consistent with cutaneous abscess. He will be started on Bactrim and Keflex, first dose is given here. He was advised to use warm compresses to the area. Return instructions provided. Discharge Plan Triage Chief Complaint: Wound ED Provider: Yancy Limon Dx/Rx/DC Orders Clinical Impression: Cutaneous abscess Instructions: ED Abscess Antibiotic Treatment Only Prescriptions: New sulfamethoxazole-trimethoprim [Bactrim DS] 800-160 mg tablet 1 tab PO BID Qty: 20 0RF cephalexin 500 mg capsule 500 mg PO Q6 Qty: 40 0RF No Action ProAir HFA 90 mcg/actuation HFA aerosol inhaler 2 puff INHALATION Q4H PRN (Reason: Sob &/Or Wheezing) Qty: 1 3RF venlafaxine 150 mg tablet extended release 24hr 150 mg PO DAILY cholecalciferol (vitamin D3) 2,000 unit capsule 2,000 unit PO DAILY omeprazole 40 mg capsule,delayed release(DR/EC) 40 mg PO DAILY azithromycin 250 mg tablet See Rx Instructions PO .COMPLEX Qty: 6 0RF Rx Instructions: take 500 mg today (day 1), then 250 mg for 4 days (days 2-5) PO levetiracetam 500 MG tablet 500 mg PO BID Label Comments: TAKE ONE TABLET BY MOUTH TWICE DAILY buspirone 15 MG tablet 1 tab PO BID Label Comments: TAKE 1/2 TABLET BY MOUTH TWICE DAILY FOR 2 WEEKS; THEN 1 WHOLE TABLETTWICE DAILY atorvastatin 20 MG tablet 20 mg PO DAILY ibuprofen 200 MG tablet 800 mg PO PRN PRN (Reason: Pain) fluticasone propionate 1 SPRAY spray,suspension 1 spray NASAL DAILY venlafaxine 75 MG capsule 75 mg PO DAILY cetirizine 10 MG tablet 10 mg PO DAILY lisinopril 10 MG tablet 20 mg PO DAILY hydrochlorothiazide 12.5 MG capsule 12.5 mg PO DAILY montelukast 10 MG tablet 10 mg PO DAILY aripiprazole 5 MG tablet 5 mg PO DAILY prednisone 20 mg tablet 40 mg PO DAILY Qty: 8 0RF Primary Care Provider: Nora Mendoza NP Referrals: Nora Mendoza NP, CONSTRUCTION EQUIPMENT MECHANIC-[facility] [Primary Care Provider] - 1 Week Disposition Disposition: Home, Self Care
[2022-05-21] MEDS: Smz/Tmp Ds Tablet 1 TABLET PO (17:21)
[2022-05-21] MEDS: Cephalexin 250 MG Capsule 500 MG PO (17:21)
== END 2022-05-21 17:31 | disposition home or self-care (01) ==
LOC: ED 17:30
PROVIDERS: Emergency Provider Emergency Medicine; PCP Nurse Practitioner Primary Care; Visit Provider Emergency Medicine
DX: N61.1 Abscess of the breast and nipple (principal); J44.9 Chronic obstructive pulmonary disease, unspecified; F31.9 Bipolar disorder, unspecified; K50.90 Crohn's disease, unspecified, without complications; Z68.41 Body mass index [BMI] 40.0-44.9, adult; G40.909 Epilepsy, unspecified, not intractable, without status epilepticus; E24.9 Cushing's syndrome, unspecified; K76.0 Fatty (change of) liver, not elsewhere classified; K21.9 Gastro-esophageal reflux disease without esophagitis; E78.5 Hyperlipidemia, unspecified; I10 Essential (primary) hypertension; G47.33 Obstructive sleep apnea (adult) (pediatric); F41.9 Anxiety disorder, unspecified; Z79.899 Other long term (current) drug therapy; F17.210 Nicotine dependence, cigarettes, uncomplicated; E66.9 Obesity, unspecified
CPT/HCPCS: 99283

== ENCOUNTER 2022-09-28 13:19 | Emergency (ER) | payer MEDICAID, SELFPAY ==
[2022-09-28 13:21] VITALS: BP 153/97; PULSE 75; RESP 14; TEMP 36.1; O2SAT 100; BMI 42.9
--- NOTE | 2022-09-28 13:25 | EKG12_ITS ---
Test Reason : CP Blood Pressure : / mmHG Vent. Rate : 068 BPM Atrial Rate : 068 BPM P-R Int : 138 ms QRS Dur : 086 ms QT Int : 364 ms P-R-T Axes : 019 025 032 degrees QTc Int : 387 ms Normal sinus rhythm Normal ECG Confirmed by DOROTHY BRASWELL, JONATHAN ([id number]), design editor AD GRANADOS ([id number]) on 09/30/2022 1:19:35 PM Referred By: KANE/KAYLYN Confirmed By:JONATHAN DE LA CRUZ MD
== END 2022-09-28 14:30 | disposition left against medical advice (07) ==
LOC: ED 15:04
PROVIDERS: PCP Nurse Practitioner Primary Care
DX: R07.9 Chest pain, unspecified (principal)
CPT/HCPCS: 93005

== ENCOUNTER 2022-12-14 11:30 | Emergency (ER) | payer MEDICARE, MEDICAID, SELFPAY ==
[2022-12-14 11:31] VITALS: BP 146/93; PULSE 93; RESP 16; TEMP 36.4; O2SAT 100; BMI 41.1
--- NOTE | 2022-12-14 11:45 | ED.VIS.GI ---
HPI HPI - GI History of Present Illness Chief Complaint: Abd Pain Narrative Narrative: 37-year-old male past medical history of remote cholecystectomy, presents with crampy abdominal pain that he has had for the last week. He states he was seen at an outside facility on Friday, 4 days ago and put on medication such as Bentyl, ondansetron, and famotidine. 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 He presents because he took the medication this morning and is still having abdominal cramping and pain. He denies any fevers or chills. No nausea or vomiting, no dysuria or hematuria, no problems with bowel movements. There is no exacerbating or alleviating factors to his pain. [facility] Medical History Abnormal CT of the abdomen Back pain Bipolar depression Conn disease COPD (chronic obstructive pulmonary disease) Gardena syndrome Depression Elevated LFTs Fatty liver GERD without esophagitis HLD (hyperlipidemia) HTN (hypertension) Moderate anxiety Narcolepsy Nicotine dependence, cigarettes, uncomplicated Obesity HANNAH (obstructive sleep apnea) Restrictive airway disease Seasonal allergies Seizures Home Medications levetiracetam 500 mg tablet 500 mg PO BID 03/17/18 [History Last Taken 05/23/18] buspirone 15 mg tablet 1 tab PO BID 05/03/18 [History Last Taken 05/29/20] albuterol sulfate 90 mcg/actuation aerosol inhaler (ProAir HFA) 2 puff inhalation Q4H PRN Sob &/Or Wheezing #1 device 08/06/18 [Rx Last Taken Unknown] atorvastatin 20 mg tablet 20 mg PO DAILY 09/18/18 [History Last Taken Unknown] fluticasone propionate 50 mcg/actuation nasal spray,suspension 1 spray NASAL DAILY 09/18/18 [History Last Taken Unknown] ibuprofen 200 mg tablet 800 mg PO PRN PRN Pain 09/18/18 [History Last Taken Unknown] cholecalciferol (vitamin D3) 50 mcg (2,000 unit) capsule 2,000 unit PO DAILY 05/24/19 [History Last Taken Unknown] omeprazole 40 mg capsule,delayed release 40 mg PO DAILY 05/24/19 [History Last Taken 05/29/20] venlafaxine 150 mg tablet,extended release 24 hr 150 mg PO DAILY 05/24/19 [History Last Taken Unknown] venlafaxine 75 mg capsule,extended release 24 hr 75 mg PO DAILY 12/29/19 [History Last Taken Unknown] aripiprazole 5 mg tablet 5 mg PO DAILY 05/10/20 [History Last Taken Unknown] cetirizine 10 mg tablet 10 mg PO DAILY 05/10/20 [History Last Taken Unknown] hydrochlorothiazide 12.5 mg capsule 12.5 mg PO DAILY 05/10/20 [History Last Taken Unknown] lisinopril 10 mg tablet 20 mg PO DAILY 05/10/20 [History Last Taken 05/29/20] montelukast 10 mg tablet 10 mg PO DAILY 05/10/20 [History Last Taken Unknown] prednisone 20 mg tablet 40 mg PO DAILY #8 tabs 03/24/21 [Rx Last Taken Unknown] azithromycin 250 mg tablet See Rx Instructions PO .COMPLEX #6 tabs 04/02/22 [Rx Last Taken Unknown] cephalexin 500 mg capsule 500 mg PO Q6 #40 caps 05/21/22 [Rx Last Taken Unknown] sulfamethoxazole 800 mg-trimethoprim 160 mg tablet (Bactrim DS) 1 tab PO BID #20 tabs 05/21/22 [Rx Last Taken Unknown] Allergy/AdvReac Type Severity Reaction Status Date / Time No Known Allergies Allergy Verified 12/14/22 11:33 Family History Mother Diabetes Thyroid disorder Father Hypertension Hyperlipidemia Uncle CVA (cerebral vascular accident) Surgical History H/O vasectomy History of esophagogastroduodenoscopy (EGD) tunica albuginea plication Social History Smoking Status: Current every day smoker tobacco type: cigarettes Tobacco: How many years used: 19 second hand exposure: Yes quit status: considering quitting alcohol intake: current alcohol intake frequency: a few times a month Alcohol type: other substance use type: does not use ROS ROS ED ROS Narrative Constitutional: No fever, no chills. HEENT: No sore throat. No neck pain. No loss of vision. No rhinorrhea. Cardiovascular: No chest pain. No palpitations. No pedal edema. Respiratory: No cough, no shortness of breath. Abdominal: Diffuse, periumbilical crampy abdominal pain. No nausea. No vomiting. No diarrhea or problems with bowel movements. Genitourinary: No dysuria. No hematuria. Musculoskeletal: No myalgias. No arthralgias. Neurologic: No headaches. No dizziness. No lightheadedness. Skin: No rash. No change in color. Psychiatric: No depression. No anxiety. EXAM Physical Exam Narrative Exam Narrative: Afebrile. Vital signs noted. HEENT: Normocephalic. Atraumatic. PERRL, EOMI. Neck soft and supple. No point tenderness or step off. Cardiovascular: Regular rate and rhythm. No murmurs, rubs, or gallops appreciated. Respiratory: No tachypnea. Lungs clear to auscultation bilaterally. Gastrointestinal: Abdomen soft, nontender, with normoactive bowel sounds. No rebound or guarding. Neurological: Awake. Alert. Nonfocal, nonlateralizing. Skin: No rash. Normal color. No pallor. Musculoskeletal: No pedal edema. Full range of motion extremities. Const Vital Signs: 12/14/22 11:31 Temperature 97.6 F L Temperature Source Temporal Pulse Rate 93 Respiratory Rate 16 Blood Pressure 146/93 H Blood Pressure Mean 110 Pulse Ox 100 Oxygen Delivery Method Room Air MDM MDM MDM Narrative Medical decision making narrative: I reviewed his prior records, especially his ED visits, and he has not come frequently for abdominal pain. He was given a shot of Bentyl IM. He has a nonsurgical abdomen. I will obtain basic laboratory work including CBC, CMP, and lipase, but he is status postcholecystectomy. In order to help rule out obstruction, I will obtain x-rays of the abdomen. I reviewed his laboratory work and he has slightly elevated white count of 11.4 which I think is nonspecific, hemoglobin normal at 13.8, platelet count elevated at 507 which may be an acute phase reactant, but nonspecific nonetheless. Sodium low at 125 with a low chloride of 93 consistent with dehydration. Additionally, he has elevation of his BUN at 23 with a creatinine of 1.48 above his baseline of normal last year. Lipase is normal at 24. Acute abdominal x-rays interpreted by myself show nonspecific bowel gas pattern but no evidence of obstruction or air-fluid levels. I reviewed the radiology report which confirmed my independent interpretation of the x-rays. At this point in time, upon repeat examination his abdomen remains soft. He will be bolused IV fluids, but he was told that he should have his sodium/BMP rechecked in the next few days by his primary care provider. I do not feel that he requires observation. He states he does not have a large intake of oral fluids or water. I feel he can be discharged safely home with follow-up to his primary care provider. Return instructions to the emergency department were reviewed. Disposition is discharged home in stable condition. History & Record Review Discussion w/independent historian: Patient Additional record(s) reviewed:: Prior ED visit and Prior labs Lab Data Attestation: I reviewed the patient's lab results. Labs: Laboratory Results - last 24 hr 12/14/22 12/14/22 11:53 11:53 WBC 11.4 H RBC 5.01 Hgb 13.8 Hct 39.8 L MCV 79.4 L MCH 27.5 MCHC 34.7 RDW Std Deviation 38.7 RDW Coeff of Watson 13.6 Plt Count 507 H MPV 9.4 Immature Gran % (Auto) 0.300 Neut % (Auto) 65.1 Lymph % (Auto) 22.2 Gillespie % (Auto) 9.5 Eos % (Auto) 2.3 Baso % (Auto) 0.6 Absolute Neuts (auto) 7.4 Absolute Lymphs (auto) 2.53 Nucleated RBC % 0 Sodium 125 L Potassium 4.3 Chloride 93 L Carbon Dioxide 25.0 Anion Gap 7 BUN 23 H Creatinine 1.48 H Estim Creat Clear Calc 53.93 Est GFR (MDRD) Af Amer 68 Est GFR (MDRD) Non-Af 56 L BUN/Creatinine Ratio 15.5 Glucose 101 Calcium 9.7 Total Bilirubin 0.40 AST 30 ALT 28 Alkaline Phosphatase 156 H Total Protein 7.7 Albumin 3.6 Globulin 4.1 Albumin/Globulin Ratio 0.9 Lipase 24 Radiography Diagnostic Testing: Clinical Impression(s) from Imaging Studies Acute Abdomen Series 12/14/22 12:20 IMPRESSION: No acute cardiopulmonary process. Nonspecific bowel gas pattern. Electronically Signed: Judy Peñaloza MD at 12:38 EDT , Discharge Plan Triage Chief Complaint: Abd Pain ED Provider: Pranav Huynh Dx/Rx/DC Orders Clinical Impression: Abdominal pain, Hyponatremia, Dehydration, Elevated serum creatinine Instructions: ED Dehydration (Adult), ED Hyponatremia, ED Abdominal Pain Unkn Cause Male... Prescriptions: No Action ProAir HFA 90 mcg/actuation HFA aerosol inhaler 2 puff INHALATION Q4H PRN (Reason: Sob &/Or Wheezing) Qty: 1 3RF venlafaxine 150 mg tablet extended release 24hr 150 mg PO DAILY cholecalciferol (vitamin D3) 2,000 unit capsule 2,000 unit PO DAILY omeprazole 40 mg capsule,delayed release(DR/EC) 40 mg PO DAILY azithromycin 250 mg tablet See Rx Instructions PO .COMPLEX Qty: 6 0RF Rx Instructions: take 500 mg today (day 1), then 250 mg for 4 days (days 2-5) PO levetiracetam 500 MG tablet 500 mg PO BID Label Comments: TAKE ONE TABLET BY MOUTH TWICE DAILY buspirone 15 MG tablet 1 tab PO BID Label Comments: TAKE 1/2 TABLET BY MOUTH TWICE DAILY FOR 2 WEEKS; THEN 1 WHOLE TABLETTWICE DAILY atorvastatin 20 MG tablet 20 mg PO DAILY ibuprofen 200 MG tablet 800 mg PO PRN PRN (Reason: Pain) fluticasone propionate 1 SPRAY spray,suspension 1 spray NASAL DAILY venlafaxine 75 MG capsule 75 mg PO DAILY cetirizine 10 MG tablet 10 mg PO DAILY lisinopril 10 MG tablet 20 mg PO DAILY hydrochlorothiazide 12.5 MG capsule 12.5 mg PO DAILY montelukast 10 MG tablet 10 mg PO DAILY aripiprazole 5 MG tablet 5 mg PO DAILY prednisone 20 mg tablet 40 mg PO DAILY Qty: 8 0RF sulfamethoxazole-trimethoprim [Bactrim DS] 800-160 mg tablet 1 tab PO BID Qty: 20 0RF cephalexin 500 mg capsule 500 mg PO Q6 Qty: 40 0RF Primary Care Provider: Nora Mendoza NP Referrals: Nora Mendoza NP, [employer] [Primary Care Provider] - 3-5 Days Activity Restrictions/Additional Instructions: Drink plenty of oral fluids, especially water. Follow-up with your primary care provider for repeat examination and recheck of your sodium level in the next few days. Return with new or worsening symptoms. Disposition Disposition: Home, Self Care
[2022-12-14] MEDS: 0.9% Normal Saline 1,000 ML 1000 ML IV (11:53)
[2022-12-14] MEDS: Dicyclomine 20 MG/2 ML Vial IM (11:53)
[2022-12-14 12:00] LABS: Absolute Lymphocyte Count 2.53 X10^3/uL (0.83-4.51); Absolute Neutrophil Count 7.4 X10^3/uL (2.0-7.7); Basophil# 0.07 X10^3/uL; Basophil% 0.6 % (0-1); Eosinophil# 0.26 X10^3/uL; Eosinophils% 2.3 % (0-5); Hematocrit 39.8 % (40-54); Hemoglobin 13.8 g/dL (13.0-16.5); Lymphocyte # 2.53 X10^3/ul (0.83-4.51); Lymphocyte % 22.2 % (19-41); Mean Corp Hgb Conc 34.7 g/dL (32-36); Mean Corpuscular Hgb 27.5 pg (27.0-32.0); Mean Corpuscular Volume 79.4 fL (80-94); Mean Platelet Vol. 9.4 fl (6.2-12.0); Monocyte# 1.08 X10^3/uL; Monocyte% 9.5 % (0-10); NRBC Flagged by Analyzer 0 % (0-5); Neutrophil # 7.42 X10^3/uL (2.7-7.7); Neutrophil % 65.1 % (47-70); Platelet Count 507 K/mm3 (150-450); RBC Distribution Width CV 13.6 % (11.6-14.6); RBC Distribution Width SD 38.7 fl (35.1-43.9); Red Blood Count 5.01 M/mm3 (4.6-6.2); White Blood Count 11.4 K/mm3 (4.4-11.0)
--- NOTE | 2022-12-14 12:20 | RAD_ITS ---
INDICATION: Pain EXAMINATION/TECHNIQUE: X-RAY - XR Abdomen Series W/ Chest 1 View COMPARISON: : April 10, 2022 FINDINGS: --Chest: LINES/DEVICES: None. LUNGS: No consolidation, edema or effusion. No pneumothorax. MEDIASTINUM AND CARDIOVASCULAR STRUCTURES: Cardiac silhouette not enlarged. Central airways and mediastinal contour are unremarkable. BONES AND SOFT TISSUES: No acute findings. --Abdomen: BOWEL GAS PATTERN: Non-obstructive. No bowel or stomach distention. There are surgical clips within the right upper quadrant consistent with prior cholecystectomy. FREE AIR: None visualized. ORGANOMEGALY: Not seen. CALCIFICATIONS: No abnormal calcifications observed. BONES AND SOFT TISSUES: There is a levoscoliosis of the thoracolumbar spine. RAD/Acute Abdomen Inc Chest IMPRESSION: No acute cardiopulmonary process. Nonspecific bowel gas pattern. Electronically Signed: Judy Peñaloza MD at 12:38 EDT ,
[2022-12-14 12:22] LABS: ALB/GLOB Ratio 0.9 RATIO (0.9-2.4); AST(SGOT) 30 U/L (15-37); Alanine Aminotransfer ALT/SGPT 28 U/L (16-61); Albumin, Serum 3.6 g/dL (3.2-5.0); Alkaline Phosphatase 156 U/L (45-117); BUN 23 mg/dL (7-18); BUN/Creat Ratio 15.5 RATIO (10-20); Calcium,Total 9.7 mg/dL (8.5-10.1); Chloride 93 mmol/L (98-107); Creatinine, Serum 1.48 mg/dL (0.70-1.30); EST Glomerular Filtration Rate 56 mL/min (>60); Est Glom Filt Rate - Afr Amer 68 mL/min (>60); Estimated Creatinine Clearance 53.93 ml/min; Globulin 4.1 g/dL (2.2-4.2); Glucose 101 mg/dL (74-106); Lipase 24 U/L (13-75); Potassium 4.3 mmol/L (3.5-5.1); Protein, Total 7.7 g/dL (6.4-8.2); Sodium Level 125 mmol/L (136-145)
[2022-12-14 12:23] LABS: Anion Gap 7 (5-15)
[2022-12-14] MEDS: 0.9% Normal Saline 1,000 ML 999 ML IV (13:35)
[2022-12-14 13:50] VITALS: PULSE 76; RESP 18; O2SAT 99
== END 2022-12-14 14:10 | disposition home or self-care (01) ==
PROVIDERS: Emergency Provider Emergency Medicine; PCP Nurse Practitioner Primary Care; Visit Provider Emergency Medicine
DX: R10.9 Unspecified abdominal pain (principal); J44.9 Chronic obstructive pulmonary disease, unspecified; F31.9 Bipolar disorder, unspecified; R56.9 Unspecified convulsions; J30.2 Other seasonal allergic rhinitis; E78.5 Hyperlipidemia, unspecified; I10 Essential (primary) hypertension; F17.210 Nicotine dependence, cigarettes, uncomplicated; E86.0 Dehydration; E87.1 Hypo-osmolality and hyponatremia; Z90.49 Acquired absence of other specified parts of digestive tract; R79.89 Other specified abnormal findings of blood chemistry; Z79.899 Other long term (current) drug therapy; Z79.1 Long term (current) use of non-steroidal anti-inflammatories (NSAID); K21.9 Gastro-esophageal reflux disease without esophagitis
CPT/HCPCS: 74022; 80053; 83690; 85025; 96360; 96361; 96372; 99283; J7030; A4216

== ENCOUNTER → 2023-04-29 | Outpatient (CLI) | payer MEDICARE, MEDICAID, SELFPAY | END | disposition home or self-care (01) | PROVIDERS: PCP Nurse Practitioner Primary Care | DX: G47.33 Obstructive sleep apnea (adult) (pediatric) (principal) | CPT/HCPCS: 95810 ==

== ENCOUNTER 2023-08-03 15:48 | Emergency (ER) | payer MEDICARE, MEDICAID, SELFPAY ==
[2023-08-03 15:49] VITALS: BP 178/87; PULSE 97; RESP 14; TEMP 36.4; O2SAT 100; BMI 50.0
--- NOTE | 2023-08-03 16:01 | EX.ED.DYSGE1 ---
HPI <GARFIELD Lan - Last Filed: 08/03/23 16:29> History of Present Illness Chief Complaint: Lower Extremity Injury Narrative Narrative: 37-year-old male has had pain in his right foot for last couple days. States it feels like a cramp in the top and bottom of his foot and it's worse with standing. He had no history of trauma. No swelling or skin changes. No weakness or paresthesias. No calf pain. PFSH <GARFIELD Lan - Last Filed: 08/03/23 16:29> [facility] Medical History Abnormal CT of the abdomen Back pain Bipolar depression Conn disease COPD (chronic obstructive pulmonary disease) Loli syndrome Depression Elevated LFTs Fatty liver GERD without esophagitis HLD (hyperlipidemia) HTN (hypertension) Moderate anxiety Narcolepsy Nicotine dependence, cigarettes, uncomplicated Obesity HANNAH (obstructive sleep apnea) Restrictive airway disease Seasonal allergies Seizures Home Medications levetiracetam 500 mg tablet 500 mg PO BID 03/17/18 [History Last Taken 05/23/18] buspirone 15 mg tablet 1 tab PO BID 05/03/18 [History Last Taken 05/29/20] albuterol sulfate 90 mcg/actuation aerosol inhaler (ProAir HFA) 2 puff inhalation Q4H PRN Sob &/Or Wheezing #1 device 08/06/18 [Rx Last Taken Unknown] atorvastatin 20 mg tablet 20 mg PO DAILY 09/18/18 [History Last Taken Unknown] fluticasone propionate 50 mcg/actuation nasal spray,suspension 1 spray NASAL DAILY 09/18/18 [History Last Taken Unknown] ibuprofen 200 mg tablet 800 mg PO PRN PRN Pain 09/18/18 [History Last Taken Unknown] cholecalciferol (vitamin D3) 50 mcg (2,000 unit) capsule 2,000 unit PO DAILY 05/24/19 [History Last Taken Unknown] omeprazole 40 mg capsule,delayed release 40 mg PO DAILY 05/24/19 [History Last Taken 05/29/20] venlafaxine 150 mg tablet,extended release 24 hr 150 mg PO DAILY 05/24/19 [History Last Taken Unknown] venlafaxine 75 mg capsule,extended release 24 hr 75 mg PO DAILY 12/29/19 [History Last Taken Unknown] aripiprazole 5 mg tablet 5 mg PO DAILY 05/10/20 [History Last Taken Unknown] cetirizine 10 mg tablet 10 mg PO DAILY 05/10/20 [History Last Taken Unknown] hydrochlorothiazide 12.5 mg capsule 12.5 mg PO DAILY 05/10/20 [History Last Taken Unknown] lisinopril 10 mg tablet 20 mg PO DAILY 05/10/20 [History Last Taken 05/29/20] montelukast 10 mg tablet 10 mg PO DAILY 05/10/20 [History Last Taken Unknown] prednisone 20 mg tablet 40 mg (2 x 20 mg) PO DAILY #8 tabs 03/24/21 [Rx Last Taken Unknown] azithromycin 250 mg tablet See Rx Instructions PO .COMPLEX #6 tabs 04/02/22 [Rx Last Taken Unknown] cephalexin 500 mg capsule 500 mg PO Q6 #40 caps 05/21/22 [Rx Last Taken Unknown] sulfamethoxazole 800 mg-trimethoprim 160 mg tablet (Bactrim DS) 1 tab PO BID #20 tabs 05/21/22 [Rx Last Taken Unknown] Allergy/AdvReac Type Severity Reaction Status Date / Time No Known Allergies Allergy Verified 08/03/23 15:51 Family History Mother Diabetes Thyroid disorder Father Hypertension Hyperlipidemia Uncle CVA (cerebral vascular accident) Surgical History H/O vasectomy History of esophagogastroduodenoscopy (EGD) tunica albuginea plication Social History Smoking Status: Current every day smoker tobacco type: cigarettes Tobacco: How many years used: 19 second hand exposure: Yes quit status: considering quitting alcohol intake: current alcohol intake frequency: a few times a month Alcohol type: other substance use type: does not use ROS <GARFIELD Lan - Last Filed: 08/03/23 16:29> ROS ED ROS Narrative Constitutional: Negative for fever, chills, malaise. Neuro: Negative for motor/sensory dysfunction. Skin: Negative for rash. Musc: Negative for joint pain, trauma. EXAM <GARFIELD Lan - Last Filed: 08/03/23 16:29> Physical Exam Narrative Exam Narrative: CONST: Patient sitting in no acute distress. EYES: Normal inspection. NECK: Normal inspection. RESP: No respiratory distress, CTAB. CVS: Regular rate and rhythm, no murmur, no gallop. SKIN: Color normal, no rash, warm, dry, intact. EXTREMITIES: Normal appearance of right lower extremity. No reproducible tenderness of the hip knee ankle or foot. No erythema or warmth, no edema. 5/5 strength and DF/PF, normal sensation, 2+ DP pulses, compartments soft, no calf tenderness. NEURO: Oriented x4. PSYCH: Normal affect. Const Vital Signs: 08/03/23 15:49 Temperature 97.5 F L Temperature Source Temporal Pulse Rate 97 Respiratory Rate 14 Blood Pressure 178/87 H Blood Pressure Mean 117 Pulse Ox 100 Oxygen Delivery Method Room Air <Dr. Reynold Greene MD - Last Filed: 08/03/23 17:06> Physical Exam Const Vital Signs: 08/03/23 15:49 Temperature 97.5 F L Temperature Source Temporal Pulse Rate 97 Respiratory Rate 14 Blood Pressure 178/87 H Blood Pressure Mean 117 Pulse Ox 100 Oxygen Delivery Method Room Air [facility] <GARFIELD Lan - Last Filed: 08/03/23 16:29> [facility] Narrative Medical decision making narrative: Patient has atraumatic right foot pain worse with standing. His lower extremities appear normal with no reproducible bony tenderness. No tenderness of the deep venous system. Neurovascularly intact. X-ray shows no acute findings. Differential includes musculoskeletal pain, cramp, Prasad's neuroma, plantar fasciitis among others. I recommended [id number] analgesia and follow-up with podiatry if needed. He was discharged in stable condition. Radiography Diagnostic Testing: Clinical Impression(s) from Imaging Studies Foot X-Ray 08/03/23 16:08 IMPRESSION: Normal x-ray examination of the foot. Electronically Signed: Ford Branham MD at 16:21 EST , ED attending interpretation of right foot shows no fracture or dislocation. <Dr. Reynold Greene MD - Last Filed: 08/03/23 17:06> [facility] Radiography Diagnostic Testing: Clinical Impression(s) from Imaging Studies Foot X-Ray 08/03/23 16:08 IMPRESSION: Normal x-ray examination of the foot. Electronically Signed: Ford Branham MD at 16:21 EST , Treatment and Re-Evaluation :: I have personally performed a face to face assessment of the patient and have reviewed the TREVA Note. I performed a substantive portion of the visit including all aspects of the following. My lacy findings include: History: Patient has pain in his right foot. He states its on the top and the bottom. It is worse when he stands at work. He stands for about 4 hours a day. No numbness or tingling or weakness. No known acute trauma. Exam: Patient has minimal nonfocal tenderness. There is no erythema or warmth. No swelling. No pallor. Pulses are normal. Sensation is normal. Medical Decision Making: My independent interpretation of the patient's three-view x-rays right foot show some arthritic changes but no sign of acute fracture dislocation or Lisfranc injury. Final reading is no acute findings. Discharge Plan Triage Chief Complaint: Lower Extremity Injury ED Midlevel Provider: Rebecca Epps ED Provider: Reynold Greene Dx/Rx/DC Orders Clinical Impression: Acute pain of right foot Instructions: ED Pain, Acute, Uncertain Cause Prescriptions: No Action ProAir HFA 90 mcg/actuation HFA aerosol inhaler 2 puff INHALATION Q4H PRN (Reason: Sob &/Or Wheezing) Qty: 1 3RF venlafaxine 150 mg tablet extended release 24hr 150 mg PO DAILY cholecalciferol (vitamin D3) 2,000 unit capsule 2,000 unit PO DAILY omeprazole 40 mg capsule,delayed release(DR/EC) 40 mg PO DAILY azithromycin 250 mg tablet See Rx Instructions PO .COMPLEX Qty: 6 0RF Rx Instructions: take 500 mg today (day 1), then 250 mg for 4 days (days 2-5) PO levetiracetam 500 MG tablet 500 mg PO BID Patient Comments: TAKE ONE TABLET BY MOUTH TWICE DAILY buspirone 15 MG tablet 1 tab PO BID Patient Comments: TAKE 1/2 TABLET BY MOUTH TWICE DAILY FOR 2 WEEKS; THEN 1 WHOLE TABLETTWICE DAILY atorvastatin 20 MG tablet 20 mg PO DAILY ibuprofen 200 MG tablet 800 mg PO PRN PRN (Reason: Pain) fluticasone propionate 1 SPRAY spray,suspension 1 spray NASAL DAILY venlafaxine 75 MG capsule 75 mg PO DAILY cetirizine 10 MG tablet 10 mg PO DAILY lisinopril 10 MG tablet 20 mg PO DAILY hydrochlorothiazide 12.5 MG capsule 12.5 mg PO DAILY montelukast 10 MG tablet 10 mg PO DAILY aripiprazole 5 MG tablet 5 mg PO DAILY prednisone 20 mg tablet 40 mg PO DAILY Qty: 8 0RF sulfamethoxazole-trimethoprim [Bactrim DS] 800-160 mg tablet 1 tab PO BID Qty: 20 0RF cephalexin 500 mg capsule 500 mg PO Q6 Qty: 40 0RF Primary Care Provider: Nora Mendoza NP Referrals: Adrián Michaels DPM [Med Staff - Active Staff] - Nora Mendoza NP, [employer] [Primary Care Provider] - Activity Restrictions/Additional Instructions: Take tylenol or motrin as needed Disposition Disposition: Home, Self Care
--- NOTE | 2023-08-03 16:08 | RAD_ITS ---
STUDY: X-RAY - RIGHT FOOT CLINICAL: Male, 37 years old. pain TECHNIQUE: 3 view(s) of the foot. COMPARISON: None. FINDINGS: Normal talus, calcaneus, and tarsal bones. Small plantar posterior calcaneal enthesophytes. 1.2 cm type II accessory navicular bone. Normal visualized subtalar, talonavicular, calcaneocuboid, tarsal and tarsometatarsal articulations. Normal metatarsi. Normal metatarsophalangeal joint of the great toe. Normal tibial and fibular sesamoid bones. Normal interphalangeal joint of the great toe. Normal phalanges of the great toe. Normal second through fifth metatarsophalangeal joints. Normal interphalangeal joints and phalanges of the lesser toes. The soft tissue structures are unremarkable. RAD/Foot min 3 Views IMPRESSION: Normal x-ray examination of the foot. Electronically Signed: Ford Branham MD at 16:21 EST ,
== END 2023-08-03 17:09 | disposition home or self-care (01) ==
PROVIDERS: Emergency Provider Emergency Medicine; PCP Nurse Practitioner Primary Care; Visit Provider Emergency Medicine
DX: M79.671 Pain in right foot (principal); J44.9 Chronic obstructive pulmonary disease, unspecified; F31.9 Bipolar disorder, unspecified; E78.5 Hyperlipidemia, unspecified; F17.210 Nicotine dependence, cigarettes, uncomplicated; I10 Essential (primary) hypertension; Z79.899 Other long term (current) drug therapy; K21.9 Gastro-esophageal reflux disease without esophagitis; Z98.52 Vasectomy status
CPT/HCPCS: 73630; 99282

== ENCOUNTER 2023-09-11 19:43 | Emergency (ER) | payer MEDICARE, MEDICAID, SELFPAY ==
[2023-09-11 19:44] VITALS: BP 139/90; PULSE 93; RESP 16; TEMP 36.5; O2SAT 99; BMI 48.2
--- NOTE | 2023-09-11 21:00 | RAD_ITS ---
EXAM: XR ABDOMEN, 2 VIEWS AND XR CHEST, 1 VIEW CLINICAL INDICATION: Pain TECHNIQUE: Frontal view of the chest, frontal view of the abdomen/pelvis and upright or decubitus view of the abdomen. COMPARISON: No relevant prior studies available. FINDINGS: CHEST: LUNGS AND PLEURAL SPACES: Unremarkable. No consolidation or edema. No pneumothorax. No effusion. HEART: Unremarkable. Cardiac silhouette not enlarged. MEDIASTINUM: Central airways and mediastinal contour are unremarkable. ABDOMEN: INTRAPERITONEAL SPACE: No free air. GASTROINTESTINAL TRACT: Unremarkable. Non-obstructive. No bowel or stomach distention. ORGANS: Prior cholecystectomy. No organomegaly. No abnormal calcifications. TUBES, LINES AND DEVICES: None. BONES/JOINTS: Degenerative changes of the spine. Broad leftward curvature of the thoracolumbar spine. SOFT TISSUES: No acute findings. RAD/Acute Abdomen Inc Chest IMPRESSION: No acute disease or bowel obstruction. Electronically Signed: aJyson Harmon MD at 22:39 EST ,
--- NOTE | 2023-09-11 21:15 | ED.VIS.GI ---
HPI HPI - GI History of Present Illness Chief Complaint: Constipation Informant: patient Narrative Narrative: Patient presents with constipation. Patient states he has a history of constipation that bothers him now and then. He states for the past week he has been moving his bowels but just small amounts at a time. It has not really been hurting him but today he is starting to get some intermittent cramping that comes and goes. He has a little bit of rectal discomfort. No fevers or chills. No nausea or vomiting. His appetite is still good. He denies known diverticulitis. He has never had any abdominal surgery. Only new medicine are an injection for diabetes that he is being given for weight loss. He does not know if this is Ozempic or something like it. He has had 3 weekly injections. [facility] Medical History Abnormal CT of the abdomen Back pain Bipolar depression Conn disease COPD (chronic obstructive pulmonary disease) Loli syndrome Depression Elevated LFTs Fatty liver GERD without esophagitis HLD (hyperlipidemia) HTN (hypertension) Moderate anxiety Narcolepsy Nicotine dependence, cigarettes, uncomplicated Obesity HANNAH (obstructive sleep apnea) Restrictive airway disease Seasonal allergies Seizures Home Medications levetiracetam 500 mg tablet 500 mg PO BID 03/17/18 [History Last Taken 05/23/18] buspirone 15 mg tablet 1 tab PO BID 05/03/18 [History Last Taken 05/29/20] albuterol sulfate 90 mcg/actuation aerosol inhaler (ProAir HFA) 2 puff inhalation Q4H PRN Sob &/Or Wheezing #1 device 08/06/18 [Rx Last Taken Unknown] atorvastatin 20 mg tablet 20 mg PO DAILY 09/18/18 [History Last Taken Unknown] fluticasone propionate 50 mcg/actuation nasal spray,suspension 1 spray NASAL DAILY 09/18/18 [History Last Taken Unknown] ibuprofen 200 mg tablet 800 mg PO PRN PRN Pain 09/18/18 [History Last Taken Unknown] cholecalciferol (vitamin D3) 50 mcg (2,000 unit) capsule 2,000 unit PO DAILY 05/24/19 [History Last Taken Unknown] omeprazole 40 mg capsule,delayed release 40 mg PO DAILY 05/24/19 [History Last Taken 05/29/20] venlafaxine 150 mg tablet,extended release 24 hr 150 mg PO DAILY 05/24/19 [History Last Taken Unknown] venlafaxine 75 mg capsule,extended release 24 hr 75 mg PO DAILY 12/29/19 [History Last Taken Unknown] aripiprazole 5 mg tablet 5 mg PO DAILY 05/10/20 [History Last Taken Unknown] cetirizine 10 mg tablet 10 mg PO DAILY 05/10/20 [History Last Taken Unknown] hydrochlorothiazide 12.5 mg capsule 12.5 mg PO DAILY 05/10/20 [History Last Taken Unknown] lisinopril 10 mg tablet 20 mg PO DAILY 05/10/20 [History Last Taken 05/29/20] montelukast 10 mg tablet 10 mg PO DAILY 05/10/20 [History Last Taken Unknown] prednisone 20 mg tablet 40 mg (2 x 20 mg) PO DAILY #8 tabs 03/24/21 [Rx Last Taken Unknown] azithromycin 250 mg tablet See Rx Instructions PO .COMPLEX #6 tabs 04/02/22 [Rx Last Taken Unknown] cephalexin 500 mg capsule 500 mg PO Q6 #40 caps 05/21/22 [Rx Last Taken Unknown] sulfamethoxazole 800 mg-trimethoprim 160 mg tablet (Bactrim DS) 1 tab PO BID #20 tabs 05/21/22 [Rx Last Taken Unknown] Allergy/AdvReac Type Severity Reaction Status Date / Time No Known Allergies Allergy Verified 09/11/23 19:46 Family History Mother Diabetes Thyroid disorder Father Hypertension Hyperlipidemia Uncle CVA (cerebral vascular accident) Surgical History H/O vasectomy History of esophagogastroduodenoscopy (EGD) tunica albuginea plication Social History Smoking Status: Current every day smoker tobacco type: cigarettes Tobacco: How many years used: 19 second hand exposure: Yes quit status: considering quitting alcohol intake: current alcohol intake frequency: a few times a month Alcohol type: other substance use type: does not use ROS ROS ED ROS Narrative A complete review of systems was performed and is negative except as documented in the history of present illness. Some specific details below. Constitutional: No recent fevers or chills. EYE: No visual complaints or pain. ENT: No difficulty swallowing. No swelling. No pain. CV: No chest pain or palpitations. Respiratory: No dyspnea. No hemoptysis. No difficulty taking breaths. GI: Please see history of present illness. : No frequency dysuria or hematuria. He states urination is normal. Musculoskeletal: No recent trauma. No pains. Skin: No rash. Nondiaphoretic. Neuro: No weakness or numbness. Endocrine: No polyuria or polydipsia. EXAM Physical Exam Narrative Exam Narrative: CONSTITUTIONAL: Patient is nontoxic in appearance. The patient looks comfortable. HEENT: No notable trauma. Mucous membranes moist. EYES: No conjunctival injection. No icterus. CARDIOVASCULAR: Regular rate. Regular rhythm. No notable murmur. No JVD. RESPIRATORY: No respiratory distress. Breathing is unlabored. No wheezes. No rhonchi. No rales. No pain with a deep breath. GASTROINTESTINAL: Obese but not distended. Bowel sounds are normal. No tenderness. No guarding. No rebound. No palpable mass. No bruit. Despite his symptoms, his abdomen is actually quite benign. GENITOURINARY: No tenderness over the bladder. No CVA tenderness. MUSCULOSKELETAL: Atraumatic. No tenderness. NEUROLOGICAL: Patient is alert and appropriate. No focal deficit noted. SKIN: No noted rashes. No diaphoresis. PSYCHIATRIC: Patient is calm. Mood is appropriate. Const Vital Signs: 09/11/23 19:44 Temperature 97.7 F L Temperature Source Temporal Pulse Rate 93 Respiratory Rate 16 Blood Pressure 139/90 H Blood Pressure Mean 106 Pulse Ox 99 Oxygen Delivery Method Room Air MDM MDM MDM Narrative Medical decision making narrative: My independent interpretation of the patient's multi view abdominal x-ray shows increased stool but no sign of obstruction or free air. Final reading is no acute disease or bowel obstruction. I went back examined the patient. Rectal exam reveals a few hemorrhoids but they are not inflamed or bleeding. No sign of infection. Exam is nontender. There is no significant stool that is palpable. I discussed options with patient. I explained that an enema can give some benefit but there is not a large amount of stool right at the rectum. I think an enema along with meds from above will help. He would like to go home as he has to get home for his sister. I think this is reasonable. I will send him home with GoLytely as well as a fleets enema. Repeat exam shows absolutely no abdominal tenderness. I do not think this patient is masquerading as constipation when he actually has diverticulitis or other acute abdominal process. He has decreased bowel movements for a week. Although he has been getting cramping he does not have any now and he has no tenderness. No fevers. No nausea vomiting. I do not think blood work or CT is needed. Radiography Diagnostic Testing: Clinical Impression(s) from Imaging Studies Acute Abdomen Series 09/11/23 21:00 IMPRESSION: No acute disease or bowel obstruction. Electronically Signed: Jayson Harmon MD at 22:39 EST , Discharge Plan Triage Chief Complaint: Constipation ED Provider: Reynold Greene Dx/Rx/DC Orders Clinical Impression: Constipation Instructions: ED Constipation (Adult) Prescriptions: No Action ProAir HFA 90 mcg/actuation HFA aerosol inhaler 2 puff INHALATION Q4H PRN (Reason: Sob &/Or Wheezing) Qty: 1 3RF venlafaxine 150 mg tablet extended release 24hr 150 mg PO DAILY cholecalciferol (vitamin D3) 2,000 unit capsule 2,000 unit PO DAILY omeprazole 40 mg capsule,delayed release(DR/EC) 40 mg PO DAILY azithromycin 250 mg tablet See Rx Instructions PO .COMPLEX Qty: 6 0RF Rx Instructions: take 500 mg today (day 1), then 250 mg for 4 days (days 2-5) PO levetiracetam 500 MG tablet 500 mg PO BID Patient Comments: TAKE ONE TABLET BY MOUTH TWICE DAILY buspirone 15 MG tablet 1 tab PO BID Patient Comments: TAKE 1/2 TABLET BY MOUTH TWICE DAILY FOR 2 WEEKS; THEN 1 WHOLE TABLETTWICE DAILY atorvastatin 20 MG tablet 20 mg PO DAILY ibuprofen 200 MG tablet 800 mg PO PRN PRN (Reason: Pain) fluticasone propionate 1 SPRAY spray,suspension 1 spray NASAL DAILY venlafaxine 75 MG capsule 75 mg PO DAILY cetirizine 10 MG tablet 10 mg PO DAILY lisinopril 10 MG tablet 20 mg PO DAILY hydrochlorothiazide 12.5 MG capsule 12.5 mg PO DAILY montelukast 10 MG tablet 10 mg PO DAILY aripiprazole 5 MG tablet 5 mg PO DAILY prednisone 20 mg tablet 40 mg PO DAILY Qty: 8 0RF sulfamethoxazole-trimethoprim [Bactrim DS] 800-160 mg tablet 1 tab PO BID Qty: 20 0RF cephalexin 500 mg capsule 500 mg PO Q6 Qty: 40 0RF Primary Care Provider: Nora Mendoza NP Referrals: Nora Mendoza NP, MAINTENANCE SERVICE DISPATCHER-C [Primary Care Provider] - 3-5 Days if not improving Disposition Disposition: Home, Self Care Capacity Legal Linen Room Supervisor Reflex Medical hold order details:: IF a medical hold is selected below, a suggested order for a MEDICAL HOLD will reflex upon signing the document. Next of kin: [place] law dictates a PRIORITY LIST for identifying legal decision-maker/legal next of kin in the following order (LNOK): 1st: The patient?s legal guardian, if any 2nd: The patient's spouse (if status is questionable, consult Risk Management) 3rd: The patient?s adult child(camille) (majority, if multiple children) 4th: The patient?s parents 5th: The patient?s adult siblings (majority, if multiple children siblings)
[2023-09-11] MEDS: Fleet Enema 133 ML RC (23:37)
[2023-09-11] MEDS: Electrolyte Solution/Peg's 4000 ML PO (23:37)
[2023-09-11 23:40] VITALS: BP 133/71; PULSE 89; RESP 16; O2SAT 99
--- NOTE | 2023-09-11 23:41 | ED.RN ---
meds given to take at home
== END 2023-09-11 23:41 | disposition home or self-care (01) ==
PROVIDERS: Emergency Provider Emergency Medicine; PCP Nurse Practitioner Primary Care; Visit Provider Emergency Medicine
DX: K59.00 Constipation, unspecified (principal); J44.9 Chronic obstructive pulmonary disease, unspecified; R56.9 Unspecified convulsions; E11.9 Type 2 diabetes mellitus without complications; F17.210 Nicotine dependence, cigarettes, uncomplicated; I10 Essential (primary) hypertension; Z79.899 Other long term (current) drug therapy; F41.9 Anxiety disorder, unspecified; Z79.51 Long term (current) use of inhaled steroids; K21.9 Gastro-esophageal reflux disease without esophagitis; F32.A Depression, unspecified; Z98.52 Vasectomy status; E66.9 Obesity, unspecified
CPT/HCPCS: 74022; 99282

== ENCOUNTER 2024-06-01 15:41 | Emergency (ER) | payer MEDICARE, MEDICAID, SELFPAY ==
[2024-06-01 15:42] VITALS: BP 190/86; PULSE 90; RESP 18; TEMP 36.9; O2SAT 98; BMI 44.6
--- NOTE | 2024-06-01 15:58 | EDS_ITS ---
HPI History of Present Illness Chief Complaint: Male Pain/Injury Detail of Chief Complaint: Lesion on scrotum and cough and sore throat Informant: patient Narrative Narrative: Patient presents to the emergency department with a scratchy throat and a dry cough that started today. Patient also states that he noticed a small lump on his scrotum today and he has history of abscesses on his scrotum. He denies fevers chills or sweats. He denies any trauma to the scrotum. He denies any testicular pain. Patient states that his cousin had COVID a month ago but he did not feel like he got sick. [facility] Medical History Abnormal CT of the abdomen Back pain Bipolar depression Conn disease COPD (chronic obstructive pulmonary disease) Loli syndrome Depression Elevated LFTs Fatty liver GERD without esophagitis HLD (hyperlipidemia) HTN (hypertension) Moderate anxiety Narcolepsy Nicotine dependence, cigarettes, uncomplicated Obesity HANNAH (obstructive sleep apnea) Restrictive airway disease Seasonal allergies Seizures Home Medications ?Medication ?Instructions ?Recorded ?Last Taken ?Type levetiracetam 500 mg tablet 500 mg PO BID 03/17/18 05/23/18 History buspirone 15 mg tablet 1 tab PO BID 05/03/18 05/29/20 History atorvastatin 20 mg tablet 20 mg PO DAILY 09/18/18 Unknown History fluticasone propionate 50 1 spray NASAL DAILY 09/18/18 Unknown History mcg/actuation nasal spray,suspension ibuprofen 200 mg tablet 800 mg PO PRN PRN Pain 09/18/18 Unknown History cholecalciferol (vitamin D3) 50 2,000 unit PO DAILY 05/24/19 Unknown History mcg (2,000 unit) capsule omeprazole 40 mg capsule,delayed 40 mg PO DAILY 05/24/19 05/29/20 History release venlafaxine 150 mg tablet,extended 150 mg PO DAILY 05/24/19 Unknown History release 24 hr venlafaxine 75 mg capsule,extended 75 mg PO DAILY 12/29/19 Unknown History release 24 hr aripiprazole 5 mg tablet 5 mg PO DAILY 05/10/20 Unknown History cetirizine 10 mg tablet 10 mg PO DAILY 05/10/20 Unknown History hydrochlorothiazide 12.5 mg capsule 12.5 mg PO DAILY 05/10/20 Unknown History lisinopril 10 mg tablet 20 mg PO DAILY 05/10/20 05/29/20 History montelukast 10 mg tablet 10 mg PO DAILY 05/10/20 Unknown History prednisone 20 mg tablet 40 mg (2 x 20 mg) PO DAILY #8 tabs 03/24/21 Unknown Rx azithromycin 250 mg tablet See Rx Instructions PO .COMPLEX #6 04/02/22 Unknown Rx tabs sulfamethoxazole 800 1 tab PO BID #20 tabs 05/21/22 Unknown Rx mg-trimethoprim 160 mg tablet (Bactrim DS) cephalexin 500 mg capsule 500 mg PO Q6 #28 CAPSULES 06/01/24 Unknown Rx Allergy/AdvReac Type Severity Reaction Status Date / Time No Known Allergies Allergy Verified 06/01/24 15:44 Family History Mother Diabetes Thyroid disorder Father Hypertension Hyperlipidemia Uncle CVA (cerebral vascular accident) Surgical History H/O vasectomy History of esophagogastroduodenoscopy (EGD) tunica albuginea plication Social History Smoking Status: Current every day smoker tobacco type: cigarettes Tobacco: How many years used: 19 second hand exposure: Yes quit status: considering quitting alcohol intake: current alcohol intake frequency: a few times a month Alcohol type: other substance use type: does not use ROS ROS ED Review of Systems ROS Unobtainable: other Constitutional Constitutional ED: Reports lethargy; Denies chills, fever(s), sweats or weight loss Eyes Eyes: Denies blurry vision, change in vision or diplopia ENT ENT ED: Reports sore throat; Denies rhinorrhea Cardiovascular Cardiovascular: Denies chest pain, orthopnea or racing heartbeat Respiratory/Chest Respiratory/Chest: Reports cough; Denies dyspnea, dyspnea on exertion, orthopnea or sputum Gastrointestinal Gastrointestinal: Denies abdominal pain, diarrhea, nausea or vomiting Genitourinary Genitourinary ED: Reports other Details: Lesion on left scrotum ; Denies dysuria, hematuria or urinary frequency Musculoskeletal Musculoskeletal: Denies arthralgias, back pain, myalgias or neck pain Integumentary Denies abscess, Abrasions or rash Neurologic Neurologic: Denies headache(s) or weakness Psychiatric Psychiatric: Denies anxiety, depression or suicidal thoughts Endocrine Endocrinology: Denies polydipsia, polyphagia or polyuria Hematologic/Lymphatic Hematologic/Lymphatic: Denies easy bleeding, easy bruising or lymphadenopathy Allergic/Immunologic Allergic/Immunologic ED: Denies mouth swelling, tongue swelling or urticaria EXAM Physical Exam Const Vital Signs: 06/01/24 15:42 Temperature 98.5 F Temperature Source Oral Pulse Rate 90 Respiratory Rate 18 Blood Pressure 190/86 H Blood Pressure Mean 120 Pulse Ox 98 Oxygen Delivery Method Room Air Positive well nourished and well developed General Appearance ED: well developed and NAD HEENT Reports TM's clear and moist mucous membranes normocephalic and atraumatic; Negative for trauma or tenderness Tympanic Membrane ED: Yes TM's clear Eyes PERRL and EOMs intact bilaterally General Eye ED: Negative for pale conjunctiva or scleral icterus Neck no lymphadenopathy, supple and no JVD General: Negative for tenderness Chest Wall inspection of chest normal and palpation of chest normal Chest: Negative for tenderness Resp normal respiratory effort and clear to auscultation bilaterally Effort and Inspection: Negative for respiratory distress or pain with movement Auscultation: Negative for rhonchi, wheezes or diminished lung sounds Cardio regular rate, regular rhythm, S1 normal heart sound, S2 normal heart sound and no murmurs Peripheral Pulses: pulses 2+ throughout GI normal to inspection, nondistended, normoactive bowel sounds, soft to palpation, non-tender, non-distended and no masses Narrative: Evaluation of the scrotum does reveal a small pustule left posterior scrotum within the subcutaneous tissues. Slightly fluctuant. No cellulitic changes noted. He has no testicular pain. No masses palpated on the testicles or withi n the scrotum. Back/Spine no CVA tenderness and no thoracic nor lumbar tenderness Extremity normal to inspection General Extremety ED: Negative for edema General Extremity: Negative for edema Neuro oriented x3, CN's II-XII intact bilaterally, no sensory deficits noted and gait normal Sensorium / Orientation: awake, alert, oriented to person, oriented to place and oriented to time Motor Exam: strength 5/5 throughout and strength abnormal Psych mental status grossly normal Skin no rashes or lesions noted and no wounds MDM MDM MDM Narrative Medical decision making narrative: Patient with concern for possible COVID and states he has an appointment to see his primary care physician tomorrow and they wanted him to take a COVID test before coming in. Also with a small pustule on his left scrotum with history of abscesses. Patient on exam does have a small pustule and recommended I&D with a 18-gauge needle to attempt to drain the suspected small abscess or pustule. Patient in agreement. Area of the skin cleaned with a alcohol prep and using a 18-gauge needle the bevel was used to make a small incision into the suspected abscess and small amount of purulent and bloody debris was expressed. He tolerated this well. Clean dressing was applied. Will obtain a COVID flu and RSV test. Discharge Plan Triage Chief Complaint: Male Pain/Injury Other Complaint: Sore Throat ED Provider: Cathy Jeffries Dx/Rx/DC Orders Clinical Impression: Abscess of scrotal wall, Viral URI Instructions: ED Abscess Incision And Drainage, ED URI, Viral, No Abx (Adult) Prescriptions: New cephalexin 500 mg capsule 500 mg PO Q6 Qty: 28 0RF No Action venlafaxine 150 mg tablet extended release 24hr 150 mg PO DAILY cholecalciferol (vitamin D3) 2,000 unit capsule 2,000 unit PO DAILY omeprazole 40 mg capsule,delayed release(DR/EC) 40 mg PO DAILY azithromycin 250 mg tablet See Rx Instructions PO .COMPLEX Qty: 6 0RF Rx Instructions: take 500 mg today (day 1), then 250 mg for 4 days (days 2-5) PO levetiracetam 500 MG tablet 500 mg PO BID Patient Comments: TAKE ONE TABLET BY MOUTH TWICE DAILY buspirone 15 MG tablet 1 tab PO BID Patient Comments: TAKE 1/2 TABLET BY MOUTH TWICE DAILY FOR 2 WEEKS; THEN 1 WHOLE TABLETTWICE DAILY atorvastatin 20 MG tablet 20 mg PO DAILY ibuprofen 200 MG tablet 800 mg PO PRN PRN (Reason: Pain) fluticasone propionate 1 SPRAY spray,suspension 1 spray NASAL DAILY venlafaxine 75 MG capsule 75 mg PO DAILY cetirizine 10 MG tablet 10 mg PO DAILY lisinopril 10 MG tablet 20 mg PO DAILY hydrochlorothiazide 12.5 MG capsule 12.5 mg PO DAILY montelukast 10 MG tablet 10 mg PO DAILY aripiprazole 5 MG tablet 5 mg PO DAILY prednisone 20 mg tablet 40 mg PO DAILY Qty: 8 0RF sulfamethoxazole-trimethoprim [Bactrim DS] 800-160 mg tablet 1 tab PO BID Qty: 20 0RF Primary Care Provider: Care Physician,No Primary Referrals: Nora Mendoza PHOTOCOMPOSING MACHINE OPERATOR, PHOTOCOMPOSING MACHINE OPERATOR-C [Non-Staff] - Keep Juan M appointment Print Language: Citizen Of [place] Disposition Disposition: Home, Self Care
[2024-06-01] MEDS: Cephalexin 250 MG Capsule 500 MG PO (16:08)
== END 2024-06-01 17:16 | disposition home or self-care (01) ==
PROVIDERS: Emergency Provider Emergency Medicine; Visit Provider Emergency Medicine
DX: L02.214 Cutaneous abscess of groin (principal); F31.9 Bipolar disorder, unspecified; J44.9 Chronic obstructive pulmonary disease, unspecified; J06.9 Acute upper respiratory infection, unspecified; F17.210 Nicotine dependence, cigarettes, uncomplicated; I10 Essential (primary) hypertension; E78.5 Hyperlipidemia, unspecified; Z79.51 Long term (current) use of inhaled steroids; K21.9 Gastro-esophageal reflux disease without esophagitis; Z79.899 Other long term (current) drug therapy; Z98.52 Vasectomy status
CPT/HCPCS: 55100; 87631; 99283